=== PATIENT | male | born 1950 | race Caucasian/White ===

== ENCOUNTER 2017-08-04 11:47 | Emergency (ER) | payer BC ==
[2017-08-04 12:08] VITALS: BP 154/78
--- NOTE | 2017-08-04 12:44 | ED ---
Throat Pain/Nasal Congestion - HPI Summary HPI Summary: 66 yr old male with the complaint of sore throat. Onset yesterday. His grandchildren have tested positive for strep throat. He was blowing up balloons with them. No other complaints. No drooling, no stridor. - History of Current Complaint Chief Complaint: UCGeneralIllness Time Seen by Provider: 08/04/17 12:29 - Allergies/Home Medications Allergies/Adverse Reactions: Allergies Allergy/AdvReac Type Severity Reaction Status Date / Time No Known Allergies Allergy Verified 08/04/17 12:04 PMH/Surg Hx/FS Hx/Imm Hx Cardiovascular History: Denies: Hx Pacemaker/ICD Sensory History: Denies: Hx Hearing Aid Psychiatric History: Denies: Hx Panic Disorder - Surgical History Surgery Procedure, Year, and Place: Inguinal Herniorrhaphy, 1999, [place]; Tonsillectomy, ~1958, [place] Infectious Disease History: No Infectious Disease History: Denies: Traveled Outside the in Last 30 Days - Family History Known Family History: Positive: None - Social History Occupation: Retired Alcohol Use: 6 beers/daily Substance Use Type: Reports: None Smoking Status (MU): Former Smoker Length of Time of Smoking/Using Tobacco: On and Off x 3 Years Review of Systems Constitutional: Negative Positive: Sore Throat All Other Systems Reviewed And Are Negative: Yes Physical Exam Triage Information Reviewed: Yes Vital Signs On Initial Exam: Initial Vitals Temp Pulse Resp BP Pulse Ox 98.9 F 96 16 154/78 98 08/04/17 12:01 08/04/17 12:01 08/04/17 12:01 08/04/17 12:01 08/04/17 12:01 Vital Signs Reviewed: Yes Appearance: Positive: Well-Appearing, No Pain Distress Skin: Positive: Skin Color Reflects Adequate Perfusion Head/Face: Positive: Normal Head/Face Inspection Eyes: Positive: EOMI ENT: Positive: Pharyngeal erythema, TMs normal, Uvula midline. Negative: Tonsillar swelling, Tonsillar exudate, Muffled voice, Hoarse voice Neck: Positive: Nontender Respiratory/Lung Sounds: Positive: Clear to Auscultation, Breath Sounds Present Cardiovascular: Positive: RRR. Negative: Murmur Abdomen Description: Positive: Nontender Musculoskeletal: Positive: Strength/ROM Intact Neurological: Positive: Sensory/Motor Intact, Alert, Oriented to Person Place, Time, CN Intact II-III Psychiatric: Positive: Normal - Wykoff Coma Scale Best Eye Response: 4 - Spontaneous Best Motor Response: 6 - Obeys Commands Best Verbal Response: 5 - Oriented Coma Scale Total: 15 Diagnostics - Vital Signs Vital Signs Temp Pulse Resp BP Pulse Ox 08/04/17 12:01 98.9 F 96 16 154/78 98 - Laboratory Lab Results: Lab Results 08/04/17 Range/Units 12:22 Group A Strep Rapid Negative (Negative) Lab Statement: Any lab studies that have been ordered have been reviewed, and results considered in the medical decision making process. EENT Course/Dx - Course Course Of Treatment: Sore throat, HTN. WIll rx with amox due to the strep exposures and putting balloon in his mouth that was in his grandkids mouth. - Diagnoses Provider Diagnoses: Pharyngitis Discharge - Sign-Out/Discharge Documenting (check all that apply): Discharge/Admit/Transfer - Discharge Plan Condition: Good Disposition: HOME Prescriptions: Amoxicillin PO (*) [Amoxicillin 500 MG CAP*] 500 mg PO TID #30 cap Patient Education Materials: Pharyngitis (ED), Hypertension (ED) Referrals: Gary Mcintosh MD [Primary Care Provider] - 2 Days - Billing Disposition and Condition Condition: GOOD Disposition: HOME
== END 2017-08-04 12:46 | disposition home or self-care (01) ==
LOC: UCCORT 11:47
DX: J02.9 Acute pharyngitis, unspecified (principal); I10 Essential (primary) hypertension; Z20.828 Contact with and (suspected) exposure to other viral communicable diseases; Z87.891 Personal history of nicotine dependence
CPT/HCPCS: 87651; 99212; G0463

== ENCOUNTER 2017-11-23 12:47 | Emergency (ER) | payer BC ==
[2017-11-23 13:24] VITALS: BP 160/79
--- NOTE | 2017-11-23 13:30 | UC ---
Skin Complaint HPI - HPI Summary HPI Summary: 67 year old male with skin concern . 1) ~1x0.5cm blister on right proximal second finger, dorsal aspect for five days. Erythema at base and ~1.5mm discolored area distal to blister. 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 2) Increased bruising for one year. Takes a daily baby aspirin. Has a history of hemochromatosis and no acute concerns as he does give blood every 56 days on on a cross[place]country trip home and wants to make sure there is no concern for infection before he leaves. He otherwise feels great [ End ] - History of Current Complaint Chief Complaint: UCSkin Time Seen by Provider: 11/23/17 13:27 Stated Complaint: BLISTER ON FINGER Hx Obtained From: Patient Onset/Duration: Gradual Onset Timing: Constant Onset Severity: Mild Current Severity: Mild Pain Intensity: 0 - Allergy/Home Medications Allergies/Adverse Reactions: Allergies Allergy/AdvReac Type Severity Reaction Status Date / Time No Known Allergies Allergy Verified 11/23/17 13:24 Home Medications: Home Medications Aspirin EC TAB* [Ecotrin EC Low Dose 81 MG*] 81 mg PO DAILY 11/23/17 [History Confirmed 11/23/17] Sildenafil Citrate 50 mg PO SEE INSTRUCTIONS PRN 11/23/17 [History Confirmed 09/04] amLODIPine TAB* [Norvasc 5 mg TAB*] 2.5 mg PO DAILY 11/23/17 [History Confirmed 11/23/17] Review of Systems Skin: Bruising - easy, Other - blister Is Patient Immunocompromised?: No All Other Systems Reviewed And Are Negative: Yes PMH/Surg Hx/FS Hx/Imm Hx Previously Healthy: Yes - history of hemochromatosis Cardiovascular History: Hypertension - Surgical History Surgical History: Yes Surgery Procedure, Year, and Place: Right Inguinal Herniorrhaphy, 1999, [place] ; Tonsillectomy, ~1958, [place] - Family History Known Family History: Positive: None - Social History Alcohol Use: 5-6 daily Substance Use Type: None Smoking Status (MU): Former Smoker Length of Time of Smoking/Using Tobacco: On and Off x 3 Years When Did the Patient Quit Smoking/Using Tobacco: ~1991 Physical Exam Triage Information Reviewed: Yes Appearance: Well-Appearing, No Pain Distress, Well-Nourished Vital Signs: Initial Vital Signs Temp 97.6 F 11/23/17 13:19 Pulse 82 11/23/17 13:19 Resp 16 11/23/17 13:19 BP 160/79 11/23/17 13:19 Pulse Ox 100 11/23/17 13:19 Vital Signs Reviewed: Yes Eye Exam: Normal ENT Exam: Normal Dental Exam: Normal Neck exam: Normal Neck: Positive: 1 Respiratory Exam: Normal Cardiovascular Exam: Normal Musculoskeletal Exam: Normal Neurological Exam: Normal Psychological Exam: Normal Skin Exam: Normal Skin: Positive: significant lesion(s) - Small circular bruising on bilateral hands 2 x 2 mm. No significant ecchymosis or bruising. No swelling or effusion., Other - Small alveolar raised blister approximately 1.5 mm. No drainage. No surrounding erythema or streaking. No major tenderness to palpation. Fifth finger. Normal capillary refill and peripheral pulses are brisk. No other concerns. Course/Dx - Course Course Of Treatment: No acute concerns for infection at this time continue to monitor. I did place bacitracin as well as a Band-Aid over the blister to help prevent infection. He is aware to follow up with primary care physician if there is any concern for infection. Recent blood work no significant anemia and likely secondary to his use of aspirin and his age. Physical concerns. - Diagnoses Provider Diagnoses: Blister of right index finger. Hypertension Discharge - Sign-Out/Discharge Documenting (check all that apply): Patient Departure All imaging exams completed and their final reports reviewed: No Studies - Discharge Plan Condition: Good Disposition: HOME Patient Education Materials: Hypertension (ED), Blister (ED) Referrals: Gary Mcintosh MD [Primary Care Provider] - 4 Days (if any concerns ) - Billing Disposition and Condition Condition: GOOD Disposition: Home
== END 2017-11-23 13:44 | disposition home or self-care (01) ==
LOC: UCCORT 12:47
DX: X58.XXXA Exposure to other specified factors, initial encounter (principal); Y93.9 Activity, unspecified; Y92.9 Unspecified place or not applicable; S60.420A Blister (nonthermal) of right index finger, initial encounter; Z86.39 Personal history of other endocrine, nutritional and metabolic disease; I10 Essential (primary) hypertension; Z87.891 Personal history of nicotine dependence
CPT/HCPCS: 99212; G0463

== ENCOUNTER 2018-05-08 09:47 | Emergency (ER) | payer MEDICARE, BC ==
--- OUTSIDE RECORDS SUMMARY | 2018-05-08 10:55 | XMS REPORT | Continuity of Care Document ---
:1950 External Reference #:[id number] Author Name Angelica Barrera Care Team Providers Name Role Phone Gary Mcintosh MD Care Team Information Mechanic Insulator Unavailable Gary Mcintosh MD Primary Care Physician Unavailable Payers Date Identification Numbers Payment Provider Subscriber Policy Number: [id number] Medicare Rob Chaudhary PayID: [id number] [address] [facility] [place] [address] Policy Number: [id number] [facility] Rob Chaudhary PayID: [id number] [address] [address] [place] [address] Advance Directives Description No Information Available Problems Description No Information Family History Date Family Member(s) Observation Comments General Arthritis Mother General Asthma Mother General Prostate Cancer Father General Chronic Obstructive Pulmonary Disease Mother (COPD) General No Current Problems Father due to Hepaptitis C () - age 79 Mother due to Natural Causes () - age 90 First Brother 67 First Brother No Current Problems First Sister 69 First Sister No Current Problems Social History Type Date Description Comments Sex Male Marital Status Sleep Typically sleeps 8 hours a night Sleep Reports snoring that disturbs sleep Smoke-Free Home is smoke-free Pets 1 dog Work Status Not Currently Working Blood Donor Patient is a blood donor Tobacco Use Start: Unknown End: Former Cigarette Smoker Unknown ETOH Use Daily Use Of Alcohol Recreational Drug Use Denies Drug Use Allergies, Adverse Reactions, Alerts Description No Known Drug Allergies Medications Medication Date Status Form Strength Qnty SIG Indications Ordering Provider Amlodipine Active Tablets 2.5mg 1 by Unknown Besylate 00 mouth every day Immunizations Description No Information Available Vital Signs Date Vital Result Comment 05/01/2018 8:51am Weight 201.00 lb Height 71 inches 5'11" BMI (Body Mass Index) 28.0 kg/m2 BP Systolic 151 mmHg BP Diastolic 84 mmHg Heart Rate 99 /min O2 % BldC Oximetry 97 % Body Temperature 97.9 F Pain Level 0 04/10/2018 10:31am Weight 196.00 lb Height 71 inches 5'11" BMI (Body Mass Index) 27.3 kg/m2 BP Systolic 142 mmHg BP Diastolic 89 mmHg Heart Rate 97 /min O2 % BldC Oximetry 98 % Body Temperature 96.6 F Franklin Score 8 Neck Circumference in inches 16 Pain Level 0 Results Description No Information Available Procedures Date Code Description Status 04/12/2018 16517 Sleep Staging 4Or More Para Completed 04/10/2018 53435 Fiberoptic Laryngoscopy,Diag. Completed 01/18/2018 64138658 Colonoscopy Completed Encounters Type Date Location Provider Dx Diagnosis Office Visit 04/10/2018 10:30a Main Office Darnell Barrientos M.D. R06.83 Snoring G47.9 Sleep disorder, unspecified J34.2 Deviated nasal septum Plan of Treatment No Information Available
--- OUTSIDE RECORDS SUMMARY | 2018-05-08 10:55 | XMS REPORT | Continuity of Care Document ---
:1950 External Reference #:[id number] Author Name Angelica Barrera Care Team Providers Name Role Phone Gary Mcintosh MD Care Team Information Top Stop Attacher Unavailable Gary Mcintosh MD Primary Care Physician Unavailable Payers Type Date Identification Numbers Payment Provider Subscriber Policy Number: [id number] Medicare Rob Chaudhary PayID: [id number] [address] [place] [address] Policy Number: [id number] [facility] Rob Chaudhary PayID: [id number] [address] [address] [place] [address] Advance Directives Description No Information Available Problems Description No Information Family History Date Family Member(s) Problem(s) Comments General Arthritis Mother General Asthma Mother [...] Available Vital Signs Date Vital Result Comment 04/10/2018 10:31am Weight 196.00 lb Height 71 inches 5'11" BMI (Body Mass Index) 27.3 kg/m2 BP Systolic 142 mmHg BP Diastolic 89 mmHg Heart Rate 97 /min O2 % BldC Oximetry 98 % Body Temperature 96.6 F Santee Score 8 Neck Circumference in inches 16 Pain Level 0 Results Description No Information Available Procedures Date Code Description Status 01/18/2018 97861364 Colonoscopy Completed Encounters Description No Information Available Plan of Treatment No Information Available
[2018-05-08 11:07] VITALS: BP 126/70
--- NOTE | 2018-05-08 11:22 | UC ---
Skin Complaint HPI - HPI Summary HPI Summary: rash mid chest area x 10 days getting worse and spreading, + itchy , no significant pain , worse with moisture and heat, better when is cool no new soap , detergent , food or drinks no fever, no chills - History of Current Complaint Chief Complaint: UCSkin Time Seen by Provider: 05/08/18 11:10 Stated Complaint: SKIN COMPLAINT Hx Obtained From: Patient Onset/Duration: Gradual Onset, Lasting Days - 10, Still Present Timing: Constant Onset Severity: Moderate Current Severity: Moderate Pain Intensity: 1 Location: Discrete - mid chest wall Character: Pruritus, Redness, Raised Aggravating Factor(s): Humidity, Touch Alleviating Factor(s): Cold Associated Signs & Symptoms: Negative: Nausea, Vomiting, Numbness, Diaphoresis, Weakness, Fever, Chills, Drainage - Allergy/Home Medications Allergies/Adverse Reactions: Allergies Allergy/AdvReac Type Severity Reaction Status Date / Time No Known Allergies Allergy Verified 05/08/18 11:00 PMH/Surg Hx/FS Hx/Imm Hx Cardiovascular History: Hypertension - Surgical History Surgical History: Yes Surgery Procedure, Year, and Place: Right Inguinal Herniorrhaphy, 1999, [place] ; Tonsillectomy, ~1958, [place] - Family History Known Family History: Positive: None Negative: Diabetes - Social History Alcohol Use: Daily Alcohol Amount: 6-pack/day Substance Use Type: None Smoking Status (MU): Former Smoker Length of Time of Smoking/Using Tobacco: On and Off x 3 Years When Did the Patient Quit Smoking/Using Tobacco: ~1991 - Immunization History Most Recent Tetanus Shot: UTD Review of Systems All Other Systems Reviewed And Are Negative: Yes Constitutional: Positive: Negative Skin: Positive: Rash Eyes: Positive: Negative ENT: Positive: Negative Respiratory: Positive: Negative Is Patient Immunocompromised?: No Physical Exam Triage Information Reviewed: Yes Appearance: Well-Appearing, No Pain Distress, Well-Nourished Vital Signs: Initial Vital Signs Temp 97.3 F 05/08/18 11:02 Pulse 73 05/08/18 11:02 Resp 16 05/08/18 11:02 BP 126/70 05/08/18 11:02 Pulse Ox 99 05/08/18 11:02 Vital Signs Reviewed: Yes Eye Exam: Normal ENT: Positive: Normal ENT inspection, Hearing grossly normal Neck: Positive: Supple, Nontender, No Lymphadenopathy Respiratory: Positive: Chest non-tender, Lungs clear, Normal breath sounds Cardiovascular: Positive: RRR, No Murmur, Pulses Normal Skin: Positive: Rashes - papular rash mid chest wall , + erythema, not tender to touch , Course/Dx - Diagnoses Provider Diagnosis: Folliculitis Discharge - Sign-Out/Discharge Documenting (check all that apply): Patient Departure All imaging exams completed and their final reports reviewed: No Studies - Discharge Plan Condition: Stable Disposition: HOME Prescriptions: Cephalexin CAP* [Keflex CAP*] 500 mg PO TID #30 cap Triamcinolone 0.1% CREAM (NF) [Kenalog 0.1% Cream (NF)] 1 applic TOPICAL BID # 60 gm Patient Education Materials: Folliculitis (ED) Referrals: Gary Mcintosh MD [Primary Care Provider] - If Needed - Billing Disposition and Condition Condition: STABLE Disposition: Home
== END 2018-05-08 11:24 | disposition home or self-care (01) ==
LOC: UCCORT 09:47
DX: L73.9 Follicular disorder, unspecified (principal); I10 Essential (primary) hypertension; Z87.891 Personal history of nicotine dependence
CPT/HCPCS: 99212; G0463

== ENCOUNTER 2018-05-18 09:48 | Emergency (ER) | payer MEDICARE, BC ==
[2018-05-18 10:39] VITALS: BP 139/82
--- NOTE | 2018-05-18 11:00 | UC ---
Upper Extremity HPI - HPI Summary HPI Summary: 57-year-old male presents with complaints of right wrist pain after slipping on some ice yesterday and striking the back of his wrist on the ground. Denies hitting head, loss of consciousness, or any other injury. Notes some bruising and mild swelling to the back of his mid right wrist. Also reports diminished extension of the wrist due to pain. Denies numbness or tingling. - History of Current Complaint Chief Complaint: UCUpperExtremity Stated Complaint: S/P FALL-(05/17/18)RT WRIST INJURY Time Seen by Provider: 05/18/18 10:47 Hx Obtained From: Patient Pain Intensity: 5 - Allergies/Home Medications Allergies/Adverse Reactions: Allergies Allergy/AdvReac Type Severity Reaction Status Date / Time No Known Allergies Allergy Verified 05/18/18 10:36 PMH/Surg Hx/FS Hx/Imm Hx Previously Healthy: Yes Cardiovascular History: Hypertension - Surgical History Surgical History: Yes Surgery Procedure, Year, and Place: Right Inguinal Herniorrhaphy, 1999, [place] ; Tonsillectomy, ~1958, [place] - Family History Known Family History: Positive: Non-Contributory - Social History Occupation: Retired Lives: With Family Alcohol Use: Daily Alcohol Amount: 6-pack/day Substance Use Type: None Smoking Status (MU): Former Smoker Length of Time of Smoking/Using Tobacco: On and Off x 3 Years When Did the Patient Quit Smoking/Using Tobacco: ~1991 - Immunization History Most Recent Tetanus Shot: UTD Review of Systems All Other Systems Reviewed And Are Negative: Yes Constitutional: Negative: Fever, Chills Skin: Positive: Bruising Respiratory: Positive: Negative Cardiovascular: Positive: Negative Gastrointestinal: Positive: Negative Genitourinary: Positive: Negative Motor: Negative: Weakness Neurovascular: Negative: Decreased Sensation Musculoskeletal: Positive: Other: - See HPI Neurological: Positive: Negative Is Patient Immunocompromised?: No Physical Exam - Summary Physical Exam Summary: GENERAL APPEARANCE: Well developed, well nourished, alert and cooperative, and appears to be in no acute distress. HEAD: Atraumatic. normocephalic. NECK: Neck supple, non-tender. CARDIAC: Normal S1 and S2. No S3, S4 or murmurs. Rhythm is regular. There is no peripheral edema, cyanosis or pallor. Extremities are warm and well perfused. Capillary refill is less than 2 seconds. Peripheral pulses intact. LUNGS: Clear to auscultation without rales, rhonchi, wheezing or diminished breath sounds. ABDOMEN: Positive bowel sounds. Soft, nondistended, nontender. No guarding or rebound. No masses or hepatosplenomegally. MUSKULOSKELETAL: Normal muscular development. Normal gait. BACK: Examination of the spine reveals normal posture, no spinal deformity or tenderness, decreased range of motion or muscular spasm. EXTREMITIES: Mild tenderness with ecchymosis to the mid right wrist without gross deformity. Active flexion diminished due to pain. Circulation and sensation intact distally. SKIN: Skin normal color, texture and turgor with no lesions or eruptions. Triage Information Reviewed: Yes Vital Signs: Initial Vital Signs Temp 97.9 F 05/18/18 10:34 Pulse 76 05/18/18 10:34 Resp 15 05/18/18 10:34 BP 139/82 05/18/18 10:34 Pulse Ox 99 05/18/18 10:34 Vital Signs Reviewed: Yes Diagnostics - Radiology No standard instances Radiology Interpretation Completed By: Radiologist Summary of Radiographic Findings: Patient Name: LUIS ALBERTO YEE Medical Record#: [id number]. Ordering Physician: Eric Alvarez NP Acct.#: [id number]. : 1950 Age: 67 Sex: M Location: [facility]. Exam Date: 05/18/181103 ADM Status: REG ER. Order Information: WRIST RIGHT 3 + VWS. Accession Number: [id number]. CPT: 68646. HISTORY: pain s/p fall right wrist pain. COMPARISONS: None. VIEWS: 3, Frontal, lateral, and oblique views of the right wrist. FINDINGS: BONE DENSITY: Normal. BONES: There is no displaced fracture. JOINTS: There is no arthropathy. ALIGNMENT: There is no dislocation. SOFT TISSUES: Unremarkable. OTHER FINDINGS: None. IMPRESSION: NO ACUTE OSSEOUS INJURY. Upper Extremity Course/Dx - Course Course Of Treatment: 57-year-old male presents with complaints of right wrist pain after slipping on some ice yesterday and striking the back of his wrist on the ground. Denies hitting head, loss of consciousness, or any other injury. Notes some bruising and mild swelling to the back of his mid right wrist. Also reports diminished extension of the wrist due to pain. Denies numbness or tingling. Afebrile. Vital signs stable. Exam reveals dental male in no acute distress with mild tenderness and ecchymosis to his mid right wrist without gross deformity. There is some diminished active range of motion especially with extension due to pain. Circulation and sensation intact distally. X-ray showed no acute fracture or dislocation. Recommending symptomatic treatment with acetaminophen and RICE for a contusion of the right wrist. He is to follow -up with his primary care provider in 7 days if symptoms do not improve. Anticipatory guidance hands warning symptoms were reviewed with the patient. Verbalizes understanding and agrees with plan of care. - Differential Dx/Diagnosis Differential Diagnosis/HQI/PQRI: Contusion, Fracture (Closed), Sprain Provider Diagnosis: Contusion of right wrist Discharge - Sign-Out/Discharge Documenting (check all that apply): Patient Departure All imaging exams completed and their final reports reviewed: Yes - Discharge Plan Condition: Stable Disposition: HOME Patient Education Materials: Contusion in Adults (ED) Referrals: Gary Mcintosh MD [Primary Care Provider] - 7 Days (If no improvement in symptoms.) Additional Instructions: The x-ray performed in the clinic today showed no evidence of a fracture. I suspect that you have a contusion (bruise) of the wrist. Rest the wrist as much as possible. Avoid heavy lifting or strenuous activity until pain subsides. Apply ice to the affected area for 15-20 minutes at least 4 times a day to help with pain and swelling. Elevated the arm at the level of your heart to help reduce any swelling. May take over the counter acetaminophen (Tylenol) according to directions as needed for pain. Follow up with your primary care provider in 7 days if no improvement in symptoms. Seek immediate medical attention if you have worsening of pain despite taking pain medication, develop numbness or tingling in the hand or fingers, lose function of the extremity, or any worsening of symptoms. - Billing Disposition and Condition Condition: STABLE Disposition: Home - Attestation Statements Provider Attestation: Per institutional requirements, I have reviewed the chart, however, I was not consulted specifically or made aware of this patient by the midlevel provider. I did not personally evaluate, interact with , or disposition this patient.
== END 2018-05-18 11:48 | disposition home or self-care (01) ==
LOC: UCCORT 09:48
DX: S60.211A Contusion of right wrist, initial encounter (principal); I10 Essential (primary) hypertension; Z87.891 Personal history of nicotine dependence; W00.0XXA Fall on same level due to ice and snow, initial encounter; Y92.9 Unspecified place or not applicable
CPT/HCPCS: 99211; G0463

== ENCOUNTER 2018-08-21 10:48 | Emergency (ER) | payer MEDICARE, BC ==
--- OUTSIDE RECORDS SUMMARY | 2018-08-21 11:00 | XMS REPORT | Continuity of Care Document ---
:1950 External Reference #:[id number] Author Name Sue Riggs Care Team Providers Name Role Phone Gary Mcintosh MD Primary Care Physician Unavailable Payers Date Identification Numbers Payment Provider Subscriber Policy Number: [id number] Medicare Rob Chaudhary PayID: [id number] [address] [place] [address] Effective: 1993 Policy Number: [id number] [facility] Rob Chaudhary Group Number: [id number] [address] PayID: [id number] [place] [address] Problems Active Problems Provider Date Mitral valve disorder Gauss, Gary Onset: 11/23/2010 Benign hypertensive heart disease without congestive Gauss, Gary Onset: 11/23 heart failure Hyperlipidemia Gauss, Gary Onset: 11/23/2010 Osteoporosis Gauss, Gary Onset: 11/23/2010 Palpitations Gauss, Gary Onset: 11/23/2010 Dyspnea Gauss, Gary Onset: 11/23/2010 Needs influenza immunization Gauss, Gary Onset: 11/23/2010 Acquired trigger finger Gauss, Gary Onset: 11/23/2010 Carotid artery occlusion Gauss, Gary Onset: 11/23/2010 Injury of finger Gauss, Gary Onset: 11/23/2010 General Gauss, Gary Onset: 11/23/2010 Sciatica Gauss, Gary Onset: 11/23/2010 Right lower quadrant pain Gauss, Gary Onset: 11/23/2010 Acute pharyngitis Gauss, Gary Onset: 11/23/2010 Heart murmur Gauss, Gary Onset: 11/23/2010 Acute bronchitis Gauss, Gary Onset: 11/23/2010 Chronic sinusitis Gauss, Gary Onset: 11/23/2010 Sprain of joint Gauss, Gary Onset: 11/23/2010 Abdominal pain Jaspal Mcintoshl Onset: 11/23/2010 Family History Date Family Member(s) Observation Comments General Hemochromatosis General Hepatitis C FATHER Father Hepatitis C Social History Type Date Description Comments Sex Unknown Marital Status Tobacco Use Start: Unknown Denies Smoking ETOH Use Occasionally consumes beer Tobacco Use Start: Unknown End: Patient is a former smoker Unknown Recreational Drug Use Never Used Drugs Smoking Status Reviewed: 02/27/17 Patient is a former smoker Seat Belt/Car Seat Always uses a seat belt Currently Active The patient is currently sexually active Allergies, Adverse Reactions, Alerts Active Allergies Reaction Severity Comments Date NKDA 11/23/2010 menthyl 09/07/2005 Medications Active Medications SIG Qnty Indications Ordering Provider Date Tamsulosin HCL 1 by mouth every 90caps N40.1 Gary Mcintosh 08/14/2018 0.4mg day Capsules Doxazosin Mesylate 1 PO QHS 30tabs N40.1 Gary Mcintosh 08/14/2018 2mg Tablets Amlodipine Besylate 1 by mouth every 90tabs I11.9 Gary Mcintosh 08/14/2018 5mg day Tablets Basia Allergy 1 by mouth every 30tabs T78.40xD Arnaldo Gary 08/14/2018 180mg day Tablets Fluticasone 2 spray each 16gm T78.40xD Arnaldo Gary 08/14/2018 Propionate nostril every day 50mcg/Act Suspension Viagra 1 by mouth as 6tabs F52.21 Gary Mcintosh 02/27/2017 50mg Tablets needed History Medications Doxycycline 1 by mouth twice 14caps S70.262A Gary Mcintosh 01/29/2018 - Monohydrate a day 03/19/2018 100mg Capsules Amlodipine Besylate 1 by mouth every 90tabs I11.9 Gary Mcintosh 09/19/2017 - day 08/14/2018 2.5mg Tablets Guaifenex LA 1 by mouth twice 14tabs J20.9 Gary Mcintosh 04/24/2017 - 600mg a day as needed 09/04/2017 Tablets ER 12HR Azithromycin 2 by mouth 6tabs J20.9 Gary Mcintosh 04/24/2017 - 250mg today, 1 by 09/04/2017 Tablets mouth day 2 thru 5 Aspirin Regimen Low Gary Mcintosh 01/17/2017 - Dose Adult 01/29/[address] Azithromycin 2 by mouth 6tabs J11.83 Gary Mcintosh 05/02/2016 - 250mg today, 1 by 01/17/2017 Tablets mouth day 2 thru 5 Naproxen 1 by mouth twice 60tabs M54.5 Gary Mcintosh 01/26/2016 - 500mg Tablets a day as needed 09/04/2017 Amoxicillin/Potassium Gary Mcintosh 10/20/2015 - Clavulanate 10/20/2015 875-125mg Tablets Diflucan 1 by mouth every 14tabs B35.9 Gary Mcintosh 10/20/2015 - 200mg Tablets day 11/04/2015 Doxycycline Hyclate 1 by mouth twice 28caps B35.9 Gary Mcintosh 10/20/2015 - a day 01/12/2016 100mg Capsules No Active Medications Unknown 05/05/2015 - 05/05/2015 Zostavax injection as 1units Gary Mcintosh 05/05/2015 - ordered 03/19/2018 94606Elb/0.65ML Solution Rec Amoxicillin/Clavulana 1 by mouth twice 14tabs J20.8 Tyra Arnaldo, 2014 - te Potassium a day M.D. 05/05/2015 500-125mg Tablets Tobramycin-Dexamethas 1-2 gtts OU qid 10ml 372.30 Gary Mcintosh 01/08/2014 - one 01/12/2015 0.3-0.1% Suspension Pravastatin Sodium 1 po qd 90tabs 272.4 Gary Mcintosh 06/11/2013 - 20mg 01/12/2015 Tablets Aspirin Low Dose 1 po qd 100tabs Gary Mcintosh 05/20/2013 - 81mg 01/12/2015 Tablets Doxy 100 1 PO bid 28units 082.8 Gary Mcintosh 01/22/2013 - 100mg Solution 05/20/2013 Rec Doxycycline 1 po bid 20caps 911.5 Gary Mcintosh 07/03/2012 - Monohydrate 07/09/2012 100mg Capsules Doxycycline Hyclate 1 po bid 20caps 402.10 Gary Mcintosh 01/24/2011 - 05/16/2011 100mg Capsules Pravastatin Sodium 1 po qd 90tabs 272.4 Jaspal Mcintoshl 11/23/2010 - 40mg 06/11/2013 Tablets Naproxen 1 po bid with 30tabs 959.5 Jaspal Mcintoshl 03/31/2009 - 500mg Tablets food 11/23/2010 Fish Oil qd Arnadlo Gary 11/18/2008 - 1000mg 11/23/2010 Capsules Vit D Arnaldo Gary 02/05/2007 - Caplets 11/18/2008 Asa 81 Jaspal Mcintoshl 02/05/2007 - 81mg 11/18/2008 [facility] Jaspal Mcintoshl 11/29/2006 - 05/05/2015 Zetia 1 PO qd 90tabs Arnaldo Gary 07/10/2006 - 10mg Tablets 11/18/2008 Lipitor 1 po qd 90tabs 272.40 Arnaldo Gary 05/17/2006 - 20mg Tablets 07/10/2006 [facility] 1 po qd Arnaldo Gary 09/07/2005 - 09/07/2005 Multivitamins Arnaldo Gary 09/07/2005 - Caplets 01/12/2015 Amoxicillin 2 po bid 40tabs 466.0 Jaspal Mcintoshl 09/07/2005 - 500mg 2005 Tablets Nystatin-Triamcinolon apply affected Unknown - e area as 01/17/2017 412369-5.1Unit/GM-% indicated twice Cream a day Medications Administered in Office Medication SIG Qnty Indications Ordering Provider Date H1N1 Administration-Use Arnaldo Gary 01/26/2009 Injection Immunizations CPT Code Status Date Vaccine Lot # [id number] Given 03/19/2018 Influenza Virus (Afluria) Split Virus 3 Years [id number] Of Age And Older 34001 Given 03/19/2018 Pneumovax Polyvalent Inj Im [id number] Given 01/17/2017 Influenza Virus (Afluria) Split Virus 3 Years Of Age And Older 22886 Given 06/03/2015 Zostavax 63308 Given 11/23/2010 Tetanus,Diphtheria,Adut/Adol Pertussis [id number] 99548 Given 11/23/2010 Tetanus Shot 45788 Given 12/17/2009 Influenza Vaccine 62779 Given 12/11/2008 Influenza Vaccine [id number] 36856 Given 04/01/2003 Influenza Virus Vaccine (History Only) 00073 Given 11/23/2001 DT Immunization DIP/Tet (History Only) Vital Signs Date Vital Result Comment 08/14/2018 10:50am BP Systolic 158 mmHg BP Diastolic 92 mmHg Heart Rate 72 /min Weight 195.00 lb 03/19/2018 10:15am BP Systolic 140 mmHg BP Diastolic 86 mmHg Heart Rate 61 /min Height 72 inches 6'0" Weight 192.00 lb BMI (Body Mass Index) 26.0 kg/m2 O2 % BldC Oximetry 99 % 01/29/2018 3:28pm BP Systolic 134 mmHg BP Diastolic 78 mmHg Heart Rate 79 /min Height 72 inches 6'0" O2 % BldC Oximetry 97 % 09/19/2017 11:27am BP Systolic 146 mmHg BP Diastolic 80 mmHg Height 72 inches 6'0" Weight 193.00 lb BMI (Body Mass Index) 26.2 kg/m2 09/04/2017 11:56am BP Systolic 160 mmHg BP Diastolic 88 mmHg Heart Rate 90 /min Height 72 inches 6'0" Weight 194.00 lb BMI (Body Mass Index) 26.3 kg/m2 O2 % BldC Oximetry 96 % 08/08/2017 11:08am BP Systolic 132 mmHg BP Diastolic 78 mmHg Heart Rate 80 /min Body Temperature 97.1 F Height 72 inches 6'0" Weight 192.00 lb BMI (Body Mass Index) 26.0 kg/m2 O2 % BldC Oximetry 97 % 04/24/2017 10:03am BP Systolic 148 mmHg BP Diastolic 98 mmHg Heart Rate 103 /min Body Temperature 97.6 F Respiratory Rate 18 /min Height 72 inches 6'0" Weight 192.00 lb BMI (Body Mass Index) 26.0 kg/m2 O2 % BldC Oximetry 97 % 03/21/2017 10:24am BP Systolic 154 mmHg BP Diastolic 80 mmHg Heart Rate 64 /min Respiratory Rate 20 /min 02/27/2017 11:29am BP Systolic 128 mmHg BP Diastolic 68 mmHg Height 72 inches 6'0" Weight 192.00 lb BMI (Body Mass Index) 26.0 kg/m2 01/17/2017 11:20am BP Systolic 122 mmHg BP Diastolic 68 mmHg Height 72 inches 6'0" Weight 193.00 lb BMI (Body Mass Index) 26.2 kg/m2 05/02/2016 2:05pm BP Systolic 130 mmHg BP Diastolic 68 mmHg Body Temperature 97.7 F 01/26/2016 11:10am BP Systolic 144 mmHg BP Diastolic 80 mmHg 01/12/2016 11:26am BP Systolic 122 mmHg BP Diastolic 70 mmHg 11/04/2015 1:30pm BP Systolic 138 mmHg BP Diastolic 70 mmHg 05/05/2015 10:38am BP Systolic 132 mmHg BP Diastolic 68 mmHg Height 72 inches 6'0" Weight 174.00 lb BMI (Body Mass Index) 23.6 kg/m2 03/04/2015 3:14pm BP Systolic 122 mmHg BP Diastolic 70 mmHg Body Temperature 97.8 F 02/24/2015 11:30am BP Systolic 120 mmHg BP Diastolic 80 mmHg 01/12/2015 2:48pm BP Systolic 150 mmHg BP Diastolic 72 mmHg Height 72 inches 6'0" Weight 189.00 lb BMI (Body Mass Index) 25.6 kg/m2 01/08/2014 11:10am BP Systolic 132 mmHg BP Diastolic 70 mmHg Body Temperature 96.7 F 06/11/2013 11:03am BP Systolic 140 mmHg BP Diastolic 78 mmHg 05/20/2013 2:26pm BP Systolic 146 mmHg BP Diastolic 82 mmHg Height 72 inches 6'0" Weight 199.00 lb BMI (Body Mass Index) 27.0 kg/m2 01/29/2013 2:32pm BP Systolic 124 mmHg BP Diastolic 60 mmHg 01/22/2013 3:22pm BP Systolic 118 mmHg BP Diastolic 72 mmHg Body Temperature 97.5 F Height 72 inches 6'0" 07/09/2012 3:39pm BP Systolic 130 mmHg BP Diastolic 70 mmHg Height 72 inches 6'0" 07/03/2012 1:58pm BP Systolic 130 mmHg BP Diastolic 68 mmHg Body Temperature 95.4 F Height 72 inches 6'0" 04/23/2012 2:53pm BP Systolic 122 mmHg BP Diastolic 70 mmHg Height 72 inches 6'0" Weight 200.00 lb BMI (Body Mass Index) 27.1 kg/m2 03/26/2012 3:04pm BP Systolic 154 mmHg BP Diastolic 78 mmHg Heart Rate 76 /min Height 72 inches 6'0" 05/16/2011 3:42pm BP Systolic 140 mmHg BP Diastolic 90 mmHg Height 72 inches 6'0" 04/27/2011 10:53am BP Systolic 122 mmHg BP Diastolic 70 mmHg Body Temperature 95.2 F Height 72 inches 6'0" 01/24/2011 2:55pm BP Systolic 189 mmHg BP Diastolic 84 mmHg Body Temperature 98.8 F Height 72 inches 6'0" 01/11/2011 11:49am BP Systolic 148 mmHg BP Diastolic 82 mmHg Height 72 inches 6'0" Weight 202.00 lb BMI (Body Mass Index) 27.4 kg/m2 11/23/2010 3:47pm BP Systolic 132 mmHg BP Diastolic 78 mmHg Height 72 inches 6'0" 11/16/2009 10:15am BP Systolic 140 mmHg BP Diastolic 80 mmHg Weight 193.00 lb 05/18/2009 3:48pm BP Systolic 148 mmHg BP Diastolic 92 mmHg Weight 206.00 lb 03/31/2009 2:53pm BP Systolic 104 mmHg BP Diastolic 64 mmHg Weight 200.00 lb 11/18/2008 1:32pm BP Systolic 134 mmHg BP Diastolic 84 mmHg Weight 191.00 lb 02/05/2007 3:23pm BP Systolic 122 mmHg BP Diastolic 78 mmHg Height 72 inches 6'0" Weight 189.31 lb BMI (Body Mass Index) 25.7 kg/m2 12/13/2006 11:17am BP Systolic 128 mmHg BP Diastolic 80 mmHg Height 72 inches 6'0" 11/29/2006 3:24pm BP Systolic 132 mmHg BP Diastolic 84 mmHg Height 72 inches 6'0" Weight 190.00 lb BMI (Body Mass Index) 25.8 kg/m2 10/17/2006 12:06pm BP Systolic 134 mmHg BP Diastolic 80 mmHg Height 72 inches 6'0" Weight 182.00 lb BMI (Body Mass Index) 24.7 kg/m2 07/10/2006 1:32pm BP Systolic 124 mmHg BP Diastolic 76 mmHg Height 72 inches 6'0" Weight 188.00 lb BMI (Body Mass Index) 25.5 kg/m2 05/17/2006 1:35pm BP Systolic 140 mmHg BP Diastolic 80 mmHg Height 72 inches 6'0" Weight 183.00 lb BMI (Body Mass Index) 24.8 kg/m2 04/12/2006 10:24am BP Systolic 122 mmHg BP Diastolic 64 mmHg Height 72 inches 6'0" Weight 191.00 lb BMI (Body Mass Index) 25.9 kg/m2 09/07/2005 3:11pm BP Systolic 120 mmHg BP Diastolic 78 mmHg Heart Rate 86 /min Body Temperature 97.7 F Height 72 inches 6'0" Weight 176.00 lb BMI (Body Mass Index) 23.9 kg/m2 O2 % BldC Oximetry 96 % Results Test Date Facility Test Result H/L Range Note Laboratory test 07/30/2018 [facility] Testosterone 265.81 N 240 -[address] Total ng/dL [place], [place] [id number] [phone] PSA Screening 4.197 ng/mL High 0-4.000 1 CBC No Diff 07/30/2018 [facility] White Blood 9.2 10^3/uL N 3.5 -10.[address] Count [place], [place] [id number] [phone] Red Blood Count 4.78 10^6/uL N 4.18-5.48 Hemoglobin 14.8 g/dL N 14.0-18.0 Hematocrit 44 % N 42-52 Mean Corpuscular Volume 92 fL N 80-94 Mean Corpuscular Hemoglobin 31 pg N 27-31 Mean Corpuscular HGB Conc 34 g/dL N 31-36 Red Cell Distribution Width 13 % N 10.5-15 Platelet Count 191 10^3/uL N 150-450 Mean Platelet Volume 10.7 fL High 7.4-10.4 .TSH+Free T4 07/30/2018 [place] TSH (Thyroid 1.63 mcIU/mL N 0.34-5.60 ([place] [facility] Stim Horm) [facility]) [place], [place] [id number] [phone] Free T4 (Free Thyroxine) 0.68 ng/dL N 0.61-1.12 Comp Metabolic Panel 07/30/2018 [facility] Sodium 140 mmol/L N [phone] [place], [place] [id number] [phone] Potassium 4.4 mmol/L N 3.5-5.0 Chloride 104 mmol/L N 101-111 Co2 Carbon Dioxide 22 mmol/L N 22-32 Anion Gap 14 mmol/L High 2-11 Glucose 88 mg/dL N 70-100 Blood Urea Nitrogen 19 mg/dL N 6-24 Creatinine 0.94 mg/dL N 0.67-1.17 BUN/Creatinine Ratio 20.2 High 8-20 Calcium 9.4 mg/dL N 8.6-10.3 Total Protein 6.3 g/dL Low 6.4-8.9 Albumin 4.1 g/dL N 3.2-5.2 Globulin 2.2 g/dL N 2-4 Albumin/Globulin Ratio 1.9 N 1-3 Total Bilirubin 0.50 mg/dL N 0.2-1.0 Alkaline Phosphatase 58 U/L N 34-104 Alt 26 U/L N 7-52 Ast 26 U/L N 13-39 Egfr Non- 80.5 >60 Egfr 97.5 >60 2 Lipid Profile 07/30/2018 [facility] Triglycerides 132 mg/dL 3 (Trig/Chol/HDL) [address] [place] [address] [phone] Cholesterol 266 mg/dL 4 HDL Cholesterol 80.2 mg/dL 5 LDL Cholesterol 159 mg/dL 6 Lipid Profile 02/20/2018 [facility] Triglycerides 278 mg/dL 7 (Trig/Chol/HDL) [address] [place] [address] [phone] Cholesterol 296 mg/dL 8 HDL Cholesterol 79.9 mg/dL 9 LDL Cholesterol 161 mg/dL 10 Liver Function 02/20/2018 [facility] Total Protein 6.5 g/dL N 6.4-8.9 Panel [address] [place] [address] [phone] Albumin 4.4 g/dL N 3.2-5.2 Globulin 2.1 g/dL N 2-4 Albumin/Globulin Ratio 2.1 N 1-3 Total Bilirubin 0.80 mg/dL N 0.2-1.0 Direct Bilirubin 0.10 mg/dL N 0.03-0.18 Indirect Bilirubin 0.7 mg/dL N 0.3-1.0 Alkaline Phosphatase 48 U/L N 34-104 Alt 27 U/L N 7-52 Ast 26 U/L N 13-39 Laboratory test 08/04/2017 [facility] Strep Negative Negative 11 finding [address] [place] [address] [phone] Laboratory test 02/02/2017 [facility] TSH (Thyroid 1.84 mcIU/mL N 0.34-5.[address] Stim Horm) [place] [id number] [phone] LDL Cholesterol Direct 107 mg/dL 12 Free T4 (Free Thyroxine) 0.75 ng/dL N 0.61-1.12 Basic Metabolic Panel 02/02/2017 [facility] Sodium 138 mmol/L N [phone] [place] [id number] [phone] Potassium 4.6 mmol/L N 3.5-5.0 Chloride 103 mmol/L N 101-111 Co2 Carbon Dioxide 29 mmol/L N 22-32 Anion Gap 6 mmol/L N 2-11 Glucose 94 mg/dL N 70-100 Blood Urea Nitrogen 16 mg/dL N 6-24 Creatinine 0.95 mg/dL N 0.67-1.17 BUN/Creatinine Ratio 16.8 N 8-20 Calcium 8.8 mg/dL N 8.6-10.3 Egfr Non- 79.8 >60 Egfr 102.6 >60 13 Laboratory test 02/02/2017 [facility] Vitamin D Total 20.4 ng/mL N 20-50 finding [address] [facility] [address]) [place] [address] [phone] Lipid Panel 02/02/2017 [facility] Triglycerides 728 mg/dL 14 [address] [place] [address] [phone] Cholesterol 306 mg/dL 15 HDL Cholesterol 60.2 mg/dL 16 LDL Cholesterol (SEE NOTE) mg/dL 17 Laboratory test 02/02/2017 [facility] PSA Screening 3.631 ng/mL N 0-4.000 18 finding [address] [place] [address] [phone] Testosterone Total 274.73 ng/dL N 240-950 Vitamin 01/12/2016 [facility] Vitamin 309 pg/mL 200-1100 19 B12/Folate Panel [address] B12,[place] [address] [phone] Folate,Serum >24.0 NG/ML 20 TSH & T4,Free 01/12/2016 [facility] TSH 1.97 mIU/L 0.40-4.[address] [place] [id number] [phone] T4,Free 1.1 ng/dL 0.8-1.8 Laboratory test finding 01/12/2016 [facility] Glucose 99 mg/dL 65-99 21 [address] [place] [address] [phone] Hemoglobin A1c 5.3 % 0.0-5.6 22 BMP W/O Egfr 10/28/2015 [facility] Sodium 137 mmol/L N [phone] [place] [address] [phone] Potassium 4.9 mmol/L N 3.5-5.0 Chloride 101 mmol/L N 101-111 Co2 Carbon Dioxide 29 mmol/L N 22-32 Anion Gap 7 mmol/L N 2-11 Glucose 97 mg/dL N 70-100 Blood Urea Nitrogen 19 mg/dL N 6-24 Creatinine 0.98 mg/dL N 0.67-1.17 BUN/Creatinine Ratio 19.4 N 8-20 Egfr Non- 77.2 N >60 Egfr 99.3 N >60 23 Laboratory test 10/28/2015 [facility] Calcium 9.6 mg/dL N 8.6- 10.3 finding [address] [place] [address] [phone] Urine Screen 08/17/2015 [facility] Urine Color YELLOW Yellow [address] [place] [address] [phone] Urine Clarity CLEAR Clear Urine Glucose - Dipstick NEGATIVE mg/dL Negative Urine Bilirubin - Dipstick NEGATIVE Negative Urine Ketone NEGATIVE mg/dL Negative Urine Specific [place] 1.015 1.010-1.030 Urine Blood NEGATIVE Negative Urine PH 6.0 Low 6.5-7.5 Urine Protein - Dipstick NEGATIVE mg/dL Negative Urine Urobilinogen - Dipstick 0.2 E.U./dL 0.2-1.0 Urine Nitrite - Dipstick NEGATIVE Negative Urine Leuk Esterase NEGATIVE Negative Chlamydia/GC Lakshmi, 08/17/2015 [facility] Chlamydia Negative Urine [address] Trachomatis,[place] [address] -Lakshmi [phone] Neisseria Gonorrhoeae,Ur -Lakshmi Negative 24 Basic Metabolic Panel 03/17/2015 [facility] Glucose 93 mg/dL 74-[address] [place] [address] [phone] BUN 14 mg/dL 7-18 Creatinine 0.9 mg/dL 0.6-1.3 Glom Filtration Rate, Estimate >60 mL/min >60 If >60 mL/min >60 25 BUN/Creat 15.5 ratio Sodium 138 mmol/L 136-145 Potassium 4.4 mmol/L 3.5-5.1 Chloride 103 mmol/L 98-107 Carbon Dioxide 29 mmol/L 21-32 Anion Gap 6 mEq/L Low 8-16 Calcium 8.3 mg/dL Low 8.5-10.1 Laboratory test 03/17/2015 [facility] Thyroid Stim 1.70 uIU/mL 0.36-3.[address] [place] [address] [phone] Free T4 0.78 ng/dL 0.76-1.46 Testosterone,Serum 03/17/2015 [facility] Testosterone, Serum [phone] ng/[place] [address] [phone] Comment See Note 26 Hemoglobin/Hematocrit 03/17/2015 [facility] Hemoglobin 14.9 12.8-17.[address] gm/[place] [address] [phone] Hematocrit 43.6 % 38.0-48.0 LDL Cholesterol 12/26/2014 [facility] Cholesterol 218 mg/dL < 200 [address] [place] [address] [phone] Triglycerides 64 mg/dL < 150 28 HDL Cholesterol 93 mg/dL > 40 29 LDL-Cholesterol 112 mg/dL < 100 30 Laboratory test 12/26/2014 [facility] Prostate 2.80 ng/mL [address] [place] [address] [phone] Lipid Panel 06/05/2013 [facility] Cholesterol 271 mg/dL High 125-[address] [place] [address] [phone] HDL Cholesterol 74 mg/dL > Or=40 Cholesterol/HDL Ratio 3.7 < Or=5.0 LDL Chol,Calculated 148 mg/dL High <130 33 Triglycerides 246 mg/dL High <150 Non-HDL Cholesterol 197 mg/dL High 34 Laboratory 06/05/2013 [facility] Testosterone,Total,LC/MS/MS 648 250- 1100 35 test finding [address] ng/dL [place], [place] [id number] [phone] PSA,Total 1.8 NG/ML 0.0-4.0 36 BMP W/O Egfr 06/05/2013 [facility] Sodium 137 mmol/L 135-[address] [place], [place] [address] [phone] Potassium 4.5 mmol/L 3.5-5.3 Chloride 100 mmol/L 98-110 Carbon Dioxide 28 mmol/L 19-30 Calcium 9.4 mg/dL 8.6-10.3 Glucose 91 mg/dL 65-99 37 Urea Nitrogen 14 mg/dL 7-25 Creatinine 1.05 mg/dL 0.70-1.25 38 BUN/Creatinine Ratio 13.3 6-22 Lipid Panel 05/09/2013 [facility] Cholesterol 277 mg/dL High 125-[address] [place] [address] [phone] HDL Cholesterol 41 mg/dL > Or=40 Cholesterol/HDL Ratio 6.8 High < Or=5.0 LDL Chol,Calculated (SEE NOTE) mg/dL 39 Triglycerides 1672 mg/dL High <150 40 Non-HDL Cholesterol 236 mg/dL High 41 Laboratory test 08/09/2012 [facility] Rectal Mucosa See Note [address] [place] [address] [phone] Laboratory test 07/02/2012 [facility] Direct LDL 101 mg/dL <130 [address] [place] [address] [phone] Comprehensive 06/03/2012 [facility] Glucose 96 mg/dL 76-115 Metabolic Panel [address] [place] [address] [phone] BUN 12 mg/dL 5-23 Creatinine 0.9 mg/dL 0.5-1.4 Glom Filtration Rate, Estimate >60 mL/min >60 If >60 mL/min >60 44 BUN/Creat 13.3 ratio Sodium 139 mmol/L 136-145 Potassium 4.2 mmol/L 3.5-5.1 Chloride 105 mmol/L 98-107 Carbon Dioxide 26 mEq/L 18-29 Anion Gap 12 mEq/L 8-16 Calcium 8.9 mg/dL 8.5-10.1 Total Protein 7.1 g/dL 6.3-8.0 Albumin 3.9 g/dL 3.5-5.0 Globulin 3.2 g/dL 1.9-4.3 Alb/Glob 1.2 ratio Bilirubin,Total 0.6 mg/dL 0.2-1.2 Sgot/Ast 26 U/L 16-40 SGPT/Alt 51 U/L 30-65 Alkaline Phosphatase 72 U/L 50-136 Laboratory test 06/03/2012 [facility] Lipase 129 U/L 28-[address] [place], [place] [id number] [phone] CBC W/Automated 06/03/2012 [facility] White Blood 6.4 K/uL 3.4-10.[address] [place] [address] [phone] Red Blood Count 4.87 M/uL 4.20-5.80 Hemoglobin 15.5 gm/dL 12.8-17.0 Hematocrit 44.4 % 38.0-48.0 Mean Cell Volume 91.2 fl 80.0-96.0 Mean Corpuscular HGB 31.8 pg 27.0-33.0 Mean Corpuscular HGB Conc 34.9 g/dL 31.7-36.0 Platelet Count 210 K/uL 150-400 Red Cell Distri Width SD 41.2 fl 36-51 Red Cell Distri Width %CV 12.7 % 11.6-15.8 Mean Platelet Volume 11.1 fL High 6.6-10.6 Differential-WBC 06/03/2012 [facility] Total Cells 100 #CELLS Confirm [address] [place] [address] [phone] Neutrophils% 65 % 33-73 Lymph% 11 % Low 17-56 Atypical Lymph% 11 % High 0-7 Monocyte% 8 % 0-10 Eosinophil% 5 % 0-5 Platelet Estimate NORMAL RBC Morphology NORMAL Urine Screen 06/03/2012 [facility] Urine Color YELLOW Yellow [address] [place] [address] [phone] Urine Clarity CLEAR Clear Urine Glucose - Dipstick NEGATIVE mg/dL Negative Urine Bilirubin - Dipstick NEGATIVE Negative Urine Ketone NEGATIVE mg/dL Negative Urine Specific [place] <=1.005 Low 1.010-1.030 Urine Blood NEGATIVE Negative Urine PH 5.0 Low 6.5-7.5 Urine Protein - Dipstick NEGATIVE mg/dL Negative Urine Urobilinogen - Dipstick 0.2 E.U./dL 0.2-1.0 Urine Nitrite - Dipstick NEGATIVE Negative Urine Leuk Esterase NEGATIVE Negative Laboratory 03/30/2012 [facility] Testosterone,Total,LC/MS/MS 596 250- 1100 45 test finding [address] ng/[place] [address] [phone] Comp 03/30/2012 [facility] Sodium 138 135-[address] mmol/[place] [address] [phone] Potassium 4.5 mmol/L 3.5-5.3 Chloride 103 mmol/L 98-110 Carbon Dioxide 24 mmol/L 21-33 Calcium 9.2 mg/dL 8.6-10.3 Alkaline Phosphatase 51 U/L 40-115 Ast 31 U/L 10-35 Alt 35 U/L 9-60 Bilirubin,Total 0.4 mg/dL 0.2-1.2 Glucose 88 mg/dL 65-99 46 Urea Nitrogen 20 mg/dL 7-25 Creatinine 0.96 mg/dL 0.70-1.33 47 BUN/Creatinine Ratio 20.5 6-22 Protein,Total 6.7 g/dL 6.1-8.1 Albumin 4.3 g/dL 3.6-5.1 Globulin,Calculated 2.4 g/dL 1.9-3.7 A/G Ratio 1.8 1.0-2.5 Egfr Non-Afr. Chinese 86 ML/MIN/1.73M2 > Or=60 Egfr 100 ML/MIN/1.73M2 > Or=60 CBC W/ Diff & PLT 03/30/2012 [facility] WBC 9.4 thous/L 3.8-10.[address] [place] [address] [phone] RBC 4.36 mill/L 4.20-5.80 Hemoglobin 13.8 g/dL 13.2-17.1 Hematocrit 41.0 % 38.5-50.0 MCV 93.9 FL 80.0-100.0 MCH 31.5 pg 27.0-33.0 MCHC 33.6 g/dL 32.0-36.0 RDW 13.5 % 11.0-15.0 Platelet Count 198 thous/L 140-400 Neutrophils,Absolute 7000 cells/L [phone] Lymphocytes,Absolute 1310 cells/L 850-3900 Monocytes,Absolute 790 cells/L 200-950 Eosinophils,Absolute 220 cells/L 15-500 Basophils,Absolute 30 cells/L 0-200 Total Neutrophils,% 75 % 38-80 Total Lymphocytes,% 14 % 15-49 Monocytes,% 8 % 0-13 Eosinophils,% 2 % 0-8 Basophils,% 0 % 0-2 TSH & T4,Free 03/30/2012 [facility] TSH 1.81 mIU/L 0.40-4.[address] [place] [address] [phone] T4,Free 1.1 ng/dL 0.8-1.8 48 Laboratory test 03/30/2012 [facility] PSA,Total 1.8 NG/ML 0.0-4.[address] [place] [address] [phone] Laboratory test 08/01/2011 [facility] LDL 101 mg/dL <130 [address] Cholesterol,Dire [address] [phone] Hepatic Function 08/01/2011 [facility] Alkaline 56 U/L 40-[address] [place] [address] [phone] Ast 32 U/L 10-35 Alt 36 U/L 9-60 Bilirubin,Total 0.8 mg/dL 0.2-1.2 Bilirubin,Direct 0.2 mg/dL < Or=0.2 Protein,Total 6.3 g/dL 6.2-8.3 Albumin 4.3 g/dL 3.6-5.1 Globulin,Calculated 2.0 g/dL Low 2.1-3.7 A/G Ratio 2.1 1.0-2.1 Lipid Panel 05/03/2011 [facility] Cholesterol 235 mg/dL High 125-[address] [place], [place] [id number] [phone] HDL Cholesterol 70 mg/dL > Or=40 Cholesterol/HDL Ratio 3.4 < Or=5.0 LDL Chol,Calculated 133 mg/dL High <130 51 Triglycerides 161 mg/dL High <150 Hepatic Function 05/03/2011 [facility] Alkaline Phosphatase 57 U/L 40- [address] [place], [place] [id number] [phone] Ast 31 U/L 10-35 Alt 34 U/L 9-60 Bilirubin,Total 0.6 mg/dL 0.2-1.2 Bilirubin,Direct 0.1 mg/dL < Or=0.2 Protein,Total 6.6 g/dL 6.2-8.3 Albumin 4.5 g/dL 3.6-5.1 Globulin,Calculated 2.1 g/dL 2.1-3.7 A/G Ratio 2.1 1.0-2.1 Laboratory 01/05/2011 [facility] LDL Cholesterol,Direct 117 <130 52 test finding [address] mg/dL [place], [place] [id number] [phone] Hepatic 01/05/2011 [facility] Alkaline Phosphatase 51 U/L 40-115 Function Panel [address] [place] [address] [phone] Ast 31 U/L 10-35 Alt 28 U/L 9-60 Bilirubin,Total 0.6 mg/dL 0.2-1.2 Bilirubin,Direct 0.1 mg/dL < Or=0.2 Protein,Total 6.4 g/dL 6.2-8.3 Albumin 4.4 g/dL 3.6-5.1 Globulin,Calculated 2.0 g/dL Low 2.1-3.7 A/G Ratio 2.1 1.0-2.1 Laboratory test 11/03/2010 [facility] PSA,Total 1.4 NG/ML 0.0-4.0 [address] [place] [address] [phone] Lipid Panel 11/03/2010 [facility] Cholesterol 293 mg/dL High 125-[address] [place] [address] [phone] HDL Cholesterol 69 mg/dL > Or=40 Cholesterol/HDL Ratio 4.2 < Or=5.0 LDL Chol,Calculated 156 mg/dL High <130 54 Triglycerides 338 mg/dL High <150 TSH & T4,Free 11/03/2010 [facility] TSH,3RD 1.80 mIU/L 0.40-4.[address] [place] [address] [phone] T4,Free 1.2 ng/dL 0.8-1.8 Comp Metabolic Panel 11/03/2010 [facility] Sodium 140 mmol/L 135-[address] [place] [address] [phone] Potassium 4.6 mmol/L 3.5-5.3 Chloride 104 mmol/L 98-110 Carbon Dioxide 27 mmol/L 21-33 Calcium 9.2 mg/dL 8.6-10.2 Alkaline Phosphatase 52 U/L 40-115 Ast 25 U/L 10-35 Alt 27 U/L 9-60 Bilirubin,Total 0.9 mg/dL 0.2-1.2 Glucose 87 mg/dL 65-99 55 Urea Nitrogen 13 mg/dL 7-25 Creatinine 0.88 mg/dL 0.76-1.46 BUN/Creatinine Ratio 14.9 6-22 Protein,Total 6.9 g/dL 6.2-8.3 Albumin 4.5 g/dL 3.6-5.1 Globulin,Calculated 2.4 g/dL 2.1-3.7 A/G Ratio 1.8 1.0-2.1 Egfr Non-Afr. Chinese 95 ML/MIN/1.73M2 > Or=60 Egfr 110 ML/MIN/1.73M2 > Or=60 CBC W/ Diff & PLT 11/03/2010 [facility] WBC 5.1 thous/L 3.8-10.[address] [place] [address] [phone] RBC 4.66 mill/L 4.20-5.80 Hemoglobin 15.0 g/dL 13.2-17.1 Hematocrit 44.3 % 38.5-50.0 MCV 95.0 FL 80.0-100.0 MCH 32.2 pg 27.0-33.0 MCHC 33.9 g/dL 32.0-36.0 RDW 13.9 % 11.0-15.0 Platelet Count 205 thous/L 140-400 Neutrophils,Absolute 2760 cells/L 5802-7459 Lymphocytes,Absolute 1520 cells/L 850-3900 Monocytes,Absolute 590 cells/L 200-950 Eosinophils,Absolute 170 cells/L 15-500 Basophils,Absolute 30 cells/L 0-200 Total Neutrophils,% 54 % 38-80 Total Lymphocytes,% 30 % 15-49 Monocytes,% 12 % 0-13 Eosinophils,% 3 % 0-8 Basophils,% 1 % 0-2 Laboratory test 11/03/2009 [facility] PSA,Total 1.3 NG/ML 0.0-4.0 [address] [place], [place] [id number] [phone] Lipid Panel 11/03/2009 [facility] Cholesterol 249 mg/dL High 125-[address] [place], [place] [id number] [phone] HDL Cholesterol 75 mg/dL > Or=40 Triglycerides 208 mg/dL High <150 Cholesterol/HDL Ratio 3.3 < Or=5.0 LDL Chol,Calculated 132 mg/dL High <130 57 TSH & T4,Free 11/03/2009 [facility] TSH,3RD 3.76 mIU/L 0.40-4.[address] [place], [place] [id number] [phone] T4,Free 0.9 ng/dL 0.8-1.8 Lipid Panel 05/11/2009 [facility] Cholesterol 268 mg/dL High 125-[address] [place], [place] [id number] [phone] HDL Cholesterol 77 mg/dL > Or=40 Triglycerides 119 mg/dL <150 Cholesterol/HDL Ratio 3.5 < Or=5.0 LDL Chol,Calculated 167 mg/dL High <130 58 Comp Metabolic Panel 11/06/2008 [facility] Sodium 138 mmol/L 135-[address] [place] [address] [phone] Potassium 4.3 mmol/L 3.5-5.3 Chloride 103 mmol/L 98-110 Carbon Dioxide 23 mmol/L 21-33 Calcium 9.6 mg/dL 8.6-10.2 Alkaline Phosphatase 53 U/L 40-115 Ast 36 U/L High 10-35 Alt 32 U/L 9-60 Bilirubin,Total 0.5 mg/dL 0.2-1.2 Glucose 92 mg/dL 65-99 59 Urea Nitrogen 19 mg/dL 7-25 Creatinine 0.97 mg/dL 0.76-1.46 BUN/Creatinine Ratio 19.9 6-22 Protein,Total 6.8 g/dL 6.2-8.3 Albumin 4.4 g/dL 3.6-5.1 Globulin,Calculated 2.4 g/dL 2.1-3.7 A/G Ratio 1.9 1.0-2.1 Egfr Non-Afr. Chinese >60 ML/MIN/1.73M2 > Or=60 Egfr >60 ML/MIN/1.73M2 > Or=60 CBC W/ Diff & PLT 11/06/2008 [facility] WBC 9.1 thous/L 3.8-10.8 [address] [place], [place] [address] [phone] RBC 4.70 mill/L 4.20-5.80 Hemoglobin 14.9 g/dL 13.2-17.1 Hematocrit 43.7 % 38.5-50.0 MCV 92.9 FL 80.0-100.0 MCH 31.7 pg 27.0-33.0 MCHC 34.2 g/dL 32.0-36.0 RDW 13.8 % 11.0-15.0 Platelet Count 210 thous/L 140-400 Platelet Sufficiency NORMAL Normal Neutrophils,Absolute 6420 cells/L 4741-3612 Bands,Absolute DNR cells/L 0-750 Metamyelocytes,Absolute DNR cells/L 0 Myelocytes,Absolute DNR cells/L 0 Promyelocytes,Absolute DNR cells/L 0 Lymphocytes,Absolute 1720 cells/L 850-3900 Monocytes,Absolute 720 cells/L 200-950 Eosinophils,Absolute 190 cells/L 15-500 Basophils,Absolute 30 cells/L 0-200 Blast Cells,Absolute DNR cells/L 0 Nucleated RBC,Absolute DNR cells/L 0 Total Neutrophils,% 71 % 38-80 Bands,% DNR % 0-10 Metamyelocytes,% DNR % Myelocytes,% DNR % Promyelocytes,% DNR % Total Lymphocytes,% 19 % 15-49 Monocytes,% 8 % 0-13 Eosinophils,% 2 % 0-8 Basophils,% 0 % 0-2 Blasts,% DNR % Nucleated RBC DNR /100WBC 0 RBC Morphology NORMAL Anisocytosis DNR Poikilocytosis DNR Microcytosis DNR Macrocytosis DNR Polychromasia DNR Hypochromasia DNR Target Cells DNR Basophilic Stippling DNR Comment DNR Lipid Panel 11/06/2008 [facility] Cholesterol 223 mg/dL High 125-[address] [place] [address] [phone] HDL Cholesterol 68 mg/dL > Or=40 Triglycerides 196 mg/dL High <150 Cholesterol/HDL Ratio 3.3 < Or=5.0 LDL Chol,Calculated 116 mg/dL <130 60 TSH & T4,Free 11/06/2008 [facility] TSH,3RD 3.41 mU/L 0.40-4.[address] [place], [place] [address] [phone] T4,Free 0.9 ng/dL 0.8-1.8 Laboratory test 11/06/2008 [facility] PSA,Total 1.6 NG/ML 0.0-4.0 [address] [place] [address] [phone] Lipid Panel 01/19/2007 [facility] Cholesterol 234 mg/dL High 125-[address] [place] [address] [phone] HDL Cholesterol 83 mg/dL > Or=40 62 Cholesterol/HDL Ratio 2.8 < Or=5.0 LDL Chol,Calculated 125 mg/dL <130 63 Triglycerides 131 mg/dL <150 Hepatic Function 01/19/2007 [facility] Alkaline Phosphatase 52 U/L 40- [address] [place] [address] [phone] Ast 35 U/L 10-35 Alt 35 U/L 9-60 Bilirubin,Total 1.0 mg/dL 0.2-1.2 Bilirubin,Direct 0.2 mg/dL < Or=0.2 Protein,Total 6.9 g/dL 6.2-8.3 Albumin 4.4 g/dL 3.6-5.1 Laboratory test 01/19/2007 [facility] Ferritin 61 NG/ML 20-[address] [place] [address] [phone] Lipid Panel 09/25/2006 [facility] Cholesterol 188 mg/dL 125-[address] [place] [address] [phone] HDL Cholesterol 86 mg/dL > Or=40 64 Triglycerides 121 mg/dL <150 Cholesterol/HDL Ratio 2.2 < Or=5.0 LDL Chol,Calculated 78 mg/dL <130 65 Hepatic Function 09/25/2006 [facility] Alkaline Phosphatase 46 U/L 40- [address] [place] [address] [phone] Ast 33 U/L 10-35 Alt 31 U/L 9-60 Bilirubin,Total 0.8 mg/dL 0.2-1.2 Bilirubin,Direct 0.2 mg/dL < Or=0.2 Protein,Total 6.7 g/dL 6.2-8.3 Albumin 4.2 g/dL 3.6-5.1 Hepatic Function 06/21/2006 [facility] Alkaline Phosphatase 43 U/L 40- [address] [place] [address] [phone] Ast 30 U/L 10-35 Alt 29 U/L 9-60 Bilirubin,Total 0.6 mg/dL 0.2-1.2 Bilirubin,Direct 0.1 mg/dL < Or=0.2 Protein,Total 6.9 g/dL 6.2-8.3 Albumin 4.5 g/dL 3.6-5.1 Lipid Panel 06/21/2006 [facility] Cholesterol 262 mg/dL High 125-200 [address] [facility] [place] [address] [phone] HDL Cholesterol 76 mg/dL > Or=40 66 Cholesterol/HDL Ratio 3.4 < Or=5.0 LDL Chol,Calculated 171 mg/dL High <130 67 Triglycerides 76 mg/dL <150 CBC W/ Diff & PLT 05/08/2006 [facility] WBC 8.1 thous/L 3.8-10.[address] [place] [address] [phone] RBC 4.86 mill/L 4.20-5.80 Hemoglobin 15.5 g/dL 13.2-17.1 Hematocrit 44.1 % 38.5-50.0 MCV 90.7 FL 80.0-100.0 MCH 31.8 pg 27.0-33.0 MCHC 35.1 g/dL 32.0-36.0 RDW 13.2 % 11.0-15.0 Platelet Count 227 thous/L 140-400 Platelet Sufficiency NORMAL Normal Neutrophils,Absolute 5200 cells/L [phone] Bands,Absolute DNR cells/L 0-750 Metamyelocytes,Absolute DNR cells/L 0 Myelocytes,Absolute DNR cells/L 0 Promyelocytes,Absolute DNR cells/L 0 Lymphocytes,Absolute 1840 cells/L 850-3900 Monocytes,Absolute 770 cells/L 200-950 Eosinophils,Absolute 200 cells/L 15-500 Basophils,Absolute 40 cells/L 0-200 Blast Cells,Absolute DNR cells/L 0 Nucleated RBC,Absolute DNR cells/L 0 Total Neutrophils,% 64 % 38-80 Bands,% DNR % 0-10 Metamyelocytes,% DNR % Myelocytes,% DNR % Promyelocytes,% DNR % Total Lymphocytes,% 23 % 15-49 Monocytes,% 10 % 0-13 Eosinophils,% 3 % 0-8 Basophils,% 0 % 0-2 Blasts,% DNR % Nucleated RBC DNR /100WBC 0 RBC Morphology NORMAL Anisocytosis DNR Poikilocytosis DNR Microcytosis DNR Macrocytosis DNR Polychromasia DNR Hypochromasia DNR Target Cells DNR Basophilic Stippling DNR Comment DNR Laboratory test 05/08/2006 [facility] PSA,Total 1.6 NG/ML 0.0-4.0 68 finding [address] [place] [address] [phone] Lipid Panel 05/08/2006 [facility] Cholesterol 270 mg/dL High <200 [address] [place] [address] [phone] HDL Cholesterol 78 mg/dL >40 69 Cholesterol/HDL Ratio 3.5 <5.0 LDL Chol,Calculated 158 mg/dL High <130 70 Triglycerides 170 mg/dL High <150 TSH+Free T4 ([place] & 05/08/2006 [facility] TSH 2.90 mU/L 0.40-5.50 [facility]) [address] [place] [address] [phone] T4,Free 0.9 ng/dL 0.8-1.8 Comp Metabolic Panel 05/08/2006 [facility] Sodium 140 mmol/L 135-[address] [place] [address] [phone] Potassium 4.5 mmol/L 3.5-5.3 Chloride 104 mmol/L 98-110 Carbon Dioxide 29 mmol/L 21-33 Calcium 9.9 mg/dL 8.5-10.4 Alkaline Phosphatase 51 U/L 20-125 Ast 23 U/L 3-50 Alt 23 U/L 3-60 Bilirubin,Total 0.7 mg/dL 0.2-1.5 Glucose 87 mg/dL 65-99 71 Urea Nitrogen 22 mg/dL 7-25 Creatinine 1.0 mg/dL 0.5-1.4 BUN/Creatinine Ratio 21.6 6-25 Protein,Total 7.0 g/dL 6.0-8.3 Albumin 4.5 g/dL 3.5-4.9 Globulin,Calculated 2.5 g/dL 2.2-4.2 A/G Ratio 1.8 0.8-2.0 GFR Estimated >60 ML/MIN/1.7 >59 72 1 Serum levels of PSA measured using the [employer] DXI Hybritech immunoassay should not be interpreted as absolute evidence of the presence or absence of disease. The PSA value should be used in conjunction with other pertinent clinical diagnostic procedures. The values obtained with different assay methods or kits cannot be used interchangeably. 2 Because ethnic data is not always readily available, this report includes an eGFR for both -Americans and non- Americans. The National Kidney Disease Education Program (NKDEP) does not endorse the use of the MDRD equation for patients that are not between the ages of 18 and 70, are , have extremes of body size, muscle mass, or nutritional status, or are non- or non-. According to the National Kidney Foundation, irrespective of diagnosis, the stage of the disease is based on the level of kidney function: Stage Description GFR(mL/min/1.73 m(2)) 1 Kidney damage with normal or decreased GFR 90 2 Kidney damage with mild decrease in GFR 60-89 3 Moderate decrease in GFR 30-59 4 Severe decrease in GFR 15-29 5 Kidney failure <15 (or dialysis) 3 Desirable: <150 Borderline High: 150-199 High: 200-499 Very High: >500 4 Desirable: <200 Borderline High: 200-239 High: >239 5 Low: <40 Desirable: 40-60 High: >60 6 Desirable: <100 Near Optimal: 100-129 Borderline High: 130-159 High: 160-189 Very High: >189 7 Desirable: <150 Borderline High: 150-199 High: 200-499 Very High: >500 8 Desirable: <200 Borderline High: 200-239 High: >239 9 Low: <40 Desirable: 40-60 High: >60 10 Desirable: <100 Near Optimal: 100-129 Borderline High: 130-159 High: 160-189 Very High: >189 11 General Repairer: [id number] Desirable: <100 Near Optimal: 100-129 Borderline High: 130-159 High: 160-189 Very High: >189 13 Because ethnic data is not always readily available, this report includes an eGFR for both -Americans and non- Americans. The National Kidney Disease Education Program (NKDEP) does not endorse the use of the MDRD equation for patients that are not between the ages of 18 and 70, are , have extremes of body size, muscle mass, or nutritional status, or are non- or non-. According to the National Kidney Foundation, irrespective of diagnosis, the stage of the disease is based on the level of kidney function: Stage Description GFR(mL/min/1.73 m(2)) 1 Kidney damage with normal or decreased GFR 90 2 Kidney damage with mild decrease in GFR 60-89 3 Moderate decrease in GFR 30-59 4 Severe decrease in GFR 15-29 5 Kidney failure <15 (or dialysis) 14 Desirable: <150 Borderline High: 150-199 High: 200-499 Very High: >500 15 Desirable: <200 Borderline High: 200-239 High: >239 16 Low: <40 Desirable: 40-60 High: >60 17 Unable to calculate LDL as triglyceride is > 400 18 Serum levels of PSA measured using the [employer] DXI Hybritech immunoassay should not be interpreted as absolute evidence of the presence or absence of disease. The PSA value should be used in conjunction with other pertinent clinical diagnostic procedures. The values obtained with different assay methods or kits cannot be used interchangeably. 19 PLEASE NOTE: ALTHOUGH THE REFERENCE RANGE FOR VITAMIN B12 IS 200-1100 PG/ML, IT HAS BEEN REPORTED THAT BETWEEN 5 AND 10% OF PATIENTS WITH VALUES BETWEEN 200 AND 400 PG/ML MAY EXPERIENCE NEUROPSYCHIATRIC AND HEMATOLOGIC ABNORMALITIES DUE TO OCCULT B12 DEFICIENCY; LESS THAN 1% OF PATIENTS WITH VALUES ABOVE 400 PG/ML WILL HAVE SYMPTOMS. 20 NORMAL >5.4 NG/ML BORDERLINE 3.4-5.4 NG/ML LOW <3.4 NG/ML 21 GLUCOSE REFERENCE RANGE BASED ON FASTING SPECIMEN. 22 According to ADA guidelines, hemoglobin A1c <7.0% represents optimal control in non- diabetic patients. Different metrics may apply to specific patient populations. Standards of Medical Care in Diabetes-2013. Diabetes Care. 2013;36:s11-s66 For the purpose of screening for the presence of diabetes: A1C VALUE INTERPRETATION <5.7% Consistent with the absence of diabetes 5.7 - 6.4% Consistent with increased risk for diabetes (prediabetes) > or=6.5% Consistent with diabetes Currently, no consensus exists regarding use of hemoglobin A1C for diagnosis of diabetes in children. 23 Because ethnic data is not always readily available, this report includes an eGFR for both -Americans and non- Americans. The National Kidney Disease Education Program (NKDEP) does not endorse the use of the MDRD equation for patients that are not between the ages of 18 and 70, are , have extremes of body size, muscle mass, or nutritional status, or are non- or non-. According to the National Kidney Foundation, irrespective of diagnosis, the stage of the disease is based on the level of kidney function: Stage Description GFR(mL/min/1.73 m(2)) 1 Kidney damage with normal or decreased GFR 90 2 Kidney damage with mild decrease in GFR 60-89 3 Moderate decrease in GFR 30-59 4 Severe decrease in GFR 15-29 5 Kidney failure <15 (or dialysis) 24 A negative result for either C. trachomatis and/or N. gonorrhoeae does not preclued an infection because results are dependent on adequate specimen collection, absence of inhibitors, and sufficient DNA to be detected. 25 Note: Persistent reduction for 3 months or more in an eGFR <60 mL/min/1.73 m2 defines CKD. Patients with eGFR values >/=60 mL/min/1.73 m2 may also have CKD if evidence of persistent proteinuria is present. The original MDRD equation for estimated GFR is not valid for patients less than 18 years of age. Additional information may be found at www.kdoqi.org. 26 Adult male reference interval is based on a population of lean males up to 40 years old. Performed at: - [facility] [address] [id number] Diecast Machine Operator: Marilyn Grace MD, Phone: [phone] 27 Reference Guidelines*: Desirable: ........... < 200 mg/dL Borderline High: ..... 200-239 mg/dL High: ................ >=240 mg/dL * The National Cholesterol Education Program (NCEP) 28 Reference Guidelines*: Normal: ............. < 150 mg/dL Borderline High: .... 150-199 mg/dL High: ............... 200-499 mg/dL Very High: .......... > 500 mg/dL * Source: National Cholesterol Education Program (NCEP) 29 Reference Guidelines*: Low HDL: ..... < 40 mg/dL Normal: ..... 40-60 mg/dL Desirable: ... > 60 mg/dL *The National Cholesterol Education Program(NCEP) 30 Reference Guidelines*: Optimal:........... <100 mg/dL Near Optimal....... 100-129 mg/dL Borderline High.... 130-159 mg/dL High............... 160-189 mg/dL Very High.......... >=190 mg/dL * Source: National Cholesterol Education Program (NCEP) 31 THIS ASSAY IS NOT INTENDED A CANCER SCREENING TEST The concentration of PSA in a given specimen, determined with assays from different manufacturers, can vary due to differences in assay methods and reagent specificity. Values obtained from different assay methods cannot be used interchangeably. 32 FASTING 33 LDL-CHOLESTEROL RISK CATEGORY* GOAL VERY HIGH (E.G. DIABETES + CVD) <70 MG/DL HIGH (DIABETICS; CHD RISK EQUIVALENTS) <100 MG/DL MODERATELY HIGH (MULTIPLE(2+) RISK FACTORS) <130 MG/DL 0 TO 1 RISK FACTORS <160 MG/DL * NCEP REPORT. CIRCULATION 2004; 110: 227-239 34 Target for non-HDL cholesterol is 30 mg/dL higher than LDL cholesterol target. 35 For more information on this test, go to http://education.Teramind/faq/ TotalTestosteroneLCMSMS 36 THIS TEST WAS PERFORMED USING THE SIEMENS CHEMILUMINESCENT METHOD. VALUES OBTAINED FROM DIFFERENT ASSAY METHODS CANNOT BE USED INTERCHANGEABLY. PSA LEVELS, REGARDLESS OF VALUE, SHOULD NOT BE INTERPRETED ABSOLUTE EVIDENCE OF THE PRESENCE OR ABSENCE OF DISEASE. 37 GLUCOSE REFERENCE RANGE BASED ON FASTING SPECIMEN. 38 The upper reference limit for Creatinine is approximately 13% higher for people identified as -Chinese. 39 LDL cholesterol not calculated. Triglyceride levels greater than 400 mg/dL invalidate calculated LDL results. LDL-CHOLESTEROL RISK CATEGORY* GOAL VERY HIGH (E.G. DIABETES + CVD) <70 MG/DL HIGH (DIABETICS; CHD RISK EQUIVALENTS) <100 MG/DL MODERATELY HIGH (MULTIPLE(2+) RISK FACTORS) <130 MG/DL 0 TO 1 RISK FACTORS <160 MG/DL * NCEP REPORT. CIRCULATION 2004; 110: [phone] 40 VERIFIED BY REPEAT ANALYSIS. 41 Target for non-HDL cholesterol is 30 mg/dL higher than LDL cholesterol target. 42 OPERATION/PROCEDURE Colonoscopy DIAGNOSIS: "RECTUM, POLYPECTOMY": FRAGMENTS OF HYPERPLASTIC POLYP. Oumou GROSS Received in formalin labeled, "RECTAL POLYP" are three pieces of fine, soft tissue measuring up to 0.3 cm. in greatest dimension. Submitted in toto in one block. JESSE/nereida MICROSCOPIC Sections show colonic mucosa lined by an increased number of goblet cells. The glands have a serrated, saw tooth appearance. The nuclei are bland, and basal. PRE OPERATIVE DIAGNOSIS History of polyps, upper quadrant pain REVIEW CODE CODE: I JAEL Frost MD 08/10/12 1345 43 LDL-CHOLESTEROL RISK CATEGORY* GOAL VERY HIGH (E.G. DIABETES + CVD) <70 MG/DL HIGH (DIABETICS; CHD RISK EQUIVALENTS) <100 MG/DL MODERATELY HIGH (MULTIPLE(2+) RISK FACTORS) <130 MG/DL 0 TO 1 RISK FACTORS <160 MG/DL * NCEP REPORT. CIRCULATION 2004; 110: [phone] 44 Note: Persistent reduction for 3 months or more in an eGFR <60 mL/min/1.73 m2 defines CKD. Patients with eGFR values >/=60 mL/min/1.73 m2 may also have CKD if evidence of persistent proteinuria is present. The original MDRD equation for estimated GFR is not valid for patients less than 18 years of age. Additional information may be found at www.kdoqi.org. 45 For more information on this test, go to http://education.Teramind/faq/ TotalTestosteroneLCMSMS 46 GLUCOSE REFERENCE RANGE BASED ON FASTING SPECIMEN. 47 The upper reference limit for Creatinine is approximately 13% higher for people identified as -Chinese. 48 THE CURRENT LOT OF FREE T4 REAGENT AVAILABLE FROM THE [employer] PRODUCES RESULTS THAT ARE APPROXIMATELY 9% HIGHER THAN PREVIOUS REAGENT LOTS. PLEASE INTERPRET THESE RESULTS ACCORDINGLY. 49 THIS TEST WAS PERFORMED USING THE SIEMENS CHEMILUMINESCENT METHOD. VALUES OBTAINED FROM DIFFERENT ASSAY METHODS CANNOT BE USED INTERCHANGEABLY. PSA LEVELS, REGARDLESS OF VALUE, SHOULD NOT BE INTERPRETED ABSOLUTE EVIDENCE OF THE PRESENCE OR ABSENCE OF DISEASE. 50 LDL-CHOLESTEROL RISK CATEGORY* GOAL VERY HIGH (E.G. DIABETES + CVD) <70 MG/DL HIGH (DIABETICS; CHD RISK EQUIVALENTS) <100 MG/DL MODERATELY HIGH (MULTIPLE(2+) RISK FACTORS) <130 MG/DL 0 TO 1 RISK FACTORS <160 MG/DL * NCEP REPORT. CIRCULATION 2004; 110: 227-239 51 LDL-CHOLESTEROL RISK CATEGORY* GOAL VERY HIGH (E.G. DIABETES + CVD) <70 MG/DL HIGH (DIABETICS; CHD RISK EQUIVALENTS) <100 MG/DL MODERATELY HIGH (MULTIPLE(2+) RISK FACTORS) <130 MG/DL 0 TO 1 RISK FACTORS <160 MG/DL * NCEP REPORT. CIRCULATION 2004; 110: 227-239 52 LDL-CHOLESTEROL RISK CATEGORY* GOAL VERY HIGH (E.G. DIABETES + CVD) <70 MG/DL HIGH (DIABETICS; CHD RISK EQUIVALENTS) <100 MG/DL MODERATELY HIGH (MULTIPLE(2+) RISK FACTORS) <130 MG/DL 0 TO 1 RISK FACTORS <160 MG/DL * NCEP REPORT. CIRCULATION 2004; 110: [phone] 53 THIS TEST WAS PERFORMED USING THE SIEMENS CHEMILUMINESCENT METHOD. VALUES OBTAINED FROM DIFFERENT ASSAY METHODS CANNOT BE USED INTERCHANGEABLY. PSA LEVELS, REGARDLESS OF VALUE, SHOULD NOT BE INTERPRETED ABSOLUTE EVIDENCE OF THE PRESENCE OR ABSENCE OF DISEASE. 54 LDL-CHOLESTEROL RISK CATEGORY* GOAL VERY HIGH (E.G. DIABETES + CVD) <70 MG/DL HIGH (DIABETICS; CHD RISK EQUIVALENTS) <100 MG/DL MODERATELY HIGH (MULTIPLE(2+) RISK FACTORS) <130 MG/DL 0 TO 1 RISK FACTORS <160 MG/DL * NCEP REPORT. CIRCULATION 2004; 110: [phone] 55 GLUCOSE REFERENCE RANGE BASED ON FASTING SPECIMEN. 56 PSA VALUES FROM DIFFERENT ASSAY METHODS CANNOT BE USED INTERCHANGEABLY. THIS ASSAY WAS PERFORMED USING THE TONO CHEMILUMINESCENCE METHOD. SERUM PSA LEVELS SHOULD NOT BE INTERPRETED ABSOLUTE EVIDENCE OF THE PRESENCE OR ABSENCE OF DISEASE. 57 LDL-CHOLESTEROL RISK CATEGORY* GOAL VERY HIGH (E.G. DIABETES + CVD) <70 MG/DL HIGH (DIABETICS; CHD RISK EQUIVALENTS) <100 MG/DL MODERATELY HIGH (MULTIPLE(2+) RISK FACTORS) <130 MG/DL 0 TO 1 RISK FACTORS <160 MG/DL * NCEP REPORT. CIRCULATION 2004; 110: 227-239 58 LDL-CHOLESTEROL RISK CATEGORY* GOAL VERY HIGH (E.G. DIABETES + CVD) <70 MG/DL HIGH (DIABETICS; CHD RISK EQUIVALENTS) <100 MG/DL MODERATELY HIGH (MULTIPLE(2+) RISK FACTORS) <130 MG/DL 0 TO 1 RISK FACTORS <160 MG/DL * NCEP REPORT. CIRCULATION 2004; 110: 227-239 59 GLUCOSE REFERENCE RANGE BASED ON FASTING SPECIMEN. 60 LDL-CHOLESTEROL RISK CATEGORY* GOAL VERY HIGH (E.G. DIABETES + CVD) <70 MG/DL HIGH (DIABETICS; CHD RISK EQUIVALENTS) <100 MG/DL MODERATELY HIGH (MULTIPLE(2+) RISK FACTORS) <130 MG/DL 0 TO 1 RISK FACTORS <160 MG/DL * NCEP REPORT. CIRCULATION 2004; 110: 227-239 61 PSA VALUES FROM DIFFERENT ASSAY METHODS CANNOT BE USED INTERCHANGEABLY. THIS ASSAY WAS PERFORMED USING THE TONO CHEMILUMINESCENCE METHOD. SERUM PSA LEVELS SHOULD NOT BE INTERPRETED ABSOLUTE EVIDENCE OF THE PRESENCE OR ABSENCE OF DISEASE. 62 HDL REFERENCE RANGES ADULTS (20 YEARS & OLDER) DESIRABLE: > OR=60 MG/DL HIGHER RISK: <40 MG/DL 63 LDL-CHOLESTEROL RISK CATEGORY* GOAL VERY HIGH (E.G. DIABETES + CVD) <70 MG/DL HIGH (DIABETICS; CHD RISK EQUIVALENTS) <100 MG/DL MODERATELY HIGH (MULTIPLE(2+) RISK FACTORS) <130 MG/DL 0 TO 1 RISK FACTORS <160 MG/DL * NCEP REPORT. CIRCULATION 2004; 110: [id number] 64 HDL REFERENCE RANGES ADULTS (20 YEARS & OLDER) DESIRABLE: > OR=60 MG/DL HIGHER RISK: <40 MG/DL 65 LDL-CHOLESTEROL RISK CATEGORY* GOAL VERY HIGH (E.G. DIABETES + CVD) <70 MG/DL HIGH (DIABETICS; CHD RISK EQUIVALENTS) <100 MG/DL MODERATELY HIGH (MULTIPLE(2+) RISK FACTORS) <130 MG/DL 0 TO 1 RISK FACTORS <160 MG/DL * NCEP REPORT. CIRCULATION 2004; 110: [phone] 66 HDL REFERENCE RANGES ADULTS (20 YEARS & OLDER) DESIRABLE: > OR=60 MG/DL HIGHER RISK: <40 MG/DL 67 LDL-CHOLESTEROL RISK CATEGORY* GOAL VERY HIGH (E.G. DIABETES + CVD) <70 MG/DL HIGH (DIABETICS; CHD RISK EQUIVALENTS) <100 MG/DL MODERATELY HIGH (MULTIPLE(2+) RISK FACTORS) <130 MG/DL 0 TO 1 RISK FACTORS <160 MG/DL * NCEP REPORT. CIRCULATION 2004; 110: [phone] 68 PSA VALUES FROM DIFFERENT ASSAY METHODS CANNOT BE USED INTERCHANGEABLY. THIS ASSAY WAS PERFORMED USING THE TONO CHEMILUMINESCENCE METHOD. 69 HDL REFERENCE RANGES ADULTS (20 YEARS & OLDER) DESIRABLE: > OR=60 MG/DL HIGHER RISK: <40 MG/DL 70 LDL-CHOLESTEROL RISK CATEGORY* GOAL VERY HIGH (E.G. DIABETES + CVD) <70 MG/DL HIGH (DIABETICS; CHD RISK EQUIVALENTS) <100 MG/DL MODERATELY HIGH (MULTIPLE(2+) RISK FACTORS) <130 MG/DL 0 TO 1 RISK FACTORS <160 MG/DL * NCEP REPORT. CIRCULATION 2004; 110: [phone] 71 GLUCOSE REFERENCE RANGE BASED ON FASTING SPECIMEN. 72 THE GFR ESTIMATE IS NOT ADJUSTED FOR RACE, IF THE PATIENT RACE IS -CENTRAL AFRICAN, THE GFR ESTIMATE MUST BE MULTIPLIED BY A FACTOR OF 1.21. Procedures Date Code Description Status 02/27/2018 05103 Non-Invcorrotid/Comp /Bilat Study Completed 02/26/2018 74315 Echocardiography Completed 02/20/2018 46238 Spirometry Graphic Record/Max Voluntary Vent Completed 02/20/2018 45872 EKG-Tracing & Report Completed 02/19/2018 65672 PVR-Atrerial Study Completed 02/19/2018 09292 Holter Monitor Office Completed 02/16/2017 97645 PVR-Atrerial Study Completed 02/16/2017 01223 EKG-Tracing & Report Completed 02/15/2017 24889 Spirometry Graphic Record/Max Voluntary Vent Completed 02/15/2017 26465 Holter Monitor Office Completed 02/02/2017 20037 Echocardiography Completed 02/02/2017 89703 Non-Invcorrotid/Comp /Bilat Study Completed 03/18/2015 92598 EKG-Tracing & Report Completed 03/17/2015 69080 Holter Monitor Office Completed 03/05/2015 54751 Non-Invcorrotid/Comp /Bilat Study Completed 03/05/2015 70817 Echocardiography Completed 12/26/2014 21220 EKG-Tracing & Report Completed 05/09/2013 93264 Spirometry Graphic Record/Max Voluntary Vent Completed 05/09/2013 22520 EKG-Tracing & Report Completed 04/15/2013 70046 Non-Invcorrotid/Comp /Bilat Study Completed 04/15/2013 22582 Echocardiography Completed 08/09/2012 80022013 Colonoscopy Completed 04/02/2012 73710 EKG-Tracing & Report Completed 03/29/2012 83374 Echocardiography Completed 03/29/2012 40531 Non-Invcorrotid/Comp /Bilat Study Completed 11/11/2010 372657510 Bone Mineral Density Test Completed 11/11/2010 89179 Bone Density Completed 11/04/2010 36208 EKG-Tracing & Report Completed 11/03/2010 14531 Spirometry Graphic Record/Max Voluntary Vent Completed 11/03/2010 76653 Holter Monitor Office Completed 11/03/2009 47267 EKG-Tracing & Report Completed 11/03/2009 71491 Echocardiography Completed 11/03/2009 97509 Non-Invcorrotid/Comp /Bilat Study Completed 11/06/2008 97607 PFT Evaluation Completed 11/06/2008 61544 Holter Monitor Office Completed 11/06/2008 48184 EKG-Tracing & Report Completed 11/05/2008 62020 Non-Invcorrotid/Comp /Bilat Study Completed 11/05/2008 60931 Echocardiography Completed 05/09/2006 94898 Bone Density Completed 05/08/2006 26549 EKG-Tracing & Report Completed 04/18/2006 26872 Doppler Color Flow Velocity Completed 04/18/2006 18257 Doppler/ECHO Completed 04/18/2006 95562 ECHO-2D W/Wo M-Mode Completed 09/05/2003 69404 Spirometry Graphic Record/Max Voluntary Vent Completed 09/05/2003 04161 EKG-Tracing & Report Completed Encounters Type Date Location Provider Dx Diagnosis Office Visit 08/14/2018 10:30a Main Office Gary Mcintosh N40.1 Benign prostatic hyperplasia with lower urinary tract symp G47.33 Obstructive sleep apnea (adult) (pediatric) I34.0 Nonrheumatic mitral (valve) insufficiency E78.5 Hyperlipidemia, unspecified I11.9 Hypertensive heart disease without heart failure J44.9 Chronic obstructive pulmonary disease, unspecified F52.21 Male erectile disorder T78.40xD Allergy, unspecified, subsequent encounter Office Visit 03/19/2018 10:30a Main Office Gary Mcintosh N40.0 Benign prostatic hyperplasia without lower urinry tract symp G47.33 Obstructive sleep apnea (adult) (pediatric) I34.0 Nonrheumatic mitral (valve) insufficiency E78.5 Hyperlipidemia, unspecified I11.9 Hypertensive heart disease without heart failure J44.9 Chronic obstructive pulmonary disease, unspecified F52.21 Male erectile disorder Z00.00 Encntr for general adult medical exam w/o abnormal findings Z23 Encounter for immunization Office Visit 01/29/2018 3:30p Main Office Gary Mcintosh S70.262A Insect bite (nonvenomous), left hip, initial encounter Office Visit 09/19/2017 11:20a Main Office Gary Mcintosh I11.9 Hypertensive heart disease without heart failure Office Visit 09/04/2017 11:50a Main Office Gary Mcintosh I11.9 Hypertensive heart disease without heart failure I34.0 Nonrheumatic mitral (valve) insufficiency E78.5 Hyperlipidemia, unspecified F52.21 Male erectile disorder Office Visit 08/08/2017 10:30a Main Office Gary Mcintosh J20.9 Acute bronchitis, unspecified I34.0 Nonrheumatic mitral (valve) insufficiency J44.9 Chronic obstructive pulmonary disease, unspecified I65.23 Occlusion and stenosis of bilateral carotid arteries I47.1 Supraventricular tachycardia E78.5 Hyperlipidemia, unspecified F52.21 Male erectile disorder I73.9 Peripheral vascular disease, unspecified Office Visit 04/24/2017 10:10a Main Office Gary Mcintosh J20.9 Acute bronchitis, unspecified Office Visit 03/21/2017 10:20a Main Office Gary Mcintosh M54.32 Sciatica, left side Office Visit 02/27/2017 11:20a Main Office Gary Mcintosh J44.9 Chronic obstructive pulmonary disease, unspecified I34.0 Nonrheumatic mitral (valve) insufficiency I65.23 Occlusion and stenosis of bilateral carotid arteries I47.1 Supraventricular tachycardia E78.5 Hyperlipidemia, unspecified F52.21 Male erectile disorder Office Visit 01/17/2017 11:20a Main Office Gary Mcintosh M54.16 Radiculopathy, lumbar region I34.0 Nonrheumatic mitral (valve) insufficiency Z23 Encounter for immunization I47.1 Supraventricular tachycardia E78.5 Hyperlipidemia, unspecified I11.9 Hypertensive heart disease without heart failure E78.2 Mixed hyperlipidemia M81.0 Age-related osteoporosis w/o current pathological fracture E03.9 Hypothyroidism, unspecified Z00.00 Encntr for general adult medical exam w/o abnormal findings N40.0 Benign prostatic hyperplasia without lower urinry tract symp Office Visit 05/02/2016 2:00p Main Office Gary Mcintosh J11.83 Influenza due to unidentified influenza virus w otitis media Office Visit 01/26/2016 11:10a Main Office Gary Mcintosh M54.16 Radiculopathy, lumbar region M54.5 Low back pain Office Visit 01/12/2016 11:20a Main Office Gary Mcintosh M54.16 Radiculopathy, lumbar region Office Visit 11/04/2015 1:30p Main Office Gary Mcintosh B35.9 Dermatophytosis, unspecified Office Visit 10/20/2015 3:10p Main Office Gary Mcintosh B35.9 Dermatophytosis, unspecified Office Visit 05/05/2015 10:30a Main Office Gary Mcintosh I34.0 Nonrheumatic mitral (valve) insufficiency I47.1 Supraventricular tachycardia Office Visit 03/04/2015 Main Office Tyra Mcintosh J20.8 Acute bronchitis due to 3:00p M.D. other specified organisms Office Visit 02/24/2015 Main Office Gary Mcintosh M54.32 Sciatica, left side 11:20a Office Visit 01/12/2015 Main Office Gary Mcintosh E78.5 Hyperlipidemia, 2:30p unspecified Office Visit 01/08/2014 Main Office Gary Mcintosh 372.30 Conjuctivitis Unspec 11:50a Office Visit 06/11/2013 Main Office Gary Mcintosh 272.4 Hyperlipidemia Other 10:50a Unspec Office Visit 05/20/2013 Main Office Gary Mcintosh 272.1 Hypertriglyceridemia Pure 2:30p 272.4 Hyperlipidemia Other Unspec 424.0 Mitral Valve Disorder 402.10 Hypertensive Heart Disease Benign W/O Heart Failure Office Visit 01/29/2013 2:30p Main Office Gary Mcintosh 082.8 Rickettsioses Tick-Borne Spec Other Office Visit 01/22/2013 3:10p Main Office Gary Mcintosh 082.8 Rickettsioses Tick-Borne Spec Other Office Visit 07/09/2012 3:00p Main Office Gary Mcintosh 272.4 Hyperlipidemia Other Unspec Office Visit 07/03/2012 1:50p Main Office Gary Mcintosh 911.5 Injury Superficial Insect Bite Trunk Nonvenomous Infected Office Visit 04/23/2012 2:40p Main Office Gary Mcintosh 272.4 Hyperlipidemia Other Unspec 402.10 Hypertensive Heart Disease Benign W/O Heart Failure Office Visit 03/26/2012 3:00p Main Office Gary Mcintosh 402.10 Hypertensive Heart Disease Benign W/O Heart Failure 272.4 Hyperlipidemia Other Unspec 424.0 Mitral Valve Disorder 786.05 Shortness Of Breath 786.50 Pain Chest Unspec Office Visit 05/16/2011 3:20p Main Office Gary Mcintosh 402.10 Hypertensive Heart Disease Benign W/O Heart Failure 272.4 Hyperlipidemia Other Unspec Office Visit 04/27/2011 11:00a Main Office Gary Mcintosh 466.0 Bronchitis Acute Office Visit 01/24/2011 2:40p Main Office Gary Mcintosh 402.10 Hypertensive Heart Disease Benign W/O Heart Failure 460.00 Upper Respiratory Infection Office Visit 11/23/2010 3:30p Main Office Gary Mcintosh 424.0 Mitral Valve Disorder 402.10 Hypertensive Heart Disease Benign W/O Heart Failure 272.4 Hyperlipidemia Other Unspec 733.00 Osteoporosis Unspec V06.5 Tetanus Diphtheria (DT) Office Visit 11/16/2009 10:20a Main Office Gauss, Gary 424.0 Mitral Valve Disorder 272.4 Hyperlipidemia Other Unspec 727.03 Trigger Finger Acquired 402.10 Hypertensive Heart Disease Benign W/O Heart Failure Office Visit 05/18/2009 3:20p Main Office Gary Mcintosh 272.4 Hyperlipidemia Other Unspec 727.03 Trigger Finger Acquired Office Visit 03/31/2009 2:40p Main Office Gary Mcintosh 959.5 Injury Finger Other & Unspec Office Visit 11/18/2008 1:30p Main Office Gary Mcintosh 272.4 Hyperlipidemia Other Unspec 424.0 Mitral Valve Disorder 402.10 Hypertensive Heart Disease Benign W/O Heart Failure GENERAL General Office Visit 02/05/2007 3:10p Main Office Gary Mcintosh 272.40 Hyperlipidemia Office Visit 12/13/2006 11:20a Main Office Gary Mcintosh 724.30 Sciatica 789.03 Pain Abdominal Right Lower Quadrant 272.40 Hyperlipidemia 402.10 Hypertensive Heart Disease Benign W/O Heart Failure 462 Pharyngitis Acute Office Visit 11/29/2006 3:20p Main Office Gary Mcintosh 724.30 Sciatica 789.03 Pain Abdominal Right Lower Quadrant Office Visit 10/17/2006 11:40a Main Office Gary Mcintosh 272.40 Hyperlipidemia 402.10 Hypertensive Heart Disease Benign W/O Heart Failure Office Visit 07/10/2006 1:40p Main Office Gary Mcintosh 272.40 Hyperlipidemia 402.10 Hypertensive Heart Disease Benign W/O Heart Failure Office Visit 05/17/2006 1:30p Main Office Gary Mcintosh 733.00 Osteoporosis Unspec 402.10 Hypertensive Heart Disease Benign W/O Heart Failure 272.40 Hyperlipidemia Office Visit 04/12/2006 10:20a Main Office Gary Mcintosh 733.00 Osteoporosis Unspec 272.40 Hyperlipidemia 402.10 Hypertensive Heart Disease Benign W/O Heart Failure 785.2 Murmur Cardiac Undiagnosed Office Visit 09/07/2005 3:10p Main Office Gary Mcintosh 462 Pharyngitis Acute 466.0 Bronchitis Acute Office Visit 09/09/2003 1:30p Main Office Gary Mcintosh 786.05 Shortness Of Breath 272.40 Hyperlipidemia Office Visit 07/30/2003 2:50p Main Office Gary Mcintosh 402.10 Hypertensive Heart Disease Benign W/O Heart Failure Plan of Treatment Future Appointment(s):11/05/2018 8:00 am - Nurse at Main Jbsswv8711/14/2018 11: 30 am - Gary Mcintosh at Main Dbfivr4708/14/2018 - Jaspal McintoshlN40.1 Benign prostatic hyperplasia with lower urinary tract symptomsNew Medication: Tamsulosin HCL 0.4 mg - 1 by mouth every dayDoxazosin Mesylate 2 mg - 1 PO QHSNew Labs:PSA, Total, Ordered: 08/14/18PSA Free And Total, Ordered: G47.33 Obstructive sleep apnea (adult) (pediatric)Comments:Continue CPAPWeight LossI34.0 Nonrheumatic mitral (valve) insufficiencyComments:Issues of symptoms and aggravating lifestyle factors such as sleep, stress and dietary choices discussed. Symptoms and medication treatment and compliance and side effects discussed as needed. Need forSBE prophalaxis with antibiotics addressed and discussed where indicated. Follow up Echocardiogram as required.Discussed valvular pathology and need if indicated for antibiotic prophylaxis to prevent S.B.E. Medication compliance and side effects issues addressed. Follow up echocardiogram as warranted.Results of 2D echo and other testing reviewed and discussed with patient possible etiologies, progression prognosis and need for prophylactic antibiotics before dental procedures if warranted for S.B.E. prophylaxis. Routine follow up/ surveillance planned.E78.5 Hyperlipidemia, unspecifiedComments:Counselled on role of diet and excersize and importance to keep compliance with medication if prescribed and side effects. The importance of routine monitoring of blood lipids and liver tests to managetreatment and avoid side effects were discussed. Usual follow up is 3 months for LFT and Lipid profile. Patient education including dietary guidelines and materials provided.I11.9 Hypertensive heart disease without heart failureNew Medication: Amlodipine Besylate 5 mg - 1 by mouth every dayComments:CONT. TO MONITOR BP, CONT. LOW SALT DIET Discussed lifestyle factors and role of diet and excerns incontrol of disease and treatment goals and targets. Medication side effects and compliance issues addressed as indicated. The importance of ongoing self monitoring of BP and the symptoms of complications such as TIA, CVA and AMI reviewed. The importance of reporting changes in between visits and side effects stressed. monitoring of patient provided BP checks and laboratory tests related to medicationreviewed. Discussed lifestyle factors and role of diet and excerns in control of disease and treatment goals and targets. Medication side effects and compliance issues addressed as indicated. The importance of ongoing self monitoring of BP and the symptoms of complications such as TIA, CVA and AMI reviewed. The importance of reporting changes in between visits and side effects stressed. monitoring of patient provided BP checks and laboratory tests related to medication reviewed.J44.9 Chronic obstructive pulmonary disease , unspecifiedComments:Discussed importance of excersize and avoidance of all smoke. Enviromental factors that can spark exacerbations reviewed. The necessity of reporting any changes in condition, early intervention in exacerbations and proper useand the importance of compliance with medications. Reports if applicable of home care providers, and equipment suppliers and Respiratory Therapy reviewed.F52.21 Male erectile [id number] Allergy, unspecified, subsequent encounterNew Medication:Basia Allergy 180 mg - 1 by mouth every dayFluticasone Propionate 50 mcg/Act - 2 spray each nostril every day
--- OUTSIDE RECORDS SUMMARY | 2018-08-21 11:00 | XMS REPORT | Continuity of Care Document ---
:1950 External Reference #:[id number] Author Name Sue Riggs Care Team Providers Name Role Phone Gary Mcintosh MD Primary Care Physician Unavailable Payers Date Identification Numbers Payment Provider Subscriber Policy Number: [id number] Medicare Rob Chaudhary PayID: [id number] [address] [place] [address] Effective: 1993 Policy Number: [id number] [facility] [address] Rob Chaudhary Group Number: [id number] [address] PayID: [id number] [place] [id number] Problems Active Problems Provider Date Mitral valve [...] 1units Gary Mcintosh 05/05/2015 - ordered 03/19/2018 15327Vem/0.65ML Solution Rec Amoxicillin/Clavulana 1 by mouth twice [...] 500mg Tablets food 11/23/2010 Fish Oil qd Arnaldo Gary 11/18/2008 - 1000mg 11/23/2010 Capsules Vit D Arnaldo Gary 02/05/2007 - Caplets 11/18/2008 Asa 81 Jaspal Mcintoshl 02/05/2007 - 81mg 11/18/2008 [facility] Jaspal Mcintoshl 11/29/2006 - 05/05/2015 Zetia 1 PO qd 90tabs Arnaldo Gary 07/10/2006 - 10mg Tablets 11/18/2008 Lipitor 1 po qd 90tabs 272.40 Arnaldo Gary 05/17/2006 - 20mg Tablets 07/10/2006 [facility] 1 po qd Arnaldo Gary 09/07/2005 - 09/07/2005 Multivitamins Arnaldo Gary 09/07/2005 - Caplets 01/12/2015 Amoxicillin 2 po bid 40tabs 466.0 Jaspal Mcintoshl 09/07/2005 - 500mg 2005 Tablets Nystatin-Triamcinolon apply affected Unknown - e area as 01/17/2017 566921-6.1Unit/GM-% indicated twice Cream a day Medications Administered in Office Medication SIG Qnty Indications Ordering Provider Date H1N1 Administration-Use Arnaldo Gary 01/26/2009 Injection Immunizations CPT Code Status Date Vaccine Lot # [id number] Given 03/19/2018 Influenza Virus (Afluria) Split Virus 3 Years [id number] Of Age And Older [address] Given 03/19/2018 Pneumovax Polyvalent Inj Im [id number] Q2035 Given 01/17/2017 Influenza Virus (Afluria) Split Virus 3 Years Of Age And Older 61693 Given 06/03/2015 Zostavax 22809 Given 11/23/2010 Tetanus,Diphtheria,Adut/Adol Pertussis [id number] 42242 Given 11/23/2010 Tetanus Shot 90483 Given 12/17/2009 Influenza Vaccine 76991 Given 12/11/2008 Influenza Vaccine [id number] 08273 Given 04/01/2003 Influenza Virus Vaccine (History Only) 14829 Given 11/23/2001 DT Immunization DIP/Tet (History Only) [...] Result H/L Range Note Laboratory test 07/30/2018 [facility] Testosterone 265.81 N 240 -[address] Total ng/dL [place], [place] [address] [phone] PSA Screening 4.197 ng/mL High 0-4.000 1 CBC No Diff 07/30/2018 [facility] White Blood 9.2 10^3/uL N 3.5 -10.[address] Count [place], [place] [address] [phone] Red Blood Count 4.78 10^6/uL N 4.18-5.48 Hemoglobin 14.8 g/dL N 14.0-18.0 Hematocrit 44 % N 42-52 Mean Corpuscular Volume 92 fL N 80-94 Mean Corpuscular Hemoglobin 31 pg N 27-31 Mean Corpuscular HGB Conc 34 g/dL N 31-36 Red Cell Distribution Width 13 % N 10.5-15 Platelet Count 191 10^3/uL N 150-450 Mean Platelet Volume 10.7 fL High 7.4-10.4 .TSH+Free T4 07/30/2018 [facility] ([facility]) [facility] TSH (Thyroid 1.63 mcIU/mL N 0.34-5.60 ([facility] Stim Horm) [facility]) [place], [place] [id number] [phone] Free T4 (Free Thyroxine) 0.68 ng/dL N 0.61-1.12 Comp Metabolic Panel 07/30/2018 [facility] Sodium 140 mmol/L N [phone] [place], [place] [address] [phone] Potassium 4.4 mmol/L N 3.5-5.0 Chloride 104 [...] Egfr 97.5 >60 2 Lipid Profile 07/30/2018 [email or web address] Triglycerides 132 mg/dL 3 (Trig/Chol/HDL) [address] [place] [address] [phone] Cholesterol 266 mg/dL 4 HDL Cholesterol 80.2 mg/dL 5 LDL Cholesterol 159 mg/dL 6 Lipid Profile 02/20/2018 [email or web address] Triglycerides 278 mg/dL 7 (Trig/Chol/HDL) [address] [place] [address] [phone] Cholesterol 296 mg/dL 8 HDL Cholesterol 79.9 mg/dL 9 LDL Cholesterol 161 mg/dL 10 Liver Function 02/20/2018 [email or web address] Total Protein 6.5 g/dL N 6.4-8.9 Panel [address] [place] [address] [phone] Albumin 4.4 g/dL N 3.2-5.2 Globulin 2.1 g/dL N 2-4 Albumin/Globulin Ratio 2.1 N 1-3 Total Bilirubin 0.80 mg/dL N 0.2-1.0 Direct Bilirubin 0.10 mg/dL N 0.03-0.18 Indirect Bilirubin 0.7 mg/dL N 0.3-1.0 Alkaline Phosphatase 48 U/L N 34-104 Alt 27 U/L N 7-52 Ast 26 U/L N 13-39 Laboratory test 08/04/2017 [email or web address] Rapid Strep Negative Negative 11 finding [address] [place] [address] [phone] Laboratory test 02/02/2017 [email or web address] TSH (Thyroid 1.84 mcIU/mL N 0.34-5.[address] Stim Horm) [place] [id number] [phone] LDL Cholesterol Direct 107 mg/dL 12 Free T4 (Free Thyroxine) 0.75 ng/dL N 0.61-1.12 Basic Metabolic Panel 02/02/2017 [email or web address] Sodium 138 mmol/L N [phone] [place] [id number] [phone] Potassium 4.6 mmol/L N 3.5-5.0 Chloride 103 mmol/L N 101-111 Co2 Carbon Dioxide 29 mmol/L N 22-32 Anion Gap 6 mmol/L N 2-11 Glucose 94 mg/dL N 70-100 Blood Urea Nitrogen 16 mg/dL N 6-24 Creatinine 0.95 mg/dL N 0.67-1.17 BUN/Creatinine Ratio 16.8 N 8-20 Calcium 8.8 mg/dL N 8.6-10.3 Egfr Non- 79.8 >60 Egfr 102.6 >60 13 Laboratory test 02/02/2017 [email or web address] Vitamin D Total 20.4 ng/mL N 20-50 finding [address]) [place] [address] [phone] Lipid Panel 02/02/2017 [email or web address] Triglycerides 728 mg/dL 14 [address] [place] [address] [phone] Cholesterol 306 mg/dL 15 HDL Cholesterol 60.2 mg/dL 16 LDL Cholesterol (SEE NOTE) mg/dL 17 Laboratory test 02/02/2017 [email or web address] PSA Screening 3.631 ng/mL N 0-4.000 18 finding [address] [place] [address] [phone] Testosterone Total 274.73 ng/dL N 240-950 Vitamin 01/12/2016 [facility] Vitamin 309 pg/mL 200-1100 19 B12/Folate Panel [address] B12,[place] [address] [phone] Folate,Serum >24.0 NG/ML 20 TSH & T4,Free 01/12/2016 [facility] TSH 1.97 mIU/L 0.40-4.[address] [place] [address] [phone] T4,Free 1.1 ng/dL 0.8-1.8 Laboratory test finding 01/12/2016 [facility] Glucose 99 mg/dL 65-99 21 [address] [place] [address] [phone] Hemoglobin A1c 5.3 % 0.0-5.6 22 BMP W/O Egfr 10/28/2015 [email or web address] Sodium 137 mmol/L N [phone] [place] [address] [phone] Potassium 4.9 mmol/L N 3.5-5.0 Chloride 101 mmol/L N 101-111 Co2 Carbon Dioxide 29 mmol/L N 22-32 Anion Gap 7 mmol/L N 2-11 Glucose 97 mg/dL N 70-100 Blood Urea Nitrogen 19 mg/dL N 6-24 Creatinine 0.98 mg/dL N 0.67-1.17 BUN/Creatinine Ratio 19.4 N 8-20 Egfr Non- 77.2 N >60 Egfr 99.3 N >60 23 Laboratory test 10/28/2015 [email or web address] Calcium 9.6 mg/dL N 8.6- 10.3 finding [address] [place] [address] [phone] Urine Screen 08/17/2015 [facility] Urine Color YELLOW Yellow [address] [place] [address] [phone] Urine Clarity CLEAR Clear Urine Glucose - Dipstick NEGATIVE mg/dL Negative Urine Bilirubin - Dipstick NEGATIVE Negative Urine Ketone NEGATIVE mg/dL Negative Urine Specific [place] 1.015 1.010-1.030 Urine Blood NEGATIVE Negative Urine PH 6.0 Low 6.5-7.5 Urine Protein - Dipstick NEGATIVE mg/dL Negative Urine Urobilinogen - Dipstick 0.2 E.U./dL 0.2-1.0 Urine Nitrite - Dipstick NEGATIVE Negative Urine Leuk Esterase NEGATIVE Negative Chlamydia/GC Lakshmi, 08/17/2015 [facility] Chlamydia Negative Urine [address] Trachomatis,[place] [address] -Lakshmi [phone] Neisseria Gonorrhoeae,Ur -Lakshmi Negative 24 Basic Metabolic Panel 03/17/2015 [facility] Glucose 93 mg/dL 74-[address] [place] [address] [phone] BUN 14 mg/dL 7-18 Creatinine 0.9 mg/dL 0.6-1.3 Glom Filtration Rate, Estimate >60 mL/min >60 If >60 mL/min >60 25 BUN/Creat 15.5 ratio Sodium 138 mmol/L 136-145 Potassium 4.4 mmol/L 3.5-5.1 Chloride 103 mmol/L 98-107 Carbon Dioxide 29 mmol/L 21-32 Anion Gap 6 mEq/L Low 8-16 Calcium 8.3 mg/dL Low 8.5-10.1 Laboratory test 03/17/2015 [facility] Thyroid Stim 1.70 uIU/mL 0.36-3.[address] [place] [address] [phone] Free T4 0.78 ng/dL 0.76-1.46 Testosterone,Serum 03/17/2015 [facility] Testosterone, Serum [phone] ng/[place] [address] [phone] Comment See Note 26 Hemoglobin/Hematocrit 03/17/2015 [facility] Hemoglobin 14.9 12.8-17.[address] gm/[place] [address] [phone] Hematocrit 43.6 % 38.0-48.0 LDL Cholesterol 12/26/2014 [facility] Cholesterol 218 mg/dL < 200 [address] [place] [address] [phone] Triglycerides 64 mg/dL < 150 28 HDL Cholesterol 93 mg/dL > 40 29 LDL-Cholesterol 112 mg/dL < 100 30 Laboratory test 12/26/2014 [facility] Prostate 2.80 ng/mL [address] [place] [place] [address] [phone] Lipid Panel 06/05/2013 [facility] Cholesterol 271 mg/dL High 125-[address] [place] [address] [phone] HDL Cholesterol 74 mg/dL > Or=40 Cholesterol/HDL Ratio 3.7 < Or=5.0 LDL Chol,Calculated 148 mg/dL High <130 33 Triglycerides 246 mg/dL High <150 Non-HDL Cholesterol 197 mg/dL High 34 Laboratory 06/05/2013 [facility] Testosterone,Total,LC/MS/MS 648 250- 1100 35 test finding [address] ng/dL [place], [place] [address] [phone] PSA,Total 1.8 NG/ML 0.0-4.0 36 BMP W/O Egfr 06/05/2013 [facility] Sodium 137 mmol/L 135-[address] [place], [place] [address] [phone] Potassium 4.5 mmol/L 3.5-5.3 Chloride 100 mmol/L 98-110 Carbon Dioxide 28 mmol/L 19-30 Calcium 9.4 mg/dL 8.6-10.3 Glucose 91 mg/dL 65-99 37 Urea Nitrogen 14 mg/dL 7-25 Creatinine 1.05 mg/dL 0.70-1.25 38 BUN/Creatinine Ratio 13.3 6-22 Lipid Panel 05/09/2013 [facility] Cholesterol 277 mg/dL High 125-[address] [place] [address] [phone] HDL Cholesterol 41 mg/dL > Or=40 Cholesterol/HDL Ratio 6.8 High < Or=5.0 LDL Chol,Calculated (SEE NOTE) mg/dL 39 Triglycerides 1672 mg/dL High <150 40 Non-HDL Cholesterol 236 mg/dL High 41 Laboratory test 08/09/2012 [facility] Rectal Mucosa See Note [address] [place] [address] [phone] Laboratory test 07/02/2012 [facility] Direct LDL 101 mg/dL <130 [address] [place] [address] [phone] Comprehensive 06/03/2012 [facility] Glucose 96 mg/dL 76-115 Metabolic Panel [address] [place] [address] [phone] BUN 12 mg/dL 5-23 Creatinine 0.9 mg/dL [...] Phosphatase 72 U/L 50-136 Laboratory test 06/03/2012 [facility] Lipase 129 U/L 28-[address] [place], [place] [address] [phone] CBC W/Automated 06/03/2012 [facility] White Blood 6.4 K/uL 3.4-10.[address] [place] [address] [phone] Red Blood Count 4.87 M/uL 4.20-5.80 Hemoglobin 15.5 gm/dL 12.8-17.0 Hematocrit 44.4 % 38.0-48.0 Mean Cell Volume 91.2 fl 80.0-96.0 Mean Corpuscular HGB 31.8 pg 27.0-33.0 Mean Corpuscular HGB Conc 34.9 g/dL 31.7-36.0 Platelet Count 210 K/uL 150-400 Red Cell Distri Width SD 41.2 fl 36-51 Red Cell Distri Width %CV 12.7 % 11.6-15.8 Mean Platelet Volume 11.1 fL High 6.6-10.6 Differential-WBC 06/03/2012 [facility] Total Cells 100 #CELLS Confirm [address] [place] [address] [phone] Neutrophils% 65 % 33-73 Lymph% 11 % Low 17-56 Atypical Lymph% 11 % High 0-7 Monocyte% 8 % 0-10 Eosinophil% 5 % 0-5 Platelet Estimate NORMAL RBC Morphology NORMAL Urine Screen 06/03/2012 [facility] Urine Color YELLOW Yellow [address] [place] [address] [phone] Urine Clarity CLEAR Clear Urine Glucose - Dipstick NEGATIVE mg/dL Negative Urine Bilirubin - Dipstick NEGATIVE Negative Urine Ketone NEGATIVE mg/dL Negative Urine Specific [place] <=1.005 Low 1.010-1.030 Urine Blood NEGATIVE Negative Urine PH 5.0 Low 6.5-7.5 Urine Protein - Dipstick NEGATIVE mg/dL Negative Urine Urobilinogen - Dipstick 0.2 E.U./dL 0.2-1.0 Urine Nitrite - Dipstick NEGATIVE Negative Urine Leuk Esterase NEGATIVE Negative Laboratory 03/30/2012 [facility] Testosterone,Total,LC/MS/MS 596 250- 1100 45 test finding [address] ng/[place] [address] [phone] Comp 03/30/2012 [facility] Sodium 138 135-[address] mmol/[place] [address] [phone] Potassium 4.5 mmol/L 3.5-5.3 Chloride 103 mmol/L [...] 1.9-3.7 A/G Ratio 1.8 1.0-2.5 Egfr Non-Afr. Danish 86 ML/MIN/1.73M2 > Or=60 Egfr 100 ML/MIN/1.73M2 > Or=60 CBC W/ Diff & PLT 03/30/2012 [facility] WBC 9.4 thous/L 3.8-10.[address] [place] [address] [phone] RBC 4.36 mill/L 4.20-5.80 Hemoglobin 13.8 g/dL 13.2-17.1 Hematocrit 41.0 % 38.5-50.0 MCV 93.9 FL 80.0-100.0 MCH 31.5 pg 27.0-33.0 MCHC 33.6 g/dL 32.0-36.0 RDW 13.5 % 11.0-15.0 Platelet Count 198 thous/L 140-400 Neutrophils,Absolute 7000 cells/L 5177-1393 Lymphocytes,Absolute 1310 cells/L 850-3900 Monocytes,Absolute 790 cells/L 200-950 Eosinophils,Absolute 220 cells/L 15-500 Basophils,Absolute 30 cells/L 0-200 Total Neutrophils,% 75 % 38-80 Total Lymphocytes,% 14 % 15-49 Monocytes,% 8 % 0-13 Eosinophils,% 2 % 0-8 Basophils,% 0 % 0-2 TSH & T4,Free 03/30/2012 [facility] TSH 1.81 mIU/L 0.40-4.[address] [place] [address] [phone] T4,Free 1.1 ng/dL 0.8-1.8 48 Laboratory test 03/30/2012 [facility] PSA,Total 1.8 NG/ML 0.0-4.0 [address] [place] [address] [phone] Laboratory test 08/01/2011 [facility] LDL 101 mg/dL <130 [address] Cholesterol,Dire [address] [phone] Hepatic Function 08/01/2011 [facility] Alkaline 56 U/L 40-[address] [place] [address] [phone] Ast 32 U/L 10-35 Alt 36 U/L 9-60 Bilirubin,Total 0.8 mg/dL 0.2-1.2 Bilirubin,Direct 0.2 mg/dL < Or=0.2 Protein,Total 6.3 g/dL 6.2-8.3 Albumin 4.3 g/dL 3.6-5.1 Globulin,Calculated 2.0 g/dL Low 2.1-3.7 A/G Ratio 2.1 1.0-2.1 Lipid Panel 05/03/2011 [facility] Cholesterol 235 mg/dL High 125-[address] [place], [place] [address] [phone] HDL Cholesterol 70 mg/dL > Or=40 Cholesterol/HDL Ratio 3.4 < Or=5.0 LDL Chol,Calculated 133 mg/dL High <130 51 Triglycerides 161 mg/dL High <150 Hepatic Function 05/03/2011 [facility] Alkaline Phosphatase 57 U/L 40- [address] [place], [place] [id number] [phone] Ast 31 U/L 10-35 Alt 34 U/L 9-60 Bilirubin,Total 0.6 mg/dL 0.2-1.2 Bilirubin,Direct 0.1 mg/dL < Or=0.2 Protein,Total 6.6 g/dL 6.2-8.3 Albumin 4.5 g/dL 3.6-5.1 Globulin,Calculated 2.1 g/dL 2.1-3.7 A/G Ratio 2.1 1.0-2.1 Laboratory 01/05/2011 [facility] LDL Cholesterol,Direct 117 <130 52 test finding [address] mg/dL [place], [place] [id number] [phone] Hepatic 01/05/2011 [facility] Alkaline Phosphatase 51 U/L 40-115 Function Panel [address] [place] [address] [phone] Ast 31 U/L 10-35 Alt 28 U/L 9-60 Bilirubin,Total 0.6 mg/dL 0.2-1.2 Bilirubin,Direct 0.1 mg/dL < Or=0.2 Protein,Total 6.4 g/dL 6.2-8.3 Albumin 4.4 g/dL 3.6-5.1 Globulin,Calculated 2.0 g/dL Low 2.1-3.7 A/G Ratio 2.1 1.0-2.1 Laboratory test 11/03/2010 [facility] PSA,Total 1.4 NG/ML 0.0-4.0 [address] [place] [address] [phone] Lipid Panel 11/03/2010 [facility] Cholesterol 293 mg/dL High 125-[address] [place] [address] [phone] HDL Cholesterol 69 mg/dL > Or=40 Cholesterol/HDL Ratio 4.2 < Or=5.0 LDL Chol,Calculated 156 mg/dL High <130 54 Triglycerides 338 mg/dL High <150 TSH & T4,Free 11/03/2010 [facility] TSH,3RD 1.80 mIU/L 0.40-4.[address] [place] [address] [phone] T4,Free 1.2 ng/dL 0.8-1.8 Comp Metabolic Panel 11/03/2010 [facility] Sodium 140 mmol/L 135-[address] [place] [address] [phone] Potassium 4.6 mmol/L 3.5-5.3 Chloride 104 mmol/L [...] 2.1-3.7 A/G Ratio 1.8 1.0-2.1 Egfr Non-Afr. Danish 95 ML/MIN/1.73M2 > Or=60 Egfr 110 ML/MIN/1.73M2 > Or=60 CBC W/ Diff & PLT 11/03/2010 [facility] WBC 5.1 thous/L 3.8-10.[address] [place] [address] [phone] RBC 4.66 mill/L 4.20-5.80 Hemoglobin 15.0 g/dL 13.2-17.1 Hematocrit 44.3 % 38.5-50.0 MCV 95.0 FL 80.0-100.0 MCH 32.2 pg 27.0-33.0 MCHC 33.9 g/dL 32.0-36.0 RDW 13.9 % 11.0-15.0 Platelet Count 205 thous/L 140-400 Neutrophils,Absolute 2760 cells/L [phone] Lymphocytes,Absolute 1520 cells/L [phone] Monocytes,Absolute 590 cells/L 200-950 Eosinophils,Absolute 170 cells/L 15-500 Basophils,Absolute 30 cells/L 0-200 Total Neutrophils,% 54 % 38-80 Total Lymphocytes,% 30 % 15-49 Monocytes,% 12 % 0-13 Eosinophils,% 3 % 0-8 Basophils,% 1 % 0-2 Laboratory test 11/03/2009 [facility] PSA,Total 1.3 NG/ML 0.0-4.0 [address] [place], [place] [address] [phone] Lipid Panel 11/03/2009 [facility] Cholesterol 249 mg/dL High 125-[address] [place], [place] [address] [phone] HDL Cholesterol 75 mg/dL > Or=40 Triglycerides 208 mg/dL High <150 Cholesterol/HDL Ratio 3.3 < Or=5.0 LDL Chol,Calculated 132 mg/dL High <130 57 TSH & T4,Free 11/03/2009 [facility] TSH,3RD 3.76 mIU/L 0.40-4.[address] [place], [place] [address] [phone] T4,Free 0.9 ng/dL 0.8-1.8 Lipid Panel 05/11/2009 [facility] Cholesterol 268 mg/dL High 125-[address] [place], [place] [address] [phone] HDL Cholesterol 77 mg/dL > Or=40 Triglycerides 119 mg/dL <150 Cholesterol/HDL Ratio 3.5 < Or=5.0 LDL Chol,Calculated 167 mg/dL High <130 58 Comp Metabolic Panel 11/06/2008 [facility] Sodium 138 mmol/L 135-[address] [place] [address] [phone] Potassium 4.3 mmol/L 3.5-5.3 Chloride 103 mmol/L [...] 2.1-3.7 A/G Ratio 1.9 1.0-2.1 Egfr Non-Afr. Danish >60 ML/MIN/1.73M2 > Or=60 Egfr >60 ML/MIN/1.73M2 > Or=60 CBC W/ Diff & PLT 11/06/2008 [facility] WBC 9.1 thous/L 3.8-10.8 [address] [place], [place] [address] [phone] RBC 4.70 mill/L 4.20-5.80 Hemoglobin 14.9 g/dL 13.2-17.1 Hematocrit 43.7 % 38.5-50.0 MCV 92.9 FL 80.0-100.0 MCH 31.7 pg 27.0-33.0 MCHC 34.2 g/dL 32.0-36.0 RDW 13.8 % 11.0-15.0 Platelet Count 210 thous/L 140-400 Platelet Sufficiency NORMAL Normal Neutrophils,Absolute 6420 cells/L 3916-4960 Bands,Absolute DNR cells/L 0-750 Metamyelocytes,Absolute DNR cells/L [...] Lab Cholesterol 223 mg/dL High 125-[address] [place] [address] [phone] HDL Cholesterol 68 mg/dL > Or=40 Triglycerides 196 mg/dL High <150 Cholesterol/HDL Ratio 3.3 < Or=5.0 LDL Chol,Calculated 116 mg/dL <130 60 Laboratory test 11/06/2008 [facility] PSA,Total 1.6 NG/ML 0.0-4.0 [address] [place] [address] [phone] TSH & T4,Free 11/06/2008 [facility] TSH,3RD 3.41 mU/L 0.40-4.[address] [place] [address] [phone] T4,Free 0.9 ng/dL 0.8-1.8 Laboratory test 01/19/2007 [facility] Ferritin 61 NG/ML 20-[address] [place] [address] [phone] Hepatic Function 01/19/2007 [facility] Alkaline 52 U/L 40-[address] [place] [address] [phone] Ast 35 U/L 10-35 Alt 35 U/L 9-60 Bilirubin,Total 1.0 mg/dL 0.2-1.2 Bilirubin,Direct 0.2 mg/dL < Or=0.2 Protein,Total 6.9 g/dL 6.2-8.3 Albumin 4.4 g/dL 3.6-5.1 Lipid Panel 01/19/2007 [facility] Cholesterol 234 mg/dL High 125-[address] [place] [address] [phone] HDL Cholesterol 83 mg/dL > Or=40 62 Cholesterol/HDL Ratio 2.8 < Or=5.0 LDL Chol,Calculated 125 mg/dL <130 63 Triglycerides 131 mg/dL <150 Hepatic Function 09/25/2006 [facility] Alkaline Phosphatase 46 U/L 40- [address] [place] [address] [phone] Ast 33 U/L 10-35 Alt 31 U/L 9-60 Bilirubin,Total 0.8 mg/dL 0.2-1.2 Bilirubin,Direct 0.2 mg/dL < Or=0.2 Protein,Total 6.7 g/dL 6.2-8.3 Albumin 4.2 g/dL 3.6-5.1 Lipid Panel 09/25/2006 [facility] Cholesterol 188 mg/dL 125-[address] [place] [address] [phone] HDL Cholesterol 86 mg/dL > Or=40 64 Triglycerides 121 mg/dL <150 Cholesterol/HDL Ratio 2.2 < Or=5.0 LDL Chol,Calculated 78 mg/dL <130 65 Lipid Panel 06/21/2006 [facility] Cholesterol 262 mg/dL High 125-[address] [place] [address] [phone] HDL Cholesterol 76 mg/dL > Or=40 66 Cholesterol/HDL Ratio 3.4 < Or=5.0 LDL Chol,Calculated 171 mg/dL High <130 67 Triglycerides 76 mg/dL <150 Hepatic Function 06/21/2006 [facility] Alkaline Phosphatase 43 U/L 40- [address] [place] [address] [phone] Ast 30 U/L 10-35 Alt 29 U/L 9-60 Bilirubin,Total 0.6 mg/dL 0.2-1.2 Bilirubin,Direct 0.1 mg/dL < Or=0.2 Protein,Total 6.9 g/dL 6.2-8.3 Albumin 4.5 g/dL 3.6-5.1 Lipid Panel 05/08/2006 [facility] Cholesterol 270 mg/dL High <[address] [place], [place] [address] [phone] HDL Cholesterol 78 mg/dL >40 68 Cholesterol/HDL Ratio 3.5 <5.0 LDL Chol,Calculated 158 mg/dL High <130 69 Triglycerides 170 mg/dL High <150 Laboratory test 05/08/2006 [facility] PSA,Total 1.6 NG/ML 0.0-4.0 [address] [place], [place] [address] [phone] TSH+Free T4 05/08/2006 [facility] TSH 2.90 mU/L 0.40-5.50 ([facility]) [address] [place] [address] [phone] T4,Free 0.9 ng/dL 0.8-1.8 Comp Metabolic Panel 05/08/2006 [facility] Sodium 140 mmol/L 135-[address] [place] [address] [phone] Potassium 4.5 mmol/L 3.5-5.3 Chloride 104 mmol/L [...] 0.8-2.0 GFR Estimated >60 ML/MIN/1.7 >59 72 CBC W/ Diff & PLT 05/08/2006 [facility] WBC 8.1 thous/L 3.8-10.[address] [place] [address] [phone] RBC 4.86 mill/L 4.20-5.80 Hemoglobin 15.5 g/dL 13.2-17.1 Hematocrit 44.1 % 38.5-50.0 MCV 90.7 FL 80.0-100.0 MCH 31.8 pg 27.0-33.0 MCHC 35.1 g/dL 32.0-36.0 RDW 13.2 % 11.0-15.0 Platelet Count 227 thous/L 140-400 Platelet Sufficiency NORMAL Normal Neutrophils,Absolute 5200 cells/L 0918-6503 Bands,Absolute DNR cells/L 0-750 Metamyelocytes,Absolute DNR cells/L [...] Cells DNR Basophilic Stippling DNR Comment DNR 1 Serum levels of PSA measured using the [employer] DXI Hybritech immunoassay should not be interpreted [...] 130-159 High: 160-189 Very High: >189 11 Boiler Plant Worker: [id number] Desirable: <100 Near Optimal: 100-129 Borderline [...] levels of PSA measured using the [employer] Ronnie DXI Hybritech immunoassay should not be interpreted [...] 42 years old. Performed at: - [facility] [address] [id number] Facility Environmental Technician: Marilyn Grace MD, Phone: [phone] Reference Guidelines*: Desirable: ........... < 200 [...] more information on this test, go to http://education.MobiPixie/faq/ TotalTestosteroneLCMSMS 36 THIS TEST WAS PERFORMED USING THE SIEMENS CHEMILUMINESCENT METHOD. VALUES OBTAINED FROM DIFFERENT ASSAY METHODS CANNOT BE USED INTERCHANGEABLY. PSA LEVELS, REGARDLESS OF VALUE, SHOULD NOT BE INTERPRETED ABSOLUTE EVIDENCE OF THE PRESENCE OR ABSENCE OF DISEASE. 37 GLUCOSE REFERENCE RANGE BASED ON FASTING SPECIMEN. 38 The upper reference limit for Creatinine is approximately 13% higher for people identified as -Danish. 39 LDL cholesterol not calculated. Triglyceride levels [...] more information on this test, go to http://education.MobiPixie/faq/ TotalTestosteroneLCMSMS 46 GLUCOSE REFERENCE RANGE BASED ON FASTING SPECIMEN. 47 The upper reference limit for Creatinine is approximately 13% higher for people identified as -Danish. 48 THE CURRENT LOT OF FREE T4 REAGENT AVAILABLE FROM THE [facility] MONETIZATION PRODUCES RESULTS THAT ARE APPROXIMATELY 9% HIGHER [...] NCEP REPORT. CIRCULATION 2004; 110: [phone] 68 HDL REFERENCE RANGES ADULTS (20 YEARS & OLDER) DESIRABLE: > OR=60 MG/DL HIGHER RISK: <40 MG/DL 69 LDL-CHOLESTEROL RISK CATEGORY* GOAL VERY HIGH (E.G. DIABETES + CVD) <70 MG/DL HIGH (DIABETICS; CHD RISK EQUIVALENTS) <100 MG/DL MODERATELY HIGH (MULTIPLE(2+) RISK FACTORS) <130 MG/DL 0 TO 1 RISK FACTORS <160 MG/DL * NCEP REPORT. CIRCULATION 2004; 110: [phone] 70 PSA VALUES FROM DIFFERENT ASSAY METHODS CANNOT BE USED INTERCHANGEABLY. THIS ASSAY WAS PERFORMED USING THE TONO CHEMILUMINESCENCE METHOD. 71 GLUCOSE REFERENCE RANGE BASED ON FASTING SPECIMEN. 72 THE GFR ESTIMATE IS NOT ADJUSTED FOR RACE, IF THE PATIENT RACE IS -SPANISH, THE GFR ESTIMATE MUST BE MULTIPLIED BY A FACTOR OF 1.21. Procedures Date Code Description Status 02/27/2018 81102 Non-Invcorrotid/Comp /Bilat Study Completed 02/26/2018 04095 Echocardiography Completed 02/20/2018 60384 Spirometry Graphic Record/Max Voluntary Vent Completed 02/20/2018 89977 EKG-Tracing & Report Completed 02/19/2018 45821 PVR-Atrerial Study Completed 02/19/2018 27286 Holter Monitor Office Completed 02/16/2017 75916 PVR-Atrerial Study Completed 02/16/2017 08447 EKG-Tracing & Report Completed 02/15/2017 12462 Spirometry Graphic Record/Max Voluntary Vent Completed 02/15/2017 50792 Holter Monitor Office Completed 02/02/2017 36075 Echocardiography Completed 02/02/2017 39956 Non-Invcorrotid/Comp /Bilat Study Completed 03/18/2015 08645 EKG-Tracing & Report Completed 03/17/2015 77258 Holter Monitor Office Completed 03/05/2015 89053 Non-Invcorrotid/Comp /Bilat Study Completed 03/05/2015 87629 Echocardiography Completed 12/26/2014 29893 EKG-Tracing & Report Completed 05/09/2013 92051 Spirometry Graphic Record/Max Voluntary Vent Completed 05/09/2013 26730 EKG-Tracing & Report Completed 04/15/2013 17390 Non-Invcorrotid/Comp /Bilat Study Completed 04/15/2013 24577 Echocardiography Completed 08/09/2012 [id number] Colonoscopy Completed 04/02/2012 01732 EKG-Tracing & Report Completed 03/29/2012 04772 Echocardiography Completed 03/29/2012 52914 Non-Invcorrotid/Comp /Bilat Study Completed 11/11/2010 [id number] Bone Mineral Density Test Completed 11/11/2010 21124 Bone Density Completed 11/04/2010 68193 EKG-Tracing & Report Completed 11/03/2010 98619 Spirometry Graphic Record/Max Voluntary Vent Completed 11/03/2010 53100 Holter Monitor Office Completed 11/03/2009 37545 EKG-Tracing & Report Completed 11/03/2009 00851 Echocardiography Completed 11/03/2009 55827 Non-Invcorrotid/Comp /Bilat Study Completed 11/06/2008 50800 PFT Evaluation Completed 11/06/2008 55380 Holter Monitor Office Completed 11/06/2008 34929 EKG-Tracing & Report Completed 11/05/2008 57618 Non-Invcorrotid/Comp /Bilat Study Completed 11/05/2008 40173 Echocardiography Completed 05/09/2006 97600 Bone Density Completed 05/08/2006 70911 EKG-Tracing & Report Completed 04/18/2006 14594 Doppler Color Flow Velocity Completed 04/18/2006 78183 Doppler/ECHO Completed 04/18/2006 11121 ECHO-2D W/Wo M-Mode Completed 09/05/2003 35974 Spirometry Graphic Record/Max Voluntary Vent Completed 09/05/2003 59184 EKG-Tracing & Report Completed Encounters Type Date [...] Appointment(s):11/05/2018 8:00 am - [facility] Rblttj0811/14/2018 11: 30 am - [facility]int[facility] [id number]/14/2018 - Jaspal McintoshlN40.1 Benign prostatic hyperplasia with lower urinary tract symptomsNew Medication: Tamsulosin HCL 0.4 mg - 1 by mouth every dayDoxazosin Mesylate 2 mg - 1 PO QHSG47.33 Obstructive sleep apnea (adult) (pediatric)Comments:Continue CPAPWeight LossI34.0 [...] suppliers and Respiratory Therapy reviewed.F52.21 Male erectile [id number] Allergy, unspecified, subsequent encounterNew Medication:Basia Allergy 180 mg - 1 by mouth every dayFluticasone Propionate 50 mcg/Act - 2 spray each nostril every day
--- OUTSIDE RECORDS SUMMARY | 2018-08-21 11:01 | XMS REPORT | Continuity of Care Document ---
:1950 External Reference #:[id number] Author Name Sue Riggs Care Team Providers Name Role Phone Gary Mcintosh MD Primary Care Physician Unavailable Payers Date Identification Numbers Payment Provider Subscriber Policy Number: [id number] Medicare Rob Chaudhary PayID: [id number] [address] [place] [address] Effective: 1993 Policy Number: [id number] [facility] Rob Chaudhary Group Number: [id number] [address] PayID: [id number] [place] [address] Problems Active Problems Provider Date Mitral valve [...] 1 by mouth every 90caps N40.1 Gary Micntosh 08/14/2018 0.4mg day Capsules Doxazosin Mesylate 1 [...] 1units Gary Mcintosh 05/05/2015 - ordered 03/19/2018 91500Ook/0.65ML Solution Rec Amoxicillin/Clavulana 1 by mouth twice [...] 81 Jaspal Mcintoshl 02/05/2007 - 81mg 11/18/2008 [facility] Jaspal Mcintoshl 11/29/2006 - 05/05/2015 Zetia 1 PO qd 90tabs Arnaldo Gary 07/10/2006 - 10mg Tablets 11/18/2008 Lipitor 1 po qd 90tabs 272.40 Arnaldo Gary 05/17/2006 - 20mg Tablets 07/10/2006 [facility] 1 po qd Arnaldo Gary 09/07/2005 - 09/07/2005 Multivitamins Arnaldo Gary 09/07/2005 - Caplets 01/12/2015 Amoxicillin 2 po bid 40tabs 466.0 Jaspal Mcintoshl 09/07/2005 - 500mg 2005 Tablets Nystatin-Triamcinolon apply affected Unknown - e area as 01/17/2017 365332-3.1Unit/GM-% indicated twice Cream a day Medications Administered in Office Medication SIG Qnty Indications Ordering Provider Date H1N1 Administration-Use Arnaldo Gary 01/26/2009 Injection Immunizations CPT Code Status Date Vaccine Lot # [id number] Given 03/19/2018 Influenza Virus (Afluria) Split Virus 3 Years [id number] Of Age And Older 42206 Given 03/19/2018 Pneumovax Polyvalent Inj Im [id number] Given 01/17/2017 Influenza Virus (Afluria) Split Virus 3 Years Of Age And Older 87197 Given 06/03/2015 Zostavax 33608 Given 11/23/2010 Tetanus,Diphtheria,Adut/Adol Pertussis [id number] 86709 Given 11/23/2010 Tetanus Shot 64827 Given 12/17/2009 Influenza Vaccine 94292 Given 12/11/2008 Influenza Vaccine [id number] 49373 Given 04/01/2003 Influenza Virus Vaccine (History Only) 40054 Given 11/23/2001 DT Immunization DIP/Tet (History Only) [...] Result H/L Range Note Laboratory test 07/30/2018 [facility] Testosterone 265.81 N 240 -[address] Total ng/dL [place], [place] [id number] [phone] PSA Screening 4.197 ng/mL High 0-4.000 1 CBC No Diff 07/30/2018 [facility] White Blood 9.2 10^3/uL N 3.5 -10.[address] Count [place], [place] [id number] [phone] Red Blood Count 4.78 10^6/uL N 4.18-5.48 Hemoglobin 14.8 g/dL N 14.0-18.0 Hematocrit 44 % N 42-52 Mean Corpuscular Volume 92 fL N 80-94 Mean Corpuscular Hemoglobin 31 pg N 27-31 Mean Corpuscular HGB Conc 34 g/dL N 31-36 Red Cell Distribution Width 13 % N 10.5-15 Platelet Count 191 10^3/uL N 150-450 Mean Platelet Volume 10.7 fL High 7.4-10.4 .TSH+Free T4 07/30/2018 [facility] TSH (Thyroid 1.63 mcIU/mL N 0.34-5.60 ([facility] Stim Horm) [facility]) [place], [place] [id number] [phone] Free T4 (Free Thyroxine) 0.68 ng/dL N 0.61-1.12 Comp Metabolic Panel 07/30/2018 [facility] Sodium 140 mmol/L N [phone] [place], [place] [address] [phone] Potassium 4.4 mmol/L N 3.5-5.0 Chloride 104 [...] Egfr 97.5 >60 2 Lipid Profile 07/30/2018 [facility] Triglycerides 132 mg/dL 3 (Trig/Chol/HDL) [address] [place] [address] [phone] Cholesterol 266 mg/dL 4 HDL Cholesterol 80.2 mg/dL 5 LDL Cholesterol 159 mg/dL 6 Lipid Profile 02/20/2018 [facility] Triglycerides 278 mg/dL 7 (Trig/Chol/HDL) [address] [place] [address] [phone] Cholesterol 296 mg/dL 8 HDL Cholesterol 79.9 mg/dL 9 LDL Cholesterol 161 mg/dL 10 Liver Function 02/20/2018 [facility] Total Protein 6.5 g/dL N 6.4-8.9 Panel [address] [place] [address] [phone] Albumin 4.4 g/dL N 3.2-5.2 Globulin 2.1 g/dL N 2-4 Albumin/Globulin Ratio 2.1 N 1-3 Total Bilirubin 0.80 mg/dL N 0.2-1.0 Direct Bilirubin 0.10 mg/dL N 0.03-0.18 Indirect Bilirubin 0.7 mg/dL N 0.3-1.0 Alkaline Phosphatase 48 U/L N 34-104 Alt 27 U/L N 7-52 Ast 26 U/L N 13-39 Laboratory test 08/04/2017 [facility] Rapid Strep Negative Negative 11 finding [address] [place] [address] [phone] Laboratory test 02/02/2017 [facility] TSH (Thyroid 1.84 mcIU/mL N 0.34-5.[address] Stim Horm) [place] [id number] [phone] LDL Cholesterol Direct 107 mg/dL 12 Free T4 (Free Thyroxine) 0.75 ng/dL N 0.61-1.12 Basic Metabolic Panel 02/02/2017 [facility] Sodium 138 mmol/L N [phone] [place] [id number] [phone] Potassium 4.6 mmol/L N 3.5-5.0 Chloride 103 mmol/L N 101-111 Co2 Carbon Dioxide 29 mmol/L N 22-32 Anion Gap 6 mmol/L N 2-11 Glucose 94 mg/dL N 70-100 Blood Urea Nitrogen 16 mg/dL N 6-24 Creatinine 0.95 mg/dL N 0.67-1.17 BUN/Creatinine Ratio 16.8 N 8-20 Calcium 8.8 mg/dL N 8.6-10.3 Egfr Non- 79.8 >60 Egfr 102.6 >60 13 Laboratory test 02/02/2017 [facility] Vitamin D Total 20.4 ng/mL N 20-50 finding [address]) [place] [address] [phone] Lipid Panel 02/02/2017 [facility] Triglycerides 728 mg/dL 14 [address] [place] [address] [phone] Cholesterol 306 mg/dL 15 HDL Cholesterol 60.2 mg/dL 16 LDL Cholesterol (SEE NOTE) mg/dL 17 Laboratory test 02/02/2017 [facility] PSA Screening 3.631 ng/mL N 0-4.000 18 finding [address] [place] [address] [phone] Testosterone Total 274.73 ng/dL N 240-950 Vitamin 01/12/2016 [facility] Vitamin 309 pg/mL 200-1100 19 B12/Folate Panel [address] B12,[place] [address] [phone] Folate,Serum >24.0 NG/ML 20 TSH & T4,Free 01/12/2016 [facility] TSH 1.97 mIU/L 0.40-4.[address] [place] [id number] [phone] T4,Free 1.1 ng/dL 0.8-1.8 Laboratory test finding 01/12/2016 [facility] Glucose 99 mg/dL 65-99 21 [address] [place] [address] [phone] Hemoglobin A1c 5.3 % 0.0-5.6 22 BMP W/O Egfr 10/28/2015 [facility] Sodium 137 mmol/L N [phone] [place] [address] [phone] Potassium 4.9 mmol/L N 3.5-5.0 Chloride 101 mmol/L N 101-111 Co2 Carbon Dioxide 29 mmol/L N 22-32 Anion Gap 7 mmol/L N 2-11 Glucose 97 mg/dL N 70-100 Blood Urea Nitrogen 19 mg/dL N 6-24 Creatinine 0.98 mg/dL N 0.67-1.17 BUN/Creatinine Ratio 19.4 N 8-20 Egfr Non- 77.2 N >60 Egfr 99.3 N >60 23 Laboratory test 10/28/2015 [facility] Calcium 9.6 mg/dL N 8.6- 10.3 finding [address] [place] [address] [phone] Urine Screen 08/17/2015 [facility] Urine Color YELLOW Yellow [address] [place] [address] [phone] Urine Clarity CLEAR Clear Urine Glucose - Dipstick NEGATIVE mg/dL Negative Urine Bilirubin - Dipstick NEGATIVE Negative Urine Ketone NEGATIVE mg/dL Negative Urine Specific [place] 1.015 1.010-1.030 Urine Blood NEGATIVE Negative Urine PH 6.0 Low 6.5-7.5 Urine Protein - Dipstick NEGATIVE mg/dL Negative Urine Urobilinogen - Dipstick 0.2 E.U./dL 0.2-1.0 Urine Nitrite - Dipstick NEGATIVE Negative Urine Leuk Esterase NEGATIVE Negative Chlamydia/GC Lakshmi, 08/17/2015 [facility] Chlamydia Negative Urine [address] Trachomatis,[place] [address] -Lakshmi [phone] Neisseria Gonorrhoeae,Ur -Lakshmi Negative 24 Basic Metabolic Panel 03/17/2015 [facility] Glucose 93 mg/dL 74-[address] [place] [address] [phone] BUN 14 mg/dL 7-18 Creatinine 0.9 mg/dL 0.6-1.3 Glom Filtration Rate, Estimate >60 mL/min >60 If >60 mL/min >60 25 BUN/Creat 15.5 ratio Sodium 138 mmol/L 136-145 Potassium 4.4 mmol/L 3.5-5.1 Chloride 103 mmol/L 98-107 Carbon Dioxide 29 mmol/L 21-32 Anion Gap 6 mEq/L Low 8-16 Calcium 8.3 mg/dL Low 8.5-10.1 Laboratory test 03/17/2015 [facility] Thyroid Stim 1.70 uIU/mL 0.36-3.[address] [place] [address] [phone] Free T4 0.78 ng/dL 0.76-1.46 Testosterone,Serum 03/17/2015 [facility] Testosterone, Serum [phone] ng/[place] [address] [phone] Comment See Note 26 Hemoglobin/Hematocrit 03/17/2015 [facility] Hemoglobin 14.9 12.8-17.[address] gm/[place] [address] [phone] Hematocrit 43.6 % 38.0-48.0 LDL Cholesterol 12/26/2014 [facility] Cholesterol 218 mg/dL < 200 [address] [place] [address] [phone] Triglycerides 64 mg/dL < 150 28 HDL Cholesterol 93 mg/dL > 40 29 LDL-Cholesterol 112 mg/dL < 100 30 Laboratory test 12/26/2014 [facility] Prostate 2.80 ng/mL [address] [place] [address] [phone] Lipid Panel 06/05/2013 [facility] Cholesterol 271 mg/dL High 125-[address] [place] [address] [phone] HDL Cholesterol 74 mg/dL > Or=40 Cholesterol/HDL Ratio 3.7 < Or=5.0 LDL Chol,Calculated 148 mg/dL High <130 33 Triglycerides 246 mg/dL High <150 Non-HDL Cholesterol 197 mg/dL High 34 Laboratory 06/05/2013 [facility] Testosterone,Total,LC/MS/MS 648 250- 1100 35 test finding [address] ng/dL [place], [place] [id number] [phone] PSA,Total 1.8 NG/ML 0.0-4.0 36 BMP W/O Egfr 06/05/2013 [facility] Sodium 137 mmol/L 135-[address] [place], [place] [address] [phone] Potassium 4.5 mmol/L 3.5-5.3 Chloride 100 mmol/L 98-110 Carbon Dioxide 28 mmol/L 19-30 Calcium 9.4 mg/dL 8.6-10.3 Glucose 91 mg/dL 65-99 37 Urea Nitrogen 14 mg/dL 7-25 Creatinine 1.05 mg/dL 0.70-1.25 38 BUN/Creatinine Ratio 13.3 6-22 Lipid Panel 05/09/2013 [facility] Cholesterol 277 mg/dL High 125-[address] [place] [address] [phone] HDL Cholesterol 41 mg/dL > Or=40 Cholesterol/HDL Ratio 6.8 High < Or=5.0 LDL Chol,Calculated (SEE NOTE) mg/dL 39 Triglycerides 1672 mg/dL High <150 40 Non-HDL Cholesterol 236 mg/dL High 41 Laboratory test 08/09/2012 [facility] Rectal Mucosa See Note [address] [place] [address] [phone] Laboratory test 07/02/2012 [facility] Direct LDL 101 mg/dL <130 [address] [place] [address] [phone] Comprehensive 06/03/2012 [facility] Glucose 96 mg/dL 76-115 Metabolic Panel [address] [place] [address] [phone] BUN 12 mg/dL 5-23 Creatinine 0.9 mg/dL [...] Phosphatase 72 U/L 50-136 Laboratory test 06/03/2012 [facility] Lipase 129 U/L 28-[address] [place], [place] [address] [phone] CBC W/Automated 06/03/2012 [facility] White Blood 6.4 K/uL 3.4-10.[address] [place] [address] [phone] Red Blood Count 4.87 M/uL 4.20-5.80 Hemoglobin 15.5 gm/dL 12.8-17.0 Hematocrit 44.4 % 38.0-48.0 Mean Cell Volume 91.2 fl 80.0-96.0 Mean Corpuscular HGB 31.8 pg 27.0-33.0 Mean Corpuscular HGB Conc 34.9 g/dL 31.7-36.0 Platelet Count 210 K/uL 150-400 Red Cell Distri Width SD 41.2 fl 36-51 Red Cell Distri Width %CV 12.7 % 11.6-15.8 Mean Platelet Volume 11.1 fL High 6.6-10.6 Differential-WBC 06/03/2012 [facility] Total Cells 100 #CELLS Confirm [address] [place] [address] [phone] Neutrophils% 65 % 33-73 Lymph% 11 % Low 17-56 Atypical Lymph% 11 % High 0-7 Monocyte% 8 % 0-10 Eosinophil% 5 % 0-5 Platelet Estimate NORMAL RBC Morphology NORMAL Urine Screen 06/03/2012 [facility] Urine Color YELLOW Yellow [address] [place] [address] [phone] Urine Clarity CLEAR Clear Urine Glucose - Dipstick NEGATIVE mg/dL Negative Urine Bilirubin - Dipstick NEGATIVE Negative Urine Ketone NEGATIVE mg/dL Negative Urine Specific [place] <=1.005 Low 1.010-1.030 Urine Blood NEGATIVE Negative Urine PH 5.0 Low 6.5-7.5 Urine Protein - Dipstick NEGATIVE mg/dL Negative Urine Urobilinogen - Dipstick 0.2 E.U./dL 0.2-1.0 Urine Nitrite - Dipstick NEGATIVE Negative Urine Leuk Esterase NEGATIVE Negative Laboratory 03/30/2012 [facility] Testosterone,Total,LC/MS/MS 596 250- 1100 45 test finding [address] ng/[place] [address] [phone] Comp 03/30/2012 [facility] Sodium 138 135-[address] mmol/[place] [address] [phone] Potassium 4.5 mmol/L 3.5-5.3 Chloride 103 mmol/L [...] 1.9-3.7 A/G Ratio 1.8 1.0-2.5 Egfr Non-Afr. Norwegian 86 ML/MIN/1.73M2 > Or=60 Egfr 100 ML/MIN/1.73M2 > Or=60 CBC W/ Diff & PLT 03/30/2012 [facility] WBC 9.4 thous/L 3.8-10.[address] [place] [address] [phone] RBC 4.36 mill/L 4.20-5.80 Hemoglobin 13.8 g/dL 13.2-17.1 Hematocrit 41.0 % 38.5-50.0 MCV 93.9 FL 80.0-100.0 MCH 31.5 pg 27.0-33.0 MCHC 33.6 g/dL 32.0-36.0 RDW 13.5 % 11.0-15.0 Platelet Count 198 thous/L 140-400 Neutrophils,Absolute 7000 cells/L 4847-9203 Lymphocytes,Absolute 1310 cells/L [phone] Monocytes,Absolute 790 cells/L 200-950 Eosinophils,Absolute 220 cells/L 15-500 Basophils,Absolute 30 cells/L 0-200 Total Neutrophils,% 75 % 38-80 Total Lymphocytes,% 14 % 15-49 Monocytes,% 8 % 0-13 Eosinophils,% 2 % 0-8 Basophils,% 0 % 0-2 TSH & T4,Free 03/30/2012 [facility] TSH 1.81 mIU/L 0.40-4.[address] [place] [address] [phone] T4,Free 1.1 ng/dL 0.8-1.8 48 Laboratory test 03/30/2012 [facility] PSA,Total 1.8 NG/ML 0.0-4.0 [address] [place] [address] [phone] Laboratory test 08/01/2011 [facility] LDL 101 mg/dL <130 [address] Cholesterol,Dire [address] [phone] Hepatic Function 08/01/2011 [facility] Alkaline 56 U/L 40-[address] [place] [address] [phone] Ast 32 U/L 10-35 Alt 36 U/L 9-60 Bilirubin,Total 0.8 mg/dL 0.2-1.2 Bilirubin,Direct 0.2 mg/dL < Or=0.2 Protein,Total 6.3 g/dL 6.2-8.3 Albumin 4.3 g/dL 3.6-5.1 Globulin,Calculated 2.0 g/dL Low 2.1-3.7 A/G Ratio 2.1 1.0-2.1 Lipid Panel 05/03/2011 [facility] Cholesterol 235 mg/dL High 125-[address] [place], [place] [address] [phone] HDL Cholesterol 70 mg/dL > Or=40 Cholesterol/HDL Ratio 3.4 < Or=5.0 LDL Chol,Calculated 133 mg/dL High <130 51 Triglycerides 161 mg/dL High <150 Hepatic Function 05/03/2011 [facility] Alkaline Phosphatase 57 U/L 40- [address] [place], [place] [address] [phone] Ast 31 U/L 10-35 Alt 34 U/L 9-60 Bilirubin,Total 0.6 mg/dL 0.2-1.2 Bilirubin,Direct 0.1 mg/dL < Or=0.2 Protein,Total 6.6 g/dL 6.2-8.3 Albumin 4.5 g/dL 3.6-5.1 Globulin,Calculated 2.1 g/dL 2.1-3.7 A/G Ratio 2.1 1.0-2.1 Laboratory 01/05/2011 [facility] LDL Cholesterol,Direct 117 <130 52 test finding [address] mg/dL [place], [place] [address] [phone] Hepatic 01/05/2011 [facility] Alkaline Phosphatase 51 U/L 40-115 Function Panel [address] [place] [address] [phone] Ast 31 U/L 10-35 Alt 28 U/L 9-60 Bilirubin,Total 0.6 mg/dL 0.2-1.2 Bilirubin,Direct 0.1 mg/dL < Or=0.2 Protein,Total 6.4 g/dL 6.2-8.3 Albumin 4.4 g/dL 3.6-5.1 Globulin,Calculated 2.0 g/dL Low 2.1-3.7 A/G Ratio 2.1 1.0-2.1 Laboratory test 11/03/2010 [facility] PSA,Total 1.4 NG/ML 0.0-4.0 [address] [place] [address] [phone] Lipid Panel 11/03/2010 [facility] Cholesterol 293 mg/dL High 125-[address] [place] [address] [phone] HDL Cholesterol 69 mg/dL > Or=40 Cholesterol/HDL Ratio 4.2 < Or=5.0 LDL Chol,Calculated 156 mg/dL High <130 54 Triglycerides 338 mg/dL High <150 TSH & T4,Free 11/03/2010 [facility] TSH,3RD 1.80 mIU/L 0.40-4.[address] [place] [address] [phone] T4,Free 1.2 ng/dL 0.8-1.8 Comp Metabolic Panel 11/03/2010 [facility] Sodium 140 mmol/L 135-[address] [place] [address] [phone] Potassium 4.6 mmol/L 3.5-5.3 Chloride 104 mmol/L [...] 2.1-3.7 A/G Ratio 1.8 1.0-2.1 Egfr Non-Afr. Norwegian 95 ML/MIN/1.73M2 > Or=60 Egfr 110 ML/MIN/1.73M2 > Or=60 CBC W/ Diff & PLT 11/03/2010 [facility] WBC 5.1 thous/L 3.8-10.[address] [place] [address] [phone] RBC 4.66 mill/L 4.20-5.80 Hemoglobin 15.0 g/dL 13.2-17.1 Hematocrit 44.3 % 38.5-50.0 MCV 95.0 FL 80.0-100.0 MCH 32.2 pg 27.0-33.0 MCHC 33.9 g/dL 32.0-36.0 RDW 13.9 % 11.0-15.0 Platelet Count 205 thous/L 140-400 Neutrophils,Absolute 2760 cells/L 5608-1754 Lymphocytes,Absolute 1520 cells/L [phone] Monocytes,Absolute 590 cells/L 200-950 Eosinophils,Absolute 170 cells/L 15-500 Basophils,Absolute 30 cells/L 0-200 Total Neutrophils,% 54 % 38-80 Total Lymphocytes,% 30 % 15-49 Monocytes,% 12 % 0-13 Eosinophils,% 3 % 0-8 Basophils,% 1 % 0-2 Laboratory test 11/03/2009 [facility] PSA,Total 1.3 NG/ML 0.0-4.0 [address] [place], [place] [address] [phone] Lipid Panel 11/03/2009 [facility] Cholesterol 249 mg/dL High 125-[address] [place], [place] [address] [phone] HDL Cholesterol 75 mg/dL > Or=40 Triglycerides 208 mg/dL High <150 Cholesterol/HDL Ratio 3.3 < Or=5.0 LDL Chol,Calculated 132 mg/dL High <130 57 TSH & T4,Free 11/03/2009 [facility] TSH,3RD 3.76 mIU/L 0.40-4.[address] [place], [place] [address]605 [phone] T4,Free 0.9 ng/dL 0.8-1.8 Lipid Panel 05/11/2009 [facility] Cholesterol 268 mg/dL High 125-[address] [place], [place] [address] [phone] HDL Cholesterol 77 mg/dL > Or=40 Triglycerides 119 mg/dL <150 Cholesterol/HDL Ratio 3.5 < Or=5.0 LDL Chol,Calculated 167 mg/dL High <130 58 Comp Metabolic Panel 11/06/2008 [facility] Sodium 138 mmol/L 135-[address] [place] [address] [phone] Potassium 4.3 mmol/L 3.5-5.3 Chloride 103 mmol/L [...] 2.1-3.7 A/G Ratio 1.9 1.0-2.1 Egfr Non-Afr. Norwegian >60 ML/MIN/1.73M2 > Or=60 Egfr >60 ML/MIN/1.73M2 > Or=60 CBC W/ Diff & PLT 11/06/2008 [facility] WBC 9.1 thous/L 3.8-10.8 [address] [place], [place] [address] [phone] RBC 4.70 mill/L 4.20-5.80 Hemoglobin 14.9 g/dL 13.2-17.1 Hematocrit 43.7 % 38.5-50.0 MCV 92.9 FL 80.0-100.0 MCH 31.7 pg 27.0-33.0 MCHC 34.2 g/dL 32.0-36.0 RDW 13.8 % 11.0-15.0 Platelet Count 210 thous/L 140-400 Platelet Sufficiency NORMAL Normal Neutrophils,Absolute 6420 cells/L 7115-5806 Bands,Absolute DNR cells/L 0-750 Metamyelocytes,Absolute DNR cells/L [...] Lab Cholesterol 223 mg/dL High 125-[address] [place] [address] [phone] HDL Cholesterol 68 mg/dL > Or=40 Triglycerides 196 mg/dL High <150 Cholesterol/HDL Ratio 3.3 < Or=5.0 LDL Chol,Calculated 116 mg/dL <130 60 Laboratory test 11/06/2008 [facility] PSA,Total 1.6 NG/ML 0.0-4.0 [address] [place] [address] [phone] TSH & T4,Free 11/06/2008 [facility] TSH,3RD 3.41 mU/L 0.40-4.[address] [place] [address] [phone] T4,Free 0.9 ng/dL 0.8-1.8 Laboratory test 01/19/2007 [facility] Ferritin 61 NG/ML 20-[address] [place] [address] [phone] Hepatic Function 01/19/2007 [facility] Alkaline 52 U/L 40-[address] [place] [address] [phone] Ast 35 U/L 10-35 Alt 35 U/L 9-60 Bilirubin,Total 1.0 mg/dL 0.2-1.2 Bilirubin,Direct 0.2 mg/dL < Or=0.2 Protein,Total 6.9 g/dL 6.2-8.3 Albumin 4.4 g/dL 3.6-5.1 Lipid Panel 01/19/2007 [facility] Cholesterol 234 mg/dL High 125-[address] [place] [address] [phone] HDL Cholesterol 83 mg/dL > Or=40 62 Cholesterol/HDL Ratio 2.8 < Or=5.0 LDL Chol,Calculated 125 mg/dL <130 63 Triglycerides 131 mg/dL <150 Hepatic Function 09/25/2006 [facility] Alkaline Phosphatase 46 U/L 40- [address] [place] [address] [phone] Ast 33 U/L 10-35 Alt 31 U/L 9-60 Bilirubin,Total 0.8 mg/dL 0.2-1.2 Bilirubin,Direct 0.2 mg/dL < Or=0.2 Protein,Total 6.7 g/dL 6.2-8.3 Albumin 4.2 g/dL 3.6-5.1 Lipid Panel 09/25/2006 [facility] Cholesterol 188 mg/dL 125-[address] [place] [address] [phone] HDL Cholesterol 86 mg/dL > Or=40 64 Triglycerides 121 mg/dL <150 Cholesterol/HDL Ratio 2.2 < Or=5.0 LDL Chol,Calculated 78 mg/dL <130 65 Lipid Panel 06/21/2006 [facility] Cholesterol 262 mg/dL High 125-[address] [place] [address] [phone] HDL Cholesterol 76 mg/dL > Or=40 66 Cholesterol/HDL Ratio 3.4 < Or=5.0 LDL Chol,Calculated 171 mg/dL High <130 67 Triglycerides 76 mg/dL <150 Hepatic Function 06/21/2006 [facility] Alkaline Phosphatase 43 U/L 40- [address] [place] [address] [phone] Ast 30 U/L 10-35 Alt 29 U/L 9-60 Bilirubin,Total 0.6 mg/dL 0.2-1.2 Bilirubin,Direct 0.1 mg/dL < Or=0.2 Protein,Total 6.9 g/dL 6.2-8.3 Albumin 4.5 g/dL 3.6-5.1 Lipid Panel 05/08/2006 [facility] Cholesterol 270 mg/dL High <[address] [place], [place] [address] [phone] HDL Cholesterol 78 mg/dL >40 68 Cholesterol/HDL Ratio 3.5 <5.0 LDL Chol,Calculated 158 mg/dL High <130 69 Triglycerides 170 mg/dL High <150 Laboratory test 05/08/2006 [facility] PSA,Total 1.6 NG/ML 0.0-4.0 [address] [place], [place] [address] [phone] TSH+Free T4 05/08/2006 [facility] TSH 2.90 mU/L 0.40-5.50 ([facility]) [address] [place] [address] [phone] T4,Free 0.9 ng/dL 0.8-1.8 Comp Metabolic Panel 05/08/2006 [facility] Sodium 140 mmol/L 135-[address] [place] [address] [phone] Potassium 4.5 mmol/L 3.5-5.3 Chloride 104 mmol/L [...] [facility] WBC 8.1 thous/L 3.8-10.[address] [place] [address] [phone] RBC 4.86 mill/L 4.20-5.80 Hemoglobin 15.5 g/dL 13.2-17.1 Hematocrit 44.1 % 38.5-50.0 MCV 90.7 FL 80.0-100.0 MCH 31.8 pg 27.0-33.0 MCHC 35.1 g/dL 32.0-36.0 RDW 13.2 % 11.0-15.0 Platelet Count 227 thous/L 140-400 Platelet Sufficiency NORMAL Normal Neutrophils,Absolute 5200 cells/L 2947-2197 Bands,Absolute DNR cells/L 0-750 Metamyelocytes,Absolute DNR cells/L [...] 130-159 High: 160-189 Very High: >189 11 Director Of Purchasing: [id number] Desirable: <100 Near Optimal: 100-129 Borderline [...] 42 years old. Performed at: - [facility] [address] [id number] Medical Policy Specialist: Marilyn Grace MD, Phone: [phone] Reference Guidelines*: Desirable: ........... < 200 [...] more information on this test, go to http://education.Featurespace/faq/ TotalTestosteroneLCMSMS 36 THIS TEST WAS PERFORMED USING THE SIEMENS CHEMILUMINESCENT METHOD. VALUES OBTAINED FROM DIFFERENT ASSAY METHODS CANNOT BE USED INTERCHANGEABLY. PSA LEVELS, REGARDLESS OF VALUE, SHOULD NOT BE INTERPRETED ABSOLUTE EVIDENCE OF THE PRESENCE OR ABSENCE OF DISEASE. 37 GLUCOSE REFERENCE RANGE BASED ON FASTING SPECIMEN. 38 The upper reference limit for Creatinine is approximately 13% higher for people identified as -Norwegian. 39 LDL cholesterol not calculated. Triglyceride levels [...] more information on this test, go to http://education.Featurespace/faq/ TotalTestosteroneLCMSMS 46 GLUCOSE REFERENCE RANGE BASED ON FASTING SPECIMEN. 47 The upper reference limit for Creatinine is approximately 13% higher for people identified as -Norwegian. 48 THE CURRENT LOT OF FREE T4 REAGENT AVAILABLE FROM THE [employer] PRODUCES RESULTS THAT ARE APPROXIMATELY 9% HIGHER [...] FOR RACE, IF THE PATIENT RACE IS -MALAWIAN, THE GFR ESTIMATE MUST BE MULTIPLIED BY A FACTOR OF 1.21. Procedures Date Code Description Status 02/27/2018 86179 Non-Invcorrotid/Comp /Bilat Study Completed 02/26/2018 42644 Echocardiography Completed 02/20/2018 21610 Spirometry Graphic Record/Max Voluntary Vent Completed 02/20/2018 07625 EKG-Tracing & Report Completed 02/19/2018 03704 PVR-Atrerial Study Completed 02/19/2018 17172 Holter Monitor Office Completed 02/16/2017 22268 PVR-Atrerial Study Completed 02/16/2017 30362 EKG-Tracing & Report Completed 02/15/2017 03497 Spirometry Graphic Record/Max Voluntary Vent Completed 02/15/2017 88572 Holter Monitor Office Completed 02/02/2017 06408 Echocardiography Completed 02/02/2017 07596 Non-Invcorrotid/Comp /Bilat Study Completed 03/18/2015 54049 EKG-Tracing & Report Completed 03/17/2015 94822 Holter Monitor Office Completed 03/05/2015 65285 Non-Invcorrotid/Comp /Bilat Study Completed 03/05/2015 80985 Echocardiography Completed 12/26/2014 81871 EKG-Tracing & Report Completed 05/09/2013 17161 Spirometry Graphic Record/Max Voluntary Vent Completed 05/09/2013 [address] EKG-Tracing & Report Completed 04/15/2013 14424 Non-Invcorrotid/Comp /Bilat Study Completed 04/15/2013 06380 Echocardiography Completed 08/09/2012 [id number] Colonoscopy Completed 04/02/2012 53433 EKG-Tracing & Report Completed 03/29/2012 39583 Echocardiography Completed 03/29/2012 47315 Non-Invcorrotid/Comp /Bilat Study Completed 11/11/2010 [id number] Bone Mineral Density Test Completed 11/11/2010 15133 Bone Density Completed 11/04/2010 58385 EKG-Tracing & Report Completed 11/03/2010 67608 Spirometry Graphic Record/Max Voluntary Vent Completed 11/03/2010 88764 Holter Monitor Office Completed 11/03/2009 90330 EKG-Tracing & Report Completed 11/03/2009 90974 Echocardiography Completed 11/03/2009 34834 Non-Invcorrotid/Comp /Bilat Study Completed 11/06/2008 02952 PFT Evaluation Completed 11/06/2008 78241 Holter Monitor Office Completed 11/06/2008 86112 EKG-Tracing & Report Completed 11/05/2008 20776 Non-Invcorrotid/Comp /Bilat Study Completed 11/05/2008 34645 Echocardiography Completed 05/09/2006 27597 Bone Density Completed 05/08/2006 01128 EKG-Tracing & Report Completed 04/18/2006 53430 Doppler Color Flow Velocity Completed 04/18/2006 52675 Doppler/ECHO Completed 04/18/2006 84894 ECHO-2D W/Wo M-Mode Completed 09/05/2003 19620 Spirometry Graphic Record/Max Voluntary Vent Completed 09/05/2003 30586 EKG-Tracing & Report Completed Encounters Type Date [...] Acquired Office Visit 03/31/2009 2:40p Main Office Gray Mcintosh 959.5 Injury Finger Other & Unspec [...] Appointment(s):11/05/2018 8:00 am - Nurse at Main Bryxuw0511/14/2018 11: 30 am - Gary Mcintosh at [facility] Hxnlnb4508/14/2018 - Jaspal McintoshlN40.1 Benign prostatic hyperplasia with lower urinary tract symptomsNew Medication: Tamsulosin HCL 0.4 mg - 1 by mouth every dayDoxazosin Mesylate 2 mg - 1 PO QHSNew Labs:PSA, Total, Ordered: 08/14/18G47.33 Obstructive sleep apnea (adult) (pediatric)Comments:Continue CPAPWeight LossI34.0 [...] provided.I11.9 Hypertensive heart disease without heart failureNew Medication:Amlodipine Besylate 5 mg - 1 by mouth [...] related to medication reviewed.J44.9 Chronic obstructive pulmonary disease, unspecifiedComments: Discussed importance of excersize and avoidance of all smoke. Enviromental factors that can spark exacerbations reviewed. The necessity of reporting any changes in condition, early intervention in exacerbations and proper useand the importance of compliance with medications. Reports if applicable of home care providers, and equipment suppliers and Respiratory Therapy reviewed.F52.21 Male erectile lwqepamdT00.40xD Allergy, unspecified, subsequent encounterNew Medication:Basia Allergy 180 mg - 1 by mouth every dayFluticasone Propionate 50 mcg/Act - 2 spray each nostril every day
--- OUTSIDE RECORDS SUMMARY | 2018-08-21 11:01 | XMS REPORT | Continuity of Care Document ---
:1950 External Reference #:[id number] Author Name Sue Riggs Care Team Providers Name Role Phone Gary Mcintosh MD Primary Care Physician Unavailable Payers Date Identification Numbers Payment Provider Subscriber Policy Number: [id number] Medicare Rob Chaudhary PayID: [id number] [address] [place] [address] Effective: 1993 Policy Number: [id number] [facility] Rob Chaudhary Group Number: [id number] [address] PayID: [id number] [place] [address] Problems Active Problems Provider Date Mitral valve [...] 1units Gary Mcintosh 05/05/2015 - ordered 03/19/2018 81104Qdc/0.65ML Solution Rec Amoxicillin/Clavulana 1 by mouth twice [...] 81 Jaspal Mcintoshl 02/05/2007 - 81mg 11/18/2008 [facility] Jaspal Mcintoshl 11/29/2006 - 05/05/2015 Zetia 1 PO qd 90tabs Arnaldo Gary 07/10/2006 - 10mg Tablets 11/18/2008 Lipitor 1 po qd 90tabs 272.40 Arnaldo Gary 05/17/2006 - 20mg Tablets 07/10/2006 [facility] 1 po qd Arnaldo Gary 09/07/2005 - 09/07/2005 Multivitamins Arnaldo Gary 09/07/2005 - Caplets 01/12/2015 Amoxicillin 2 po bid 40tabs 466.0 Jaspal Mcintoshl 09/07/2005 - 500mg 2005 Tablets Nystatin-Triamcinolon apply affected Unknown - e area as 01/17/2017 641379-7.1Unit/GM-% indicated twice Cream a day Medications Administered in Office Medication SIG Qnty Indications Ordering Provider Date H1N1 Administration-Use Arnaldo Gary 01/26/2009 Injection Immunizations CPT Code Status Date Vaccine Lot # [id number] Given 03/19/2018 Influenza Virus (Afluria) Split Virus 3 Years [id number] Of Age And Older 41422 Given 03/19/2018 Pneumovax Polyvalent Inj Im [id number] Q2035 Given 01/17/2017 Influenza Virus (Afluria) Split Virus 3 Years Of Age And Older 63638 Given 06/03/2015 Zostavax 42606 Given 11/23/2010 Tetanus,Diphtheria,Adut/Adol Pertussis [id number] 26996 Given 11/23/2010 Tetanus Shot 08159 Given 12/17/2009 Influenza Vaccine 21744 Given 12/11/2008 Influenza Vaccine [id number] 17895 Given 04/01/2003 Influenza Virus Vaccine (History Only) 28790 Given 11/23/2001 DT Immunization DIP/Tet (History Only) [...] Result H/L Range Note Laboratory test 07/30/2018 [facility] Testosterone 265.81 N 240 -[address] Total ng/dL [place], [place] [address] [phone] PSA Screening 4.197 ng/mL High 0-4.000 1 CBC No Diff 07/30/2018 [facility] White Blood 9.2 10^3/uL N 3.5 -10.[address] Count [place], [place] [id number] [phone] Red Blood Count 4.78 10^6/uL N 4.18-5.48 Hemoglobin 14.8 g/dL N 14.0-18.0 Hematocrit 44 % N 42-52 Mean Corpuscular Volume 92 fL N 80-94 Mean Corpuscular Hemoglobin 31 pg N 27-31 Mean Corpuscular HGB Conc 34 g/dL N 31-36 Red Cell Distribution Width 13 % N 10.5-15 Platelet Count 191 10^3/uL N 150-450 Mean Platelet Volume 10.7 fL High 7.4-10.4 .TSH+Free T4 07/30/[address] [facility] TSH (Thyroid 1.63 mcIU/mL N 0.34-5.60 ([facility] Stim Horm) [facility]) [place], [place] [id number] [phone] Free T4 (Free Thyroxine) 0.68 ng/dL N 0.61-1.12 Comp Metabolic Panel 07/30/2018 [facility] Sodium 140 mmol/L N 301-[address] [place], [place] [address] [phone] Potassium 4.4 mmol/L N 3.5-5.0 Chloride 104 [...] Egfr 97.5 >60 2 Lipid Profile 07/30/2018 [facility] Triglycerides 132 mg/dL 3 (Trig/Chol/HDL) [address] [place] [address] [phone] Cholesterol 266 mg/dL 4 HDL Cholesterol 80.2 mg/dL 5 LDL Cholesterol 159 mg/dL 6 Lipid Profile 02/20/2018 [facility] Triglycerides 278 mg/dL 7 (Trig/Chol/HDL) [address] [place] [address] [phone] Cholesterol 296 mg/dL 8 HDL Cholesterol 79.9 mg/dL 9 LDL Cholesterol 161 mg/dL 10 Liver Function 02/20/2018 [facility] Total Protein 6.5 g/dL N 6.4-8.9 Panel [address] [place] [address] [phone] Albumin 4.4 g/dL N 3.2-5.2 Globulin 2.1 g/dL N 2-4 Albumin/Globulin Ratio 2.1 N 1-3 Total Bilirubin 0.80 mg/dL N 0.2-1.0 Direct Bilirubin 0.10 mg/dL N 0.03-0.18 Indirect Bilirubin 0.7 mg/dL N 0.3-1.0 Alkaline Phosphatase 48 U/L N 34-104 Alt 27 U/L N 7-52 Ast 26 U/L N 13-39 Laboratory test 08/04/2017 [facility] Rapid Strep Negative Negative 11 finding [address] [place] [address] [phone] Laboratory test 02/02/2017 [facility] TSH (Thyroid 1.84 mcIU/mL N 0.34-5.[address] Stim Horm) [place] [id number] [phone] LDL Cholesterol Direct 107 mg/dL 12 Free T4 (Free Thyroxine) 0.75 ng/dL N 0.61-1.12 Basic Metabolic Panel 02/02/2017 [facility] Sodium 138 mmol/L N [phone] [place] [id number] [phone] Potassium 4.6 mmol/L N 3.5-5.0 Chloride 103 mmol/L N 101-111 Co2 Carbon Dioxide 29 mmol/L N 22-32 Anion Gap 6 mmol/L N 2-11 Glucose 94 mg/dL N 70-100 Blood Urea Nitrogen 16 mg/dL N 6-24 Creatinine 0.95 mg/dL N 0.67-1.17 BUN/Creatinine Ratio 16.8 N 8-20 Calcium 8.8 mg/dL N 8.6-10.3 Egfr Non- 79.8 >60 Egfr 102.6 >60 13 Laboratory test 02/02/2017 [facility] Vitamin D Total 20.4 ng/mL N 20-50 finding [address] [facility] [address](Oh) [place] [address] [phone] Lipid Panel 02/02/2017 [facility] Triglycerides 728 mg/dL 14 [address] [place] [address] [phone] Cholesterol 306 mg/dL 15 HDL Cholesterol 60.2 mg/dL 16 LDL Cholesterol (SEE NOTE) mg/dL 17 Laboratory test 02/02/2017 [facility] PSA Screening 3.631 ng/mL N 0-4.000 18 finding [address] [place] [address] [phone] Testosterone Total 274.73 ng/dL N 240-950 Vitamin 01/12/2016 [facility] Vitamin 309 pg/mL 200-1100 19 B12/Folate Panel [address] B12,[place] [address] [phone] Folate,Serum >24.0 NG/ML 20 TSH & T4,Free 01/12/2016 [facility] TSH 1.97 mIU/L 0.40-4.[address] [place] [id number] [phone] T4,Free 1.1 ng/dL 0.8-1.8 Laboratory test finding 01/12/2016 [facility] Glucose 99 mg/dL 65-99 21 [address] [place] [address] [phone] Hemoglobin A1c 5.3 % 0.0-5.6 22 BMP W/O Egfr 10/28/2015 [facility] Sodium 137 mmol/L N [phone] [place] [address] [phone] Potassium 4.9 mmol/L N 3.5-5.0 Chloride 101 mmol/L N 101-111 Co2 Carbon Dioxide 29 mmol/L N 22-32 Anion Gap 7 mmol/L N 2-11 Glucose 97 mg/dL N 70-100 Blood Urea Nitrogen 19 mg/dL N 6-24 Creatinine 0.98 mg/dL N 0.67-1.17 BUN/Creatinine Ratio 19.4 N 8-20 Egfr Non- 77.2 N >60 Egfr 99.3 N >60 23 Laboratory test 10/28/2015 [facility] Calcium 9.6 mg/dL N 8.6- 10.3 finding [address] [place] [address] [phone] Urine Screen 08/17/2015 [facility] Urine Color YELLOW Yellow [address] [place] [address] [phone] Urine Clarity CLEAR Clear Urine Glucose - Dipstick NEGATIVE mg/dL Negative Urine Bilirubin - Dipstick NEGATIVE Negative Urine Ketone NEGATIVE mg/dL Negative Urine Specific [place] 1.015 1.010-1.030 Urine Blood NEGATIVE Negative Urine PH 6.0 Low 6.5-7.5 Urine Protein - Dipstick NEGATIVE mg/dL Negative Urine Urobilinogen - Dipstick 0.2 E.U./dL 0.2-1.0 Urine Nitrite - Dipstick NEGATIVE Negative Urine Leuk Esterase NEGATIVE Negative Chlamydia/GC Lakshmi, 08/17/2015 [facility] Chlamydia Negative Urine [address] Trachomatis,[place] [address] -Lakshmi [phone] Neisseria Gonorrhoeae,Ur -Lakshmi Negative 24 Basic Metabolic Panel 03/17/2015 [facility] Glucose 93 mg/dL 74-[address] [place] [address] [phone] BUN 14 mg/dL 7-18 Creatinine 0.9 mg/dL 0.6-1.3 Glom Filtration Rate, Estimate >60 mL/min >60 If >60 mL/min >60 25 BUN/Creat 15.5 ratio Sodium 138 mmol/L 136-145 Potassium 4.4 mmol/L 3.5-5.1 Chloride 103 mmol/L 98-107 Carbon Dioxide 29 mmol/L 21-32 Anion Gap 6 mEq/L Low 8-16 Calcium 8.3 mg/dL Low 8.5-10.1 Laboratory test 03/17/2015 [facility] Thyroid Stim 1.70 uIU/mL 0.36-3.[address] [place] [address] [phone] Free T4 0.78 ng/dL 0.76-1.46 Testosterone,Serum 03/17/2015 [facility] Testosterone, Serum [phone] ng/[place] [address] [phone] Comment See Note 26 Hemoglobin/Hematocrit 03/17/2015 [facility] Hemoglobin 14.9 12.8-17.[address] gm/[place] [address] [phone] Hematocrit 43.6 % 38.0-48.0 LDL Cholesterol 12/26/2014 [facility] Cholesterol 218 mg/dL < 200 [address] [place] [address] [phone] Triglycerides 64 mg/dL < 150 28 HDL Cholesterol 93 mg/dL > 40 29 LDL-Cholesterol 112 mg/dL < 100 30 Laboratory test 12/26/2014 [facility] Prostate 2.80 ng/mL [address] [place] [place] [address] [phone] Lipid Panel 06/05/2013 [facility] Cholesterol 271 mg/dL High 125-[address] [place] [address] [phone] HDL Cholesterol 74 mg/dL > Or=40 Cholesterol/HDL Ratio 3.7 < Or=5.0 LDL Chol,Calculated 148 mg/dL High <130 33 Triglycerides 246 mg/dL High <150 Non-HDL Cholesterol 197 mg/dL High 34 Laboratory 06/05/2013 [facility] Testosterone,Total,LC/MS/MS 648 250- 1100 35 test finding [address] ng/dL [place], [place] [id number] [phone] PSA,Total 1.8 NG/ML 0.0-4.0 36 BMP W/O Egfr 06/05/2013 [facility] Sodium 137 mmol/L 135-[address] [place], [place] [address] [phone] Potassium 4.5 mmol/L 3.5-5.3 Chloride 100 mmol/L 98-110 Carbon Dioxide 28 mmol/L 19-30 Calcium 9.4 mg/dL 8.6-10.3 Glucose 91 mg/dL 65-99 37 Urea Nitrogen 14 mg/dL 7-25 Creatinine 1.05 mg/dL 0.70-1.25 38 BUN/Creatinine Ratio 13.3 6-22 Lipid Panel 05/09/2013 [facility] Cholesterol 277 mg/dL High 125-[address] [place] [address] [phone] HDL Cholesterol 41 mg/dL > Or=40 Cholesterol/HDL Ratio 6.8 High < Or=5.0 LDL Chol,Calculated (SEE NOTE) mg/dL 39 Triglycerides 1672 mg/dL High <150 40 Non-HDL Cholesterol 236 mg/dL High 41 Laboratory test 08/09/2012 [facility] Rectal Mucosa See Note [address] [place] [address] [phone] Laboratory test 07/02/2012 [facility] Direct LDL 101 mg/dL <130 [address] [place] [address] [phone] Comprehensive 06/03/2012 [facility] Glucose 96 mg/dL 76-115 Metabolic Panel [address] [place] [address] [phone] BUN 12 mg/dL 5-23 Creatinine 0.9 mg/dL [...] Phosphatase 72 U/L 50-136 Laboratory test 06/03/2012 [facility] Lipase 129 U/L 28-[address] [place], [place] [id number] [phone] CBC W/Automated 06/03/2012 [facility] White Blood 6.4 K/uL 3.4-10.[address] [place] [address] [phone] Red Blood Count 4.87 M/uL 4.20-5.80 Hemoglobin 15.5 gm/dL 12.8-17.0 Hematocrit 44.4 % 38.0-48.0 Mean Cell Volume 91.2 fl 80.0-96.0 Mean Corpuscular HGB 31.8 pg 27.0-33.0 Mean Corpuscular HGB Conc 34.9 g/dL 31.7-36.0 Platelet Count 210 K/uL 150-400 Red Cell Distri Width SD 41.2 fl 36-51 Red Cell Distri Width %CV 12.7 % 11.6-15.8 Mean Platelet Volume 11.1 fL High 6.6-10.6 Differential-WBC 06/03/2012 [facility] Total Cells 100 #CELLS Confirm [address] [place] [place] [address] [phone] Neutrophils% 65 % 33-73 Lymph% 11 % Low 17-56 Atypical Lymph% 11 % High 0-7 Monocyte% 8 % 0-10 Eosinophil% 5 % 0-5 Platelet Estimate NORMAL RBC Morphology NORMAL Urine Screen 06/03/2012 [facility] Urine Color YELLOW Yellow [address] [place] [address] [phone] Urine Clarity CLEAR Clear Urine Glucose - Dipstick NEGATIVE mg/dL Negative Urine Bilirubin - Dipstick NEGATIVE Negative Urine Ketone NEGATIVE mg/dL Negative Urine Specific [place] <=1.005 Low 1.010-1.030 Urine Blood NEGATIVE Negative Urine PH 5.0 Low 6.5-7.5 Urine Protein - Dipstick NEGATIVE mg/dL Negative Urine Urobilinogen - Dipstick 0.2 E.U./dL 0.2-1.0 Urine Nitrite - Dipstick NEGATIVE Negative Urine Leuk Esterase NEGATIVE Negative Laboratory 03/30/2012 [facility] Testosterone,Total,LC/MS/MS 596 250- 1100 45 test finding [address] ng/[place] [address] [phone] Comp 03/30/2012 [facility] Sodium 138 135-[address] mmol/[place] [address] [phone] Potassium 4.5 mmol/L 3.5-5.3 Chloride 103 mmol/L [...] 1.9-3.7 A/G Ratio 1.8 1.0-2.5 Egfr Non-Afr. Greek 86 ML/MIN/1.73M2 > Or=60 Egfr 100 ML/MIN/1.73M2 > Or=60 CBC W/ Diff & PLT 03/30/2012 [facility] WBC 9.4 thous/L 3.8-10.[address] [place] [address] [phone] RBC 4.36 mill/L 4.20-5.80 Hemoglobin 13.8 g/dL 13.2-17.1 Hematocrit 41.0 % 38.5-50.0 MCV 93.9 FL 80.0-100.0 MCH 31.5 pg 27.0-33.0 MCHC 33.6 g/dL 32.0-36.0 RDW 13.5 % 11.0-15.0 Platelet Count 198 thous/L 140-400 Neutrophils,Absolute 7000 cells/L 1085-3292 Lymphocytes,Absolute 1310 cells/L 850-3900 Monocytes,Absolute 790 cells/L 200-950 Eosinophils,Absolute 220 cells/L 15-500 Basophils,Absolute 30 cells/L 0-200 Total Neutrophils,% 75 % 38-80 Total Lymphocytes,% 14 % 15-49 Monocytes,% 8 % 0-13 Eosinophils,% 2 % 0-8 Basophils,% 0 % 0-2 TSH & T4,Free 03/30/2012 [facility] TSH 1.81 mIU/L 0.40-4.[address] [place] [address] [phone] T4,Free 1.1 ng/dL 0.8-1.8 48 Laboratory test 03/30/2012 [facility] PSA,Total 1.8 NG/ML 0.0-4.[address] [place] [address] [phone] Laboratory test 08/01/2011 [facility] LDL 101 mg/dL <130 [address] Cholesterol,Dire [address] [phone] Hepatic Function 08/01/2011 [facility] Alkaline 56 U/L 40-[address] [place] [address] [phone] Ast 32 U/L 10-35 Alt 36 U/L 9-60 Bilirubin,Total 0.8 mg/dL 0.2-1.2 Bilirubin,Direct 0.2 mg/dL < Or=0.2 Protein,Total 6.3 g/dL 6.2-8.3 Albumin 4.3 g/dL 3.6-5.1 Globulin,Calculated 2.0 g/dL Low 2.1-3.7 A/G Ratio 2.1 1.0-2.1 Lipid Panel 05/03/2011 [facility] Cholesterol 235 mg/dL High 125-[address] [place], [place] [address] [phone] HDL Cholesterol 70 mg/dL > Or=40 Cholesterol/HDL Ratio 3.4 < Or=5.0 LDL Chol,Calculated 133 mg/dL High <130 51 Triglycerides 161 mg/dL High <150 Hepatic Function 05/03/2011 [facility] Alkaline Phosphatase 57 U/L 40- [address] [place], [place] [address] [phone] Ast 31 U/L 10-35 Alt 34 U/L 9-60 Bilirubin,Total 0.6 mg/dL 0.2-1.2 Bilirubin,Direct 0.1 mg/dL < Or=0.2 Protein,Total 6.6 g/dL 6.2-8.3 Albumin 4.5 g/dL 3.6-5.1 Globulin,Calculated 2.1 g/dL 2.1-3.7 A/G Ratio 2.1 1.0-2.1 Laboratory 01/05/2011 [facility] LDL Cholesterol,Direct 117 <130 52 test finding [address] mg/dL [place], [place] [address] [phone] Hepatic 01/05/2011 [facility] Alkaline Phosphatase 51 U/L 40-115 Function Panel [address] [place] [address] [phone] Ast 31 U/L 10-35 Alt 28 U/L 9-60 Bilirubin,Total 0.6 mg/dL 0.2-1.2 Bilirubin,Direct 0.1 mg/dL < Or=0.2 Protein,Total 6.4 g/dL 6.2-8.3 Albumin 4.4 g/dL 3.6-5.1 Globulin,Calculated 2.0 g/dL Low 2.1-3.7 A/G Ratio 2.1 1.0-2.1 Laboratory test 11/03/2010 [facility] PSA,Total 1.4 NG/ML 0.0-4.0 [address] [place] [address] [phone] Lipid Panel 11/03/2010 [facility] Cholesterol 293 mg/dL High 125-[address] [place] [address] [phone] HDL Cholesterol 69 mg/dL > Or=40 Cholesterol/HDL Ratio 4.2 < Or=5.0 LDL Chol,Calculated 156 mg/dL High <130 54 Triglycerides 338 mg/dL High <150 TSH & T4,Free 11/03/2010 [facility] TSH,3RD 1.80 mIU/L 0.40-4.[address] [place] [address] [phone] T4,Free 1.2 ng/dL 0.8-1.8 Comp Metabolic Panel 11/03/2010 [facility] Sodium 140 mmol/L 135-[address] [place] [address] [phone] Potassium 4.6 mmol/L 3.5-5.3 Chloride 104 mmol/L [...] 2.1-3.7 A/G Ratio 1.8 1.0-2.1 Egfr Non-Afr. Greek 95 ML/MIN/1.73M2 > Or=60 Egfr 110 ML/MIN/1.73M2 > Or=60 CBC W/ Diff & PLT 11/03/2010 [facility] WBC 5.1 thous/L 3.8-10.[address] [place] [address] [phone] RBC 4.66 mill/L 4.20-5.80 Hemoglobin 15.0 g/dL 13.2-17.1 Hematocrit 44.3 % 38.5-50.0 MCV 95.0 FL 80.0-100.0 MCH 32.2 pg 27.0-33.0 MCHC 33.9 g/dL 32.0-36.0 RDW 13.9 % 11.0-15.0 Platelet Count 205 thous/L 140-400 Neutrophils,Absolute 2760 cells/L 8811-7160 Lymphocytes,Absolute 1520 cells/L 850-3900 Monocytes,Absolute 590 cells/L 200-950 Eosinophils,Absolute 170 cells/L 15-500 Basophils,Absolute 30 cells/L 0-200 Total Neutrophils,% 54 % 38-80 Total Lymphocytes,% 30 % 15-49 Monocytes,% 12 % 0-13 Eosinophils,% 3 % 0-8 Basophils,% 1 % 0-2 Laboratory test 11/03/2009 [facility] PSA,Total 1.3 NG/ML 0.0-4.0 [address] [place], [place] [address] [phone] Lipid Panel 11/03/2009 [facility] Cholesterol 249 mg/dL High 125-[address] [place], [place] [address] [phone] HDL Cholesterol 75 mg/dL > Or=40 Triglycerides 208 mg/dL High <150 Cholesterol/HDL Ratio 3.3 < Or=5.0 LDL Chol,Calculated 132 mg/dL High <130 57 TSH & T4,Free 11/03/2009 [facility] TSH,3RD 3.76 mIU/L 0.40-4.[address] [place], [place] [address] [phone] T4,Free 0.9 ng/dL 0.8-1.8 Lipid Panel 05/11/2009 [facility] Cholesterol 268 mg/dL High 125-[address] [place], [place] [address] [phone] HDL Cholesterol 77 mg/dL > Or=40 Triglycerides 119 mg/dL <150 Cholesterol/HDL Ratio 3.5 < Or=5.0 LDL Chol,Calculated 167 mg/dL High <130 58 Comp Metabolic Panel 11/06/2008 [facility] Sodium 138 mmol/L 135-[address] [place] [address] [phone] Potassium 4.3 mmol/L 3.5-5.3 Chloride 103 mmol/L [...] 2.1-3.7 A/G Ratio 1.9 1.0-2.1 Egfr Non-Afr. Greek >60 ML/MIN/1.73M2 > Or=60 Egfr >60 ML/MIN/1.73M2 > Or=60 CBC W/ Diff & PLT 11/06/2008 [facility] WBC 9.1 thous/L 3.8-10.8 [address] [place], [place] [address] [phone] RBC 4.70 mill/L 4.20-5.80 Hemoglobin 14.9 g/dL 13.2-17.1 Hematocrit 43.7 % 38.5-50.0 MCV 92.9 FL 80.0-100.0 MCH 31.7 pg 27.0-33.0 MCHC 34.2 g/dL 32.0-36.0 RDW 13.8 % 11.0-15.0 Platelet Count 210 thous/L 140-400 Platelet Sufficiency NORMAL Normal Neutrophils,Absolute 6420 cells/L 0158-6910 Bands,Absolute DNR cells/L 0-750 Metamyelocytes,Absolute DNR cells/L [...] Lab Cholesterol 223 mg/dL High 125-[address] [place] [address] [phone] HDL Cholesterol 68 mg/dL > Or=40 Triglycerides 196 mg/dL High <150 Cholesterol/HDL Ratio 3.3 < Or=5.0 LDL Chol,Calculated 116 mg/dL <130 60 Laboratory test 11/06/2008 [facility] PSA,Total 1.6 NG/ML 0.0-4.0 [address] [place] [address] [phone] TSH & T4,Free 11/06/2008 [facility] TSH,3RD 3.41 mU/L 0.40-4.[address] [place] [address] [phone] T4,Free 0.9 ng/dL 0.8-1.8 Laboratory test 01/19/2007 [facility] Ferritin 61 NG/ML 20-[address] [place] [address] [phone] Hepatic Function 01/19/2007 [facility] Alkaline 52 U/L 40-[address] [place] [address] [phone] Ast 35 U/L 10-35 Alt 35 U/L 9-60 Bilirubin,Total 1.0 mg/dL 0.2-1.2 Bilirubin,Direct 0.2 mg/dL < Or=0.2 Protein,Total 6.9 g/dL 6.2-8.3 Albumin 4.4 g/dL 3.6-5.1 Lipid Panel 01/19/2007 [facility] Cholesterol 234 mg/dL High 125-[address] [place] [address] [phone] HDL Cholesterol 83 mg/dL > Or=40 62 Cholesterol/HDL Ratio 2.8 < Or=5.0 LDL Chol,Calculated 125 mg/dL <130 63 Triglycerides 131 mg/dL <150 Hepatic Function 09/25/2006 [facility] Alkaline Phosphatase 46 U/L 40- [address] [place] [address] [phone] Ast 33 U/L 10-35 Alt 31 U/L 9-60 Bilirubin,Total 0.8 mg/dL 0.2-1.2 Bilirubin,Direct 0.2 mg/dL < Or=0.2 Protein,Total 6.7 g/dL 6.2-8.3 Albumin 4.2 g/dL 3.6-5.1 Lipid Panel 09/25/2006 [facility] Cholesterol 188 mg/dL 125-[address] [place] [address] [phone] HDL Cholesterol 86 mg/dL > Or=40 64 Triglycerides 121 mg/dL <150 Cholesterol/HDL Ratio 2.2 < Or=5.0 LDL Chol,Calculated 78 mg/dL <130 65 Lipid Panel 06/21/2006 [facility] Cholesterol 262 mg/dL High 125-[address] [place] [address] [phone] HDL Cholesterol 76 mg/dL > Or=40 66 Cholesterol/HDL Ratio 3.4 < Or=5.0 LDL Chol,Calculated 171 mg/dL High <130 67 Triglycerides 76 mg/dL <150 Hepatic Function 06/21/2006 [facility] Alkaline Phosphatase 43 U/L 40- [address] [place] [address] [phone] Ast 30 U/L 10-35 Alt 29 U/L 9-60 Bilirubin,Total 0.6 mg/dL 0.2-1.2 Bilirubin,Direct 0.1 mg/dL < Or=0.2 Protein,Total 6.9 g/dL 6.2-8.3 Albumin 4.5 g/dL 3.6-5.1 Lipid Panel 05/08/2006 [facility] Cholesterol 270 mg/dL High <[address] [place], [place] [address] [phone] HDL Cholesterol 78 mg/dL >40 68 Cholesterol/HDL Ratio 3.5 <5.0 LDL Chol,Calculated 158 mg/dL High <130 69 Triglycerides 170 mg/dL High <150 Laboratory test 05/08/2006 [facility] PSA,Total 1.6 NG/ML 0.0-4.0 [address] [place], [place] [address] [phone] TSH+Free T4 05/08/2006 [facility] TSH 2.90 mU/L 0.40-5.50 ([facility]) [address] [place] [address] [phone] T4,Free 0.9 ng/dL 0.8-1.8 Comp Metabolic Panel 05/08/2006 [facility] Sodium 140 mmol/L 135-[address] [place] [address] [phone] Potassium 4.5 mmol/L 3.5-5.3 Chloride 104 mmol/L [...] [facility] WBC 8.1 thous/L 3.8-10.[address] [place] [address] [phone] RBC 4.86 mill/L 4.20-5.80 Hemoglobin 15.5 g/dL 13.2-17.1 Hematocrit 44.1 % 38.5-50.0 MCV 90.7 FL 80.0-100.0 MCH 31.8 pg 27.0-33.0 MCHC 35.1 g/dL 32.0-36.0 RDW 13.2 % 11.0-15.0 Platelet Count 227 thous/L 140-400 Platelet Sufficiency NORMAL Normal Neutrophils,Absolute 5200 cells/L 8279-8927 Bands,Absolute DNR cells/L 0-750 Metamyelocytes,Absolute DNR cells/L [...] 130-159 High: 160-189 Very High: >189 11 Overcoil Stepper: [id number] Desirable: <100 Near Optimal: 100-129 Borderline [...] 42 years old. Performed at: - [facility] [address] [id number] Manager Trust: Marilyn Grace MD, Phone: [phone] Reference Guidelines*: Desirable: ........... < 200 [...] more information on this test, go to http://education.[employer]/faq/ TotalTestosteroneLCMSMS 36 THIS TEST WAS PERFORMED USING THE SIEMENS CHEMILUMINESCENT METHOD. VALUES OBTAINED FROM DIFFERENT ASSAY METHODS CANNOT BE USED INTERCHANGEABLY. PSA LEVELS, REGARDLESS OF VALUE, SHOULD NOT BE INTERPRETED ABSOLUTE EVIDENCE OF THE PRESENCE OR ABSENCE OF DISEASE. 37 GLUCOSE REFERENCE RANGE BASED ON FASTING SPECIMEN. 38 The upper reference limit for Creatinine is approximately 13% higher for people identified as -Greek. 39 LDL cholesterol not calculated. Triglyceride levels [...] more information on this test, go to http://education.[employer]/faq/ TotalTestosteroneLCMSMS 46 GLUCOSE REFERENCE RANGE BASED ON FASTING SPECIMEN. 47 The upper reference limit for Creatinine is approximately 13% higher for people identified as -Greek. 48 THE CURRENT LOT OF FREE T4 REAGENT AVAILABLE FROM THE DIRECTIONAL [facility]RI[facility]ATOR PRODUCES RESULTS THAT ARE APPROXIMATELY 9% HIGHER [...] FOR RACE, IF THE PATIENT RACE IS -BENINESE, THE GFR ESTIMATE MUST BE MULTIPLIED BY A FACTOR OF 1.21. Procedures Date Code Description Status 02/27/2018 91208 Non-Invcorrotid/Comp /Bilat Study Completed 02/26/2018 19996 Echocardiography Completed 02/20/2018 41783 Spirometry Graphic Record/Max Voluntary Vent Completed 02/20/2018 80212 EKG-Tracing & Report Completed 02/19/2018 67449 PVR-Atrerial Study Completed 02/19/2018 05064 Holter Monitor Office Completed 02/16/2017 74557 PVR-Atrerial Study Completed 02/16/2017 44655 EKG-Tracing & Report Completed 02/15/2017 33316 Spirometry Graphic Record/Max Voluntary Vent Completed 02/15/2017 77082 Holter Monitor Office Completed 02/02/2017 23030 Echocardiography Completed 02/02/2017 38935 Non-Invcorrotid/Comp /Bilat Study Completed 03/18/2015 45437 EKG-Tracing & Report Completed 03/17/2015 65995 Holter Monitor Office Completed 03/05/2015 68546 Non-Invcorrotid/Comp /Bilat Study Completed 03/05/2015 73605 Echocardiography Completed 12/26/2014 42567 EKG-Tracing & Report Completed 05/09/2013 50612 Spirometry Graphic Record/Max Voluntary Vent Completed 05/09/2013 03900 EKG-Tracing & Report Completed 04/15/2013 60308 Non-Invcorrotid/Comp /Bilat Study Completed 04/15/2013 28371 Echocardiography Completed 08/09/2012 [id number] Colonoscopy Completed 04/02/2012 82006 EKG-Tracing & Report Completed 03/29/2012 01171 Echocardiography Completed 03/29/2012 32189 Non-Invcorrotid/Comp /Bilat Study Completed 11/11/2010 [id number] Bone Mineral Density Test Completed 11/11/2010 98865 Bone Density Completed 11/04/2010 35082 EKG-Tracing & Report Completed 11/03/2010 91518 Spirometry Graphic Record/Max Voluntary Vent Completed 11/03/2010 77318 Holter Monitor Office Completed 11/03/2009 80729 EKG-Tracing & Report Completed 11/03/2009 46964 Echocardiography Completed 11/03/2009 67259 Non-Invcorrotid/Comp /Bilat Study Completed 11/06/2008 24319 PFT Evaluation Completed 11/06/2008 05395 Holter Monitor Office Completed 11/06/2008 97901 EKG-Tracing & Report Completed 11/05/2008 56085 Non-Invcorrotid/Comp /Bilat Study Completed 11/05/2008 47381 Echocardiography Completed 05/09/2006 60761 Bone Density Completed 05/08/2006 60053 EKG-Tracing & Report Completed 04/18/2006 95344 Doppler Color Flow Velocity Completed 04/18/2006 81831 Doppler/ECHO Completed 04/18/2006 69674 ECHO-2D W/Wo M-Mode Completed 09/05/2003 17745 Spirometry Graphic Record/Max Voluntary Vent Completed 09/05/2003 53573 EKG-Tracing & Report Completed Encounters Type Date [...] Appointment(s):11/05/2018 8:00 am - [facility]/14/2018 11: 30 am - [facility]int[facility]6308/14/2018 - Jaspal McintoshlN40.1 Benign prostatic hyperplasia with [...] suppliers and Respiratory Therapy reviewed.F52.21 Male erectile mahykogaX27.40xD Allergy, unspecified, subsequent encounterNew Medication:Basia Allergy 180 mg - 1 by mouth every dayFluticasone Propionate 50 mcg/Act - 2 spray each nostril every day
--- OUTSIDE RECORDS SUMMARY | 2018-08-21 11:02 | XMS REPORT | Continuity of Care Document ---
:1950 External Reference #:[id number] Author Name Sue Riggs Care Team Providers Name Role Phone Gary Mcintosh MD Primary Care Physician Unavailable Payers Date Identification Numbers Payment Provider Subscriber Policy Number: [id number] Medicare Rob Chaudhary PayID: [id number] [address] [place] [address] Effective: 1993 Policy Number: [id number] [facility] Rob Chaudhary Group Number: [id number] [address] PayID: [id number] [place] [address] Problems Active Problems Provider Date Mitral valve [...] Gauss, Gary Onset: 11/23/2010 Acute bronchitis Gauss, Agry Onset: 11/23/2010 Chronic sinusitis Gauss, Gary Onset: [...] 1 by mouth as 6tabs F52.21 Gary cMintosh 02/27/2017 50mg Tablets needed History Medications Doxycycline [...] 1units Gary Mcintosh 05/05/2015 - ordered 03/19/2018 21904Iwy/0.65ML Solution Rec Amoxicillin/Clavulana 1 by mouth twice [...] 81 Jaspal Mcintoshl 02/05/2007 - 81mg 11/18/2008 [facility] Jaspal Mcintoshl 11/29/2006 - 05/05/2015 Zetia 1 PO qd 90tabs Arnaldo Gary 07/10/2006 - 10mg Tablets 11/18/2008 Lipitor 1 po qd 90tabs 272.40 Arnaldo Gary 05/17/2006 - 20mg Tablets 07/10/2006 [facility] 1 po qd Arnaldo Gary 09/07/2005 - 09/07/2005 Multivitamins Arnaldo Gary 09/07/2005 - Caplets 01/12/2015 Amoxicillin 2 po bid 40tabs 466.0 Jaspal Mcintoshl 09/07/2005 - 500mg 2005 Tablets Nystatin-Triamcinolon apply affected Unknown - e area as 01/17/2017 386580-0.1Unit/GM-% indicated twice Cream a day Medications Administered in Office Medication SIG Qnty Indications Ordering Provider Date H1N1 Administration-Use Arnaldo Gary 01/26/2009 Injection Immunizations CPT Code Status Date Vaccine Lot # [id number] Given 03/19/2018 Influenza Virus (Afluria) Split Virus 3 Years [id number] Of Age And Older 90549 Given 03/19/2018 Pneumovax Polyvalent Inj Im [id number] Given 01/17/2017 Influenza Virus (Afluria) Split Virus 3 Years Of Age And Older 65799 Given 06/03/2015 Zostavax 56097 Given 11/23/2010 Tetanus,Diphtheria,Adut/Adol Pertussis [id number] 39602 Given 11/23/2010 Tetanus Shot 78194 Given 12/17/2009 Influenza Vaccine 10147 Given 12/11/2008 Influenza Vaccine [id number] 96961 Given 04/01/2003 Influenza Virus Vaccine (History Only) 42798 Given 11/23/2001 DT Immunization DIP/Tet (History Only) [...] Result H/L Range Note Laboratory test 07/30/2018 [facility] Testosterone 265.81 N 240 -[address] Total ng/dL [place], [place] [id number] [phone] PSA Screening 4.197 ng/mL High 0-4.000 1 CBC No Diff 07/30/2018 [facility] White Blood 9.2 10^3/uL N 3.5 -10.[address] Count [place], [place] [id number] [phone] Red Blood Count 4.78 10^6/uL N 4.18-5.48 Hemoglobin 14.8 g/dL N 14.0-18.0 Hematocrit 44 % N 42-52 Mean Corpuscular Volume 92 fL N 80-94 Mean Corpuscular Hemoglobin 31 pg N 27-31 Mean Corpuscular HGB Conc 34 g/dL N 31-36 Red Cell Distribution Width 13 % N 10.5-15 Platelet Count 191 10^3/uL N 150-450 Mean Platelet Volume 10.7 fL High 7.4-10.4 .TSH+Free T4 07/30/2018 [facility] TSH (Thyroid 1.63 mcIU/mL N 0.34-5.60 ([facility] Stim Horm) [facility]) [place], [place] [id number] [phone] Free T4 (Free Thyroxine) 0.68 ng/dL N 0.61-1.12 Comp Metabolic Panel 07/30/2018 [facility] Sodium 140 mmol/L N [phone] [place], [place] [id number] [phone] Potassium 4.4 mmol/L N 3.5-5.0 Chloride 104 [...] Egfr 97.5 >60 2 Lipid Profile 07/30/2018 [facility] Triglycerides 132 mg/dL 3 (Trig/Chol/HDL) [address] [place] [address] [phone] Cholesterol 266 mg/dL 4 HDL Cholesterol 80.2 mg/dL 5 LDL Cholesterol 159 mg/dL 6 Lipid Profile 02/20/2018 [facility] Triglycerides 278 mg/dL 7 (Trig/Chol/HDL) [address] [place] [address] [phone] Cholesterol 296 mg/dL 8 HDL Cholesterol 79.9 mg/dL 9 LDL Cholesterol 161 mg/dL 10 Liver Function 02/20/2018 [facility] Total Protein 6.5 g/dL N 6.4-8.9 Panel [address] [place] [address] [phone] Albumin 4.4 g/dL N 3.2-5.2 Globulin 2.1 g/dL N 2-4 Albumin/Globulin Ratio 2.1 N 1-3 Total Bilirubin 0.80 mg/dL N 0.2-1.0 Direct Bilirubin 0.10 mg/dL N 0.03-0.18 Indirect Bilirubin 0.7 mg/dL N 0.3-1.0 Alkaline Phosphatase 48 U/L N 34-104 Alt 27 U/L N 7-52 Ast 26 U/L N 13-39 Laboratory test 08/04/2017 [facility] Rapid Strep Negative Negative 11 finding [address] [place] [address] [phone] Laboratory test 02/02/2017 [facility] TSH (Thyroid 1.84 mcIU/mL N 0.34-5.[address] Stim Horm) [place] [id number] [phone] LDL Cholesterol Direct 107 mg/dL 12 Free T4 (Free Thyroxine) 0.75 ng/dL N 0.61-1.12 Basic Metabolic Panel 02/02/2017 [facility] Sodium 138 mmol/L N [phone] [place] [id number] [phone] Potassium 4.6 mmol/L N 3.5-5.0 Chloride 103 mmol/L N 101-111 Co2 Carbon Dioxide 29 mmol/L N 22-32 Anion Gap 6 mmol/L N 2-11 Glucose 94 mg/dL N 70-100 Blood Urea Nitrogen 16 mg/dL N 6-24 Creatinine 0.95 mg/dL N 0.67-1.17 BUN/Creatinine Ratio 16.8 N 8-20 Calcium 8.8 mg/dL N 8.6-10.3 Egfr Non- 79.8 >60 Egfr 102.6 >60 13 Laboratory test 02/02/2017 [facility] Vitamin D Total 20.4 ng/mL N 20-[address](Oh) [place] [address] [phone] Lipid Panel 02/02/2017 [facility] Triglycerides 728 mg/dL 14 [address] [place] [address] [phone] Cholesterol 306 mg/dL 15 HDL Cholesterol 60.2 mg/dL 16 LDL Cholesterol (SEE NOTE) mg/dL 17 Laboratory test 02/02/2017 [facility] PSA Screening 3.631 ng/mL N 0-4.000 18 finding [address] [place] [address] [phone] Testosterone Total 274.73 ng/dL N 240-950 Vitamin 01/12/2016 [facility] Vitamin 309 pg/mL 200-1100 19 B12/Folate Panel [address] B12,[place] [address] [phone] Folate,Serum >24.0 NG/ML 20 TSH & T4,Free 01/12/2016 [facility] TSH 1.97 mIU/L 0.40-4.[address] [place] [id number] [phone] T4,Free 1.1 ng/dL 0.8-1.8 Laboratory test finding 01/12/2016 [facility] Glucose 99 mg/dL 65-99 21 [address] [place] [address] [phone] Hemoglobin A1c 5.3 % 0.0-5.6 22 BMP W/O Egfr 10/28/2015 [facility] Sodium 137 mmol/L N 106-286 [address] [place] [address] [phone] Potassium 4.9 mmol/L N 3.5-5.0 Chloride 101 mmol/L N 101-111 Co2 Carbon Dioxide 29 mmol/L N 22-32 Anion Gap 7 mmol/L N 2-11 Glucose 97 mg/dL N 70-100 Blood Urea Nitrogen 19 mg/dL N 6-24 Creatinine 0.98 mg/dL N 0.67-1.17 BUN/Creatinine Ratio 19.4 N 8-20 Egfr Non- 77.2 N >60 Egfr 99.3 N >60 23 Laboratory test 10/28/2015 [facility] Calcium 9.6 mg/dL N 8.6- 10.3 finding [address] [place] [address] [phone] Urine Screen 08/17/2015 [facility] Urine Color YELLOW Yellow [address] [place] [address] [phone] Urine Clarity CLEAR Clear Urine Glucose - Dipstick NEGATIVE mg/dL Negative Urine Bilirubin - Dipstick NEGATIVE Negative Urine Ketone NEGATIVE mg/dL Negative Urine Specific [place] 1.015 1.010-1.030 Urine Blood NEGATIVE Negative Urine PH 6.0 Low 6.5-7.5 Urine Protein - Dipstick NEGATIVE mg/dL Negative Urine Urobilinogen - Dipstick 0.2 E.U./dL 0.2-1.0 Urine Nitrite - Dipstick NEGATIVE Negative Urine Leuk Esterase NEGATIVE Negative Chlamydia/GC Lakshmi, 08/17/2015 [facility] Chlamydia Negative Urine [address] Trachomatis,[place] [address] -Lakshmi [phone] Neisseria Gonorrhoeae,Ur -Lakshmi Negative 24 Basic Metabolic Panel 03/17/2015 [facility] Glucose 93 mg/dL 74-[address] [place] [address] [phone] BUN 14 mg/dL 7-18 Creatinine 0.9 mg/dL 0.6-1.3 Glom Filtration Rate, Estimate >60 mL/min >60 If >60 mL/min >60 25 BUN/Creat 15.5 ratio Sodium 138 mmol/L 136-145 Potassium 4.4 mmol/L 3.5-5.1 Chloride 103 mmol/L 98-107 Carbon Dioxide 29 mmol/L 21-32 Anion Gap 6 mEq/L Low 8-16 Calcium 8.3 mg/dL Low 8.5-10.1 Laboratory test 03/17/2015 [facility] Thyroid Stim 1.70 uIU/mL 0.36-3.[address] [place] [address] [phone] Free T4 0.78 ng/dL 0.76-1.46 Testosterone,Serum 03/17/2015 [facility] Testosterone, Serum [phone] ng/[place] [address] [phone] Comment See Note 26 Hemoglobin/Hematocrit 03/17/2015 [facility] Hemoglobin 14.9 12.8-17.[address] gm/[place] [address] [phone] Hematocrit 43.6 % 38.0-48.0 LDL Cholesterol 12/26/2014 [facility] Cholesterol 218 mg/dL < 200 [address] [place] [address] [phone] Triglycerides 64 mg/dL < 150 28 HDL Cholesterol 93 mg/dL > 40 29 LDL-Cholesterol 112 mg/dL < 100 30 Laboratory test 12/26/2014 [facility] Prostate 2.80 ng/mL [address] [place] [place] [address] [phone] Lipid Panel 06/05/2013 [facility] Cholesterol 271 mg/dL High 125-[address] [place] [address] [phone] HDL Cholesterol 74 mg/dL > Or=40 Cholesterol/HDL Ratio 3.7 < Or=5.0 LDL Chol,Calculated 148 mg/dL High <130 33 Triglycerides 246 mg/dL High <150 Non-HDL Cholesterol 197 mg/dL High 34 Laboratory 06/05/2013 [facility] Testosterone,Total,LC/MS/MS 648 250- 1100 35 test finding [address] ng/dL [place], [place] [id number] [phone] PSA,Total 1.8 NG/ML 0.0-4.0 36 BMP W/O Egfr 06/05/2013 [facility] Sodium 137 mmol/L 135-[address] [place], [place] [address] [phone] Potassium 4.5 mmol/L 3.5-5.3 Chloride 100 mmol/L 98-110 Carbon Dioxide 28 mmol/L 19-30 Calcium 9.4 mg/dL 8.6-10.3 Glucose 91 mg/dL 65-99 37 Urea Nitrogen 14 mg/dL 7-25 Creatinine 1.05 mg/dL 0.70-1.25 38 BUN/Creatinine Ratio 13.3 6-22 Lipid Panel 05/09/2013 [facility] Cholesterol 277 mg/dL High 125-[address] [place] [address] [phone] HDL Cholesterol 41 mg/dL > Or=40 Cholesterol/HDL Ratio 6.8 High < Or=5.0 LDL Chol,Calculated (SEE NOTE) mg/dL 39 Triglycerides 1672 mg/dL High <150 40 Non-HDL Cholesterol 236 mg/dL High 41 Laboratory test 08/09/2012 [facility] Rectal Mucosa See Note [address] [place] [address] [phone] Laboratory test 07/02/2012 [facility] Direct LDL 101 mg/dL <130 [address] [place] [address] [phone] Comprehensive 06/03/2012 [facility] Glucose 96 mg/dL 76-115 Metabolic Panel [address] [place] [address] [phone] BUN 12 mg/dL 5-23 Creatinine 0.9 mg/dL [...] Phosphatase 72 U/L 50-136 Laboratory test 06/03/2012 [facility] Lipase 129 U/L 28-[address] [place], [place] [id number] [phone] CBC W/Automated 06/03/2012 [facility] White Blood 6.4 K/uL 3.4-10.[address] [place] [address] [phone] Red Blood Count 4.87 M/uL 4.20-5.80 Hemoglobin 15.5 gm/dL 12.8-17.0 Hematocrit 44.4 % 38.0-48.0 Mean Cell Volume 91.2 fl 80.0-96.0 Mean Corpuscular HGB 31.8 pg 27.0-33.0 Mean Corpuscular HGB Conc 34.9 g/dL 31.7-36.0 Platelet Count 210 K/uL 150-400 Red Cell Distri Width SD 41.2 fl 36-51 Red Cell Distri Width %CV 12.7 % 11.6-15.8 Mean Platelet Volume 11.1 fL High 6.6-10.6 Differential-WBC 06/03/2012 [facility] Total Cells 100 #CELLS Confirm [address] [place] [address] [phone] Neutrophils% 65 % 33-73 Lymph% 11 % Low 17-56 Atypical Lymph% 11 % High 0-7 Monocyte% 8 % 0-10 Eosinophil% 5 % 0-5 Platelet Estimate NORMAL RBC Morphology NORMAL Urine Screen 06/03/2012 [facility] Urine Color YELLOW Yellow [address] [place] [address] [phone] Urine Clarity CLEAR Clear Urine Glucose - Dipstick NEGATIVE mg/dL Negative Urine Bilirubin - Dipstick NEGATIVE Negative Urine Ketone NEGATIVE mg/dL Negative Urine Specific [place] <=1.005 Low 1.010-1.030 Urine Blood NEGATIVE Negative Urine PH 5.0 Low 6.5-7.5 Urine Protein - Dipstick NEGATIVE mg/dL Negative Urine Urobilinogen - Dipstick 0.2 E.U./dL 0.2-1.0 Urine Nitrite - Dipstick NEGATIVE Negative Urine Leuk Esterase NEGATIVE Negative Laboratory 03/30/2012 [facility] Testosterone,Total,LC/MS/MS 596 250- 1100 45 test finding [address] [place] ng/[place] [address] [phone] Comp 03/30/2012 [facility] Sodium 138 135-[address] mmol/[place] [address] [phone] Potassium 4.5 mmol/L 3.5-5.3 Chloride 103 mmol/L [...] 1.9-3.7 A/G Ratio 1.8 1.0-2.5 Egfr Non-Afr. Indian 86 ML/MIN/1.73M2 > Or=60 Egfr 100 ML/MIN/1.73M2 > Or=60 CBC W/ Diff & PLT 03/30/2012 [facility] WBC 9.4 thous/L 3.8-10.[address] [place] [address] [phone] RBC 4.36 mill/L 4.20-5.80 Hemoglobin 13.8 g/dL 13.2-17.1 Hematocrit 41.0 % 38.5-50.0 MCV 93.9 FL 80.0-100.0 MCH 31.5 pg 27.0-33.0 MCHC 33.6 g/dL 32.0-36.0 RDW 13.5 % 11.0-15.0 Platelet Count 198 thous/L 140-400 Neutrophils,Absolute 7000 cells/L 4743-2750 Lymphocytes,Absolute 1310 cells/L 850-3900 Monocytes,Absolute 790 cells/L 200-950 Eosinophils,Absolute 220 cells/L 15-500 Basophils,Absolute 30 cells/L 0-200 Total Neutrophils,% 75 % 38-80 Total Lymphocytes,% 14 % 15-49 Monocytes,% 8 % 0-13 Eosinophils,% 2 % 0-8 Basophils,% 0 % 0-2 TSH & T4,Free 03/30/2012 [facility] TSH 1.81 mIU/L 0.40-4.[address] [place] [address] [phone] T4,Free 1.1 ng/dL 0.8-1.8 48 Laboratory test 03/30/2012 [facility] PSA,Total 1.8 NG/ML 0.0-4.0 [address] [place] [address] [phone] Laboratory test 08/01/2011 [facility] LDL 101 mg/dL <130 [address] Cholesterol,Dire [address] [phone] Hepatic Function 08/01/2011 [facility] Alkaline 56 U/L 40-[address] [place] [address] [phone] Ast 32 U/L 10-35 Alt 36 U/L 9-60 Bilirubin,Total 0.8 mg/dL 0.2-1.2 Bilirubin,Direct 0.2 mg/dL < Or=0.2 Protein,Total 6.3 g/dL 6.2-8.3 Albumin 4.3 g/dL 3.6-5.1 Globulin,Calculated 2.0 g/dL Low 2.1-3.7 A/G Ratio 2.1 1.0-2.1 Lipid Panel 05/03/2011 [facility] Cholesterol 235 mg/dL High 125-[address] [place], [place] [address] [phone] HDL Cholesterol 70 mg/dL > Or=40 Cholesterol/HDL Ratio 3.4 < Or=5.0 LDL Chol,Calculated 133 mg/dL High <130 51 Triglycerides 161 mg/dL High <150 Hepatic Function 05/03/2011 [facility] Alkaline Phosphatase 57 U/L 40- [address] [place], [place] [address] [phone] Ast 31 U/L 10-35 Alt 34 U/L 9-60 Bilirubin,Total 0.6 mg/dL 0.2-1.2 Bilirubin,Direct 0.1 mg/dL < Or=0.2 Protein,Total 6.6 g/dL 6.2-8.3 Albumin 4.5 g/dL 3.6-5.1 Globulin,Calculated 2.1 g/dL 2.1-3.7 A/G Ratio 2.1 1.0-2.1 Laboratory 01/05/2011 [facility] LDL Cholesterol,Direct 117 <130 52 test finding [address] mg/dL [place], [place] [id number] [phone] Hepatic 01/05/2011 [facility] Alkaline Phosphatase 51 U/L 40-115 Function Panel [address] [place] [address] [phone] Ast 31 U/L 10-35 Alt 28 U/L 9-60 Bilirubin,Total 0.6 mg/dL 0.2-1.2 Bilirubin,Direct 0.1 mg/dL < Or=0.2 Protein,Total 6.4 g/dL 6.2-8.3 Albumin 4.4 g/dL 3.6-5.1 Globulin,Calculated 2.0 g/dL Low 2.1-3.7 A/G Ratio 2.1 1.0-2.1 Laboratory test 11/03/2010 [facility] PSA,Total 1.4 NG/ML 0.0-4.0 [address] [place] [address] [phone] Lipid Panel 11/03/2010 [facility] Cholesterol 293 mg/dL High 125-[address] [place] [address] [phone] HDL Cholesterol 69 mg/dL > Or=40 Cholesterol/HDL Ratio 4.2 < Or=5.0 LDL Chol,Calculated 156 mg/dL High <130 54 Triglycerides 338 mg/dL High <150 TSH & T4,Free 11/03/2010 [facility] TSH,3RD 1.80 mIU/L 0.40-4.[address] [place] [address] [phone] T4,Free 1.2 ng/dL 0.8-1.8 Comp Metabolic Panel 11/03/2010 [facility] Sodium 140 mmol/L 135-[address] [place] [address] [phone] Potassium 4.6 mmol/L 3.5-5.3 Chloride 104 mmol/L [...] 2.1-3.7 A/G Ratio 1.8 1.0-2.1 Egfr Non-Afr. Indian 95 ML/MIN/1.73M2 > Or=60 Egfr 110 ML/MIN/1.73M2 > Or=60 CBC W/ Diff & PLT 11/03/2010 [facility] WBC 5.1 thous/L 3.8-10.[address] [place] [address] [phone] RBC 4.66 mill/L 4.20-5.80 Hemoglobin 15.0 g/dL 13.2-17.1 Hematocrit 44.3 % 38.5-50.0 MCV 95.0 FL 80.0-100.0 MCH 32.2 pg 27.0-33.0 MCHC 33.9 g/dL 32.0-36.0 RDW 13.9 % 11.0-15.0 Platelet Count 205 thous/L 140-400 Neutrophils,Absolute 2760 cells/L 2936-0923 Lymphocytes,Absolute 1520 cells/L 850-3900 Monocytes,Absolute 590 cells/L 200-950 Eosinophils,Absolute 170 cells/L 15-500 Basophils,Absolute 30 cells/L 0-200 Total Neutrophils,% 54 % 38-80 Total Lymphocytes,% 30 % 15-49 Monocytes,% 12 % 0-13 Eosinophils,% 3 % 0-8 Basophils,% 1 % 0-2 Laboratory test 11/03/2009 [facility] PSA,Total 1.3 NG/ML 0.0-4.0 [address] [place], [place] [address] [phone] Lipid Panel 11/03/2009 [facility] Cholesterol 249 mg/dL High 125-[address] [place], [place] [address] [phone] HDL Cholesterol 75 mg/dL > Or=40 Triglycerides 208 mg/dL High <150 Cholesterol/HDL Ratio 3.3 < Or=5.0 LDL Chol,Calculated 132 mg/dL High <130 57 TSH & T4,Free 11/03/2009 [facility] TSH,3RD 3.76 mIU/L 0.40-4.[address] [place], [place] [address] [phone] T4,Free 0.9 ng/dL 0.8-1.8 Lipid Panel 05/11/2009 [facility] Cholesterol 268 mg/dL High 125-[address] [place], [place] [address] [phone] HDL Cholesterol 77 mg/dL > Or=40 Triglycerides 119 mg/dL <150 Cholesterol/HDL Ratio 3.5 < Or=5.0 LDL Chol,Calculated 167 mg/dL High <130 58 Comp Metabolic Panel 11/06/2008 [facility] Sodium 138 mmol/L 135-[address] [place] [address] [phone] Potassium 4.3 mmol/L 3.5-5.3 Chloride 103 mmol/L [...] 2.1-3.7 A/G Ratio 1.9 1.0-2.1 Egfr Non-Afr. Indian >60 ML/MIN/1.73M2 > Or=60 Egfr >60 ML/MIN/1.73M2 > Or=60 CBC W/ Diff & PLT 11/06/2008 [facility] WBC 9.1 thous/L 3.8-10.8 [address] [place], [place] [address] [phone] RBC 4.70 mill/L 4.20-5.80 Hemoglobin 14.9 g/dL 13.2-17.1 Hematocrit 43.7 % 38.5-50.0 MCV 92.9 FL 80.0-100.0 MCH 31.7 pg 27.0-33.0 MCHC 34.2 g/dL 32.0-36.0 RDW 13.8 % 11.0-15.0 Platelet Count 210 thous/L 140-400 Platelet Sufficiency NORMAL Normal Neutrophils,Absolute 6420 cells/L 9397-0121 Bands,Absolute DNR cells/L 0-750 Metamyelocytes,Absolute DNR cells/L [...] Lab Cholesterol 223 mg/dL High 125-[address] [place] [address] [phone] HDL Cholesterol 68 mg/dL > Or=40 Triglycerides 196 mg/dL High <150 Cholesterol/HDL Ratio 3.3 < Or=5.0 LDL Chol,Calculated 116 mg/dL <130 60 Laboratory test 11/06/2008 [facility] PSA,Total 1.6 NG/ML 0.0-4.0 [address] [place] [address] [phone] TSH & T4,Free 11/06/2008 [facility] TSH,3RD 3.41 mU/L 0.40-4.[address] [place] [address] [phone] T4,Free 0.9 ng/dL 0.8-1.8 Laboratory test 01/19/2007 [facility] Ferritin 61 NG/ML 20-[address] [place] [address] [phone] Hepatic Function 01/19/2007 [facility] Alkaline 52 U/L 40-[address] [place] [address] [phone] Ast 35 U/L 10-35 Alt 35 U/L 9-60 Bilirubin,Total 1.0 mg/dL 0.2-1.2 Bilirubin,Direct 0.2 mg/dL < Or=0.2 Protein,Total 6.9 g/dL 6.2-8.3 Albumin 4.4 g/dL 3.6-5.1 Lipid Panel 01/19/2007 [facility] Cholesterol 234 mg/dL High 125-[address] [place] [address] [phone] HDL Cholesterol 83 mg/dL > Or=40 62 Cholesterol/HDL Ratio 2.8 < Or=5.0 LDL Chol,Calculated 125 mg/dL <130 63 Triglycerides 131 mg/dL <150 Hepatic Function 09/25/2006 [facility] Alkaline Phosphatase 46 U/L 40- [address] [place] [address] [phone] Ast 33 U/L 10-35 Alt 31 U/L 9-60 Bilirubin,Total 0.8 mg/dL 0.2-1.2 Bilirubin,Direct 0.2 mg/dL < Or=0.2 Protein,Total 6.7 g/dL 6.2-8.3 Albumin 4.2 g/dL 3.6-5.1 Lipid Panel 09/25/2006 [facility] Cholesterol 188 mg/dL 125-[address] [place] [address] [phone] HDL Cholesterol 86 mg/dL > Or=40 64 Triglycerides 121 mg/dL <150 Cholesterol/HDL Ratio 2.2 < Or=5.0 LDL Chol,Calculated 78 mg/dL <130 65 Lipid Panel 06/21/2006 [facility] Cholesterol 262 mg/dL High 125-[address] [place] [address] [phone] HDL Cholesterol 76 mg/dL > Or=40 66 Cholesterol/HDL Ratio 3.4 < Or=5.0 LDL Chol,Calculated 171 mg/dL High <130 67 Triglycerides 76 mg/dL <150 Hepatic Function 06/21/2006 [facility] Alkaline Phosphatase 43 U/L 40- [address] [place] [address] [phone] Ast 30 U/L 10-35 Alt 29 U/L 9-60 Bilirubin,Total 0.6 mg/dL 0.2-1.2 Bilirubin,Direct 0.1 mg/dL < Or=0.2 Protein,Total 6.9 g/dL 6.2-8.3 Albumin 4.5 g/dL 3.6-5.1 Lipid Panel 05/08/2006 [facility] Cholesterol 270 mg/dL High <[address] [place], [place] [address] [phone] HDL Cholesterol 78 mg/dL >40 68 Cholesterol/HDL Ratio 3.5 <5.0 LDL Chol,Calculated 158 mg/dL High <130 69 Triglycerides 170 mg/dL High <150 Laboratory test 05/08/2006 [facility] PSA,Total 1.6 NG/ML 0.0-4.0 [address] [place], [place] [address] [phone] TSH+Free T4 05/08/2006 [facility] TSH 2.90 mU/L 0.40-5.50 ([facility]) [address] [place] [address] [phone] T4,Free 0.9 ng/dL 0.8-1.8 Comp Metabolic Panel 05/08/2006 [facility] Sodium 140 mmol/L 135-[address] [place] [address] [phone] Potassium 4.5 mmol/L 3.5-5.3 Chloride 104 mmol/L [...] [facility] WBC 8.1 thous/L 3.8-10.[address] [place] [address] [phone] RBC 4.86 mill/L 4.20-5.80 Hemoglobin 15.5 g/dL 13.2-17.1 Hematocrit 44.1 % 38.5-50.0 MCV 90.7 FL 80.0-100.0 MCH 31.8 pg 27.0-33.0 MCHC 35.1 g/dL 32.0-36.0 RDW 13.2 % 11.0-15.0 Platelet Count 227 thous/L 140-400 Platelet Sufficiency NORMAL Normal Neutrophils,Absolute 5200 cells/L 1247-4818 Bands,Absolute DNR cells/L 0-750 Metamyelocytes,Absolute DNR cells/L [...] 130-159 High: 160-189 Very High: >189 11 [employer]fficient [employer]er: [id number] Desirable: <100 Near Optimal: 100-129 Borderline [...] 42 years old. Performed at: - [facility] [address] [id number] Flour Blender: Marilyn Grace MD, Phone: [phone] 27 Reference Guidelines*: Desirable: ........... < 200 [...] more information on this test, go to http://education.Clipboard/faq/ TotalTestosteroneLCMSMS 36 THIS TEST WAS PERFORMED USING THE SIEMENS CHEMILUMINESCENT METHOD. VALUES OBTAINED FROM DIFFERENT ASSAY METHODS CANNOT BE USED INTERCHANGEABLY. PSA LEVELS, REGARDLESS OF VALUE, SHOULD NOT BE INTERPRETED ABSOLUTE EVIDENCE OF THE PRESENCE OR ABSENCE OF DISEASE. 37 GLUCOSE REFERENCE RANGE BASED ON FASTING SPECIMEN. 38 The upper reference limit for Creatinine is approximately 13% higher for people identified as -Indian. 39 LDL cholesterol not calculated. Triglyceride levels [...] more information on this test, go to http://education.Clipboard/faq/ TotalTestosteroneLCMSMS 46 GLUCOSE REFERENCE RANGE BASED ON FASTING SPECIMEN. 47 The upper reference limit for Creatinine is approximately 13% higher for people identified as -Indian. 48 THE CURRENT LOT OF FREE T4 REAGENT AVAILABLE FROM THE [facility] PRODUCES RESULTS THAT ARE APPROXIMATELY 9% HIGHER [...] FOR RACE, IF THE PATIENT RACE IS -LATVI[place], THE GFR ESTIMATE MUST BE MULTIPLIED BY A FACTOR OF 1.21. Procedures Date Code Description Status 02/27/2018 83579 Non-Invcorrotid/Comp /Bilat Study Completed 02/26/2018 55595 Echocardiography Completed 02/20/2018 55665 Spirometry Graphic Record/Max Voluntary Vent Completed 02/20/2018 93710 EKG-Tracing & Report Completed 02/19/2018 72484 PVR-Atrerial Study Completed 02/19/2018 13704 Holter Monitor Office Completed 02/16/2017 37310 PVR-Atrerial Study Completed 02/16/2017 55020 EKG-Tracing & Report Completed 02/15/2017 97682 Spirometry Graphic Record/Max Voluntary Vent Completed 02/15/2017 86676 Holter Monitor Office Completed 02/02/2017 03533 Echocardiography Completed 02/02/2017 62232 Non-Invcorrotid/Comp /Bilat Study Completed 03/18/2015 41036 EKG-Tracing & Report Completed 03/17/2015 99459 Holter Monitor Office Completed 03/05/2015 69884 Non-Invcorrotid/Comp /Bilat Study Completed 03/05/2015 59566 Echocardiography Completed 12/26/2014 37219 EKG-Tracing & Report Completed 05/09/2013 71971 Spirometry Graphic Record/Max Voluntary Vent Completed 05/09/2013 72120 EKG-Tracing & Report Completed 04/15/2013 92981 Non-Invcorrotid/Comp /Bilat Study Completed 04/15/2013 94216 Echocardiography Completed 08/09/2012 [id number] Colonoscopy Completed 04/02/2012 54637 EKG-Tracing & Report Completed 03/29/2012 71903 Echocardiography Completed 03/29/2012 08940 Non-Invcorrotid/Comp /Bilat Study Completed 11/11/2010 [id number] Bone Mineral Density Test Completed 11/11/2010 42397 Bone Density Completed 11/04/2010 04681 EKG-Tracing & Report Completed 11/03/2010 19113 Spirometry Graphic Record/Max Voluntary Vent Completed 11/03/2010 53964 Holter Monitor Office Completed 11/03/2009 01419 EKG-Tracing & Report Completed 11/03/2009 91331 Echocardiography Completed 11/03/2009 86902 Non-Invcorrotid/Comp /Bilat Study Completed 11/06/2008 69485 PFT Evaluation Completed 11/06/2008 88375 Holter Monitor Office Completed 11/06/2008 07377 EKG-Tracing & Report Completed 11/05/2008 17117 Non-Invcorrotid/Comp /Bilat Study Completed 11/05/2008 09414 Echocardiography Completed 05/09/2006 27470 Bone Density Completed 05/08/2006 55434 EKG-Tracing & Report Completed 04/18/2006 11828 Doppler Color Flow Velocity Completed 04/18/2006 55722 Doppler/ECHO Completed 04/18/2006 82295 ECHO-2D W/Wo M-Mode Completed 09/05/2003 67980 Spirometry Graphic Record/Max Voluntary Vent Completed 09/05/2003 30340 EKG-Tracing & Report Completed Encounters Type Date [...] Appointment(s):11/05/2018 8:00 am - [facility]11/14/2018 11: 30 am - [facility] Mcint[facility]9204/24/2017 - Gary McintoshJ20.9 Acute bronchitis , unspecifiedNew Medication:Azithromycin 250 mg - 2 by mouth today, 1 by mouth day 2 thru 5Guaifenex LA 600 mg - 1 by mouth twice a day as neededComments: Discussed medication use and compliance and side effects. Environmental factors such as smoke exposure and tobacco use discussed and the appropriate counselling provided. Symptomatic follow up arranged.
--- OUTSIDE RECORDS SUMMARY | 2018-08-21 11:03 | XMS REPORT | Continuity of Care Document ---
:1950 External Reference #:[id number] Author Name Sue Riggs Care Team Providers Name Role Phone Gary Mcintosh MD Primary Care Physician Unavailable Payers Date Identification Numbers Payment Provider Subscriber Policy Number: [id number] Medicare Rob Chaudhary PayID: [id number] [address] [place] [address] Effective: 1993 Policy Number: [id number] [facility] Rob Chaudhary Group Number: [id number] [address] PayID: [id number] [place] [address] Problems Active Problems Provider Date Mitral valve [...] Gauss, Gary Onset: 11/23/2010 Heart murmur Gauss, Agry Onset: 11/23/2010 Acute bronchitis Gauss, Gary Onset: [...] 1units Gary Mcintosh 05/05/2015 - ordered 03/19/2018 00820Ine/0.65ML Solution Rec Amoxicillin/Clavulana 1 by mouth twice [...] 81 Jaspal Mcintoshl 02/05/2007 - 81mg 11/18/2008 [facility] Jaspal Mcintoshl 11/29/2006 - 05/05/2015 Zetia 1 PO qd 90tabs Arnaldo Gary 07/10/2006 - 10mg Tablets 11/18/2008 Lipitor 1 po qd 90tabs 272.40 Arnaldo Gary 05/17/2006 - 20mg Tablets 07/10/2006 [facility] 1 po qd Arnaldo Gary 09/07/2005 - 09/07/2005 Multivitamins Arnaldo Gary 09/07/2005 - Caplets 01/12/2015 Amoxicillin 2 po bid 40tabs 466.0 Jaspal Mcintoshl 09/07/2005 - 500mg 2005 Tablets Nystatin-Triamcinolon apply affected Unknown - e area as 01/17/2017 216798-1.1Unit/GM-% indicated twice Cream a day Medications Administered in Office Medication SIG Qnty Indications Ordering Provider Date H1N1 Administration-Use Arnaldo Gary 01/26/2009 Injection Immunizations CPT Code Status Date Vaccine Lot # [id number] Given 03/19/2018 Influenza Virus (Afluria) Split Virus 3 Years [id number] Of Age And Older 99762 Given 03/19/2018 Pneumovax Polyvalent Inj Im [id number] Q2035 Given 01/17/2017 Influenza Virus (Afluria) Split Virus 3 Years Of Age And Older 51555 Given 06/03/2015 Zostavax 81546 Given 11/23/2010 Tetanus,Diphtheria,Adut/Adol Pertussis [id number] 48126 Given 11/23/2010 Tetanus Shot 77305 Given 12/17/2009 Influenza Vaccine 18684 Given 12/11/2008 Influenza Vaccine [id number] 65172 Given 04/01/2003 Influenza Virus Vaccine (History Only) 52159 Given 11/23/2001 DT Immunization DIP/Tet (History Only) [...] Result H/L Range Note Laboratory test 07/30/2018 [facility] Testosterone 265.81 N 240 -[address] Total ng/dL [place], [place] [id number] [phone] PSA Screening 4.197 ng/mL High 0-4.000 1 CBC No Diff 07/30/2018 [facility] White Blood 9.2 10^3/uL N 3.5 -10.[address] [place], [place] [id number] [phone] Red Blood Count 4.78 10^6/uL N 4.18-5.48 Hemoglobin 14.8 g/dL N 14.0-18.0 Hematocrit 44 % N 42-52 Mean Corpuscular Volume 92 fL N 80-94 Mean Corpuscular Hemoglobin 31 pg N 27-31 Mean Corpuscular HGB Conc 34 g/dL N 31-36 Red Cell Distribution Width 13 % N 10.5-15 Platelet Count 191 10^3/uL N 150-450 Mean Platelet Volume 10.7 fL High 7.4-10.4 .TSH+Free T4 07/30/2018 [facility] [employer] [facility] TSH (Thyroid 1.63 mcIU/mL N 0.34-5.60 ([facility] Stim Horm) [facility] [place], [place] [id number] [phone] Free T4 (Free Thyroxine) 0.68 ng/dL N 0.61-1.12 Comp Metabolic Panel 07/30/2018 [facility] Sodium 140 mmol/L N [phone] [place], [place] [address] [phone] Potassium 4.4 mmol/L N 3.5-5.0 Chloride 104 [...] Egfr 97.5 >60 2 Lipid Profile 07/30/2018 [facility] Triglycerides 132 mg/dL 3 (Trig/Chol/HDL) [address] [place] [address] [phone] Cholesterol 266 mg/dL 4 HDL Cholesterol 80.2 mg/dL 5 LDL Cholesterol 159 mg/dL 6 Lipid Profile 02/20/2018 [facility] Triglycerides 278 mg/dL 7 (Trig/Chol/HDL) [address] [place] [address] [phone] Cholesterol 296 mg/dL 8 HDL Cholesterol 79.9 mg/dL 9 LDL Cholesterol 161 mg/dL 10 Liver Function 02/20/2018 [facility] Total Protein 6.5 g/dL N 6.4-8.9 Panel [address] [place] [address] [phone] Albumin 4.4 g/dL N 3.2-5.2 Globulin 2.1 g/dL N 2-4 Albumin/Globulin Ratio 2.1 N 1-3 Total Bilirubin 0.80 mg/dL N 0.2-1.0 Direct Bilirubin 0.10 mg/dL N 0.03-0.18 Indirect Bilirubin 0.7 mg/dL N 0.3-1.0 Alkaline Phosphatase 48 U/L N 34-104 Alt 27 U/L N 7-52 Ast 26 U/L N 13-39 Laboratory test 08/04/2017 [facility] Rapid Strep Negative Negative 11 finding [address] [place] [address] [phone] Laboratory test 02/02/2017 [facility] TSH (Thyroid 1.84 mcIU/mL N 0.34-5.[address] Stim Horm) [place] [id number] [phone] LDL Cholesterol Direct 107 mg/dL 12 Free T4 (Free Thyroxine) 0.75 ng/dL N 0.61-1.12 Basic Metabolic Panel 02/02/2017 [facility] Sodium 138 mmol/L N 130-117 [address] [place] [id number] [phone] Potassium 4.6 mmol/L N 3.5-5.0 Chloride 103 mmol/L N 101-111 Co2 Carbon Dioxide 29 mmol/L N 22-32 Anion Gap 6 mmol/L N 2-11 Glucose 94 mg/dL N 70-100 Blood Urea Nitrogen 16 mg/dL N 6-24 Creatinine 0.95 mg/dL N 0.67-1.17 BUN/Creatinine Ratio 16.8 N 8-20 Calcium 8.8 mg/dL N 8.6-10.3 Egfr Non- 79.8 >60 Egfr 102.6 >60 13 Laboratory test 02/02/2017 [facility] Vitamin D Total 20.4 ng/mL N 20-50 finding [address] [facility] [address]) [place] [address] [phone] Lipid Panel 02/02/2017 [facility] Triglycerides 728 mg/dL 14 [address] [place] [address] [phone] Cholesterol 306 mg/dL 15 HDL Cholesterol 60.2 mg/dL 16 LDL Cholesterol (SEE NOTE) mg/dL 17 Laboratory test 02/02/2017 [facility] PSA Screening 3.631 ng/mL N 0-4.000 18 finding [address] [place] [address] [phone] Testosterone Total 274.73 ng/dL N 240-950 Vitamin 01/12/2016 [facility] Vitamin 309 pg/mL 200-1100 19 B12/Folate Panel [address] B12,[place] [address] [phone] Folate,Serum >24.0 NG/ML 20 TSH & T4,Free 01/12/2016 [facility] TSH 1.97 mIU/L 0.40-4.[address] [place] [address] [phone] T4,Free 1.1 ng/dL 0.8-1.8 Laboratory test finding 01/12/2016 [facility] Glucose 99 mg/dL 65-99 21 [address] [place] [address] [phone] Hemoglobin A1c 5.3 % 0.0-5.6 22 BMP W/O Egfr 10/28/2015 [facility] Sodium 137 mmol/L N [phone] [place] [address] [phone] Potassium 4.9 mmol/L N 3.5-5.0 Chloride 101 mmol/L N 101-111 Co2 Carbon Dioxide 29 mmol/L N 22-32 Anion Gap 7 mmol/L N 2-11 Glucose 97 mg/dL N 70-100 Blood Urea Nitrogen 19 mg/dL N 6-24 Creatinine 0.98 mg/dL N 0.67-1.17 BUN/Creatinine Ratio 19.4 N 8-20 Egfr Non- 77.2 N >60 Egfr 99.3 N >60 23 Laboratory test 10/28/2015 [facility] Calcium 9.6 mg/dL N 8.6- 10.3 finding [address] [place] [address] [phone] Urine Screen 08/17/2015 [facility] Urine Color YELLOW Yellow [address] [place] [address] [phone] Urine Clarity CLEAR Clear Urine Glucose - Dipstick NEGATIVE mg/dL Negative Urine Bilirubin - Dipstick NEGATIVE Negative Urine Ketone NEGATIVE mg/dL Negative Urine Specific [place] 1.015 1.010-1.030 Urine Blood NEGATIVE Negative Urine PH 6.0 Low 6.5-7.5 Urine Protein - Dipstick NEGATIVE mg/dL Negative Urine Urobilinogen - Dipstick 0.2 E.U./dL 0.2-1.0 Urine Nitrite - Dipstick NEGATIVE Negative Urine Leuk Esterase NEGATIVE Negative Chlamydia/GC Lakshmi, 08/17/2015 [facility] Chlamydia Negative Urine [address] Trachomatis,[place] [address] -Lakshmi [phone] Neisseria Gonorrhoeae,Ur -Lakshmi Negative 24 Basic Metabolic Panel 03/17/2015 [facility] Glucose 93 mg/dL 74-[address] [place] [address] [phone] BUN 14 mg/dL 7-18 Creatinine 0.9 mg/dL 0.6-1.3 Glom Filtration Rate, Estimate >60 mL/min >60 If >60 mL/min >60 25 BUN/Creat 15.5 ratio Sodium 138 mmol/L 136-145 Potassium 4.4 mmol/L 3.5-5.1 Chloride 103 mmol/L 98-107 Carbon Dioxide 29 mmol/L 21-32 Anion Gap 6 mEq/L Low 8-16 Calcium 8.3 mg/dL Low 8.5-10.1 Laboratory test 03/17/2015 [facility] Thyroid Stim 1.70 uIU/mL 0.36-3.[address] [place] [address] [phone] Free T4 0.78 ng/dL 0.76-1.46 Testosterone,Serum 03/17/2015 [facility] Testosterone, Serum [phone] ng/[place] [address] [phone] Comment See Note 26 Hemoglobin/Hematocrit 03/17/2015 [facility] Hemoglobin 14.9 12.8-17.[address] gm/[place] [address] [phone] Hematocrit 43.6 % 38.0-48.0 LDL Cholesterol 12/26/2014 [facility] Cholesterol 218 mg/dL < 200 [address] [place] [address] [phone] Triglycerides 64 mg/dL < 150 28 HDL Cholesterol 93 mg/dL > 40 29 LDL-Cholesterol 112 mg/dL < 100 30 Laboratory test 12/26/2014 [facility] Prostate 2.80 ng/mL [address] [place] [place] [address] [phone] Lipid Panel 06/05/2013 [facility] Cholesterol 271 mg/dL High 125-[address] [place] [address] [phone] HDL Cholesterol 74 mg/dL > Or=40 Cholesterol/HDL Ratio 3.7 < Or=5.0 LDL Chol,Calculated 148 mg/dL High <130 33 Triglycerides 246 mg/dL High <150 Non-HDL Cholesterol 197 mg/dL High 34 Laboratory 06/05/2013 [facility] Testosterone,Total,LC/MS/MS 648 250- 1100 35 test finding [address] ng/dL [place], [place] [id number] [phone] PSA,Total 1.8 NG/ML 0.0-4.0 36 BMP W/O Egfr 06/05/2013 [facility] Sodium 137 mmol/L 135-[address] [place], [place] [address] [phone] Potassium 4.5 mmol/L 3.5-5.3 Chloride 100 mmol/L 98-110 Carbon Dioxide 28 mmol/L 19-30 Calcium 9.4 mg/dL 8.6-10.3 Glucose 91 mg/dL 65-99 37 Urea Nitrogen 14 mg/dL 7-25 Creatinine 1.05 mg/dL 0.70-1.25 38 BUN/Creatinine Ratio 13.3 6-22 Lipid Panel 05/09/2013 [facility] Cholesterol 277 mg/dL High 125-[address] [place] [address] [phone] HDL Cholesterol 41 mg/dL > Or=40 Cholesterol/HDL Ratio 6.8 High < Or=5.0 LDL Chol,Calculated (SEE NOTE) mg/dL 39 Triglycerides 1672 mg/dL High <150 40 Non-HDL Cholesterol 236 mg/dL High 41 Laboratory test 08/09/2012 [facility] Rectal Mucosa See Note [address] [place] [address] [phone] Laboratory test 07/02/2012 [facility] Direct LDL 101 mg/dL <130 [address] [place] [address] [phone] Comprehensive 06/03/2012 [facility] Glucose 96 mg/dL 76-115 Metabolic Panel [address] [place] [address] [phone] BUN 12 mg/dL 5-23 Creatinine 0.9 mg/dL [...] Phosphatase 72 U/L 50-136 Laboratory test 06/03/2012 [facility] Lipase 129 U/L 28-[address] [place], [place] [address] [phone] CBC W/Automated 06/03/2012 [facility] White Blood 6.4 K/uL 3.4-10.[address] [place] [address] [phone] Red Blood Count 4.87 M/uL 4.20-5.80 Hemoglobin 15.5 gm/dL 12.8-17.0 Hematocrit 44.4 % 38.0-48.0 Mean Cell Volume 91.2 fl 80.0-96.0 Mean Corpuscular HGB 31.8 pg 27.0-33.0 Mean Corpuscular HGB Conc 34.9 g/dL 31.7-36.0 Platelet Count 210 K/uL 150-400 Red Cell Distri Width SD 41.2 fl 36-51 Red Cell Distri Width %CV 12.7 % 11.6-15.8 Mean Platelet Volume 11.1 fL High 6.6-10.6 Differential-WBC 06/03/2012 [facility] Total Cells 100 #CELLS Confirm [address] [place] [address] [phone] Neutrophils% 65 % 33-73 Lymph% 11 % Low 17-56 Atypical Lymph% 11 % High 0-7 Monocyte% 8 % 0-10 Eosinophil% 5 % 0-5 Platelet Estimate NORMAL RBC Morphology NORMAL Urine Screen 06/03/2012 [facility] Urine Color YELLOW Yellow [address] [place] [address] [phone] Urine Clarity CLEAR Clear Urine Glucose - Dipstick NEGATIVE mg/dL Negative Urine Bilirubin - Dipstick NEGATIVE Negative Urine Ketone NEGATIVE mg/dL Negative Urine Specific [place] <=1.005 Low 1.010-1.030 Urine Blood NEGATIVE Negative Urine PH 5.0 Low 6.5-7.5 Urine Protein - Dipstick NEGATIVE mg/dL Negative Urine Urobilinogen - Dipstick 0.2 E.U./dL 0.2-1.0 Urine Nitrite - Dipstick NEGATIVE Negative Urine Leuk Esterase NEGATIVE Negative Laboratory 03/30/2012 [facility] Testosterone,Total,LC/MS/MS 596 250- 1100 45 test finding [address] ng/[place] [address] [phone] Comp 03/30/2012 [facility] Sodium 138 135-[address] mmol/[place] [address] [phone] Potassium 4.5 mmol/L 3.5-5.3 Chloride 103 mmol/L [...] 1.9-3.7 A/G Ratio 1.8 1.0-2.5 Egfr Non-Afr. Irish 86 ML/MIN/1.73M2 > Or=60 Egfr 100 ML/MIN/1.73M2 > Or=60 CBC W/ Diff & PLT 03/30/2012 [facility] WBC 9.4 thous/L 3.8-10.[address] [place] [address] [phone] RBC 4.36 mill/L 4.20-5.80 Hemoglobin 13.8 g/dL 13.2-17.1 Hematocrit 41.0 % 38.5-50.0 MCV 93.9 FL 80.0-100.0 MCH 31.5 pg 27.0-33.0 MCHC 33.6 g/dL 32.0-36.0 RDW 13.5 % 11.0-15.0 Platelet Count 198 thous/L 140-400 Neutrophils,Absolute 7000 cells/L 2201-3649 Lymphocytes,Absolute 1310 cells/L 850-3900 Monocytes,Absolute 790 cells/L 200-950 Eosinophils,Absolute 220 cells/L 15-500 Basophils,Absolute 30 cells/L 0-200 Total Neutrophils,% 75 % 38-80 Total Lymphocytes,% 14 % 15-49 Monocytes,% 8 % 0-13 Eosinophils,% 2 % 0-8 Basophils,% 0 % 0-2 TSH & T4,Free 03/30/2012 [facility] TSH 1.81 mIU/L 0.40-4.[address] [place] [address] [phone] T4,Free 1.1 ng/dL 0.8-1.8 48 Laboratory test 03/30/2012 [facility] PSA,Total 1.8 NG/ML 0.0-4.0 [address] [place] [address] [phone] Laboratory test 08/01/2011 [facility] LDL 101 mg/dL <130 [address] Cholesterol,Dire [address] [phone] Hepatic Function 08/01/2011 [facility] Alkaline 56 U/L 40-[address] [place] [address] [phone] Ast 32 U/L 10-35 Alt 36 U/L 9-60 Bilirubin,Total 0.8 mg/dL 0.2-1.2 Bilirubin,Direct 0.2 mg/dL < Or=0.2 Protein,Total 6.3 g/dL 6.2-8.3 Albumin 4.3 g/dL 3.6-5.1 Globulin,Calculated 2.0 g/dL Low 2.1-3.7 A/G Ratio 2.1 1.0-2.1 Lipid Panel 05/03/2011 [facility] Cholesterol 235 mg/dL High 125-[address] [place], [place] [address] [phone] HDL Cholesterol 70 mg/dL > Or=40 Cholesterol/HDL Ratio 3.4 < Or=5.0 LDL Chol,Calculated 133 mg/dL High <130 51 Triglycerides 161 mg/dL High <150 Hepatic Function 05/03/2011 [facility] Alkaline Phosphatase 57 U/L 40- [address] [place], [place] [address] [phone] Ast 31 U/L 10-35 Alt 34 U/L 9-60 Bilirubin,Total 0.6 mg/dL 0.2-1.2 Bilirubin,Direct 0.1 mg/dL < Or=0.2 Protein,Total 6.6 g/dL 6.2-8.3 Albumin 4.5 g/dL 3.6-5.1 Globulin,Calculated 2.1 g/dL 2.1-3.7 A/G Ratio 2.1 1.0-2.1 Laboratory 01/05/2011 [facility] LDL Cholesterol,Direct 117 <130 52 test finding [address] mg/dL [place], [place] [id number] [phone] Hepatic 01/05/2011 [facility] Alkaline Phosphatase 51 U/L 40-115 Function Panel [address] [place] [address] [phone] Ast 31 U/L 10-35 Alt 28 U/L 9-60 Bilirubin,Total 0.6 mg/dL 0.2-1.2 Bilirubin,Direct 0.1 mg/dL < Or=0.2 Protein,Total 6.4 g/dL 6.2-8.3 Albumin 4.4 g/dL 3.6-5.1 Globulin,Calculated 2.0 g/dL Low 2.1-3.7 A/G Ratio 2.1 1.0-2.1 Laboratory test 11/03/2010 [facility] PSA,Total 1.4 NG/ML 0.0-4.0 [address] [place] [address] [phone] Lipid Panel 11/03/2010 [facility] Cholesterol 293 mg/dL High 125-[address] [place] [address] [phone] HDL Cholesterol 69 mg/dL > Or=40 Cholesterol/HDL Ratio 4.2 < Or=5.0 LDL Chol,Calculated 156 mg/dL High <130 54 Triglycerides 338 mg/dL High <150 TSH & T4,Free 11/03/2010 [facility] TSH,3RD 1.80 mIU/L 0.40-4.[address] [place] [address] [phone] T4,Free 1.2 ng/dL 0.8-1.8 Comp Metabolic Panel 11/03/2010 [facility] Sodium 140 mmol/L 135-[address] [place] [address] [phone] Potassium 4.6 mmol/L 3.5-5.3 Chloride 104 mmol/L [...] 2.1-3.7 A/G Ratio 1.8 1.0-2.1 Egfr Non-Afr. Irish 95 ML/MIN/1.73M2 > Or=60 Egfr 110 ML/MIN/1.73M2 > Or=60 CBC W/ Diff & PLT 11/03/2010 [facility] WBC 5.1 thous/L 3.8-10.[address] [place] [address] [phone] RBC 4.66 mill/L 4.20-5.80 Hemoglobin 15.0 g/dL 13.2-17.1 Hematocrit 44.3 % 38.5-50.0 MCV 95.0 FL 80.0-100.0 MCH 32.2 pg 27.0-33.0 MCHC 33.9 g/dL 32.0-36.0 RDW 13.9 % 11.0-15.0 Platelet Count 205 thous/L 140-400 Neutrophils,Absolute 2760 cells/L 3385-5121 Lymphocytes,Absolute 1520 cells/L 850-3900 Monocytes,Absolute 590 cells/L 200-950 Eosinophils,Absolute 170 cells/L 15-500 Basophils,Absolute 30 cells/L 0-200 Total Neutrophils,% 54 % 38-80 Total Lymphocytes,% 30 % 15-49 Monocytes,% 12 % 0-13 Eosinophils,% 3 % 0-8 Basophils,% 1 % 0-2 Laboratory test 11/03/2009 [facility] PSA,Total 1.3 NG/ML 0.0-4.0 [address] [place], [place] [address] [phone] Lipid Panel 11/03/2009 [facility] Cholesterol 249 mg/dL High 125-[address] [place], [place] [address] [phone] HDL Cholesterol 75 mg/dL > Or=40 Triglycerides 208 mg/dL High <150 Cholesterol/HDL Ratio 3.3 < Or=5.0 LDL Chol,Calculated 132 mg/dL High <130 57 TSH & T4,Free 11/03/2009 [facility] TSH,3RD 3.76 mIU/L 0.40-4.[address] [place], [place] [address] [phone] T4,Free 0.9 ng/dL 0.8-1.8 Lipid Panel 05/11/2009 [facility] Cholesterol 268 mg/dL High 125-[address] [place], [place] [address] [phone] HDL Cholesterol 77 mg/dL > Or=40 Triglycerides 119 mg/dL <150 Cholesterol/HDL Ratio 3.5 < Or=5.0 LDL Chol,Calculated 167 mg/dL High <130 58 Comp Metabolic Panel 11/06/2008 [facility] Sodium 138 mmol/L 135-[address] [place] [address] [phone] Potassium 4.3 mmol/L 3.5-5.3 Chloride 103 mmol/L [...] 2.1-3.7 A/G Ratio 1.9 1.0-2.1 Egfr Non-Afr. Irish >60 ML/MIN/1.73M2 > Or=60 Egfr >60 ML/MIN/1.73M2 > Or=60 CBC W/ Diff & PLT 11/06/2008 [facility] WBC 9.1 thous/L 3.8-10.8 [address] [place], [place] [address] [phone] RBC 4.70 mill/L 4.20-5.80 Hemoglobin 14.9 g/dL 13.2-17.1 Hematocrit 43.7 % 38.5-50.0 MCV 92.9 FL 80.0-100.0 MCH 31.7 pg 27.0-33.0 MCHC 34.2 g/dL 32.0-36.0 RDW 13.8 % 11.0-15.0 Platelet Count 210 thous/L 140-400 Platelet Sufficiency NORMAL Normal Neutrophils,Absolute 6420 cells/L 9849-0437 Bands,Absolute DNR cells/L 0-750 Metamyelocytes,Absolute DNR cells/L [...] Lab Cholesterol 223 mg/dL High 125-[address] [place] [address] [phone] HDL Cholesterol 68 mg/dL > Or=40 Triglycerides 196 mg/dL High <150 Cholesterol/HDL Ratio 3.3 < Or=5.0 LDL Chol,Calculated 116 mg/dL <130 60 Laboratory test 11/06/2008 [facility] PSA,Total 1.6 NG/ML 0.0-4.0 [address] [place] [address] [phone] TSH & T4,Free 11/06/2008 [facility] TSH,3RD 3.41 mU/L 0.40-4.[address] [place] [address] [phone] T4,Free 0.9 ng/dL 0.8-1.8 Laboratory test 01/19/2007 [facility] Ferritin 61 NG/ML 20-[address] [place] [address] [phone] Hepatic Function 01/19/2007 [facility] Alkaline 52 U/L 40-[address] [address] [phone] Ast 35 U/L 10-35 Alt 35 U/L 9-60 Bilirubin,Total 1.0 mg/dL 0.2-1.2 Bilirubin,Direct 0.2 mg/dL < Or=0.2 Protein,Total 6.9 g/dL 6.2-8.3 Albumin 4.4 g/dL 3.6-5.1 Lipid Panel 01/19/2007 [facility] Cholesterol 234 mg/dL High 125-[address] [place] [address] [phone] HDL Cholesterol 83 mg/dL > Or=40 62 Cholesterol/HDL Ratio 2.8 < Or=5.0 LDL Chol,Calculated 125 mg/dL <130 63 Triglycerides 131 mg/dL <150 Hepatic Function 09/25/2006 [facility] Alkaline Phosphatase 46 U/L 40- [address] [place] [address] [phone] Ast 33 U/L 10-35 Alt 31 U/L 9-60 Bilirubin,Total 0.8 mg/dL 0.2-1.2 Bilirubin,Direct 0.2 mg/dL < Or=0.2 Protein,Total 6.7 g/dL 6.2-8.3 Albumin 4.2 g/dL 3.6-5.1 Lipid Panel 09/25/2006 [facility] Cholesterol 188 mg/dL 125-[address] [place] [address] [phone] HDL Cholesterol 86 mg/dL > Or=40 64 Triglycerides 121 mg/dL <150 Cholesterol/HDL Ratio 2.2 < Or=5.0 LDL Chol,Calculated 78 mg/dL <130 65 Lipid Panel 06/21/2006 [facility] Cholesterol 262 mg/dL High 125-[address] [place] [address] [phone] HDL Cholesterol 76 mg/dL > Or=40 66 Cholesterol/HDL Ratio 3.4 < Or=5.0 LDL Chol,Calculated 171 mg/dL High <130 67 Triglycerides 76 mg/dL <150 Hepatic Function 06/21/2006 [facility] Alkaline Phosphatase 43 U/L 40- [address] [place] [address] [phone] Ast 30 U/L 10-35 Alt 29 U/L 9-60 Bilirubin,Total 0.6 mg/dL 0.2-1.2 Bilirubin,Direct 0.1 mg/dL < Or=0.2 Protein,Total 6.9 g/dL 6.2-8.3 Albumin 4.5 g/dL 3.6-5.1 Lipid Panel 05/08/2006 [facility] Cholesterol 270 mg/dL High <[address] [place], [place] [address] [phone] HDL Cholesterol 78 mg/dL >40 68 Cholesterol/HDL Ratio 3.5 <5.0 LDL Chol,Calculated 158 mg/dL High <130 69 Triglycerides 170 mg/dL High <150 Laboratory test 05/08/2006 [facility] PSA,Total 1.6 NG/ML 0.0-4.0 [address] [place], [place] [address] [phone] TSH+Free T4 05/08/2006 [facility] TSH 2.90 mU/L 0.40-5.50 ([place] [facility]) [address] [place] [address] [phone] T4,Free 0.9 ng/dL 0.8-1.8 Comp Metabolic Panel 05/08/2006 [facility] Sodium 140 mmol/L 135-[address] [place] [address] [phone] Potassium 4.5 mmol/L 3.5-5.3 Chloride 104 mmol/L [...] [facility] WBC 8.1 thous/L 3.8-10.[address] [place] [address] [phone] RBC 4.86 mill/L 4.20-5.80 Hemoglobin 15.5 g/dL 13.2-17.1 Hematocrit 44.1 % 38.5-50.0 MCV 90.7 FL 80.0-100.0 MCH 31.8 pg 27.0-33.0 MCHC 35.1 g/dL 32.0-36.0 RDW 13.2 % 11.0-15.0 Platelet Count 227 thous/L 140-400 Platelet Sufficiency NORMAL Normal Neutrophils,Absolute 5200 cells/L 6322-3730 Bands,Absolute DNR cells/L 0-750 Metamyelocytes,Absolute DNR cells/L [...] 130-159 High: 160-189 Very High: >189 11 Correctional Therapy Director: [id number] Desirable: <100 Near Optimal: 100-129 Borderline [...] 42 years old. Performed at: - [facility] [address] [id number] [employer] Engine Marketing Strategist: Marilyn Grace MD, Phone: [phone] Reference Guidelines*: Desirable: ........... < 200 [...] more information on this test, go to [email or web address].[email or web address]/ [email or web address] 36 THIS TEST WAS PERFORMED USING THE SIEMENS CHEMILUMINESCENT METHOD. VALUES OBTAINED FROM DIFFERENT ASSAY METHODS CANNOT BE USED INTERCHANGEABLY. PSA LEVELS, REGARDLESS OF VALUE, SHOULD NOT BE INTERPRETED ABSOLUTE EVIDENCE OF THE PRESENCE OR ABSENCE OF DISEASE. 37 GLUCOSE REFERENCE RANGE BASED ON FASTING SPECIMEN. 38 The upper reference limit for Creatinine is approximately 13% higher for people identified as -Irish. 39 LDL cholesterol not calculated. Triglyceride levels [...] more information on this test, go to [email or web address].[email or web address]/ [email or web address] 46 GLUCOSE REFERENCE RANGE BASED ON FASTING SPECIMEN. 47 The upper reference limit for Creatinine is approximately 13% higher for people identified as -Irish. 48 THE CURRENT LOT OF FREE T4 REAGENT AVAILABLE FROM THE [facility] PRODUCES RESULTS THAT ARE APPROXIMATELY 9% [...] FOR RACE, IF THE PATIENT RACE IS -SWISS, THE GFR ESTIMATE MUST BE MULTIPLIED BY A FACTOR OF 1.21. Procedures Date Code Description Status 02/27/2018 09116 Non-Invcorrotid/Comp /Bilat Study Completed 02/26/2018 96835 Echocardiography Completed 02/20/2018 96317 Spirometry Graphic Record/Max Voluntary Vent Completed 02/20/2018 39577 EKG-Tracing & Report Completed 02/19/2018 49247 PVR-Atrerial Study Completed 02/19/2018 41422 Holter Monitor Office Completed 02/16/2017 61346 PVR-Atrerial Study Completed 02/16/2017 93687 EKG-Tracing & Report Completed 02/15/2017 35606 Spirometry Graphic Record/Max Voluntary Vent Completed 02/15/2017 93728 Holter Monitor Office Completed 02/02/2017 32963 Echocardiography Completed 02/02/2017 03283 Non-Invcorrotid/Comp /Bilat Study Completed 03/18/2015 34547 EKG-Tracing & Report Completed 03/17/2015 28185 Holter Monitor Office Completed 03/05/2015 66677 Non-Invcorrotid/Comp /Bilat Study Completed 03/05/2015 56419 Echocardiography Completed 12/26/2014 39699 EKG-Tracing & Report Completed 05/09/2013 29052 Spirometry Graphic Record/Max Voluntary Vent Completed 05/09/2013 71032 EKG-Tracing & Report Completed 04/15/2013 60967 Non-Invcorrotid/Comp /Bilat Study Completed 04/15/2013 16766 Echocardiography Completed 08/09/2012 04194898 Colonoscopy Completed 04/02/2012 69360 EKG-Tracing & Report Completed 03/29/2012 47252 Echocardiography Completed 03/29/2012 34213 Non-Invcorrotid/Comp /Bilat Study Completed 11/11/2010 572100064 Bone Mineral Density Test Completed 11/11/2010 70603 Bone Density Completed 11/04/2010 76653 EKG-Tracing & Report Completed 11/03/2010 82622 Spirometry Graphic Record/Max Voluntary Vent Completed 11/03/2010 87868 Holter Monitor Office Completed 11/03/2009 99912 EKG-Tracing & Report Completed 11/03/2009 98960 Echocardiography Completed 11/03/2009 56489 Non-Invcorrotid/Comp /Bilat Study Completed 11/06/2008 25083 PFT Evaluation Completed 11/06/2008 01189 Holter Monitor Office Completed 11/06/2008 51727 EKG-Tracing & Report Completed 11/05/2008 91199 Non-Invcorrotid/Comp /Bilat Study Completed 11/05/2008 43700 Echocardiography Completed 05/09/2006 02076 Bone Density Completed 05/08/2006 27648 EKG-Tracing & Report Completed 04/18/2006 86599 Doppler Color Flow Velocity Completed 04/18/2006 90335 Doppler/ECHO Completed 04/18/2006 32631 ECHO-2D W/Wo M-Mode Completed 09/05/2003 03989 Spirometry Graphic Record/Max Voluntary Vent Completed 09/05/2003 40612 EKG-Tracing & Report Completed Encounters Type Date [...] Office Visit 12/13/2006 11:20a Main Office Gary cMintosh 724.30 Sciatica 789.03 Pain Abdominal Right Lower [...] Appointment(s):11/05/2018 8:00 am - Nurse at Main Setcxs5211/14/2018 11: 30 am - Gary Mcintosh at [facility] Awawvx8008/08/2017 - Gary McintoshJ20.9 Acute bronchitis , unspecifiedComments:Discussed medication use and compliance and side effects. Environmental factors such as smoke exposure and tobacco use discussed and the appropriate counselling provided. Symptomatic follow up arranged.I34.0 Nonrheumatic mitral (valve) insufficiencyComments:Issues of symptoms and [...] for S.B.E. prophylaxis. Routine follow up/ surveillance planned.J44.9 Chronic obstructive pulmonary disease, unspecifiedComments:Discussed importance of excersize and avoidance of all smoke. Enviromental factors that can spark exacerbations reviewed. The necessity of reporting any changes in condition, early intervention in exacerbations and proper useand the importance of compliance with medications. Reports if applicable of home care providers, and equipment suppliers and Respiratory Therapy reviewed.I65.23 Occlusion and stenosis of bilateral carotid arteriesComments:Discussed role of life style choices in dietary fats and exercise plays on evolution of [place] disease and importance of controlling cholesterol. Medications role and side effects in disease progression prevention discussed and need for compliance with prescribed treatment. Follow up testing for progression such as ultrasound surveillance [id number] Supraventricular adrtveneohhN14.5 Hyperlipidemia, unspecifiedComments:Counselled on role of diet and excersize and importance to keep compliance with medication if prescribed and side effects. The importance of routine monitoring of blood lipids and liver tests to managetreatment and avoid side effects were discussed. Usual follow up is 3 months for LFT and Lipid profile. Patient education including dietary guidelines and materials provided.F52.21 Male erectile [id number] Peripheral vascular disease, unspecifiedComments:Reviewed diagnostic testing and discussed pertinent lifestyle issues such as smoking cessation, the importance of diet and exercise and the possibility of certain medications worsening symptoms. The role of medications to treat this disease, costs and benefits discussed. exercise stressed. The need tomonitor feet for skin breakdown and injury and the need for further surveillance and PVR discussed
--- OUTSIDE RECORDS SUMMARY | 2018-08-21 11:03 | XMS REPORT | Continuity of Care Document ---
:1950 External Reference #:[id number] Author Name Sue Riggs Care Team Providers Name Role Phone Gary Mcintosh MD Primary Care Physician Unavailable Payers Date Identification Numbers Payment Provider Subscriber Policy Number: [id number] Medicare Rob Chaudhary PayID: [id number] [address] [place] [address] Effective: 1993 Policy Number: [id number] [facility] Rob Chaudhary Group Number: [id number] [address] PayID: [id number] [place] [address] Problems Active Problems Provider Date Mitral valve [...] 1units Gary Mcintosh 05/05/2015 - ordered 03/19/2018 32926Fvu/0.65ML Solution Rec Amoxicillin/Clavulana 1 by mouth twice [...] 81 Jaspal Mcintoshl 02/05/2007 - 81mg 11/18/2008 [facility] Jaspal Mcintoshl 11/29/2006 - 05/05/2015 Zetia 1 PO qd 90tabs Arnaldo Gary 07/10/2006 - 10mg Tablets 11/18/2008 Lipitor 1 po qd 90tabs 272.40 Arnaldo Gary 05/17/2006 - 20mg Tablets 07/10/2006 [facility] 1 po qd Arnaldo Gary 09/07/2005 - 09/07/2005 Multivitamins Arnaldo Gary 09/07/2005 - Caplets 01/12/2015 Amoxicillin 2 po bid 40tabs 466.0 Jaspal Mcintoshl 09/07/2005 - 500mg 2005 Tablets Nystatin-Triamcinolon apply affected Unknown - e area as 01/17/2017 821558-3.1Unit/GM-% indicated twice Cream a day Medications Administered in Office Medication SIG Qnty Indications Ordering Provider Date H1N1 Administration-Use Arnaldo Gary 01/26/2009 Injection Immunizations CPT Code Status Date Vaccine Lot # [id number] Given 03/19/2018 Influenza Virus (Afluria) Split Virus 3 Years [id number] Of Age And Older 50697 Given 03/19/2018 Pneumovax Polyvalent Inj Im [id number] Q2035 Given 01/17/2017 Influenza Virus (Afluria) Split Virus 3 Years Of Age And Older [address]3830 Given 06/03/2015 Zostavax 35038 Given 11/23/2010 Tetanus,Diphtheria,Adut/Adol Pertussis [id number] 78519 Given 11/23/2010 Tetanus Shot 28717 Given 12/17/2009 Influenza Vaccine 74910 Given 12/11/2008 Influenza Vaccine [id number] 67339 Given 04/01/2003 Influenza Virus Vaccine (History Only) 60623 Given 11/23/2001 DT Immunization DIP/Tet (History Only) [...] Result H/L Range Note Laboratory test 07/30/2018 [facility] Testosterone 265.81 N 240 -[address] Total ng/dL [place], [place] [id number] [phone] PSA Screening 4.197 ng/mL High 0-4.000 1 CBC No Diff 07/30/2018 [facility] White Blood 9.2 10^3/uL N 3.5 -10.[address] Count [place], [place] [id number] [phone] Red Blood Count 4.78 10^6/uL N 4.18-5.48 Hemoglobin 14.8 g/dL N 14.0-18.0 Hematocrit 44 % N 42-52 Mean Corpuscular Volume 92 fL N 80-94 Mean Corpuscular Hemoglobin 31 pg N 27-31 Mean Corpuscular HGB Conc 34 g/dL N 31-36 Red Cell Distribution Width 13 % N 10.5-15 Platelet Count 191 10^3/uL N 150-450 Mean Platelet Volume 10.7 fL High 7.4-10.4 .TSH+Free T4 07/30/2018 [facility] TSH (Thyroid 1.63 mcIU/mL N 0.34-5.60 ([facility] Stim Horm) [facility] [place], [place] [id number] [phone] Free T4 (Free Thyroxine) 0.68 ng/dL N 0.61-1.12 Comp Metabolic Panel 07/30/2018 [facility] Sodium 140 mmol/L N [phone] [place], [place] [address] [phone] Potassium 4.4 mmol/L N 3.5-5.0 Chloride 104 [...] Egfr 97.5 >60 2 Lipid Profile 07/30/2018 [facility] Triglycerides 132 mg/dL 3 (Trig/Chol/HDL) [address] [place] [address] [phone] Cholesterol 266 mg/dL 4 HDL Cholesterol 80.2 mg/dL 5 LDL Cholesterol 159 mg/dL 6 Lipid Profile 02/20/2018 [facility] Triglycerides 278 mg/dL 7 (Trig/Chol/HDL) [address] [place] [address] [phone] Cholesterol 296 mg/dL 8 HDL Cholesterol 79.9 mg/dL 9 LDL Cholesterol 161 mg/dL 10 Liver Function 02/20/2018 [facility] Total Protein 6.5 g/dL N 6.4-8.9 Panel [address] [place] [address] [phone] Albumin 4.4 g/dL N 3.2-5.2 Globulin 2.1 g/dL N 2-4 Albumin/Globulin Ratio 2.1 N 1-3 Total Bilirubin 0.80 mg/dL N 0.2-1.0 Direct Bilirubin 0.10 mg/dL N 0.03-0.18 Indirect Bilirubin 0.7 mg/dL N 0.3-1.0 Alkaline Phosphatase 48 U/L N 34-104 Alt 27 U/L N 7-52 Ast 26 U/L N 13-39 Laboratory test 08/04/2017 [facility] Rapid Strep Negative Negative 11 finding [address] [place] [address] [phone] Laboratory test 02/02/2017 [facility] TSH (Thyroid 1.84 mcIU/mL N 0.34-5.[address] Stim Horm) [place] [id number] [phone] LDL Cholesterol Direct 107 mg/dL 12 Free T4 (Free Thyroxine) 0.75 ng/dL N 0.61-1.12 Basic Metabolic Panel 02/02/2017 [facility] Sodium 138 mmol/L N [phone] [place] [address] [phone] Potassium 4.6 mmol/L N 3.5-5.0 Chloride 103 mmol/L N 101-111 Co2 Carbon Dioxide 29 mmol/L N 22-32 Anion Gap 6 mmol/L N 2-11 Glucose 94 mg/dL N 70-100 Blood Urea Nitrogen 16 mg/dL N 6-24 Creatinine 0.95 mg/dL N 0.67-1.17 BUN/Creatinine Ratio 16.8 N 8-20 Calcium 8.8 mg/dL N 8.6-10.3 Egfr Non- 79.8 >60 Egfr 102.6 >60 13 Laboratory test 02/02/2017 [facility] Vitamin D Total 20.4 ng/mL N 20-50 finding [address]) [place] [address] [phone] Lipid Panel 02/02/2017 [facility] Triglycerides 728 mg/dL 14 [address] [place] [address] [phone] Cholesterol 306 mg/dL 15 HDL Cholesterol 60.2 mg/dL 16 LDL Cholesterol (SEE NOTE) mg/dL 17 Laboratory test 02/02/2017 [facility] PSA Screening 3.631 ng/mL N 0-4.000 18 finding [address] [place] [address] [phone] Testosterone Total 274.73 ng/dL N 240-950 Vitamin 01/12/2016 [facility] Vitamin 309 pg/mL 200-1100 19 B12/Folate Panel [address] B12,[place] [address] [phone] Folate,Serum >24.0 NG/ML 20 TSH & T4,Free 01/12/2016 [facility] TSH 1.97 mIU/L 0.40-4.[address] [place] [address] [phone] T4,Free 1.1 ng/dL 0.8-1.8 Laboratory test finding 01/12/2016 [facility] Glucose 99 mg/dL 65-99 21 [address] [place] [address] [phone] Hemoglobin A1c 5.3 % 0.0-5.6 22 BMP W/O Egfr 10/28/2015 [facility] Sodium 137 mmol/L N 109-728 [address] [place] [address] [phone] Potassium 4.9 mmol/L N 3.5-5.0 Chloride 101 mmol/L N 101-111 Co2 Carbon Dioxide 29 mmol/L N 22-32 Anion Gap 7 mmol/L N 2-11 Glucose 97 mg/dL N 70-100 Blood Urea Nitrogen 19 mg/dL N 6-24 Creatinine 0.98 mg/dL N 0.67-1.17 BUN/Creatinine Ratio 19.4 N 8-20 Egfr Non- 77.2 N >60 Egfr 99.3 N >60 23 Laboratory test 10/28/2015 [facility] Calcium 9.6 mg/dL N 8.6- 10.3 finding [address] [place] [address] [phone] Urine Screen 08/17/2015 [facility] Urine Color YELLOW Yellow [address] [place] [address] [phone] Urine Clarity CLEAR Clear Urine Glucose - Dipstick NEGATIVE mg/dL Negative Urine Bilirubin - Dipstick NEGATIVE Negative Urine Ketone NEGATIVE mg/dL Negative Urine Specific Enon 1.015 1.010-1.030 Urine Blood NEGATIVE Negative Urine PH 6.0 Low 6.5-7.5 Urine Protein - Dipstick NEGATIVE mg/dL Negative Urine Urobilinogen - Dipstick 0.2 E.U./dL 0.2-1.0 Urine Nitrite - Dipstick NEGATIVE Negative Urine Leuk Esterase NEGATIVE Negative Chlamydia/GC Lakshmi, 08/17/2015 [facility] Chlamydia Negative Urine [address] Trachomatis,[place] [address] -Lakshmi [phone] Neisseria Gonorrhoeae,Ur -Lakshmi Negative 24 Basic Metabolic Panel 03/17/2015 [facility] Glucose 93 mg/dL 74-[address] [place] [address] [phone] BUN 14 mg/dL 7-18 Creatinine 0.9 mg/dL [...] uIU/mL 0.36-3.[address] [place] [place] [address] [phone] Free T4 0.78 ng/dL 0.76-1.46 Testosterone,Serum 03/17/2015 [facility] Testosterone, Serum [phone] ng/[place] [address] [phone] Comment See Note 26 Hemoglobin/Hematocrit 03/17/2015 [facility] Hemoglobin 14.9 12.8-17.[address] gm/[place] [address] [phone] Hematocrit 43.6 % 38.0-48.0 LDL Cholesterol 12/26/2014 [facility] Cholesterol 218 mg/dL < 200 [address] [place] [address] [phone] Triglycerides 64 mg/dL < 150 28 HDL Cholesterol 93 mg/dL > 40 29 LDL-Cholesterol 112 mg/dL < 100 30 Laboratory test 12/26/2014 [facility] Prostate 2.80 ng/mL [address] [place] [place] [address] [phone] Lipid Panel 06/05/2013 [facility] Cholesterol 271 mg/dL High 125-[address] [place] [address] [phone] HDL Cholesterol 74 mg/dL > Or=40 Cholesterol/HDL Ratio 3.7 < Or=5.0 LDL Chol,Calculated 148 mg/dL High <130 33 Triglycerides 246 mg/dL High <150 Non-HDL Cholesterol 197 mg/dL High 34 Laboratory 06/05/2013 [facility] Testosterone,Total,LC/MS/MS 648 250- 1100 35 test finding [address] ng/dL [place], [place] [address] [phone] PSA,Total 1.8 NG/ML 0.0-4.0 36 BMP W/O Egfr 06/05/2013 [facility] Sodium 137 mmol/L 135-[address] [place], [place] [address] [phone] Potassium 4.5 mmol/L 3.5-5.3 Chloride 100 mmol/L 98-110 Carbon Dioxide 28 mmol/L 19-30 Calcium 9.4 mg/dL 8.6-10.3 Glucose 91 mg/dL 65-99 37 Urea Nitrogen 14 mg/dL 7-25 Creatinine 1.05 mg/dL 0.70-1.25 38 BUN/Creatinine Ratio 13.3 6-22 Lipid Panel 05/09/2013 [facility] Cholesterol 277 mg/dL High 125-[address] [place] [address] [phone] HDL Cholesterol 41 mg/dL > Or=40 Cholesterol/HDL Ratio 6.8 High < Or=5.0 LDL Chol,Calculated (SEE NOTE) mg/dL 39 Triglycerides 1672 mg/dL High <150 40 Non-HDL Cholesterol 236 mg/dL High 41 Laboratory test 08/09/2012 [facility] Rectal Mucosa See Note [address] [place] [place] [address] [phone] Laboratory test 07/02/2012 [facility] Direct LDL 101 mg/dL <130 [address] [place] [address] [phone] Comprehensive 06/03/2012 [facility] Glucose 96 mg/dL 76-115 Metabolic Panel [address] [place] [address] [phone] BUN 12 mg/dL 5-23 Creatinine 0.9 mg/dL [...] 129 U/L 28-[address] [place], [place] [address] [phone] CBC W/Automated 06/03/2012 [facility] White Blood 6.4 K/uL 3.4-10.[address] [place] [address] [phone] Red Blood Count 4.87 M/uL 4.20-5.80 Hemoglobin [...] 100 #CELLS Confirm [address] [place] [address] [phone] Neutrophils% 65 % 33-73 Lymph% 11 % Low 17-56 Atypical Lymph% 11 % High 0-7 Monocyte% 8 % 0-10 Eosinophil% 5 % 0-5 Platelet Estimate NORMAL RBC Morphology NORMAL Urine Screen 06/03/2012 [facility] Urine Color YELLOW Yellow [address] [place] [address] [phone] Urine Clarity CLEAR Clear Urine Glucose - Dipstick NEGATIVE mg/dL Negative Urine Bilirubin - Dipstick NEGATIVE Negative Urine Ketone NEGATIVE mg/dL Negative Urine Specific Enon <=1.005 Low 1.010-1.030 Urine Blood NEGATIVE Negative Urine PH 5.0 Low 6.5-7.5 Urine Protein - Dipstick NEGATIVE mg/dL Negative Urine Urobilinogen - Dipstick 0.2 E.U./dL 0.2-1.0 Urine Nitrite - Dipstick NEGATIVE Negative Urine Leuk Esterase NEGATIVE Negative Laboratory 03/30/2012 [facility] Testosterone,Total,LC/MS/MS 596 250- 1100 45 test finding [address] ng/[place] [address] [phone] Comp 03/30/2012 [facility] Sodium 138 135-[address] mmol/[place] [address] [phone] Potassium 4.5 mmol/L 3.5-5.3 Chloride 103 mmol/L [...] 1.9-3.7 A/G Ratio 1.8 1.0-2.5 Egfr Non-Afr. Thai 86 ML/MIN/1.73M2 > Or=60 Egfr 100 ML/MIN/1.73M2 > Or=60 CBC W/ Diff & PLT 03/30/2012 [facility] WBC 9.4 thous/L 3.8-10.[address] [place] [address] [phone] RBC 4.36 mill/L 4.20-5.80 Hemoglobin 13.8 g/dL 13.2-17.1 Hematocrit 41.0 % 38.5-50.0 MCV 93.9 FL 80.0-100.0 MCH 31.5 pg 27.0-33.0 MCHC 33.6 g/dL 32.0-36.0 RDW 13.5 % 11.0-15.0 Platelet Count 198 thous/L 140-400 Neutrophils,Absolute 7000 cells/L 4973-4275 Lymphocytes,Absolute 1310 cells/L 850-3900 Monocytes,Absolute 790 cells/L 200-950 Eosinophils,Absolute 220 cells/L 15-500 Basophils,Absolute 30 cells/L 0-200 Total Neutrophils,% 75 % 38-80 Total Lymphocytes,% 14 % 15-49 Monocytes,% 8 % 0-13 Eosinophils,% 2 % 0-8 Basophils,% 0 % 0-2 TSH & T4,Free 03/30/2012 [facility] TSH 1.81 mIU/L 0.40-4.[address] [place] [address] [phone] T4,Free 1.1 ng/dL 0.8-1.8 48 Laboratory test 03/30/2012 [facility] PSA,Total 1.8 NG/ML 0.0-4.0 [address] [place] [address] [phone] Laboratory test 08/01/2011 [facility] LDL 101 mg/dL <130 [address] Cholesterol,Dire [address] [phone] Hepatic Function 08/01/2011 [facility] Alkaline 56 U/L 40-[address] [place] [address] [phone] Ast 32 U/L 10-35 Alt 36 U/L 9-60 Bilirubin,Total 0.8 mg/dL 0.2-1.2 Bilirubin,Direct 0.2 mg/dL < Or=0.2 Protein,Total 6.3 g/dL 6.2-8.3 Albumin 4.3 g/dL 3.6-5.1 Globulin,Calculated 2.0 g/dL Low 2.1-3.7 A/G Ratio 2.1 1.0-2.1 Lipid Panel 05/03/2011 [facility] Cholesterol 235 mg/dL High 125-[address] [place], [place] [address] [phone] HDL Cholesterol 70 mg/dL > Or=40 Cholesterol/HDL Ratio 3.4 < Or=5.0 LDL Chol,Calculated 133 mg/dL High <130 51 Triglycerides 161 mg/dL High <150 Hepatic Function 05/03/2011 [facility] Alkaline Phosphatase 57 U/L 40- [address] [place], [place] [address] [phone] Ast 31 U/L 10-35 Alt 34 U/L 9-60 Bilirubin,Total 0.6 mg/dL 0.2-1.2 Bilirubin,Direct 0.1 mg/dL < Or=0.2 Protein,Total 6.6 g/dL 6.2-8.3 Albumin 4.5 g/dL 3.6-5.1 Globulin,Calculated 2.1 g/dL 2.1-3.7 A/G Ratio 2.1 1.0-2.1 Laboratory 01/05/2011 [facility] LDL Cholesterol,Direct 117 <130 52 test finding [address] mg/dL [place], [place] [address] [phone] Hepatic 01/05/2011 [facility] Alkaline Phosphatase 51 U/L 40-115 Function Panel [address] [place] [address] [phone] Ast 31 U/L 10-35 Alt 28 U/L 9-60 Bilirubin,Total 0.6 mg/dL 0.2-1.2 Bilirubin,Direct 0.1 mg/dL < Or=0.2 Protein,Total 6.4 g/dL 6.2-8.3 Albumin 4.4 g/dL 3.6-5.1 Globulin,Calculated 2.0 g/dL Low 2.1-3.7 A/G Ratio 2.1 1.0-2.1 Laboratory test 11/03/2010 [facility] PSA,Total 1.4 NG/ML 0.0-4.0 [address] [place] [address] [phone] Lipid Panel 11/03/2010 [facility] Cholesterol 293 mg/dL High 125-[address] [place] [address] [phone] HDL Cholesterol 69 mg/dL > Or=40 Cholesterol/HDL Ratio 4.2 < Or=5.0 LDL Chol,Calculated 156 mg/dL High <130 54 Triglycerides 338 mg/dL High <150 TSH & T4,Free 11/03/2010 [facility] TSH,3RD 1.80 mIU/L 0.40-4.[address] [place] [address] [phone] T4,Free 1.2 ng/dL 0.8-1.8 Comp Metabolic Panel 11/03/2010 [facility] Sodium 140 mmol/L 135-[address] [place] [address] [phone] Potassium 4.6 mmol/L 3.5-5.3 Chloride 104 mmol/L [...] 2.1-3.7 A/G Ratio 1.8 1.0-2.1 Egfr Non-Afr. Thai 95 ML/MIN/1.73M2 > Or=60 Egfr 110 ML/MIN/1.73M2 > Or=60 CBC W/ Diff & PLT 11/03/2010 [facility] WBC 5.1 thous/L 3.8-10.[address] [place] [address] [phone] RBC 4.66 mill/L 4.20-5.80 Hemoglobin 15.0 g/dL 13.2-17.1 Hematocrit 44.3 % 38.5-50.0 MCV 95.0 FL 80.0-100.0 MCH 32.2 pg 27.0-33.0 MCHC 33.9 g/dL 32.0-36.0 RDW 13.9 % 11.0-15.0 Platelet Count 205 thous/L 140-400 Neutrophils,Absolute 2760 cells/L 1756-7953 Lymphocytes,Absolute 1520 cells/L 850-3900 Monocytes,Absolute 590 cells/L 200-950 Eosinophils,Absolute 170 cells/L 15-500 Basophils,Absolute 30 cells/L 0-200 Total Neutrophils,% 54 % 38-80 Total Lymphocytes,% 30 % 15-49 Monocytes,% 12 % 0-13 Eosinophils,% 3 % 0-8 Basophils,% 1 % 0-2 Laboratory test 11/03/2009 [facility] PSA,Total 1.3 NG/ML 0.0-4.0 [address] [place], [place] [address] [phone] Lipid Panel 11/03/2009 [facility] Cholesterol 249 mg/dL High 125-[address] [place], [place] [address] [phone] HDL Cholesterol 75 mg/dL > Or=40 Triglycerides 208 mg/dL High <150 Cholesterol/HDL Ratio 3.3 < Or=5.0 LDL Chol,Calculated 132 mg/dL High <130 57 TSH & T4,Free 11/03/2009 [facility] TSH,3RD 3.76 mIU/L 0.40-4.[address] [place], [place] [address] [phone] T4,Free 0.9 ng/dL 0.8-1.8 Lipid Panel 05/11/2009 [facility] Cholesterol 268 mg/dL High 125-[address] [place], [place] [address] [phone] HDL Cholesterol 77 mg/dL > Or=40 Triglycerides 119 mg/dL <150 Cholesterol/HDL Ratio 3.5 < Or=5.0 LDL Chol,Calculated 167 mg/dL High <130 58 Comp Metabolic Panel 11/06/2008 [facility] Sodium 138 mmol/L 135-[address] [place] [address] [phone] Potassium 4.3 mmol/L 3.5-5.3 Chloride 103 mmol/L [...] 2.1-3.7 A/G Ratio 1.9 1.0-2.1 Egfr Non-Afr. Thai >60 ML/MIN/1.73M2 > Or=60 Egfr >60 ML/MIN/1.73M2 > Or=60 CBC W/ Diff & PLT 11/06/2008 [facility] WBC 9.1 thous/L 3.8-10.8 [address] [place], [place] [address] [phone] RBC 4.70 mill/L 4.20-5.80 Hemoglobin 14.9 g/dL 13.2-17.1 Hematocrit 43.7 % 38.5-50.0 MCV 92.9 FL 80.0-100.0 MCH 31.7 pg 27.0-33.0 MCHC 34.2 g/dL 32.0-36.0 RDW 13.8 % 11.0-15.0 Platelet Count 210 thous/L 140-400 Platelet Sufficiency NORMAL Normal Neutrophils,Absolute 6420 cells/L 7853-5399 Bands,Absolute DNR cells/L 0-750 Metamyelocytes,Absolute DNR cells/L [...] Lab Cholesterol 223 mg/dL High 125-[address] [place] [address] [phone] HDL Cholesterol 68 mg/dL > Or=40 Triglycerides 196 mg/dL High <150 Cholesterol/HDL Ratio 3.3 < Or=5.0 LDL Chol,Calculated 116 mg/dL <130 60 Laboratory test 11/06/2008 [facility] PSA,Total 1.6 NG/ML 0.0-4.0 [address] [place] [address] [phone] TSH & T4,Free 11/06/2008 [facility] TSH,3RD 3.41 mU/L 0.40-4.[address] [place] [address] [phone] T4,Free 0.9 ng/dL 0.8-1.8 Laboratory test 01/19/2007 [facility] Ferritin 61 NG/ML 20-[address] [place] [address] [phone] Hepatic Function 01/19/2007 [facility] Alkaline 52 U/L 40-[address] [place] [address] [phone] Ast 35 U/L 10-35 Alt 35 U/L 9-60 Bilirubin,Total 1.0 mg/dL 0.2-1.2 Bilirubin,Direct 0.2 mg/dL < Or=0.2 Protein,Total 6.9 g/dL 6.2-8.3 Albumin 4.4 g/dL 3.6-5.1 Lipid Panel 01/19/2007 [facility] Cholesterol 234 mg/dL High 125-[address] [place] [address] [phone] HDL Cholesterol 83 mg/dL > Or=40 62 Cholesterol/HDL Ratio 2.8 < Or=5.0 LDL Chol,Calculated 125 mg/dL <130 63 Triglycerides 131 mg/dL <150 Hepatic Function 09/25/2006 [facility] Alkaline Phosphatase 46 U/L 40- [address] [place] [address] [phone] Ast 33 U/L 10-35 Alt 31 U/L 9-60 Bilirubin,Total 0.8 mg/dL 0.2-1.2 Bilirubin,Direct 0.2 mg/dL < Or=0.2 Protein,Total 6.7 g/dL 6.2-8.3 Albumin 4.2 g/dL 3.6-5.1 Lipid Panel 09/25/2006 [facility] Cholesterol 188 mg/dL 125-[address] [place] [address] [phone] HDL Cholesterol 86 mg/dL > Or=40 64 Triglycerides 121 mg/dL <150 Cholesterol/HDL Ratio 2.2 < Or=5.0 LDL Chol,Calculated 78 mg/dL <130 65 Lipid Panel 06/21/2006 [facility] Cholesterol 262 mg/dL High 125-[address] [place] [address] [phone] HDL Cholesterol 76 mg/dL > Or=40 66 Cholesterol/HDL Ratio 3.4 < Or=5.0 LDL Chol,Calculated 171 mg/dL High <130 67 Triglycerides 76 mg/dL <150 Hepatic Function 06/21/2006 [facility] Alkaline Phosphatase 43 U/L 40- [address] [place] [address] [phone] Ast 30 U/L 10-35 Alt 29 U/L 9-60 Bilirubin,Total 0.6 mg/dL 0.2-1.2 Bilirubin,Direct 0.1 mg/dL < Or=0.2 Protein,Total 6.9 g/dL 6.2-8.3 Albumin 4.5 g/dL 3.6-5.1 Lipid Panel 05/08/2006 [facility] Cholesterol 270 mg/dL High <[address] [place], [place] [address] [phone] HDL Cholesterol 78 mg/dL >40 68 Cholesterol/HDL Ratio 3.5 <5.0 LDL Chol,Calculated 158 mg/dL High <130 69 Triglycerides 170 mg/dL High <150 Laboratory test 05/08/2006 [facility] PSA,Total 1.6 NG/ML 0.0-4.0 [address] [place], [place] [address] [phone] TSH+Free T4 05/08/2006 [facility] TSH 2.90 mU/L 0.40-5.50 ([facility]) [address] [place] [address] [phone] T4,Free 0.9 ng/dL 0.8-1.8 Comp Metabolic Panel 05/08/2006 [facility] Sodium 140 mmol/L 135-[address] [place] [address] [phone] Potassium 4.5 mmol/L 3.5-5.3 Chloride 104 mmol/L [...] [facility] WBC 8.1 thous/L 3.8-10.[address] [place] [address] [phone] RBC 4.86 mill/L 4.20-5.80 Hemoglobin 15.5 g/dL 13.2-17.1 Hematocrit 44.1 % 38.5-50.0 MCV 90.7 FL 80.0-100.0 MCH 31.8 pg 27.0-33.0 MCHC 35.1 g/dL 32.0-36.0 RDW 13.2 % 11.0-15.0 Platelet Count 227 thous/L 140-400 Platelet Sufficiency NORMAL Normal Neutrophils,Absolute 5200 cells/L 0055-2460 Bands,Absolute DNR cells/L 0-750 Metamyelocytes,Absolute DNR cells/L [...] 130-159 High: 160-189 Very High: >189 11 Upholsterer Apprentice: [id number] Desirable: <100 Near Optimal: 100-129 Borderline [...] 42 years old. Performed at: - [facility] [address] [id number] Sound Recording Technician: Marilyn Grace MD, Phone: [phone] Reference Guidelines*: Desirable: ........... < 200 [...] more information on this test, go to http://education.[employer]/faq/ TotalTestosteroneLCMSMS 36 THIS TEST WAS PERFORMED USING THE SIEMENS CHEMILUMINESCENT METHOD. VALUES OBTAINED FROM DIFFERENT ASSAY METHODS CANNOT BE USED INTERCHANGEABLY. PSA LEVELS, REGARDLESS OF VALUE, SHOULD NOT BE INTERPRETED ABSOLUTE EVIDENCE OF THE PRESENCE OR ABSENCE OF DISEASE. 37 GLUCOSE REFERENCE RANGE BASED ON FASTING SPECIMEN. 38 The upper reference limit for Creatinine is approximately 13% higher for people identified as -Thai. 39 LDL cholesterol not calculated. Triglyceride levels [...] more information on this test, go to http://education.[employer]/faq/ TotalTestosteroneLCMSMS 46 GLUCOSE REFERENCE RANGE BASED ON FASTING SPECIMEN. 47 The upper reference limit for Creatinine is approximately 13% higher for people identified as -Thai. 48 THE CURRENT LOT OF FREE T4 REAGENT AVAILABLE FROM THE [employer] PRODUCES RESULTS THAT ARE APPROXIMATELY 9% HIGHER [...] FOR RACE, IF THE PATIENT RACE IS -WALLISIAN, THE GFR ESTIMATE MUST BE MULTIPLIED BY A FACTOR OF 1.21. Procedures Date Code Description Status 02/27/2018 18398 Non-Invcorrotid/Comp /Bilat Study Completed 02/26/2018 52181 Echocardiography Completed 02/20/2018 63198 Spirometry Graphic Record/Max Voluntary Vent Completed 02/20/2018 86235 EKG-Tracing & Report Completed 02/19/2018 35860 PVR-Atrerial Study Completed 02/19/2018 95878 Holter Monitor Office Completed 02/16/2017 73134 PVR-Atrerial Study Completed 02/16/2017 75449 EKG-Tracing & Report Completed 02/15/2017 43488 Spirometry Graphic Record/Max Voluntary Vent Completed 02/15/2017 58187 Holter Monitor Office Completed 02/02/2017 96563 Echocardiography Completed 02/02/2017 76525 Non-Invcorrotid/Comp /Bilat Study Completed 03/18/2015 88915 EKG-Tracing & Report Completed 03/17/2015 23479 Holter Monitor Office Completed 03/05/2015 90131 Non-Invcorrotid/Comp /Bilat Study Completed 03/05/2015 70750 Echocardiography Completed 12/26/2014 00103 EKG-Tracing & Report Completed 05/09/2013 95529 Spirometry Graphic Record/Max Voluntary Vent Completed 05/09/2013 90903 EKG-Tracing & Report Completed 04/15/2013 35329 Non-Invcorrotid/Comp /Bilat Study Completed 04/15/2013 77930 Echocardiography Completed 08/09/2012 [id number] Colonoscopy Completed 04/02/2012 18115 EKG-Tracing & Report Completed 03/29/2012 60283 Echocardiography Completed 03/29/2012 92301 Non-Invcorrotid/Comp /Bilat Study Completed 11/11/2010 [id number] Bone Mineral Density Test Completed 11/11/2010 98485 Bone Density Completed 11/04/2010 23286 EKG-Tracing & Report Completed 11/03/2010 63571 Spirometry Graphic Record/Max Voluntary Vent Completed 11/03/2010 60038 Holter Monitor Office Completed 11/03/2009 92795 EKG-Tracing & Report Completed 11/03/2009 17921 Echocardiography Completed 11/03/2009 50880 Non-Invcorrotid/Comp /Bilat Study Completed 11/06/2008 97473 PFT Evaluation Completed 11/06/2008 65259 Holter Monitor Office Completed 11/06/2008 00958 EKG-Tracing & Report Completed 11/05/2008 11139 Non-Invcorrotid/Comp /Bilat Study Completed 11/05/2008 52206 Echocardiography Completed 05/09/2006 29624 Bone Density Completed 05/08/2006 28816 EKG-Tracing & Report Completed 04/18/2006 96332 Doppler Color Flow Velocity Completed 04/18/2006 45397 Doppler/ECHO Completed 04/18/2006 38204 ECHO-2D W/Wo M-Mode Completed 09/05/2003 85282 Spirometry Graphic Record/Max Voluntary Vent Completed 09/05/2003 64383 EKG-Tracing & Report Completed Encounters Type Date [...] Appointment(s):11/05/2018 8:00 am - [facility] at [facility]5311/14/2018 11: 30 am - Gary Mcintosh at [facility]1203/19/2018 - Jaspal McintoshlN40.0 Benign prostatic hyperplasia without lower urinary tract symptomsComments:yearly digital examyearly psaSymptoms and signs reviewed and therapy such as medication , vitamins, diet supplements and their risks and benefits discussed. Symptom progression and referral to urology as appropriate for symptom progression and severity discussed and ordered. The importance of medication compliance when appropriate discussed and the effects of other medications such as antihistamines and OTC cold medicines considered and discussed with patient. Lab work as appropriate and follow up symptomatically and with [facility] yearly arrangedyearly digital examyearly psaSymptoms and signs reviewed and therapy such as medication, vitamins, diet supplements and their risks and benefits discussed. Symptom progression and referral to urology as appropriate for symptom progression and severity discussedand ordered. The importance of medication compliance when appropriate discussed and the effects of other medications such as antihistamines and OTC cold medicines considered and discussed with patient.Lab work as appropriate and follow up symptomatically and with [facility] yearly iiixraosQ62.33 Obstructive sleep apnea (adult) (pediatric) Comments:snoring and increased pulm artery pressure ---refer for xqtkkdnH43.0 Nonrheumatic mitral (valve) insufficiencyComments:Issues of symptoms and [...] materials provided.I11.9 Hypertensive heart disease without heart failureComments:CONT. TO MONITOR BP, CONT. LOW SALT DIET [...] to medication reviewed.J44.9 Chronic obstructive pulmonary disease, unspecifiedComments:Discussed importance of excersize and avoidance of all smoke. Enviromental factors that can spark exacerbations reviewed. The necessity of reporting any changes in condition, early intervention in exacerbations and proper useand the importance of compliance with medications. Reports if applicable of home care providers, and equipment suppliers and Respiratory Therapy reviewed.F52.21 Male erectile hgthbpzeN01.00 Encounter for general adult medical examination without abnormal findingsComments:DISCUSSED AGE APPROPRIATE RISK FACTORS AND SCREENING.Z23 Encounter for immunizationComments:Vaccination reviewed and updates given as appropriate.
--- OUTSIDE RECORDS SUMMARY | 2018-08-21 11:04 | XMS REPORT | Continuity of Care Document ---
:1950 External Reference #:[id number] Author Name Ashley Chaidez Care Team Providers Name Role Phone Gary Mcintosh MD Primary Care Physician Unavailable Payers Date Identification Numbers Payment Provider Subscriber Policy Number: [id number] Medicare Rob Chaudhary PayID: [id number] [address] [place] [address] Effective: 1993 Policy Number: [id number] [facility] oRb Chaudhary Group Number: [id number] [address] PayID: [id number] [place] [address] Problems Active Problems Provider Date Mitral valve [...] joint Gauss, Gary Onset: 11/23/2010 Abdominal pain Gary Mcintosh Onset: 11/23/2010 Family History Date Family Member(s) [...] Medications SIG Qnty Indications Ordering Provider Date Amlodipine Besylate 1 by mouth every 90tabs I11.9 Gary Mcintosh 09/19/2017 day 2.5mg Tablets Viagra 1 by mouth as 6tabs F52.21 Gary Mcintosh 02/27/2017 50mg Tablets needed History Medications Doxycycline 1 by mouth twice 14caps S70.262A Gary Mcintosh 01/29/2018 - Monohydrate a day 03/19/2018 100mg Capsules Azithromycin 2 by mouth 6tabs J20.9 Gary Mcintosh 04/24/2017 - 250mg today, 1 by 09/04/2017 Tablets mouth day 2 thru 5 Guaifenex LA 1 by mouth twice 14tabs J20.9 Gary Mcintosh 04/24/2017 - 600mg a day as needed 09/04/2017 Tablets ER 12HR Aspirin Regimen Low Gary Mcintosh 01/17/2017 - [...] 1units Gary Mcintosh 05/05/2015 - ordered 03/19/2018 87780Pgi/0.65ML Solution Rec Amoxicillin/Clavulana 1 by mouth twice [...] Doxy 100 1 PO bid 28units 082.8 Jaspal Mcintoshl 01/22/2013 - 100mg Solution 05/20/2013 Rec Doxycycline 1 po bid 20caps 911.5 Gary Mcintosh 07/03/2012 - Monohydrate 07/09/2012 100mg Capsules Doxycycline Hyclate 1 po bid 20caps 402.10 Gary Mcintosh 01/24/2011 - 05/16/2011 100mg Capsules Pravastatin Sodium 1 po qd 90tabs 272.4 Gary Mcintosh 11/23/2010 - 40mg 06/11/2013 Tablets Naproxen 1 po bid with 30tabs 959.5 Gary Mcintosh 03/31/2009 - 500mg Tablets food 11/23/2010 Fish Oil qd Gary Mcintosh 11/18/2008 - 1000mg 11/23/2010 Capsules Vit D Gary Mcintosh 02/05/2007 - Caplets 11/18/2008 Asa 81 Gary Mcintosh 02/05/2007 - 81mg 11/18/2008 [facility] Gary Mcintosh 11/29/2006 - 05/05/2015 Zetia 1 PO qd 90tabs Gary Mcintosh 07/10/2006 - 10mg Tablets 11/18/2008 Lipitor 1 po qd 90tabs 272.40 Gary Mcintosh 05/17/2006 - 20mg Tablets 07/10/2006 [facility] Wart 1 po qd Gary Mcintosh 09/07/2005 - 09/07/2005 Multivitamins Gary Mcintosh 09/07/2005 - Caplets 01/12/2015 Amoxicillin 2 po bid 40tabs 466.0 Jaspal Mcintoshl 09/07/2005 - 500mg 2005 Tablets Nystatin-Triamcinolon apply affected Unknown - e area as 01/17/2017 937533-1.1Unit/GM-% indicated twice Cream a day Medications Administered in Office Medication SIG Qnty Indications Ordering Provider Date H1N1 Administration-Use Gary Mcintosh 01/26/2009 Injection Immunizations CPT Code Status Date Vaccine Lot # [id number] Given 03/19/2018 Influenza Virus (Afluria) Split Virus 3 Years [id number] Of Age And Older 28659 Given 03/19/2018 Pneumovax Polyvalent Inj Im [id number] Given 01/17/2017 Influenza Virus (Afluria) Split Virus 3 Years Of Age And Older 35408 Given 06/03/2015 Zostavax 79322 Given 11/23/2010 Tetanus,Diphtheria,Adut/Adol Pertussis [id number] 22651 Given 11/23/2010 Tetanus Shot 98243 Given 12/17/2009 Influenza Vaccine 74507 Given 12/11/2008 Influenza Vaccine [id number] 62334 Given 04/01/2003 Influenza Virus Vaccine (History Only) 55077 Given 11/23/2001 DT Immunization DIP/Tet (History Only) [...] Result H/L Range Note Laboratory test 07/30/2018 [facility] Testosterone 265.81 N 240 -[address] Total ng/[place] [address] [phone] PSA Screening 4.197 ng/mL High 0-4.000 1 CBC No Diff 07/30/2018 [facility] White Blood 9.2 10^3/uL N 3.5 -10.[address] [place] [address] [phone] Red Blood Count 4.78 10^6/uL N 4.18-5.48 Hemoglobin 14.8 g/dL N 14.0-18.0 Hematocrit 44 % N 42-52 Mean Corpuscular Volume 92 fL N 80-94 Mean Corpuscular Hemoglobin 31 pg N 27-31 Mean Corpuscular HGB Conc 34 g/dL N 31-36 Red Cell Distribution Width 13 % N 10.5-15 Platelet Count 191 10^3/uL N 150-450 Mean Platelet Volume 10.7 fL High 7.4-10.4 .TSH+Free T4 07/30/2018 [facility] TSH (Thyroid 1.63 mcIU/mL N 0.34-5.60 ([place] & [address] Stim Horm) [facility]) [place] [address] [phone] Free T4 (Free Thyroxine) 0.68 ng/dL N 0.61-1.12 Comp Metabolic Panel 07/30/2018 [facility] Sodium 140 mmol/L N [phone] [place] [address] [phone] Potassium 4.4 mmol/L N 3.5-5.0 Chloride 104 [...] Egfr 97.5 >60 2 Lipid Profile 07/30/2018 [facility] Triglycerides 132 mg/dL 3 (Trig/Chol/HDL) [address] [place] [address] [phone] Cholesterol 266 mg/dL 4 HDL Cholesterol 80.2 mg/dL 5 LDL Cholesterol 159 mg/dL 6 Lipid Profile 02/20/2018 [facility] Triglycerides 278 mg/dL 7 (Trig/Chol/HDL) [address] [place] [address] [phone] Cholesterol 296 mg/dL 8 HDL Cholesterol 79.9 mg/dL 9 LDL Cholesterol 161 mg/dL 10 Liver Function 02/20/2018 [facility] Total Protein 6.5 g/dL N 6.4-8.9 Panel [address] [place] [address] [phone] Albumin 4.4 g/dL N 3.2-5.2 Globulin 2.1 g/dL N 2-4 Albumin/Globulin Ratio 2.1 N 1-3 Total Bilirubin 0.80 mg/dL N 0.2-1.0 Direct Bilirubin 0.10 mg/dL N 0.03-0.18 Indirect Bilirubin 0.7 mg/dL N 0.3-1.0 Alkaline Phosphatase 48 U/L N 34-104 Alt 27 U/L N 7-52 Ast 26 U/L N 13-39 Laboratory test 08/04/2017 [facility] Rapid Strep Negative Negative 11 finding [address] [place] [address] [phone] Laboratory test 02/02/2017 [facility] TSH (Thyroid 1.84 mcIU/mL N 0.34-5.60 finding [address] Stim Horm) [place] [address] [phone] LDL Cholesterol Direct 107 mg/dL 12 Free T4 (Free Thyroxine) 0.75 ng/dL N 0.61-1.12 Basic Metabolic Panel 02/02/2017 [facility] Sodium 138 mmol/L N 966-200 [address] [place] [address] [phone] Potassium 4.6 mmol/L N 3.5-5.0 Chloride 103 mmol/L N 101-111 Co2 Carbon Dioxide 29 mmol/L N 22-32 Anion Gap 6 mmol/L N 2-11 Glucose 94 mg/dL N 70-100 Blood Urea Nitrogen 16 mg/dL N 6-24 Creatinine 0.95 mg/dL N 0.67-1.17 BUN/Creatinine Ratio 16.8 N 8-20 Calcium 8.8 mg/dL N 8.6-10.3 Egfr Non- 79.8 >60 Egfr 102.6 >60 13 Laboratory test 02/02/2017 [facility] Vitamin D Total 20.4 ng/mL N 20-50 finding [address] [facility] [address]) [place] [address] [phone] Lipid Panel 02/02/2017 [facility] Triglycerides 728 mg/dL 14 [address] [place], [place] [address] [phone] Cholesterol 306 mg/dL 15 HDL Cholesterol 60.2 mg/dL 16 LDL Cholesterol (SEE NOTE) mg/dL 17 Laboratory test 02/02/2017 [facility] PSA Screening 3.631 ng/mL N 0-4.000 18 finding [facility] [place] [address] [phone] Testosterone Total 274.73 ng/dL N 240-950 Vitamin 01/12/2016 [facility] Vitamin 309 pg/mL 200-1100 19 B12/Folate Panel [address] B12,[place] [address] [phone] Folate,Serum >24.0 NG/ML 20 TSH & T4,Free 01/12/2016 [facility] TSH 1.97 mIU/L 0.40-4.[address] [place], [place] [id number] [phone] T4,Free 1.1 ng/dL 0.8-1.8 Laboratory test finding 01/12/2016 [facility] Glucose 99 mg/dL 65-99 21 [address] [facility] [place], [place] [address] [phone] Hemoglobin A1c 5.3 % 0.0-5.6 22 BMP W/O Egfr 10/28/2015 [facility] Sodium 137 mmol/L N 836-316 [address] [place] [address] [phone] Potassium 4.9 mmol/L N 3.5-5.0 Chloride 101 mmol/L N 101-111 Co2 Carbon Dioxide 29 mmol/L N 22-32 Anion Gap 7 mmol/L N 2-11 Glucose 97 mg/dL N 70-100 Blood Urea Nitrogen 19 mg/dL N 6-24 Creatinine 0.98 mg/dL N 0.67-1.17 BUN/Creatinine Ratio 19.4 N 8-20 Egfr Non- 77.2 N >60 Egfr 99.3 N >60 23 Laboratory test 10/28/2015 [facility] Calcium 9.6 mg/dL N 8.6- 10.[address] [place] [address] [phone] Urine Screen 08/17/2015 [facility] Urine Color YELLOW Yellow [address] [place] [address] [phone] Urine Clarity CLEAR Clear Urine Glucose - Dipstick NEGATIVE mg/dL Negative Urine Bilirubin - Dipstick NEGATIVE Negative Urine Ketone NEGATIVE mg/dL Negative Urine Specific [place] 1.015 1.010-1.030 Urine Blood NEGATIVE Negative Urine PH 6.0 Low 6.5-7.5 Urine Protein - Dipstick NEGATIVE mg/dL Negative Urine Urobilinogen - Dipstick 0.2 E.U./dL 0.2-1.0 Urine Nitrite - Dipstick NEGATIVE Negative Urine Leuk Esterase NEGATIVE Negative Chlamydia/GC Lakshmi, 08/17/2015 [facility] Chlamydia Negative Urine [address] Trachomatis,[place] [address] -Lakshmi [phone] Neisseria Gonorrhoeae,Ur -Lakshmi Negative 24 Basic Metabolic Panel 03/17/2015 [facility] Glucose 93 mg/dL 74-[address] [place] [address] [phone] BUN 14 mg/dL 7-18 Creatinine 0.9 mg/dL [...] uIU/mL 0.36-3.[address] [place] [place] [address] [phone] Free T4 0.78 ng/dL 0.76-1.46 Testosterone,Serum 03/17/2015 [facility] Testosterone, Serum [phone] ng/[place] [address] [phone] Comment See Note 26 Hemoglobin/Hematocrit 03/17/2015 [facility] Hemoglobin 14.9 12.8-17.[address] gm/dL [place] [id number] [phone] Hematocrit 43.6 % 38.0-48.0 LDL Cholesterol 12/26/2014 [facility] Cholesterol 218 mg/dL < 200 [address] [place] [address] [phone] Triglycerides 64 mg/dL < 150 28 HDL Cholesterol 93 mg/dL > 40 29 LDL-Cholesterol 112 mg/dL < 100 30 Laboratory test 12/26/2014 [facility] Prostate 2.80 ng/mL [address] Specific Antigen [place] [address] [phone] Lipid Panel 06/05/2013 [facility] Cholesterol 271 mg/dL High 125-[address] [place] [address] [phone] HDL Cholesterol 74 mg/dL > Or=40 Cholesterol/HDL Ratio 3.7 < Or=5.0 LDL Chol,Calculated 148 mg/dL High <130 33 Triglycerides 246 mg/dL High <150 Non-HDL Cholesterol 197 mg/dL High 34 Laboratory 06/05/2013 [facility] Testosterone,Total,LC/MS/MS 968 250- 1100 35 test finding [address] ng/[place] [address] [phone] PSA,Total 1.8 NG/ML 0.0-4.0 36 BMP W/O Egfr 06/05/2013 [facility] Sodium 137 mmol/L 135-[address] [place], [place] [address] [phone] Potassium 4.5 mmol/L 3.5-5.3 Chloride 100 mmol/L 98-110 Carbon Dioxide 28 mmol/L 19-30 Calcium 9.4 mg/dL 8.6-10.3 Glucose 91 mg/dL 65-99 37 Urea Nitrogen 14 mg/dL 7-25 Creatinine 1.05 mg/dL 0.70-1.25 38 BUN/Creatinine Ratio 13.3 6-22 Lipid Panel 05/09/2013 [facility] Cholesterol 277 mg/dL High 125-[address] [place] [address] [phone] HDL Cholesterol 41 mg/dL > Or=40 Cholesterol/HDL Ratio 6.8 High < Or=5.0 LDL Chol,Calculated (SEE NOTE) mg/dL 39 Triglycerides 1672 mg/dL High <150 40 Non-HDL Cholesterol 236 mg/dL High 41 Laboratory test 08/09/2012 [facility] Rectal Mucosa See Note [address] [place] [address] [phone] Laboratory test 07/02/2012 [facility] Direct LDL 101 mg/dL <130 [address] [place] [address] [phone] Comprehensive 06/03/2012 [facility] Glucose 96 mg/dL 76-115 Metabolic Panel [address] [place] [address] [phone] BUN 12 mg/dL 5-23 Creatinine 0.9 mg/dL [...] 129 U/L 28-[address] [place], [place] [address] [phone] CBC W/Automated 06/03/2012 [facility] White Blood 6.4 K/uL 3.4-10.[address] Count [place], [place] [address] [phone] Red Blood Count 4.87 M/uL 4.20-5.80 Hemoglobin [...] 100 #CELLS Confirm [address] Counted [place], [place] [address] [phone] Neutrophils% 65 % 33-73 Lymph% 11 % Low 17-56 Atypical Lymph% 11 % High 0-7 Monocyte% 8 % 0-10 Eosinophil% 5 % 0-5 Platelet Estimate NORMAL RBC Morphology NORMAL Urine Screen 06/03/2012 [facility] Urine Color YELLOW Yellow [address] [place], [place] [address] [phone] Urine Clarity CLEAR Clear Urine Glucose - Dipstick NEGATIVE mg/dL Negative Urine Bilirubin - Dipstick NEGATIVE Negative Urine Ketone NEGATIVE mg/dL Negative Urine Specific [place] <=1.005 Low 1.010-1.030 Urine Blood NEGATIVE Negative Urine PH 5.0 Low 6.5-7.5 Urine Protein - Dipstick NEGATIVE mg/dL Negative Urine Urobilinogen - Dipstick 0.2 E.U./dL 0.2-1.0 Urine Nitrite - Dipstick NEGATIVE Negative Urine Leuk Esterase NEGATIVE Negative Laboratory 03/30/2012 [facility] Testosterone,Total,LC/MS/MS 596 250- 1100 45 test finding [address] ng/[place] [address] [phone] Comp 03/30/2012 [facility] Sodium 138 135-[address] mmol/[place] [address] [phone] Potassium 4.5 mmol/L 3.5-5.3 Chloride 103 mmol/L [...] 1.9-3.7 A/G Ratio 1.8 1.0-2.5 Egfr Non-Afr. Montenegrin 86 ML/MIN/1.73M2 > Or=60 Egfr 100 ML/MIN/1.73M2 > Or=60 CBC W/ Diff & PLT 03/30/2012 [facility] WBC 9.4 thous/L 3.8-10.[address] [place] [address] [phone] RBC 4.36 mill/L 4.20-5.80 Hemoglobin 13.8 g/dL 13.2-17.1 Hematocrit 41.0 % 38.5-50.0 MCV 93.9 FL 80.0-100.0 MCH 31.5 pg 27.0-33.0 MCHC 33.6 g/dL 32.0-36.0 RDW 13.5 % 11.0-15.0 Platelet Count 198 thous/L 140-400 Neutrophils,Absolute 7000 cells/L 9067-0821 Lymphocytes,Absolute 1310 cells/L 850-3900 Monocytes,Absolute 790 cells/L 200-950 Eosinophils,Absolute 220 cells/L 15-500 Basophils,Absolute 30 cells/L 0-200 Total Neutrophils,% 75 % 38-80 Total Lymphocytes,% 14 % 15-49 Monocytes,% 8 % 0-13 Eosinophils,% 2 % 0-8 Basophils,% 0 % 0-2 TSH & T4,Free 03/30/2012 [facility] TSH 1.81 mIU/L 0.40-4.[address] [place], [place] [address] [phone] T4,Free 1.1 ng/dL 0.8-1.8 48 Laboratory test 03/30/2012 [facility] PSA,Total 1.8 NG/ML 0.0-4.0 [address] [place], [place] [address] [phone] Laboratory test 08/01/2011 [facility] LDL 101 mg/dL <130 [address] Cholesterol,Dire [place], [place] [address] [phone] Hepatic Function 08/01/2011 [facility] Alkaline 56 U/L 40-[address] Phosphatase [place], [place] [address] [phone] Ast 32 U/L 10-35 Alt 36 U/L 9-60 Bilirubin,Total 0.8 mg/dL 0.2-1.2 Bilirubin,Direct 0.2 mg/dL < Or=0.2 Protein,Total 6.3 g/dL 6.2-8.3 Albumin 4.3 g/dL 3.6-5.1 Globulin,Calculated 2.0 g/dL Low 2.1-3.7 A/G Ratio 2.1 1.0-2.1 Lipid Panel 05/03/2011 [facility] Cholesterol 235 mg/dL High 125-[address] [place], [place] [address] [phone] HDL Cholesterol 70 mg/dL > Or=40 Cholesterol/HDL Ratio 3.4 < Or=5.0 LDL Chol,Calculated 133 mg/dL High <130 51 Triglycerides 161 mg/dL High <150 Hepatic Function 05/03/2011 [facility] Alkaline Phosphatase 57 U/L 40- [address] [place] [address] [phone] Ast 31 U/L 10-35 Alt 34 U/L 9-60 Bilirubin,Total 0.6 mg/dL 0.2-1.2 Bilirubin,Direct 0.1 mg/dL < Or=0.2 Protein,Total 6.6 g/dL 6.2-8.3 Albumin 4.5 g/dL 3.6-5.1 Globulin,Calculated 2.1 g/dL 2.1-3.7 A/G Ratio 2.1 1.0-2.1 Laboratory 01/05/2011 [facility] LDL Cholesterol,Direct 117 <130 52 test finding [address] mg/dL [place], [place] [address] [phone] Hepatic 01/05/2011 [facility] Alkaline Phosphatase 51 U/L 40-115 Function Panel [address] [place] [address] [phone] Ast 31 U/L 10-35 Alt 28 U/L 9-60 Bilirubin,Total 0.6 mg/dL 0.2-1.2 Bilirubin,Direct 0.1 mg/dL < Or=0.2 Protein,Total 6.4 g/dL 6.2-8.3 Albumin 4.4 g/dL 3.6-5.1 Globulin,Calculated 2.0 g/dL Low 2.1-3.7 A/G Ratio 2.1 1.0-2.1 Laboratory test 11/03/2010 [facility] PSA,Total 1.4 NG/ML 0.0-4.0 [address] [place] [address] [phone] Lipid Panel 11/03/2010 [facility] Cholesterol 293 mg/dL High 125-[address] [place] [address] [phone] HDL Cholesterol 69 mg/dL > Or=40 Cholesterol/HDL Ratio 4.2 < Or=5.0 LDL Chol,Calculated 156 mg/dL High <130 54 Triglycerides 338 mg/dL High <150 TSH & T4,Free 11/03/2010 [facility] TSH,3RD 1.80 mIU/L 0.40-4.[address] [place] [address] [phone] T4,Free 1.2 ng/dL 0.8-1.8 Comp Metabolic Panel 11/03/2010 [facility] Sodium 140 mmol/L 135-146 [address] [place] [address] [phone] Potassium 4.6 mmol/L 3.5-5.3 Chloride 104 mmol/L [...] 2.1-3.7 A/G Ratio 1.8 1.0-2.1 Egfr Non-Afr. Montenegr[place] 95 ML/MIN/1.73M2 > Or=60 Egfr 110 ML/MIN/1.73M2 > Or=60 CBC W/ Diff & PLT 11/03/2010 [facility] WBC 5.1 thous/L 3.8-10.8 6 [place] [address] [phone] RBC 4.66 mill/L 4.20-5.80 Hemoglobin 15.0 g/dL 13.2-17.1 Hematocrit 44.3 % 38.5-50.0 MCV 95.0 FL 80.0-100.0 MCH 32.2 pg 27.0-33.0 MCHC 33.9 g/dL 32.0-36.0 RDW 13.9 % 11.0-15.0 Platelet Count 205 thous/L 140-400 Neutrophils,Absolute 2760 cells/L [phone] Lymphocytes,Absolute 1520 cells/L 850-3900 Monocytes,Absolute 590 cells/L 200-950 Eosinophils,Absolute 170 cells/L 15-500 Basophils,Absolute 30 cells/L 0-200 Total Neutrophils,% 54 % 38-80 Total Lymphocytes,% 30 % 15-49 Monocytes,% 12 % 0-13 Eosinophils,% 3 % 0-8 Basophils,% 1 % 0-2 Laboratory test 11/03/2009 [facility] PSA,Total 1.3 NG/ML 0.0-4.0 [address] [place] [address] [phone] Lipid Panel 11/03/2009 [facility] Cholesterol 249 mg/dL High 125-[address] [place], [place] [address] [phone] HDL Cholesterol 75 mg/dL > Or=40 Triglycerides 208 mg/dL High <150 Cholesterol/HDL Ratio 3.3 < Or=5.0 LDL Chol,Calculated 132 mg/dL High <130 57 TSH & T4,Free 11/03/2009 [facility] TSH,3RD 3.76 mIU/L 0.40-4.[address] Generation [place], [place] [address] [phone] T4,Free 0.9 ng/dL 0.8-1.8 Lipid Panel 05/11/2009 [facility] Cholesterol 268 mg/dL High 125-[address] [place], [place] [address] [phone] HDL Cholesterol 77 mg/dL > Or=40 Triglycerides 119 mg/dL <150 Cholesterol/HDL Ratio 3.5 < Or=5.0 LDL Chol,Calculated 167 mg/dL High <130 58 Comp Metabolic Panel 11/06/2008 [facility] Sodium 138 mmol/L 135-[address] [place], [place] [address] [phone] Potassium 4.3 mmol/L 3.5-5.3 Chloride 103 mmol/L [...] 2.1-3.7 A/G Ratio 1.9 1.0-2.1 Egfr Non-Afr. Montenegrin >60 ML/MIN/1.73M2 > Or=60 Egfr >60 ML/MIN/1.73M2 > Or=60 CBC W/ Diff & PLT 11/06/2008 [facility] WBC 9.1 thous/L 3.8-10.8 [address] [place] [address] [phone] RBC 4.70 mill/L 4.20-5.80 Hemoglobin 14.9 g/dL 13.2-17.1 Hematocrit 43.7 % 38.5-50.0 MCV 92.9 FL 80.0-100.0 MCH 31.7 pg 27.0-33.0 MCHC 34.2 g/dL 32.0-36.0 RDW 13.8 % 11.0-15.0 Platelet Count 210 thous/L 140-400 Platelet Sufficiency NORMAL Normal Neutrophils,Absolute 6420 cells/L [phone] Bands,Absolute DNR cells/L 0-750 Metamyelocytes,Absolute DNR cells/L [...] Lab Cholesterol 223 mg/dL High 125-200 [address] [place], [place] 2334[address] [phone] HDL Cholesterol 68 mg/dL > Or=40 Triglycerides 196 mg/dL High <150 Cholesterol/HDL Ratio 3.3 < Or=5.0 LDL Chol,Calculated 116 mg/dL <130 60 Laboratory test 11/06/2008 [facility] PSA,Total 1.6 NG/ML 0.0-4.0 [address] [place] [address] [phone] TSH & T4,Free 11/06/2008 [facility] TSH,3RD 3.41 mU/L 0.40-4.[address] [place] [address] [phone] T4,Free 0.9 ng/dL 0.8-1.8 Laboratory test 01/19/2007 [facility] Ferritin 61 NG/ML 20-[address] [place] [address] [phone] Hepatic Function 01/19/2007 [facility] Alkaline 52 U/L 40-[address] Phosphatase [place] [address]2613 [phone] Ast 35 U/L 10-35 Alt 35 U/L 9-60 Bilirubin,Total 1.0 mg/dL 0.2-1.2 Bilirubin,Direct 0.2 mg/dL < Or=0.2 Protein,Total 6.9 g/dL 6.2-8.3 Albumin 4.4 g/dL 3.6-5.1 Lipid Panel 01/19/2007 [facility] Cholesterol 234 mg/dL High 125-[address] [place] [address] [phone] HDL Cholesterol 83 mg/dL > Or=40 62 Cholesterol/HDL Ratio 2.8 < Or=5.0 LDL Chol,Calculated 125 mg/dL <130 63 Triglycerides 131 mg/dL <150 Hepatic Function 09/25/2006 [facility] Alkaline Phosphatase 46 U/L 40- [address] [place] [address] [phone] Ast 33 U/L 10-35 Alt 31 U/L 9-60 Bilirubin,Total 0.8 mg/dL 0.2-1.2 Bilirubin,Direct 0.2 mg/dL < Or=0.2 Protein,Total 6.7 g/dL 6.2-8.3 Albumin 4.2 g/dL 3.6-5.1 Lipid Panel 09/25/2006 [facility] Cholesterol 188 mg/dL 125-[address] [place], [place] [address] [phone] HDL Cholesterol 86 mg/dL > Or=40 64 Triglycerides 121 mg/dL <150 Cholesterol/HDL Ratio 2.2 < Or=5.0 LDL Chol,Calculated 78 mg/dL <130 65 Lipid Panel 06/21/2006 [facility] Cholesterol 262 mg/dL High 125-[address] [place] [address] [phone] HDL Cholesterol 76 mg/dL > Or=40 66 Cholesterol/HDL Ratio 3.4 < Or=5.0 LDL Chol,Calculated 171 mg/dL High <130 67 Triglycerides 76 mg/dL <150 Hepatic Function 06/21/2006 [facility] Alkaline Phosphatase 43 U/L 40- 115 Panel [address] [facility] [place] [address] [phone] Ast 30 U/L 10-35 Alt 29 U/L 9-60 Bilirubin,Total 0.6 mg/dL 0.2-1.2 Bilirubin,Direct 0.1 mg/dL < Or=0.2 Protein,Total 6.9 g/dL 6.2-8.3 Albumin 4.5 g/dL 3.6-5.1 Lipid Panel 05/08/2006 [facility] Cholesterol 270 mg/dL High <[address] [place] [address] [phone] HDL Cholesterol 78 mg/dL >40 68 Cholesterol/HDL Ratio 3.5 <5.0 LDL Chol,Calculated 158 mg/dL High <130 69 Triglycerides 170 mg/dL High <150 Laboratory test 05/08/2006 [facility] PSA,Total 1.6 NG/ML 0.0-4.0 [address] [place] [address] [phone] TSH+Free T4 05/08/2006 [facility] TSH 2.90 mU/L 0.40-5.50 ([place] [facility]) [address] [place] [address] [phone] T4,Free 0.9 ng/dL 0.8-1.8 Comp Metabolic Panel 05/08/2006 [facility] Sodium 140 mmol/L 135-146 [address] [place] [address] [phone] Potassium 4.5 mmol/L 3.5-5.3 Chloride 104 mmol/L [...] [facility] WBC 8.1 thous/L 3.8-10.8 [address] [place] [address] [phone] RBC 4.86 mill/L 4.20-5.80 Hemoglobin 15.5 g/dL 13.2-17.1 Hematocrit 44.1 % 38.5-50.0 MCV 90.7 FL 80.0-100.0 MCH 31.8 pg 27.0-33.0 MCHC 35.1 g/dL 32.0-36.0 RDW 13.2 % 11.0-15.0 Platelet Count 227 thous/L 140-400 Platelet Sufficiency NORMAL Normal Neutrophils,Absolute 5200 cells/L 1340-2163 Bands,Absolute DNR cells/L 0-750 Metamyelocytes,Absolute DNR cells/L [...] Serum levels of PSA measured using the [employer] DXI Hybritech immunoassay should not be interpreted [...] 130-159 High: 160-189 Very High: >189 11 Youth Program Director: [id number] Desirable: <100 Near Optimal: 100-129 Borderline [...] levels of PSA measured using the [employer] DXI Hybritech immunoassay should not be interpreted [...] up to 40 years old. Performed at: RN - [facility] [id number] Regional Liaison: Marilyn Grace MD, Phone: [phone] Reference Guidelines*: Desirable: ........... < 200 [...] more information on this test, go to [email or web address] 36 THIS TEST WAS PERFORMED USING THE SIEMENS CHEMILUMINESCENT METHOD. VALUES OBTAINED FROM DIFFERENT ASSAY METHODS CANNOT BE USED INTERCHANGEABLY. PSA LEVELS, REGARDLESS OF VALUE, SHOULD NOT BE INTERPRETED ABSOLUTE EVIDENCE OF THE PRESENCE OR ABSENCE OF DISEASE. 37 GLUCOSE REFERENCE RANGE BASED ON FASTING SPECIMEN. 38 The upper reference limit for Creatinine is approximately 13% higher for people identified as -[place]. 39 LDL cholesterol not calculated. Triglyceride levels [...] dimension. Submitted in toto in one block. JW/clf MICROSCOPIC Sections show colonic mucosa lined by an increased number of goblet cells. The glands have a serrated, saw tooth appearance. The nuclei are bland, and basal. PRE OPERATIVE DIAGNOSIS History of polyps, upper quadrant pain REVIEW CODE CODE: I JAEL Frost MD 08/10/12 9104 43 LDL-CHOLESTEROL RISK CATEGORY* GOAL VERY HIGH [...] more information on this test, go to [email or web address] 46 GLUCOSE REFERENCE RANGE BASED ON FASTING SPECIMEN. 47 The upper reference limit for Creatinine is approximately 13% higher for people identified as -[place]. 48 THE CURRENT LOT OF FREE T4 REAGENT AVAILABLE FROM THE [facility] PRODUCES RESULTS THAT ARE APPROXIMATELY 9% HIGHER [...] FOR RACE, IF THE PATIENT RACE IS -[place], THE GFR ESTIMATE MUST BE MULTIPLIED BY A FACTOR OF 1.21. Procedures Date Code Description Status 02/27/2018 48106 Non-Invcorrotid/Comp /Bilat Study Completed 02/26/2018 92417 Echocardiography Completed 02/20/2018 78134 Spirometry Graphic Record/Max Voluntary Vent Completed 02/20/2018 22512 EKG-Tracing & Report Completed 02/19/2018 60333 PVR-Atrerial Study Completed 02/19/2018 10921 Holter Monitor Office Completed 02/16/2017 34522 PVR-Atrerial Study Completed 02/16/2017 05246 EKG-Tracing & Report Completed 02/15/2017 60207 Spirometry Graphic Record/Max Voluntary Vent Completed 02/15/2017 32637 Holter Monitor Office Completed 02/02/2017 35531 Echocardiography Completed 02/02/2017 11819 Non-Invcorrotid/Comp /Bilat Study Completed 03/18/2015 72855 EKG-Tracing & Report Completed 03/17/2015 08898 Holter Monitor Office Completed 03/05/2015 63872 Non-Invcorrotid/Comp /Bilat Study Completed 03/05/2015 32020 Echocardiography Completed 12/26/2014 70492 EKG-Tracing & Report Completed 05/09/2013 18922 Spirometry Graphic Record/Max Voluntary Vent Completed 05/09/2013 85140 EKG-Tracing & Report Completed 04/15/2013 19175 Non-Invcorrotid/Comp /Bilat Study Completed 04/15/2013 12052 Echocardiography Completed 08/09/2012 13975402 Colonoscopy Completed 04/02/2012 14197 EKG-Tracing & Report Completed 03/29/2012 48643 Echocardiography Completed 03/29/2012 36544 Non-Invcorrotid/Comp /Bilat Study Completed 11/11/2010 [id number] Bone Mineral Density Test Completed 11/11/2010 44123 Bone Density Completed 11/04/2010 92385 EKG-Tracing & Report Completed 11/03/2010 70577 Spirometry Graphic Record/Max Voluntary Vent Completed 11/03/2010 25630 Holter Monitor Office Completed 11/03/2009 11664 EKG-Tracing & Report Completed 11/03/2009 78452 Echocardiography Completed 11/03/2009 59355 Non-Invcorrotid/Comp /Bilat Study Completed 11/06/2008 23531 PFT Evaluation Completed 11/06/2008 60444 Holter Monitor Office Completed 11/06/2008 91855 EKG-Tracing & Report Completed 11/05/2008 49281 Non-Invcorrotid/Comp /Bilat Study Completed 11/05/2008 17712 Echocardiography Completed 05/09/2006 53526 Bone Density Completed 05/08/2006 63803 EKG-Tracing & Report Completed 04/18/2006 75376 Doppler Color Flow Velocity Completed 04/18/2006 30408 Doppler/ECHO Completed 04/18/2006 69854 ECHO-2D W/Wo M-Mode Completed 09/05/2003 14347 Spirometry Graphic Record/Max Voluntary Vent Completed 09/05/2003 51831 EKG-Tracing & Report Completed Encounters Type Date Location Provider Dx Diagnosis Office Visit 03/19/2018 10:30a Main Office Gary [...] tachycardia Office Visit 03/04/2015 Main Office Tyra Mcintosh, J20.8 Acute bronchitis due to 3:00p M.D. [...] (DT) Office Visit 11/16/2009 10:20a Main Office Gary Mcintosh 424.0 Mitral Valve Disorder 272.4 Hyperlipidemia Other [...] Office Visit 09/09/2003 1:30p Main Office Gary Mcnitosh 786.05 Shortness Of Breath 272.40 Hyperlipidemia Office Visit 07/30/2003 2:50p Main Office Gary Mcintosh 402.10 Hypertensive Heart Disease Benign W/O Heart Failure Plan of Treatment Future Appointment(s):11/05/2018 8:00 am - Nurse at [id number]/14/2018 11: 30 am - Gary Mcintosh at Main Office
--- OUTSIDE RECORDS SUMMARY | 2018-08-21 11:04 | XMS REPORT | Continuity of Care Document ---
:1950 External Reference #:[id number] Author Name Sue Riggs Care Team Providers Name Role Phone Gary Mcintosh MD Primary Care Physician Unavailable Payers Date Identification Numbers Payment Provider Subscriber Policy Number: [id number] Medicare Rob Chaudhary PayID: [id number] [address] [place] [address] Effective: 1993 Policy Number: [id number] [facility] Rob Chaudhary Group Number: [id number] [address] PayID: [id number] [place] [address] Problems Active Problems Provider Date Mitral valve [...] 1units Gary Mcintosh 05/05/2015 - ordered 03/19/2018 65595Yfj/0.65ML Solution Rec Amoxicillin/Clavulana 1 by mouth twice 14tabs J20.8 Tyra Arnaldo, 2014 - te Potassium a day M.D. 05/05/2015 500-125mg Tablets Tobramycin-Dexamethas 1-2 gtts OU qid 10ml 372.30 Gary Mcintosh 01/08/2014 - one 01/12/2015 0.3-0.1% Suspension Pravastatin Sodium 1 po qd 90tabs 272.4 GaGary chávez 06/11/2013 - 20mg 01/12/2015 Tablets Aspirin Low [...] Naproxen 1 po bid with 30tabs 959.5 GaGary chávez 03/31/2009 - 500mg Tablets food 11/23/2010 Fish Oil qd Gary Mcintosh 11/18/2008 - 1000mg 11/23/2010 Capsules Vit D Gray Mcintosh 02/05/2007 - Caplets 11/18/2008 Asa 81 Gary Mcintosh 02/05/2007 - 81mg 11/18/2008 [facility] Gary Mcintosh 11/29/2006 - 05/05/2015 Zetia 1 PO qd 90tabs Gary Mcintosh 07/10/2006 - 10mg Tablets 11/18/2008 Lipitor 1 po qd 90tabs 272.40 Gary Mcintosh 05/17/2006 - 20mg Tablets 07/10/2006 [facility] Wart 1 po qd Gary Mcintosh 09/07/2005 - 09/07/2005 Multivitamins Gary Mcintosh 09/07/2005 - Caplets 01/12/2015 Amoxicillin 2 po bid 40tabs 466.0 Gary Mcintosh 09/07/2005 - 500mg 2005 Tablets Nystatin-Triamcinolon apply affected Unknown - e area as 01/17/2017 647180-2.1Unit/GM-% indicated twice Cream a day Medications Administered in Office Medication SIG Qnty Indications Ordering Provider Date H1N1 Administration-Use Gary Mcintosh 01/26/2009 Injection Immunizations CPT Code Status Date Vaccine Lot # [id number] Given 03/19/2018 Influenza Virus (Afluria) Split Virus 3 Years [id number] Of Age And Older 60747 Given 03/19/2018 Pneumovax Polyvalent Inj Im [id number] Q2035 Given 01/17/2017 Influenza Virus (Afluria) Split Virus 3 Years Of Age And Older 59548 Given 06/03/2015 Zostavax 28889 Given 11/23/2010 Tetanus,Diphtheria,Adut/Adol Pertussis [id number] 98152 Given 11/23/2010 Tetanus Shot 89403 Given 12/17/2009 Influenza Vaccine 48096 Given 12/11/2008 Influenza Vaccine [id number] 87707 Given 04/01/2003 Influenza Virus Vaccine (History Only) 73239 Given 11/23/2001 DT Immunization DIP/Tet (History Only) Vital Signs Date Vital Result Comment 03/19/2018 10:15am BP Systolic 140 mmHg BP [...] Result H/L Range Note Laboratory test 07/30/2018 [facility] Testosterone 265.81 N 240 -[address] Total ng/dL [place], [place] [id number] [phone] PSA Screening 4.197 ng/mL High 0-4.000 1 CBC No Diff 07/30/2018 [facility] White Blood 9.2 10^3/uL N 3.5 -10.[address] Count [place], [place] [id number] [phone] Red Blood Count 4.78 10^6/uL N 4.18-5.48 Hemoglobin 14.8 g/dL N 14.0-18.0 Hematocrit 44 % N 42-52 Mean Corpuscular Volume 92 fL N 80-94 Mean Corpuscular Hemoglobin 31 pg N 27-31 Mean Corpuscular HGB Conc 34 g/dL N 31-36 Red Cell Distribution Width 13 % N 10.5-15 Platelet Count 191 10^3/uL N 150-450 Mean Platelet Volume 10.7 fL High 7.4-10.4 .TSH+Free T4 07/30/2018 [facility] TSH (Thyroid 1.63 mcIU/mL N 0.34-5.60 ([place] & [address] Stim Horm) [facility] [place]) [place] [address] [phone] Free T4 (Free Thyroxine) 0.68 ng/dL N 0.61-1.12 Comp Metabolic Panel 07/30/2018 [facility] Sodium 140 mmol/L N [phone] [place] [address] [phone] Potassium 4.4 mmol/L N 3.5-5.0 Chloride 104 [...] Egfr 97.5 >60 2 Lipid Profile 07/30/2018 [facility] Triglycerides 132 mg/dL 3 (Trig/Chol/HDL) [address] [place] [address] [phone] Cholesterol 266 mg/dL 4 HDL Cholesterol 80.2 mg/dL 5 LDL Cholesterol 159 mg/dL 6 Lipid Profile 02/20/2018 [facility] Triglycerides 278 mg/dL 7 (Trig/Chol/HDL) [address] [place] [address] [phone] Cholesterol 296 mg/dL 8 HDL Cholesterol 79.9 mg/dL 9 LDL Cholesterol 161 mg/dL 10 Liver Function 02/20/2018 [facility] Total Protein 6.5 g/dL N 6.4-8.9 Panel [address] [place] [address] [phone] Albumin 4.4 g/dL N 3.2-5.2 Globulin 2.1 g/dL N 2-4 Albumin/Globulin Ratio 2.1 N 1-3 Total Bilirubin 0.80 mg/dL N 0.2-1.0 Direct Bilirubin 0.10 mg/dL N 0.03-0.18 Indirect Bilirubin 0.7 mg/dL N 0.3-1.0 Alkaline Phosphatase 48 U/L N 34-104 Alt 27 U/L N 7-52 Ast 26 U/L N 13-39 Laboratory test 08/04/2017 [facility] Rapid Strep Negative Negative 11 finding [address] [address] [place] [address] [phone] Laboratory test 02/02/2017 [facility] TSH (Thyroid 1.84 mcIU/mL N 0.34-5.[address] Stim Horm) [place] [address] [phone] LDL Cholesterol Direct 107 mg/dL 12 Free T4 (Free Thyroxine) 0.75 ng/dL N 0.61-1.12 Basic Metabolic Panel 02/02/2017 [facility] Sodium 138 mmol/L N [phone] [place] [address] [phone] Potassium 4.6 mmol/L N 3.5-5.0 Chloride 103 mmol/L N 101-111 Co2 Carbon Dioxide 29 mmol/L N 22-32 Anion Gap 6 mmol/L N 2-11 Glucose 94 mg/dL N 70-100 Blood Urea Nitrogen 16 mg/dL N 6-24 Creatinine 0.95 mg/dL N 0.67-1.17 BUN/Creatinine Ratio 16.8 N 8-20 Calcium 8.8 mg/dL N 8.6-10.3 Egfr Non- 79.8 >60 Egfr 102.6 >60 13 Laboratory test 02/02/2017 [facility] Vitamin D Total 20.4 ng/mL N 20-50 finding [address] [facility] [address](Oh) [place] [address] [phone] Lipid Panel 02/02/2017 [facility] Triglycerides 728 mg/dL 14 [address] [place] [address] [phone] Cholesterol 306 mg/dL 15 HDL Cholesterol 60.2 mg/dL 16 LDL Cholesterol (SEE NOTE) mg/dL 17 Laboratory test 02/02/2017 [facility] PSA Screening 3.631 ng/mL N 0-4.000 18 finding [address] [place] [address] [phone] Testosterone Total 274.73 ng/dL N 240-950 Vitamin 01/12/2016 [facility] Vitamin 309 pg/mL 200-1100 19 B12/Folate Panel [address] B12,[place] [address] [phone] Folate,Serum >24.0 NG/ML 20 TSH & T4,Free 01/12/2016 [facility] TSH 1.97 mIU/L 0.40-4.[address] [place] [address] [phone] T4,Free 1.1 ng/dL 0.8-1.8 Laboratory test finding 01/12/2016 [facility] Glucose 99 mg/dL 65-[address] [place] [address] [phone] Hemoglobin A1c 5.3 % 0.0-5.6 22 BMP W/O Egfr 10/28/2015 [facility] Sodium 137 mmol/L N [phone] [place] [address] [phone] Potassium 4.9 mmol/L N 3.5-5.0 Chloride 101 mmol/L N 101-111 Co2 Carbon Dioxide 29 mmol/L N 22-32 Anion Gap 7 mmol/L N 2-11 Glucose 97 mg/dL N 70-100 Blood Urea Nitrogen 19 mg/dL N 6-24 Creatinine 0.98 mg/dL N 0.67-1.17 BUN/Creatinine Ratio 19.4 N 8-20 Egfr Non- 77.2 N >60 Egfr 99.3 N >60 23 Laboratory test 10/28/2015 [facility] Calcium 9.6 mg/dL N 8.6- 10.[address] [place] [address] [phone] Urine Screen 08/17/2015 [facility] Urine Color YELLOW Yellow [address] [place] [address] [phone] Urine Clarity CLEAR Clear Urine Glucose - Dipstick NEGATIVE mg/dL Negative Urine Bilirubin - Dipstick NEGATIVE Negative Urine Ketone NEGATIVE mg/dL Negative Urine Specific [place] 1.015 1.010-1.030 Urine Blood NEGATIVE Negative Urine PH 6.0 Low 6.5-7.5 Urine Protein - Dipstick NEGATIVE mg/dL Negative Urine Urobilinogen - Dipstick 0.2 E.U./dL 0.2-1.0 Urine Nitrite - Dipstick NEGATIVE Negative Urine Leuk Esterase NEGATIVE Negative Chlamydia/GC Lakshmi, 08/17/2015 [facility] Chlamydia Negative Urine [address] Trachomatis,[place] [address] -Lakshmi [phone] Neisseria Gonorrhoeae,Ur -Lakshmi Negative 24 Basic Metabolic Panel 03/17/2015 [facility] Glucose 93 mg/dL 74-[address] [place], [place] [address] [phone] BUN 14 mg/dL 7-18 Creatinine 0.9 mg/dL [...] uIU/mL 0.36-3.[address] [place] [place] [address] [phone] Free T4 0.78 ng/dL 0.76-1.46 Testosterone,Serum 03/17/2015 [facility] Testosterone, Serum [phone] ng/[place] [address] [phone] Comment See Note 26 Hemoglobin/Hematocrit 03/17/2015 [facility] Hemoglobin 14.9 12.8-17.[address] gm/[place] [address] [phone] Hematocrit 43.6 % 38.0-48.0 LDL Cholesterol 12/26/2014 [facility] Cholesterol 218 mg/dL < 200 [address] [place] [address] [phone] Triglycerides 64 mg/dL < 150 28 HDL Cholesterol 93 mg/dL > 40 29 LDL-Cholesterol 112 mg/dL < 100 30 Laboratory test 12/26/2014 [facility] Prostate 2.80 ng/mL [address] Specific Antigen [place] [id number] [phone] Lipid Panel 06/05/2013 [facility] Cholesterol 271 mg/dL High 125-[address] [place] [address] [phone] HDL Cholesterol 74 mg/dL > Or=40 Cholesterol/HDL Ratio 3.7 < Or=5.0 LDL Chol,Calculated 148 mg/dL High <130 33 Triglycerides 246 mg/dL High <150 Non-HDL Cholesterol 197 mg/dL High 34 Laboratory 06/05/2013 [facility] Testosterone,Total,LC/MS/MS 459 250- 1100 35 test finding [address] ng/[place] [address] [phone] PSA,Total 1.8 NG/ML 0.0-4.0 36 BMP W/O Egfr 06/05/2013 [facility] Sodium 137 mmol/L 135-[address] [place] [address] [phone] Potassium 4.5 mmol/L 3.5-5.3 Chloride 100 mmol/L 98-110 Carbon Dioxide 28 mmol/L 19-30 Calcium 9.4 mg/dL 8.6-10.3 Glucose 91 mg/dL 65-99 37 Urea Nitrogen 14 mg/dL 7-25 Creatinine 1.05 mg/dL 0.70-1.25 38 BUN/Creatinine Ratio 13.3 6-22 Lipid Panel 05/09/2013 [facility] Cholesterol 277 mg/dL High 125-[address] [place], [place] [address] [phone] HDL Cholesterol 41 mg/dL > Or=40 Cholesterol/HDL Ratio 6.8 High < Or=5.0 LDL Chol,Calculated (SEE NOTE) mg/dL 39 Triglycerides 1672 mg/dL High <150 40 Non-HDL Cholesterol 236 mg/dL High 41 Laboratory test 08/09/2012 [facility] Rectal Mucosa See Note [address] [place] [address] [phone] Laboratory test 07/02/2012 [facility] Direct LDL 101 mg/dL <130 [address] [place] [address] [phone] Comprehensive 06/03/2012 [facility] Glucose 96 mg/dL 76-115 Metabolic Panel [address] [place] [address] [phone] BUN 12 mg/dL 5-23 Creatinine 0.9 mg/dL [...] 129 U/L 28-[address] [place], [place] [address] [phone] CBC W/Automated 06/03/2012 [facility] White Blood 6.4 K/uL 3.4-10.[address] Count [place], [place] [address] [phone] Red Blood Count 4.87 M/uL 4.20-5.80 Hemoglobin [...] 100 #CELLS Confirm [address] Counted [place], [place] [address] [phone] Neutrophils% 65 % 33-73 Lymph% 11 % Low 17-56 Atypical Lymph% 11 % High 0-7 Monocyte% 8 % 0-10 Eosinophil% 5 % 0-5 Platelet Estimate NORMAL RBC Morphology NORMAL Urine Screen 06/03/2012 [facility] Urine Color YELLOW Yellow [address] [place] [address] [phone] Urine Clarity CLEAR Clear Urine Glucose - Dipstick NEGATIVE mg/dL Negative Urine Bilirubin - Dipstick NEGATIVE Negative Urine Ketone NEGATIVE mg/dL Negative Urine Specific [place] <=1.005 Low 1.010-1.030 Urine Blood NEGATIVE Negative Urine PH 5.0 Low 6.5-7.5 Urine Protein - Dipstick NEGATIVE mg/dL Negative Urine Urobilinogen - Dipstick 0.2 E.U./dL 0.2-1.0 Urine Nitrite - Dipstick NEGATIVE Negative Urine Leuk Esterase NEGATIVE Negative Laboratory 03/30/2012 [facility] Testosterone,Total,LC/MS/MS 596 431- 1100 45 test finding [address] ng/[place] [address] [phone] Comp 03/30/2012 [facility] Sodium 138 135-[address] mmol/[place] [address] [phone] Potassium 4.5 mmol/L 3.5-5.3 Chloride 103 mmol/L [...] 1.9-3.7 A/G Ratio 1.8 1.0-2.5 Egfr Non-Afr. [place] 86 ML/MIN/1.73M2 > Or=60 Egfr 100 ML/MIN/1.73M2 > Or=60 CBC W/ Diff & PLT 03/30/2012 [facility] WBC 9.4 thous/L 3.8-10.[address] [place] [address] [phone] RBC 4.36 mill/L 4.20-5.80 Hemoglobin 13.8 g/dL 13.2-17.1 Hematocrit 41.0 % 38.5-50.0 MCV 93.9 FL 80.0-100.0 MCH 31.5 pg 27.0-33.0 MCHC 33.6 g/dL 32.0-36.0 RDW 13.5 % 11.0-15.0 Platelet Count 198 thous/L 140-400 Neutrophils,Absolute 7000 cells/L [phone] Lymphocytes,Absolute 1310 cells/L 850-3900 Monocytes,Absolute 790 cells/L 200-950 Eosinophils,Absolute 220 cells/L 15-500 Basophils,Absolute 30 cells/L 0-200 Total Neutrophils,% 75 % 38-80 Total Lymphocytes,% 14 % 15-49 Monocytes,% 8 % 0-13 Eosinophils,% 2 % 0-8 Basophils,% 0 % 0-2 TSH & T4,Free 03/30/2012 [facility] TSH 1.81 mIU/L 0.40-4.[address] [place] [address] [phone] T4,Free 1.1 ng/dL 0.8-1.8 48 Laboratory test 03/30/2012 [facility] PSA,Total 1.8 NG/ML 0.0-4.0 [address] [place] [address] [phone] Laboratory test 08/01/2011 [facility] LDL 101 mg/dL <130 [address] Cholesterol,[place] [address] [phone] Hepatic Function 08/01/2011 [facility] Alkaline 56 U/L 40-[address] [place] [address] [phone] Ast 32 U/L 10-35 Alt 36 U/L 9-60 Bilirubin,Total 0.8 mg/dL 0.2-1.2 Bilirubin,Direct 0.2 mg/dL < Or=0.2 Protein,Total 6.3 g/dL 6.2-8.3 Albumin 4.3 g/dL 3.6-5.1 Globulin,Calculated 2.0 g/dL Low 2.1-3.7 A/G Ratio 2.1 1.0-2.1 Lipid Panel 05/03/2011 [facility] Cholesterol 235 mg/dL High 125-[address] [place] [address]256 [phone] HDL Cholesterol 70 mg/dL > Or=40 Cholesterol/HDL Ratio 3.4 < Or=5.0 LDL Chol,Calculated 133 mg/dL High <130 51 Triglycerides 161 mg/dL High <150 Hepatic Function 05/03/2011 [facility] Alkaline Phosphatase 57 U/L 40- [address] [place] [address] [phone] Ast 31 U/L 10-35 Alt 34 U/L 9-60 Bilirubin,Total 0.6 mg/dL 0.2-1.2 Bilirubin,Direct 0.1 mg/dL < Or=0.2 Protein,Total 6.6 g/dL 6.2-8.3 Albumin 4.5 g/dL 3.6-5.1 Globulin,Calculated 2.1 g/dL 2.1-3.7 A/G Ratio 2.1 1.0-2.1 Laboratory 01/05/2011 [facility] LDL Cholesterol,Direct 117 <130 52 test finding [address] mg/dL [place], [place] [address] [phone] Hepatic 01/05/2011 [facility] Alkaline Phosphatase 51 U/L 40-115 Function Panel [address] [place] [address] [phone] Ast 31 U/L 10-35 Alt 28 U/L 9-60 Bilirubin,Total 0.6 mg/dL 0.2-1.2 Bilirubin,Direct 0.1 mg/dL < Or=0.2 Protein,Total 6.4 g/dL 6.2-8.3 Albumin 4.4 g/dL 3.6-5.1 Globulin,Calculated 2.0 g/dL Low 2.1-3.7 A/G Ratio 2.1 1.0-2.1 Laboratory test 11/03/2010 [facility] PSA,Total 1.4 NG/ML 0.0-4.0 [address] [place] [address] [phone] Lipid Panel 11/03/2010 [facility] Cholesterol 293 mg/dL High 125-[address] [place] [address] [phone] HDL Cholesterol 69 mg/dL > Or=40 Cholesterol/HDL Ratio 4.2 < Or=5.0 LDL Chol,Calculated 156 mg/dL High <130 54 Triglycerides 338 mg/dL High <150 TSH & T4,Free 11/03/2010 [facility] TSH,3RD 1.80 mIU/L 0.40-4.[address] [place] [address] [phone] T4,Free 1.2 ng/dL 0.8-1.8 Comp Metabolic Panel 11/03/2010 [facility] Sodium 140 mmol/L 135-[address] [place] [address] [phone] Potassium 4.6 mmol/L 3.5-5.3 Chloride 104 mmol/L [...] 2.1-3.7 A/G Ratio 1.8 1.0-2.1 Egfr Non-Afr. [place] 95 ML/MIN/1.73M2 > Or=60 Egfr 110 ML/MIN/1.73M2 > Or=60 CBC W/ Diff & PLT 11/03/2010 [facility] WBC 5.1 thous/L 3.8-10.[address] [place], [place] [address] [phone] RBC 4.66 mill/L 4.20-5.80 Hemoglobin 15.0 g/dL 13.2-17.1 Hematocrit 44.3 % 38.5-50.0 MCV 95.0 FL 80.0-100.0 MCH 32.2 pg 27.0-33.0 MCHC 33.9 g/dL 32.0-36.0 RDW 13.9 % 11.0-15.0 Platelet Count 205 thous/L 140-400 Neutrophils,Absolute 2760 cells/L 4240-8161 Lymphocytes,Absolute 1520 cells/L 850-3900 Monocytes,Absolute 590 cells/L 200-950 Eosinophils,Absolute 170 cells/L 15-500 Basophils,Absolute 30 cells/L 0-200 Total Neutrophils,% 54 % 38-80 Total Lymphocytes,% 30 % 15-49 Monocytes,% 12 % 0-13 Eosinophils,% 3 % 0-8 Basophils,% 1 % 0-2 Laboratory test 11/03/2009 [facility] PSA,Total 1.3 NG/ML 0.0-4.0 [address] [place] [address] [phone] Lipid Panel 11/03/2009 [facility] Cholesterol 249 mg/dL High 125-[address] [place] [address] [phone] HDL Cholesterol 75 mg/dL > Or=40 Triglycerides 208 mg/dL High <150 Cholesterol/HDL Ratio 3.3 < Or=5.0 LDL Chol,Calculated 132 mg/dL High <130 57 TSH & T4,Free 11/03/2009 [facility] TSH,3RD 3.76 mIU/L 0.40-4.[address] [place], [place] [address] [phone] T4,Free 0.9 ng/dL 0.8-1.8 Lipid Panel 05/11/2009 [facility] Cholesterol 268 mg/dL High 125-[address] [place], [place] [address] [phone] HDL Cholesterol 77 mg/dL > Or=40 Triglycerides 119 mg/dL <150 Cholesterol/HDL Ratio 3.5 < Or=5.0 LDL Chol,Calculated 167 mg/dL High <130 58 Comp Metabolic Panel 11/06/2008 [facility] Sodium 138 mmol/L 135-[address] [place], [place] [address] [phone] Potassium 4.3 mmol/L 3.5-5.3 Chloride 103 mmol/L [...] 2.1-3.7 A/G Ratio 1.9 1.0-2.1 Egfr Non-Afr. [place] >60 ML/MIN/1.73M2 > Or=60 Egfr >60 ML/MIN/1.73M2 > Or=60 CBC W/ Diff & PLT 11/06/2008 [facility] WBC 9.1 thous/L 3.8-10.8 [address] [facility] [place] [address] [phone] RBC 4.70 mill/L 4.20-5.80 Hemoglobin 14.9 g/dL 13.2-17.1 Hematocrit 43.7 % 38.5-50.0 MCV 92.9 FL 80.0-100.0 MCH 31.7 pg 27.0-33.0 MCHC 34.2 g/dL 32.0-36.0 RDW 13.8 % 11.0-15.0 Platelet Count 210 thous/L 140-400 Platelet Sufficiency NORMAL Normal Neutrophils,Absolute 6420 cells/L 0572-6147 Bands,Absolute DNR cells/L 0-750 Metamyelocytes,Absolute DNR cells/L [...] Lab Cholesterol 223 mg/dL High 125-200 [address] [facility] [place] [address] [phone] HDL Cholesterol 68 mg/dL > Or=40 Triglycerides 196 mg/dL High <150 Cholesterol/HDL Ratio 3.3 < Or=5.0 LDL Chol,Calculated 116 mg/dL <130 60 Laboratory test 11/06/2008 [facility] PSA,Total 1.6 NG/ML 0.0-4.0 [address] [place] [address]249 [phone] TSH & T4,Free 11/06/2008 [facility] TSH,3RD 3.41 mU/L 0.40-4.[address] Generation [place] [address] [phone] T4,Free 0.9 ng/dL 0.8-1.8 Laboratory test 01/19/2007 [facility] Ferritin 61 NG/ML 20-[address] [place] [address] [phone] Hepatic Function 01/19/2007 [facility] Alkaline 52 U/L 40-[address] [place] [address] [phone] Ast 35 U/L 10-35 Alt 35 U/L 9-60 Bilirubin,Total 1.0 mg/dL 0.2-1.2 Bilirubin,Direct 0.2 mg/dL < Or=0.2 Protein,Total 6.9 g/dL 6.2-8.3 Albumin 4.4 g/dL 3.6-5.1 Lipid Panel 01/19/2007 [facility] Cholesterol 234 mg/dL High 125-[address] [place] [address] [phone] HDL Cholesterol 83 mg/dL > Or=40 62 Cholesterol/HDL Ratio 2.8 < Or=5.0 LDL Chol,Calculated 125 mg/dL <130 63 Triglycerides 131 mg/dL <150 Hepatic Function 09/25/2006 [facility] Alkaline Phosphatase 46 U/L 40- [address] [place] [address] [phone] Ast 33 U/L 10-35 Alt 31 U/L 9-60 Bilirubin,Total 0.8 mg/dL 0.2-1.2 Bilirubin,Direct 0.2 mg/dL < Or=0.2 Protein,Total 6.7 g/dL 6.2-8.3 Albumin 4.2 g/dL 3.6-5.1 Lipid Panel 09/25/2006 [facility] Cholesterol 188 mg/dL 125-[address] [place] [address] [phone] HDL Cholesterol 86 mg/dL > Or=40 64 Triglycerides 121 mg/dL <150 Cholesterol/HDL Ratio 2.2 < Or=5.0 LDL Chol,Calculated 78 mg/dL <130 65 Lipid Panel 06/21/2006 [facility] Cholesterol 262 mg/dL High 125-[address] [place], [place] [address] [phone] HDL Cholesterol 76 mg/dL > Or=40 66 Cholesterol/HDL Ratio 3.4 < Or=5.0 LDL Chol,Calculated 171 mg/dL High <130 67 Triglycerides 76 mg/dL <150 Hepatic Function 06/21/2006 [facility] Alkaline Phosphatase 43 U/L 40- [address] [place] [address] [phone] Ast 30 U/L 10-35 Alt 29 U/L 9-60 Bilirubin,Total 0.6 mg/dL 0.2-1.2 Bilirubin,Direct 0.1 mg/dL < Or=0.2 Protein,Total 6.9 g/dL 6.2-8.3 Albumin 4.5 g/dL 3.6-5.1 Lipid Panel 05/08/2006 [facility] Cholesterol 270 mg/dL High <[address] [place], [place] [address] [phone] HDL Cholesterol 78 mg/dL >40 68 Cholesterol/HDL Ratio 3.5 <5.0 LDL Chol,Calculated 158 mg/dL High <130 69 Triglycerides 170 mg/dL High <150 Laboratory test 05/08/2006 [facility] PSA,Total 1.6 NG/ML 0.0-4.0 [address] [place], [place] [address] [phone] TSH+Free T4 05/08/2006 [facility] TSH 2.90 mU/L 0.40-5.50 ([place] [facility] [place]) [address] [place] [address] [phone] T4,Free 0.9 ng/dL 0.8-1.8 Comp Metabolic Panel 05/08/2006 [facility] Sodium 140 mmol/L 135-[address] [place] [address] [phone] Potassium 4.5 mmol/L 3.5-5.3 Chloride 104 mmol/L [...] [facility] WBC 8.1 thous/L 3.8-10.8 [address] [place] [address] [phone] RBC 4.86 mill/L 4.20-5.80 Hemoglobin 15.5 g/dL 13.2-17.1 Hematocrit 44.1 % 38.5-50.0 MCV 90.7 FL 80.0-100.0 MCH 31.8 pg 27.0-33.0 MCHC 35.1 g/dL 32.0-36.0 RDW 13.2 % 11.0-15.0 Platelet Count 227 thous/L 140-400 Platelet Sufficiency NORMAL Normal Neutrophils,Absolute 5200 cells/L 5475-1543 Bands,Absolute DNR cells/L 0-750 Metamyelocytes,Absolute DNR cells/L [...] levels of PSA measured using the [employer] DXI Hybritech immunoassay should not be interpreted [...] 130-159 High: 160-189 Very High: >189 11 Collection Analyst: [id number] Desirable: <100 Near Optimal: 100-129 Borderline [...] 42 years old. Performed at: RN - [facility] [address] [id number] Paper Feeder: Marilyn Grace MD, Phone: [phone] Reference Guidelines*: Desirable: ........... < 200 [...] more information on this test, go to [email or web address] 36 THIS TEST WAS PERFORMED USING THE SIEMENS CHEMILUMINESCENT METHOD. VALUES OBTAINED FROM DIFFERENT ASSAY METHODS CANNOT BE USED INTERCHANGEABLY. PSA LEVELS, REGARDLESS OF VALUE, SHOULD NOT BE INTERPRETED ABSOLUTE EVIDENCE OF THE PRESENCE OR ABSENCE OF DISEASE. 37 GLUCOSE REFERENCE RANGE BASED ON FASTING SPECIMEN. 38 The upper reference limit for Creatinine is approximately 13% higher for people identified as -[place]. 39 LDL cholesterol not calculated. Triglyceride levels [...] dimension. Submitted in toto in one block. [facility] MICROSCOPIC Sections show colonic mucosa lined by [...] more information on this test, go to [email or web address] 46 GLUCOSE REFERENCE RANGE BASED ON FASTING SPECIMEN. 47 The upper reference limit for Creatinine is approximately 13% higher for people identified as -[place]. 48 THE CURRENT LOT OF FREE T4 REAGENT AVAILABLE FROM THE BOTTOM PRESSER PRODUCES RESULTS THAT ARE APPROXIMATELY 9% HIGHER [...] INTERCHANGEABLY. THIS ASSAY WAS PERFORMED USING THE [employer] CHEMILUMINESCENCE METHOD. SERUM PSA LEVELS SHOULD NOT [...] INTERCHANGEABLY. THIS ASSAY WAS PERFORMED USING THE [employer] CHEMILUMINESCENCE METHOD. SERUM PSA LEVELS SHOULD NOT [...] FOR RACE, IF THE PATIENT RACE IS -MONTSERRATIAN, THE GFR ESTIMATE MUST BE MULTIPLIED BY A FACTOR OF 1.21. Procedures Date Code Description Status 02/27/2018 55620 Non-Invcorrotid/Comp /Bilat Study Completed 02/26/2018 43741 Echocardiography Completed 02/20/2018 83389 Spirometry Graphic Record/Max Voluntary Vent Completed 02/20/2018 40014 EKG-Tracing & Report Completed 02/19/2018 19949 PVR-Atrerial Study Completed 02/19/2018 13116 Holter Monitor Office Completed 02/16/2017 47545 PVR-Atrerial Study Completed 02/16/2017 93815 EKG-Tracing & Report Completed 02/15/2017 00632 Spirometry Graphic Record/Max Voluntary Vent Completed 02/15/2017 15229 Holter Monitor Office Completed 02/02/2017 23015 Echocardiography Completed 02/02/2017 87933 Non-Invcorrotid/Comp /Bilat Study Completed 03/18/2015 51874 EKG-Tracing & Report Completed 03/17/2015 87588 Holter Monitor Office Completed 03/05/2015 99726 Non-Invcorrotid/Comp /Bilat Study Completed 03/05/2015 49382 Echocardiography Completed 12/26/2014 70353 EKG-Tracing & Report Completed 05/09/2013 35631 Spirometry Graphic Record/Max Voluntary Vent Completed 05/09/2013 91986 EKG-Tracing & Report Completed 04/15/2013 04019 Non-Invcorrotid/Comp /Bilat Study Completed 04/15/2013 95339 Echocardiography Completed 08/09/2012 [id number] Colonoscopy Completed 04/02/2012 70526 EKG-Tracing & Report Completed 03/29/2012 94396 Echocardiography Completed 03/29/2012 41226 Non-Invcorrotid/Comp /Bilat Study Completed 11/11/2010 090588311 Bone Mineral Density Test Completed 11/11/2010 53023 Bone Density Completed 11/04/2010 10736 EKG-Tracing & Report Completed 11/03/2010 02896 Spirometry Graphic Record/Max Voluntary Vent Completed 11/03/2010 12402 Holter Monitor Office Completed 11/03/2009 01127 EKG-Tracing & Report Completed 11/03/2009 70641 Echocardiography Completed 11/03/2009 88297 Non-Invcorrotid/Comp /Bilat Study Completed 11/06/2008 68046 PFT Evaluation Completed 11/06/2008 32504 Holter Monitor Office Completed 11/06/2008 06017 EKG-Tracing & Report Completed 11/05/2008 92994 Non-Invcorrotid/Comp /Bilat Study Completed 11/05/2008 52239 Echocardiography Completed 05/09/2006 39871 Bone Density Completed 05/08/2006 87792 EKG-Tracing & Report Completed 04/18/2006 03252 Doppler Color Flow Velocity Completed 04/18/2006 99245 Doppler/ECHO Completed 04/18/2006 36870 ECHO-2D W/Wo M-Mode Completed 09/05/2003 53108 Spirometry Graphic Record/Max Voluntary Vent Completed 09/05/2003 15308 EKG-Tracing & Report Completed Encounters Type Date [...] Failure Office Visit 05/17/2006 1:30p Main Office Arnaldo Gary 733.00 Osteoporosis Unspec 402.10 Hypertensive Heart Disease Benign W/O Heart Failure 272.40 Hyperlipidemia Office Visit 04/12/2006 10:20a Main Office Jaspal Mcintoshl 733.00 Osteoporosis Unspec 272.40 Hyperlipidemia 402.10 Hypertensive [...] Benign W/O Heart Failure Plan of Treatment 03/19/2018 - Jaspal McintoshlN40.0 Benign prostatic hyperplasia without [...] follow up symptomatically and with [facility] yearly [id number] Obstructive sleep apnea (adult) (pediatric)Comments:snoring and increased pulm artery pressure ---refer for [id number] Nonrheumatic mitral (valve) insufficiencyComments:Issues of symptoms and [...] suppliers and Respiratory Therapy reviewed.F52.21 Male erectile [id number] Encounter for general adult medical examination without abnormal findingsComments:DISCUSSED AGE APPROPRIATE RISK FACTORS AND SCREENING.Z23 Encounter for immunizationComments:Vaccination reviewed and updates given as appropriate.
--- OUTSIDE RECORDS SUMMARY | 2018-08-21 11:05 | XMS REPORT | Continuity of Care Document ---
:1950 External Reference #:[id number] Author Name Sue Riggs Care Team Providers Name Role Phone Gary Mcintosh MD Primary Care Physician Unavailable Payers Date Identification Numbers Payment Provider Subscriber Policy Number: [id number] Medicare Rob Chaudhary PayID: [id number] [address] [place] [address] Effective: 1993 Policy Number: [id number] [facility] Rob Chaudhary Group Number: [id number] [address] PayID: [id number] [place] [address] Problems Active Problems Provider Date Mitral valve [...] 1units Gary Mcintosh 05/05/2015 - ordered 03/19/2018 75472Uqt/0.65ML Solution Rec Amoxicillin/Clavulana 1 by mouth twice [...] 81 Gary Mcintosh 02/05/2007 - 81mg 11/18/2008 [facility] Gary Mcintosh 11/29/2006 - 05/05/2015 Zetia 1 PO qd 90tabs Gary Mcintosh 07/10/2006 - 10mg Tablets 11/18/2008 Lipitor 1 po qd 90tabs 272.40 Gary Mcintosh 05/17/2006 - 20mg Tablets 07/10/2006 [facility] Wart 1 po qd Gary Mcintosh 09/07/2005 - 09/07/2005 Multivitamins Gary Mcintosh 09/07/2005 - Caplets 01/12/2015 Amoxicillin 2 po bid 40tabs 466.0 Gary Mcintosh 09/07/2005 - 500mg 2005 Tablets Nystatin-Triamcinolon apply affected Unknown - e area as 01/17/2017 667278-1.1Unit/GM-% indicated twice Cream a day Medications Administered in Office Medication SIG Qnty Indications Ordering Provider Date H1N1 Administration-Use Gary Mcintosh 01/26/2009 Injection Immunizations CPT Code Status Date Vaccine Lot # [id number] Given 03/19/2018 Influenza Virus (Afluria) Split Virus 3 Years [id number] Of Age And Older [address]3636 Given 03/19/2018 Pneumovax Polyvalent Inj Im [id number] Given 01/17/2017 Influenza Virus (Afluria) Split Virus 3 Years Of Age And Older 31444 Given 06/03/2015 Zostavax 51927 Given 11/23/2010 Tetanus,Diphtheria,Adut/Adol Pertussis [id number] 87356 Given 11/23/2010 Tetanus Shot 75369 Given 12/17/2009 Influenza Vaccine 71645 Given 12/11/2008 Influenza Vaccine [id number] 13992 Given 04/01/2003 Influenza Virus Vaccine (History Only) 68091 Given 11/23/2001 DT Immunization DIP/Tet (History Only) [...] Result H/L Range Note Laboratory test 07/30/2018 [facility] Testosterone 265.81 N 240 -[address] Total ng/dL [place], [place] [id number] [phone] PSA Screening 4.197 ng/mL High 0-4.000 1 CBC No Diff 07/30/2018 [facility] White Blood 9.2 10^3/uL N 3.5 -10.[address] Count [place], [place] [address] [phone] Red Blood Count 4.78 10^6/uL N 4.18-5.48 Hemoglobin 14.8 g/dL N 14.0-18.0 Hematocrit 44 % N 42-52 Mean Corpuscular Volume 92 fL N 80-94 Mean Corpuscular Hemoglobin 31 pg N 27-31 Mean Corpuscular HGB Conc 34 g/dL N 31-36 Red Cell Distribution Width 13 % N 10.5-15 Platelet Count 191 10^3/uL N 150-450 Mean Platelet Volume 10.7 fL High 7.4-10.4 .TSH+Free T4 07/30/2018 [facility] TSH (Thyroid 1.63 mcIU/mL N 0.34-5.60 ([place] [facility] [address] Stim Horm) [facility] [place]) [place] [address] [phone] Free T4 (Free Thyroxine) 0.68 ng/dL N 0.61-1.12 Comp Metabolic Panel 07/30/2018 [facility] Sodium 140 mmol/L N [phone] [place] [address] [phone] Potassium 4.4 mmol/L N 3.5-5.0 Chloride 104 [...] Egfr 97.5 >60 2 Lipid Profile 07/30/2018 [facility] Triglycerides 132 mg/dL 3 (Trig/Chol/HDL) [address] [place] [address] [phone] Cholesterol 266 mg/dL 4 HDL Cholesterol 80.2 mg/dL 5 LDL Cholesterol 159 mg/dL 6 Lipid Profile 02/20/2018 [facility] Triglycerides 278 mg/dL 7 (Trig/Chol/HDL) [address] [place] [address] [phone] Cholesterol 296 mg/dL 8 HDL Cholesterol 79.9 mg/dL 9 LDL Cholesterol 161 mg/dL 10 Liver Function 02/20/2018 [facility] Total Protein 6.5 g/dL N 6.4-8.9 Panel [address] [place] [address] [phone] Albumin 4.4 g/dL N 3.2-5.2 Globulin 2.1 g/dL N 2-4 Albumin/Globulin Ratio 2.1 N 1-3 Total Bilirubin 0.80 mg/dL N 0.2-1.0 Direct Bilirubin 0.10 mg/dL N 0.03-0.18 Indirect Bilirubin 0.7 mg/dL N 0.3-1.0 Alkaline Phosphatase 48 U/L N 34-104 Alt 27 U/L N 7-52 Ast 26 U/L N 13-39 Laboratory test 08/04/2017 [facility] Rapid Strep Negative Negative 11 finding [address] [place] [place] [address] [phone] Laboratory test 02/02/2017 [facility] TSH (Thyroid 1.84 mcIU/mL N 0.34-5.[address] Stim Horm) [place] [address] [phone] LDL Cholesterol Direct 107 mg/dL 12 Free T4 (Free Thyroxine) 0.75 ng/dL N 0.61-1.12 Basic Metabolic Panel 02/02/2017 [facility] Sodium 138 mmol/L N 092-129 [address] [place] [address] [phone] Potassium 4.6 mmol/L N 3.5-5.0 Chloride 103 mmol/L N 101-111 Co2 Carbon Dioxide 29 mmol/L N 22-32 Anion Gap 6 mmol/L N 2-11 Glucose 94 mg/dL N 70-100 Blood Urea Nitrogen 16 mg/dL N 6-24 Creatinine 0.95 mg/dL N 0.67-1.17 BUN/Creatinine Ratio 16.8 N 8-20 Calcium 8.8 mg/dL N 8.6-10.3 Egfr Non- 79.8 >60 Egfr 102.6 >60 13 Laboratory test 02/02/2017 [facility] Vitamin D Total 20.4 ng/mL N 20-50 finding [address] [facility] 25(Oh) [place] [address] [phone] Lipid Panel 02/02/2017 [facility] Triglycerides 728 mg/dL 14 [address] [place] [address] [phone] Cholesterol 306 mg/dL 15 HDL Cholesterol 60.2 mg/dL 16 LDL Cholesterol (SEE NOTE) mg/dL 17 Laboratory test 02/02/2017 [facility] PSA Screening 3.631 ng/mL N 0-4.000 18 finding [address] [place] [address] [phone] Testosterone Total 274.73 ng/dL N 240-950 Vitamin 01/12/2016 [facility] Vitamin 309 pg/mL 200-1100 19 B12/Folate Panel [address] B12,[place] [address] [phone] Folate,Serum >24.0 NG/ML 20 TSH & T4,Free 01/12/2016 [facility] TSH 1.97 mIU/L 0.40-4.[address] [place] [address] [phone] T4,Free 1.1 ng/dL 0.8-1.8 Laboratory test finding 01/12/2016 [facility] Glucose 99 mg/dL 65-[address] [place] [address] [phone] Hemoglobin A1c 5.3 % 0.0-5.6 22 BMP W/O Egfr 10/28/2015 [facility] Sodium 137 mmol/L N [phone] [place] [address] [phone] Potassium 4.9 mmol/L N 3.5-5.0 Chloride 101 mmol/L N 101-111 Co2 Carbon Dioxide 29 mmol/L N 22-32 Anion Gap 7 mmol/L N 2-11 Glucose 97 mg/dL N 70-100 Blood Urea Nitrogen 19 mg/dL N 6-24 Creatinine 0.98 mg/dL N 0.67-1.17 BUN/Creatinine Ratio 19.4 N 8-20 Egfr Non- 77.2 N >60 Egfr 99.3 N >60 23 Laboratory test 10/28/2015 [facility] Calcium 9.6 mg/dL N 8.6- 10.[address] [place] [address] [phone] Urine Screen 08/17/2015 [facility] Urine Color YELLOW Yellow [address] [place] [address] [phone] Urine Clarity CLEAR Clear Urine Glucose - Dipstick NEGATIVE mg/dL Negative Urine Bilirubin - Dipstick NEGATIVE Negative Urine Ketone NEGATIVE mg/dL Negative Urine Specific [place] 1.015 1.010-1.030 Urine Blood NEGATIVE Negative Urine PH 6.0 Low 6.5-7.5 Urine Protein - Dipstick NEGATIVE mg/dL Negative Urine Urobilinogen - Dipstick 0.2 E.U./dL 0.2-1.0 Urine Nitrite - Dipstick NEGATIVE Negative Urine Leuk Esterase NEGATIVE Negative Chlamydia/GC Lakshmi, 08/17/2015 [facility] Chlamydia Negative Urine [address] Trachomatis,[place] [address] -Lakshmi [phone] Neisseria Gonorrhoeae,Ur -Lakshmi Negative 24 Basic Metabolic Panel 03/17/2015 [facility] Glucose 93 mg/dL 74-[address] [place], [place] [address] [phone] BUN 14 mg/dL 7-18 Creatinine 0.9 mg/dL 0.6-1.3 Glom Filtration Rate, Estimate >60 mL/min >60 If >60 mL/min >60 25 BUN/Creat 15.5 ratio Sodium 138 mmol/L 136-145 Potassium 4.4 mmol/L 3.5-5.1 Chloride 103 mmol/L 98-107 Carbon Dioxide 29 mmol/L 21-32 Anion Gap 6 mEq/L Low 8-16 Calcium 8.3 mg/dL Low 8.5-10.1 Laboratory test 03/17/2015 [facility] Thyroid Stim 1.70 uIU/mL 0.36-3.[address] [place] [address] [phone] Free T4 0.78 ng/dL 0.76-1.46 Testosterone,Serum 03/17/2015 [facility] Testosterone, Serum [phone] ng/[place] [address] [phone] Comment See Note 26 Hemoglobin/Hematocrit 03/17/2015 [facility] Hemoglobin 14.9 12.8-17.[address] gm/[place] [address] [phone] Hematocrit 43.6 % 38.0-48.0 LDL Cholesterol 12/26/2014 [facility] Cholesterol 218 mg/dL < 200 [address] [place] [address] [phone] Triglycerides 64 mg/dL < 150 28 HDL Cholesterol 93 mg/dL > 40 29 LDL-Cholesterol 112 mg/dL < 100 30 Laboratory test 12/26/2014 [facility] Prostate 2.80 ng/mL [address] Specific Antigen [place] [id number] [phone] Lipid Panel 06/05/2013 [facility] Cholesterol 271 mg/dL High 125-[address] [place] [address] [phone] HDL Cholesterol 74 mg/dL > Or=40 Cholesterol/HDL Ratio 3.7 < Or=5.0 LDL Chol,Calculated 148 mg/dL High <130 33 Triglycerides 246 mg/dL High <150 Non-HDL Cholesterol 197 mg/dL High 34 Laboratory 06/05/2013 [facility] Testosterone,Total,LC/MS/MS 146 250- 1100 35 test finding [address] ng/[place] [address] [phone] PSA,Total 1.8 NG/ML 0.0-4.0 36 BMP W/O Egfr 06/05/2013 [facility] Sodium 137 mmol/L 135-[address] [place] [address] [phone] Potassium 4.5 mmol/L 3.5-5.3 Chloride 100 mmol/L 98-110 Carbon Dioxide 28 mmol/L 19-30 Calcium 9.4 mg/dL 8.6-10.3 Glucose 91 mg/dL 65-99 37 Urea Nitrogen 14 mg/dL 7-25 Creatinine 1.05 mg/dL 0.70-1.25 38 BUN/Creatinine Ratio 13.3 6-22 Lipid Panel 05/09/2013 [facility] Cholesterol 277 mg/dL High 125-[address] [place], [place] [address] [phone] HDL Cholesterol 41 mg/dL > Or=40 Cholesterol/HDL Ratio 6.8 High < Or=5.0 LDL Chol,Calculated (SEE NOTE) mg/dL 39 Triglycerides 1672 mg/dL High <150 40 Non-HDL Cholesterol 236 mg/dL High 41 Laboratory test 08/09/2012 [facility] Rectal Mucosa See Note [address] [place] [address] [phone] Laboratory test 07/02/2012 [facility] Direct LDL 101 mg/dL <130 [address] [place] [address] [phone] Comprehensive 06/03/2012 [facility] Glucose 96 mg/dL 76-115 Metabolic Panel [address] [place] [address] [phone] BUN 12 mg/dL 5-23 Creatinine 0.9 mg/dL [...] Phosphatase 72 U/L 50-136 Laboratory test 06/03/2012 [facility] Lipase 129 U/L 28-[address] [place], [place] [address] [phone] CBC W/Automated 06/03/2012 [facility] White Blood 6.4 K/uL 3.4-10.[address] Count [place], [place] [address] [phone] Red Blood Count 4.87 M/uL 4.20-5.80 Hemoglobin 15.5 gm/dL 12.8-17.0 Hematocrit 44.4 % 38.0-48.0 Mean Cell Volume 91.2 fl 80.0-96.0 Mean Corpuscular HGB 31.8 pg 27.0-33.0 Mean Corpuscular HGB Conc 34.9 g/dL 31.7-36.0 Platelet Count 210 K/uL 150-400 Red Cell Distri Width SD 41.2 fl 36-51 Red Cell Distri Width %CV 12.7 % 11.6-15.8 Mean Platelet Volume 11.1 fL High 6.6-10.6 Differential-WBC 06/03/2012 [facility] Total Cells 100 #CELLS Confirm [address] Counted [place], [place] [address] [phone] Neutrophils% 65 % 33-73 Lymph% 11 % Low 17-56 Atypical Lymph% 11 % High 0-7 Monocyte% 8 % 0-10 Eosinophil% 5 % 0-5 Platelet Estimate NORMAL RBC Morphology NORMAL Urine Screen 06/03/2012 [facility] Urine Color YELLOW Yellow [address] [place] [address] [phone] Urine Clarity CLEAR Clear Urine Glucose - Dipstick NEGATIVE mg/dL Negative Urine Bilirubin - Dipstick NEGATIVE Negative Urine Ketone NEGATIVE mg/dL Negative Urine Specific [place] <=1.005 Low 1.010-1.030 Urine Blood NEGATIVE Negative Urine PH 5.0 Low 6.5-7.5 Urine Protein - Dipstick NEGATIVE mg/dL Negative Urine Urobilinogen - Dipstick 0.2 E.U./dL 0.2-1.0 Urine Nitrite - Dipstick NEGATIVE Negative Urine Leuk Esterase NEGATIVE Negative Laboratory 03/30/2012 [facility] Testosterone,Total,LC/MS/MS 596 208- 1100 45 test finding [address] ng/[place] [address] [phone] Comp 03/30/2012 [facility] Sodium 138 135-[address] mmol/[place] [address] [phone] Potassium 4.5 mmol/L 3.5-5.3 Chloride 103 mmol/L [...] 1.9-3.7 A/G Ratio 1.8 1.0-2.5 Egfr Non-Afr. Niuean 86 ML/MIN/1.73M2 > Or=60 Egfr 100 ML/MIN/1.73M2 > Or=60 CBC W/ Diff & PLT 03/30/2012 [facility] WBC 9.4 thous/L 3.8-10.[address] [place] [address] [phone] RBC 4.36 mill/L 4.20-5.80 Hemoglobin 13.8 g/dL 13.2-17.1 Hematocrit 41.0 % 38.5-50.0 MCV 93.9 FL 80.0-100.0 MCH 31.5 pg 27.0-33.0 MCHC 33.6 g/dL 32.0-36.0 RDW 13.5 % 11.0-15.0 Platelet Count 198 thous/L 140-400 Neutrophils,Absolute 7000 cells/L 7451-3591 Lymphocytes,Absolute 1310 cells/L [phone] Monocytes,Absolute 790 cells/L 200-950 Eosinophils,Absolute 220 cells/L 15-500 Basophils,Absolute 30 cells/L 0-200 Total Neutrophils,% 75 % 38-80 Total Lymphocytes,% 14 % 15-49 Monocytes,% 8 % 0-13 Eosinophils,% 2 % 0-8 Basophils,% 0 % 0-2 TSH & T4,Free 03/30/2012 [facility] TSH 1.81 mIU/L 0.40-4.[address] [place] [address] [phone] T4,Free 1.1 ng/dL 0.8-1.8 48 Laboratory test 03/30/2012 [facility] PSA,Total 1.8 NG/ML 0.0-4.0 [address] [place] [address] [phone] Laboratory test 08/01/2011 [facility] LDL 101 mg/dL <130 [address] Cholesterol,[place] [address] [phone] Hepatic Function 08/01/2011 [facility] Alkaline 56 U/L 40-[address] [place] [address] [phone] Ast 32 U/L 10-35 Alt 36 U/L 9-60 Bilirubin,Total 0.8 mg/dL 0.2-1.2 Bilirubin,Direct 0.2 mg/dL < Or=0.2 Protein,Total 6.3 g/dL 6.2-8.3 Albumin 4.3 g/dL 3.6-5.1 Globulin,Calculated 2.0 g/dL Low 2.1-3.7 A/G Ratio 2.1 1.0-2.1 Lipid Panel 05/03/2011 [facility] Cholesterol 235 mg/dL High 125-[address] [place] [id number] [phone] HDL Cholesterol 70 mg/dL > Or=40 Cholesterol/HDL Ratio 3.4 < Or=5.0 LDL Chol,Calculated 133 mg/dL High <130 51 Triglycerides 161 mg/dL High <150 Hepatic Function 05/03/2011 [facility] Alkaline Phosphatase 57 U/L 40- [address] [place] [address] [phone] Ast 31 U/L 10-35 Alt 34 U/L 9-60 Bilirubin,Total 0.6 mg/dL 0.2-1.2 Bilirubin,Direct 0.1 mg/dL < Or=0.2 Protein,Total 6.6 g/dL 6.2-8.3 Albumin 4.5 g/dL 3.6-5.1 Globulin,Calculated 2.1 g/dL 2.1-3.7 A/G Ratio 2.1 1.0-2.1 Laboratory 01/05/2011 [facility] LDL Cholesterol,Direct 117 <130 52 test finding [address] mg/dL [place], [place] [id number] [phone] Hepatic 01/05/2011 [facility] Alkaline Phosphatase 51 U/L 40-115 Function Panel [address] [place] [address] [phone] Ast 31 U/L 10-35 Alt 28 U/L 9-60 Bilirubin,Total 0.6 mg/dL 0.2-1.2 Bilirubin,Direct 0.1 mg/dL < Or=0.2 Protein,Total 6.4 g/dL 6.2-8.3 Albumin 4.4 g/dL 3.6-5.1 Globulin,Calculated 2.0 g/dL Low 2.1-3.7 A/G Ratio 2.1 1.0-2.1 Laboratory test 11/03/2010 [facility] PSA,Total 1.4 NG/ML 0.0-4.0 [address] [place] [address] [phone] Lipid Panel 11/03/2010 [facility] Cholesterol 293 mg/dL High 125-[address] [place] [address] [phone] HDL Cholesterol 69 mg/dL > Or=40 Cholesterol/HDL Ratio 4.2 < Or=5.0 LDL Chol,Calculated 156 mg/dL High <130 54 Triglycerides 338 mg/dL High <150 TSH & T4,Free 11/03/2010 [facility] TSH,3RD 1.80 mIU/L 0.40-4.[address] [place] [address] [phone] T4,Free 1.2 ng/dL 0.8-1.8 Comp Metabolic Panel 11/03/2010 [facility] Sodium 140 mmol/L 135-[address] [place] [address] [phone] Potassium 4.6 mmol/L 3.5-5.3 Chloride 104 mmol/L [...] 2.1-3.7 A/G Ratio 1.8 1.0-2.1 Egfr Non-Afr. Niuean 95 ML/MIN/1.73M2 > Or=60 Egfr 110 ML/MIN/1.73M2 > Or=60 CBC W/ Diff & PLT 11/03/2010 [facility] WBC 5.1 thous/L 3.8-10.[address] [place], [place] [address] [phone] RBC 4.66 mill/L 4.20-5.80 Hemoglobin 15.0 g/dL 13.2-17.1 Hematocrit 44.3 % 38.5-50.0 MCV 95.0 FL 80.0-100.0 MCH 32.2 pg 27.0-33.0 MCHC 33.9 g/dL 32.0-36.0 RDW 13.9 % 11.0-15.0 Platelet Count 205 thous/L 140-400 Neutrophils,Absolute 2760 cells/L 7765-2170 Lymphocytes,Absolute 1520 cells/L 850-3900 Monocytes,Absolute 590 cells/L 200-950 Eosinophils,Absolute 170 cells/L 15-500 Basophils,Absolute 30 cells/L 0-200 Total Neutrophils,% 54 % 38-80 Total Lymphocytes,% 30 % 15-49 Monocytes,% 12 % 0-13 Eosinophils,% 3 % 0-8 Basophils,% 1 % 0-2 Laboratory test 11/03/2009 [facility] PSA,Total 1.3 NG/ML 0.0-4.0 [address] [place] [address] [phone] Lipid Panel 11/03/2009 [facility] Cholesterol 249 mg/dL High 125-[address] [place] [address] [phone] HDL Cholesterol 75 mg/dL > Or=40 Triglycerides 208 mg/dL High <150 Cholesterol/HDL Ratio 3.3 < Or=5.0 LDL Chol,Calculated 132 mg/dL High <130 57 TSH & T4,Free 11/03/2009 [facility] TSH,3RD 3.76 mIU/L 0.40-4.[address] [place], [place] [address] [phone] T4,Free 0.9 ng/dL 0.8-1.8 Lipid Panel 05/11/2009 [facility] Cholesterol 268 mg/dL High 125-[address] [place], [place] [address] [phone] HDL Cholesterol 77 mg/dL > Or=40 Triglycerides 119 mg/dL <150 Cholesterol/HDL Ratio 3.5 < Or=5.0 LDL Chol,Calculated 167 mg/dL High <130 58 Comp Metabolic Panel 11/06/2008 [facility] Sodium 138 mmol/L 135-[address] [place], [place] [address] [phone] Potassium 4.3 mmol/L 3.5-5.3 Chloride 103 mmol/L [...] 2.1-3.7 A/G Ratio 1.9 1.0-2.1 Egfr Non-Afr. Niuean >60 ML/MIN/1.73M2 > Or=60 Egfr >60 ML/MIN/1.73M2 > Or=60 CBC W/ Diff & PLT 11/06/2008 [facility] WBC 9.1 thous/L 3.8-10.8 [address] [facility] [place] [address] [phone] RBC 4.70 mill/L 4.20-5.80 Hemoglobin 14.9 g/dL 13.2-17.1 Hematocrit 43.7 % 38.5-50.0 MCV 92.9 FL 80.0-100.0 MCH 31.7 pg 27.0-33.0 MCHC 34.2 g/dL 32.0-36.0 RDW 13.8 % 11.0-15.0 Platelet Count 210 thous/L 140-400 Platelet Sufficiency NORMAL Normal Neutrophils,Absolute 6420 cells/L 5164-6078 Bands,Absolute DNR cells/L 0-750 Metamyelocytes,Absolute DNR cells/L [...] Lab Cholesterol 223 mg/dL High 125-200 [address] [facility] [place] [address] [phone] HDL Cholesterol 68 mg/dL > Or=40 Triglycerides 196 mg/dL High <150 Cholesterol/HDL Ratio 3.3 < Or=5.0 LDL Chol,Calculated 116 mg/dL <130 60 Laboratory test 11/06/2008 [facility] PSA,Total 1.6 NG/ML 0.0-4.0 [address] [place] [address] [phone] TSH & T4,Free 11/06/2008 [facility] TSH,3RD 3.41 mU/L 0.40-4.[address] [place] [address] [phone] T4,Free 0.9 ng/dL 0.8-1.8 Laboratory test 01/19/2007 [facility] Ferritin 61 NG/ML 20-[address] [place] [address] [phone] Hepatic Function 01/19/2007 [facility] Alkaline 52 U/L 40-[address] [place] [address] [phone] Ast 35 U/L 10-35 Alt 35 U/L 9-60 Bilirubin,Total 1.0 mg/dL 0.2-1.2 Bilirubin,Direct 0.2 mg/dL < Or=0.2 Protein,Total 6.9 g/dL 6.2-8.3 Albumin 4.4 g/dL 3.6-5.1 Lipid Panel 01/19/2007 [facility] Cholesterol 234 mg/dL High 125-[address] [place] [address] [phone] HDL Cholesterol 83 mg/dL > Or=40 62 Cholesterol/HDL Ratio 2.8 < Or=5.0 LDL Chol,Calculated 125 mg/dL <130 63 Triglycerides 131 mg/dL <150 Hepatic Function 09/25/2006 [facility] Alkaline Phosphatase 46 U/L 40- [address] [place] [address] [phone] Ast 33 U/L 10-35 Alt 31 U/L 9-60 Bilirubin,Total 0.8 mg/dL 0.2-1.2 Bilirubin,Direct 0.2 mg/dL < Or=0.2 Protein,Total 6.7 g/dL 6.2-8.3 Albumin 4.2 g/dL 3.6-5.1 Lipid Panel 09/25/2006 [facility] Cholesterol 188 mg/dL 125-[address] [place] [address] [phone] HDL Cholesterol 86 mg/dL > Or=40 64 Triglycerides 121 mg/dL <150 Cholesterol/HDL Ratio 2.2 < Or=5.0 LDL Chol,Calculated 78 mg/dL <130 65 Lipid Panel 06/21/2006 [facility] Cholesterol 262 mg/dL High 125-[address] [place], [place] [address] [phone] HDL Cholesterol 76 mg/dL > Or=40 66 Cholesterol/HDL Ratio 3.4 < Or=5.0 LDL Chol,Calculated 171 mg/dL High <130 67 Triglycerides 76 mg/dL <150 Hepatic Function 06/21/2006 [facility] Alkaline Phosphatase 43 U/L 40- [address] [place] [address] [phone] Ast 30 U/L 10-35 Alt 29 U/L 9-60 Bilirubin,Total 0.6 mg/dL 0.2-1.2 Bilirubin,Direct 0.1 mg/dL < Or=0.2 Protein,Total 6.9 g/dL 6.2-8.3 Albumin 4.5 g/dL 3.6-5.1 Lipid Panel 05/08/2006 [facility] Cholesterol 270 mg/dL High <[address] [place], [place] [address] [phone] HDL Cholesterol 78 mg/dL >40 68 Cholesterol/HDL Ratio 3.5 <5.0 LDL Chol,Calculated 158 mg/dL High <130 69 Triglycerides 170 mg/dL High <150 Laboratory test 05/08/2006 [facility] PSA,Total 1.6 NG/ML 0.0-4.0 [address] [place], [place] [address] [phone] TSH+Free T4 05/08/2006 [facility] TSH 2.90 mU/L 0.40-5.50 ([place] [facility]) [address] [place] [address] [phone] T4,Free 0.9 ng/dL 0.8-1.8 Comp Metabolic Panel 05/08/2006 [facility] Sodium 140 mmol/L 135-[address] [place] [address] [phone] Potassium 4.5 mmol/L 3.5-5.3 Chloride 104 mmol/L [...] [facility] WBC 8.1 thous/L 3.8-10.8 [address] [place] [address] [phone] RBC 4.86 mill/L 4.20-5.80 Hemoglobin 15.5 g/dL 13.2-17.1 Hematocrit 44.1 % 38.5-50.0 MCV 90.7 FL 80.0-100.0 MCH 31.8 pg 27.0-33.0 MCHC 35.1 g/dL 32.0-36.0 RDW 13.2 % 11.0-15.0 Platelet Count 227 thous/L 140-400 Platelet Sufficiency NORMAL Normal Neutrophils,Absolute 5200 cells/L 5314-9326 Bands,Absolute DNR cells/L 0-750 Metamyelocytes,Absolute DNR cells/L [...] levels of PSA measured using the [employer] DXI Hybritech immunoassay should not be interpreted [...] 130-159 High: 160-189 Very High: >189 11 Car Rental Agent: [id number] Desirable: <100 Near Optimal: 100-129 Borderline [...] years old. Performed at: RN - [facility] [address] [id number] [employer] Team Member: Marilyn Grace MD, Phone: [phone] Reference Guidelines*: Desirable: ........... < 200 [...] more information on this test, go to [email or web address] [email or web address] 36 THIS TEST WAS PERFORMED USING THE [employer] CHEMILUMINESCENT METHOD. VALUES OBTAINED FROM DIFFERENT ASSAY METHODS CANNOT BE USED INTERCHANGEABLY. PSA LEVELS, REGARDLESS OF VALUE, SHOULD NOT BE INTERPRETED ABSOLUTE EVIDENCE OF THE PRESENCE OR ABSENCE OF DISEASE. 37 GLUCOSE REFERENCE RANGE BASED ON FASTING SPECIMEN. 38 The upper reference limit for Creatinine is approximately 13% higher for people identified as -[place]. 39 LDL cholesterol not calculated. Triglyceride levels [...] more information on this test, go to [email or web address] [email or web address] 46 GLUCOSE REFERENCE RANGE BASED ON FASTING SPECIMEN. 47 The upper reference limit for Creatinine is approximately 13% higher for people identified as -[place]. 48 THE CURRENT LOT OF FREE T4 REAGENT AVAILABLE FROM THE [facility] PRODUCES RESULTS THAT ARE APPROXIMATELY 9% HIGHER [...] INTERCHANGEABLY. THIS ASSAY WAS PERFORMED USING THE [facility] CHEMILUMINESCENCE METHOD. SERUM PSA LEVELS SHOULD NOT [...] INTERCHANGEABLY. THIS ASSAY WAS PERFORMED USING THE [facility] CHEMILUMINESCENCE METHOD. SERUM PSA LEVELS SHOULD NOT [...] FOR RACE, IF THE PATIENT RACE IS -THAI, THE GFR ESTIMATE MUST BE MULTIPLIED BY A FACTOR OF 1.21. Procedures Date Code Description Status 02/27/2018 33567 Non-Invcorrotid/Comp /Bilat Study Completed 02/26/2018 87945 Echocardiography Completed 02/20/2018 05145 Spirometry Graphic Record/Max Voluntary Vent Completed 02/20/2018 39869 EKG-Tracing & Report Completed 02/19/2018 84525 PVR-Atrerial Study Completed 02/19/2018 64093 Holter Monitor Office Completed 02/16/2017 22715 PVR-Atrerial Study Completed 02/16/2017 40637 EKG-Tracing & Report Completed 02/15/2017 84645 Spirometry Graphic Record/Max Voluntary Vent Completed 02/15/2017 49976 Holter Monitor Office Completed 02/02/2017 89325 Echocardiography Completed 02/02/2017 23381 Non-Invcorrotid/Comp /Bilat Study Completed 03/18/2015 42781 EKG-Tracing & Report Completed 03/17/2015 89469 Holter Monitor Office Completed 03/05/2015 35542 Non-Invcorrotid/Comp /Bilat Study Completed 03/05/2015 45300 Echocardiography Completed 12/26/2014 63238 EKG-Tracing & Report Completed 05/09/2013 59327 Spirometry Graphic Record/Max Voluntary Vent Completed 05/09/2013 53291 EKG-Tracing & Report Completed 04/15/2013 19524 Non-Invcorrotid/Comp /Bilat Study Completed 04/15/2013 43748 Echocardiography Completed 08/09/2012 [id number] Colonoscopy Completed 04/02/2012 36266 EKG-Tracing & Report Completed 03/29/2012 21152 Echocardiography Completed 03/29/2012 15571 Non-Invcorrotid/Comp /Bilat Study Completed 11/11/2010 [id number] Bone Mineral Density Test Completed 11/11/2010 01255 Bone Density Completed 11/04/2010 72036 EKG-Tracing & Report Completed 11/03/2010 34426 Spirometry Graphic Record/Max Voluntary Vent Completed 11/03/2010 50126 Holter Monitor Office Completed 11/03/2009 16520 EKG-Tracing & Report Completed 11/03/2009 26826 Echocardiography Completed 11/03/2009 75218 Non-Invcorrotid/Comp /Bilat Study Completed 11/06/2008 86402 PFT Evaluation Completed 11/06/2008 33017 Holter Monitor Office Completed 11/06/2008 77781 EKG-Tracing & Report Completed 11/05/2008 11716 Non-Invcorrotid/Comp /Bilat Study Completed 11/05/2008 97742 Echocardiography Completed 05/09/2006 60649 Bone Density Completed 05/08/2006 04232 EKG-Tracing & Report Completed 04/18/2006 86824 Doppler Color Flow Velocity Completed 04/18/2006 99706 Doppler/ECHO Completed 04/18/2006 86570 ECHO-2D W/Wo M-Mode Completed 09/05/2003 72503 Spirometry Graphic Record/Max Voluntary Vent Completed 09/05/2003 43669 EKG-Tracing & Report Completed Encounters Type Date [...] follow up symptomatically and with MOIRA yearly [id number] Obstructive sleep apnea (adult) (pediatric)Comments:snoring and increased pulm artery pressure ---refer for [id number] Nonrheumatic mitral (valve) insufficiencyComments:Issues of symptoms and [...] suppliers and Respiratory Therapy reviewed.F52.21 Male erectile [id number] Encounter for general adult medical examination without abnormal findingsComments:DISCUSSED AGE APPROPRIATE RISK FACTORS AND SCREENING.Z23 Encounter for immunizationComments:Vaccination reviewed and updates given as appropriate.
--- OUTSIDE RECORDS SUMMARY | 2018-08-21 11:05 | XMS REPORT | Continuity of Care Document ---
:1950 External Reference #:[id number] Author Name Sue Riggs Care Team Providers Name Role Phone Gary Mcintosh MD Primary Care Physician Unavailable Payers Date Identification Numbers Payment Provider Subscriber Policy Number: [id number] Medicare Rob Chaudhary PayID: [id number] [address] [place] [address] Effective: 1993 Policy Number: [id number] [facility] Rob Chaudhary Group Number: [id number] [address] PayID: [id number] [place] [address] Problems Active Problems Provider Date Mitral valve [...] 1units Gary Mcintosh 05/05/2015 - ordered 03/19/2018 68295Gak/0.65ML Solution Rec Amoxicillin/Clavulana 1 by mouth twice [...] 81 Gary Mcintosh 02/05/2007 - 81mg 11/18/2008 [facility] Gary Mcintosh 11/29/2006 - 05/05/2015 Zetia 1 PO qd 90tabs Gary Mcintosh 07/10/2006 - 10mg Tablets 11/18/2008 Lipitor 1 po qd 90tabs 272.40 Gary Mcintosh 05/17/2006 - 20mg Tablets 07/10/2006 [facility] Wart 1 po qd Gary Mcintosh 09/07/2005 - 09/07/2005 Multivitamins Gary Mcintosh 09/07/2005 - Caplets 01/12/2015 Amoxicillin 2 po bid 40tabs 466.0 Gary Mcintosh 09/07/2005 - 500mg 2005 Tablets Nystatin-Triamcinolon apply affected Unknown - e area as 01/17/2017 906538-9.1Unit/GM-% indicated twice Cream a day Medications Administered in Office Medication SIG Qnty Indications Ordering Provider Date H1N1 Administration-Use Gary Mcintosh 01/26/2009 Injection Immunizations CPT Code Status Date Vaccine Lot # [id number] Given 03/19/2018 Influenza Virus (Afluria) Split Virus 3 Years [id number] Of Age And Older 50[address] Given 03/19/2018 Pneumovax Polyvalent Inj Im [id number] Given 01/17/2017 Influenza Virus (Afluria) Split Virus 3 Years Of Age And Older 27062 Given 06/03/2015 Zostavax 77159 Given 11/23/2010 Tetanus,Diphtheria,Adut/Adol Pertussis [id number] 18819 Given 11/23/2010 Tetanus Shot 85651 Given 12/17/2009 Influenza Vaccine 71014 Given 12/11/2008 Influenza Vaccine [id number] 43044 Given 04/01/2003 Influenza Virus Vaccine (History Only) 61914 Given 11/23/2001 DT Immunization DIP/Tet (History Only) [...] Result H/L Range Note Laboratory test 07/30/2018 [facility] Testosterone 265.81 N 240 -[address] Total ng/dL [place], [place] [id number] [phone] PSA Screening 4.197 ng/mL High 0-4.000 1 CBC No Diff 07/30/2018 [facility] White Blood 9.2 10^3/uL N 3.5 -10.[address] Count [place], [place] [id number] [phone] Red Blood Count 4.78 10^6/uL N 4.18-5.48 Hemoglobin 14.8 g/dL N 14.0-18.0 Hematocrit 44 % N 42-52 Mean Corpuscular Volume 92 fL N 80-94 Mean Corpuscular Hemoglobin 31 pg N 27-31 Mean Corpuscular HGB Conc 34 g/dL N 31-36 Red Cell Distribution Width 13 % N 10.5-15 Platelet Count 191 10^3/uL N 150-450 Mean Platelet Volume 10.7 fL High 7.4-10.4 .TSH+Free T4 07/30/2018 [facility] TSH (Thyroid 1.63 mcIU/mL N 0.34-5.60 ([place] & [address] Stim Horm) [facility] [place] [address] [phone] Free T4 (Free Thyroxine) 0.68 ng/dL N 0.61-1.12 Comp Metabolic Panel 07/30/2018 [facility] Sodium 140 mmol/L N 565-[address] [place] [address] [phone] Potassium 4.4 mmol/L N 3.5-5.0 Chloride 104 [...] Egfr 97.5 >60 2 Lipid Profile 07/30/2018 [facility] Triglycerides 132 mg/dL 3 (Trig/Chol/HDL) [address] [place] [address] [phone] Cholesterol 266 mg/dL 4 HDL Cholesterol 80.2 mg/dL 5 LDL Cholesterol 159 mg/dL 6 Lipid Profile 02/20/2018 [facility] Triglycerides 278 mg/dL 7 (Trig/Chol/HDL) [address] [place] [address] [phone] Cholesterol 296 mg/dL 8 HDL Cholesterol 79.9 mg/dL 9 LDL Cholesterol 161 mg/dL 10 Liver Function 02/20/2018 [facility] Total Protein 6.5 g/dL N 6.4-8.9 Panel [address] [place] [address] [phone] Albumin 4.4 g/dL N 3.2-5.2 Globulin 2.1 g/dL N 2-4 Albumin/Globulin Ratio 2.1 N 1-3 Total Bilirubin 0.80 mg/dL N 0.2-1.0 Direct Bilirubin 0.10 mg/dL N 0.03-0.18 Indirect Bilirubin 0.7 mg/dL N 0.3-1.0 Alkaline Phosphatase 48 U/L N 34-104 Alt 27 U/L N 7-52 Ast 26 U/L N 13-39 Laboratory test 08/04/2017 [facility] Rapid Strep Negative Negative 11 finding [address] [place] [address] [phone] Laboratory test 02/02/2017 [facility] TSH (Thyroid 1.84 mcIU/mL N 0.34-5.[address] Stim [place]orm) [place] [address] [phone] LDL Cholesterol Direct 107 mg/dL 12 Free T4 (Free Thyroxine) 0.75 ng/dL N 0.61-1.12 Basic Metabolic Panel 02/02/2017 [facility] Sodium 138 mmol/L N [phone] [place] [address] [phone] Potassium 4.6 mmol/L N 3.5-5.0 Chloride 103 mmol/L N 101-111 Co2 Carbon Dioxide 29 mmol/L N 22-32 Anion Gap 6 mmol/L N 2-11 Glucose 94 mg/dL N 70-100 Blood Urea Nitrogen 16 mg/dL N 6-24 Creatinine 0.95 mg/dL N 0.67-1.17 BUN/Creatinine Ratio 16.8 N 8-20 Calcium 8.8 mg/dL N 8.6-10.3 Egfr Non- 79.8 >60 Egfr 102.6 >60 13 Laboratory test 02/02/2017 [facility] Vitamin D Total 20.4 ng/mL N 20-50 finding [address] [facility] [address]) [place] [address] [phone] Lipid Panel 02/02/2017 [facility] Triglycerides 728 mg/dL 14 [address] [facility] [place] [address] [phone] Cholesterol 306 mg/dL 15 HDL Cholesterol 60.2 mg/dL 16 LDL Cholesterol (SEE NOTE) mg/dL 17 Laboratory test 02/02/2017 [facility] PSA Screening 3.631 ng/mL N 0-4.000 18 finding [address] [place] [address] [phone] Testosterone Total 274.73 ng/dL N 240-950 Vitamin 01/12/2016 [facility] Vitamin 309 pg/mL 200-1100 19 B12/Folate Panel [address] B12,[place] [address] [phone] Folate,Serum >24.0 NG/ML 20 TSH & T4,Free 01/12/2016 [facility] TSH 1.97 mIU/L 0.40-4.[address] [place] [address] [phone] T4,Free 1.1 ng/dL 0.8-1.8 Laboratory test finding 01/12/2016 [facility] Glucose 99 mg/dL 65-99 [address] [place] [address] [phone] Hemoglobin A1c 5.3 % 0.0-5.6 22 BMP W/O Egfr 10/28/2015 [facility] Sodium 137 mmol/L N [phone] [facility] [place] [address] [phone] Potassium 4.9 mmol/L N 3.5-5.0 Chloride 101 mmol/L N 101-111 Co2 Carbon Dioxide 29 mmol/L N 22-32 Anion Gap 7 mmol/L N 2-11 Glucose 97 mg/dL N 70-100 Blood Urea Nitrogen 19 mg/dL N 6-24 Creatinine 0.98 mg/dL N 0.67-1.17 BUN/Creatinine Ratio 19.4 N 8-20 Egfr Non- 77.2 N >60 Egfr 99.3 N >60 23 Laboratory test 10/28/2015 [facility] Calcium 9.6 mg/dL N 8.6- 10.[address] [place] [address] [phone] Urine Screen 08/17/2015 [facility] Urine Color YELLOW Yellow [address] [place] [address] [phone] Urine Clarity CLEAR Clear Urine Glucose - Dipstick NEGATIVE mg/dL Negative Urine Bilirubin - Dipstick NEGATIVE Negative Urine Ketone NEGATIVE mg/dL Negative Urine Specific [place] 1.015 1.010-1.030 Urine Blood NEGATIVE Negative Urine PH 6.0 Low 6.5-7.5 Urine Protein - Dipstick NEGATIVE mg/dL Negative Urine Urobilinogen - Dipstick 0.2 E.U./dL 0.2-1.0 Urine Nitrite - Dipstick NEGATIVE Negative Urine Leuk Esterase NEGATIVE Negative Chlamydia/GC Lakshmi, 08/17/2015 [facility] Chlamydia Negative Urine [address] Trachomatis,[place] [address] -Lakshmi [phone] Neisseria Gonorrhoeae,Ur -Lakshmi Negative 24 Basic Metabolic Panel 03/17/2015 [facility] Glucose 93 mg/dL 74-[address] [place], [place] [address] [phone] BUN 14 mg/dL 7-18 Creatinine 0.9 mg/dL 0.6-1.3 Glom Filtration Rate, Estimate >60 mL/min >60 If >60 mL/min >60 25 BUN/Creat 15.5 ratio Sodium 138 mmol/L 136-145 Potassium 4.4 mmol/L 3.5-5.1 Chloride 103 mmol/L 98-107 Carbon Dioxide 29 mmol/L 21-32 Anion Gap 6 mEq/L Low 8-16 Calcium 8.3 mg/dL Low 8.5-10.1 Laboratory test 03/17/2015 [facility] Thyroid Stim 1.70 uIU/mL 0.36-3.[address] [place] [address] [phone] Free T4 0.78 ng/dL 0.76-1.46 Testosterone,Serum 03/17/2015 [facility] Testosterone, Serum [phone] ng/[place] [address] [phone] Comment See Note 26 Hemoglobin/Hematocrit 03/17/2015 [facility] Hemoglobin 14.9 12.8-17.[address] gm/[place] [address] [phone] Hematocrit 43.6 % 38.0-48.0 LDL Cholesterol 12/26/2014 [facility] Cholesterol 218 mg/dL < 200 [address] [place] [address] [phone] Triglycerides 64 mg/dL < 150 28 HDL Cholesterol 93 mg/dL > 40 29 LDL-Cholesterol 112 mg/dL < 100 30 Laboratory test 12/26/2014 [facility] Prostate 2.80 ng/mL [address] Specific Antigen [place] [id number] [phone] Lipid Panel 06/05/2013 [facility] Cholesterol 271 mg/dL High 125-[address] [place] [address] [phone] HDL Cholesterol 74 mg/dL > Or=40 Cholesterol/HDL Ratio 3.7 < Or=5.0 LDL Chol,Calculated 148 mg/dL High <130 33 Triglycerides 246 mg/dL High <150 Non-HDL Cholesterol 197 mg/dL High 34 Laboratory 06/05/2013 [facility] Testosterone,Total,LC/MS/MS 178 250- 1100 35 test finding [address] ng/[place] [address] [phone] PSA,Total 1.8 NG/ML 0.0-4.0 36 BMP W/O Egfr 06/05/2013 [facility] Sodium 137 mmol/L 135-[address] [place] [address] [phone] Potassium 4.5 mmol/L 3.5-5.3 Chloride 100 mmol/L 98-110 Carbon Dioxide 28 mmol/L 19-30 Calcium 9.4 mg/dL 8.6-10.3 Glucose 91 mg/dL 65-99 37 Urea Nitrogen 14 mg/dL 7-25 Creatinine 1.05 mg/dL 0.70-1.25 38 BUN/Creatinine Ratio 13.3 6-22 Lipid Panel 05/09/2013 [facility] Cholesterol 277 mg/dL High 125-[address] [place], [place] [address] [phone] HDL Cholesterol 41 mg/dL > Or=40 Cholesterol/HDL Ratio 6.8 High < Or=5.0 LDL Chol,Calculated (SEE NOTE) mg/dL 39 Triglycerides 1672 mg/dL High <150 40 Non-HDL Cholesterol 236 mg/dL High 41 Laboratory test 08/09/2012 [facility] Rectal Mucosa See Note [address] [place] [address] [phone] Laboratory test 07/02/2012 [facility] Direct LDL 101 mg/dL <130 [address] [place] [address] [phone] Comprehensive 06/03/2012 [facility] Glucose 96 mg/dL 76-115 Metabolic Panel [address] [place] [address] [phone] BUN 12 mg/dL 5-23 Creatinine 0.9 mg/dL [...] Phosphatase 72 U/L 50-136 Laboratory test 06/03/2012 [facility] Lipase 129 U/L 28-[address] [place], [place] [phone] CBC W/Automated 06/03/2012 [facility] White Blood 6.4 K/uL 3.4-10.[address] Count [place], [place] [address] [phone] Red Blood Count 4.87 M/uL 4.20-5.80 Hemoglobin 15.5 gm/dL 12.8-17.0 Hematocrit 44.4 % 38.0-48.0 Mean Cell Volume 91.2 fl 80.0-96.0 Mean Corpuscular HGB 31.8 pg 27.0-33.0 Mean Corpuscular HGB Conc 34.9 g/dL 31.7-36.0 Platelet Count 210 K/uL 150-400 Red Cell Distri Width SD 41.2 fl 36-51 Red Cell Distri Width %CV 12.7 % 11.6-15.8 Mean Platelet Volume 11.1 fL High 6.6-10.6 Differential-WBC 06/03/2012 [facility] Total Cells 100 #CELLS Confirm [address] Counted [place], [place] [id number] [phone] Neutrophils% 65 % 33-73 Lymph% 11 % Low 17-56 Atypical Lymph% 11 % High 0-7 Monocyte% 8 % 0-10 Eosinophil% 5 % 0-5 Platelet Estimate NORMAL RBC Morphology NORMAL Urine Screen 06/03/2012 [facility] Urine Color YELLOW Yellow [address] [place] [address] [phone] Urine Clarity CLEAR Clear Urine Glucose - Dipstick NEGATIVE mg/dL Negative Urine Bilirubin - Dipstick NEGATIVE Negative Urine Ketone NEGATIVE mg/dL Negative Urine Specific [place] <=1.005 Low 1.010-1.030 Urine Blood NEGATIVE Negative Urine PH 5.0 Low 6.5-7.5 Urine Protein - Dipstick NEGATIVE mg/dL Negative Urine Urobilinogen - Dipstick 0.2 E.U./dL 0.2-1.0 Urine Nitrite - Dipstick NEGATIVE Negative Urine Leuk Esterase NEGATIVE Negative Laboratory 03/30/2012 [facility] Testosterone,Total,LC/MS/MS 596 520- 1100 45 test finding [address] [place] ng/[place] [address] [phone] Comp 03/30/2012 [facility] Sodium 138 135-[address] mmol/[place] [address] [phone] Potassium 4.5 mmol/L 3.5-5.3 Chloride 103 mmol/L [...] 1.9-3.7 A/G Ratio 1.8 1.0-2.5 Egfr Non-Afr. Mauritanian 86 ML/MIN/1.73M2 > Or=60 Egfr 100 ML/MIN/1.73M2 > Or=60 CBC W/ Diff & PLT 03/30/2012 [facility] WBC 9.4 thous/L 3.8-10.[address] [place] [address] [phone] RBC 4.36 mill/L 4.20-5.80 Hemoglobin 13.8 g/dL 13.2-17.1 Hematocrit 41.0 % 38.5-50.0 MCV 93.9 FL 80.0-100.0 MCH 31.5 pg 27.0-33.0 MCHC 33.6 g/dL 32.0-36.0 RDW 13.5 % 11.0-15.0 Platelet Count 198 thous/L 140-400 Neutrophils,Absolute 7000 cells/L 1799-1911 Lymphocytes,Absolute 1310 cells/L 850-3900 Monocytes,Absolute 790 cells/L 200-950 Eosinophils,Absolute 220 cells/L 15-500 Basophils,Absolute 30 cells/L 0-200 Total Neutrophils,% 75 % 38-80 Total Lymphocytes,% 14 % 15-49 Monocytes,% 8 % 0-13 Eosinophils,% 2 % 0-8 Basophils,% 0 % 0-2 TSH & T4,Free 03/30/2012 [facility] TSH 1.81 mIU/L 0.40-4.[address] [place] [address] [phone] T4,Free 1.1 ng/dL 0.8-1.8 48 Laboratory test 03/30/2012 [facility] PSA,Total 1.8 NG/ML 0.0-4.0 [address] [place] [address] [phone] Laboratory test 08/01/2011 [facility] LDL 101 mg/dL <130 [address] Cholesterol,[place] [address] [phone] Hepatic Function 08/01/2011 [facility] Alkaline 56 U/L 40-[address] [place] [address] [phone] Ast 32 U/L 10-35 Alt 36 U/L 9-60 Bilirubin,Total 0.8 mg/dL 0.2-1.2 Bilirubin,Direct 0.2 mg/dL < Or=0.2 Protein,Total 6.3 g/dL 6.2-8.3 Albumin 4.3 g/dL 3.6-5.1 Globulin,Calculated 2.0 g/dL Low 2.1-3.7 A/G Ratio 2.1 1.0-2.1 Lipid Panel 05/03/2011 [facility] Cholesterol 235 mg/dL High 125-[address] [place] [address] [phone] HDL Cholesterol 70 mg/dL > Or=40 Cholesterol/HDL Ratio 3.4 < Or=5.0 LDL Chol,Calculated 133 mg/dL High <130 51 Triglycerides 161 mg/dL High <150 Hepatic Function 05/03/2011 [facility] Alkaline Phosphatase 57 U/L 40- [address] [place] [address] [phone] Ast 31 U/L 10-35 Alt 34 U/L 9-60 Bilirubin,Total 0.6 mg/dL 0.2-1.2 Bilirubin,Direct 0.1 mg/dL < Or=0.2 Protein,Total 6.6 g/dL 6.2-8.3 Albumin 4.5 g/dL 3.6-5.1 Globulin,Calculated 2.1 g/dL 2.1-3.7 A/G Ratio 2.1 1.0-2.1 Laboratory 01/05/2011 [facility] LDL Cholesterol,Direct 117 <130 52 test finding [address] mg/dL [place], [place] [address] [phone] Hepatic 01/05/2011 [facility] Alkaline Phosphatase 51 U/L 40-115 Function Panel [address] [place] [address] [phone] Ast 31 U/L 10-35 Alt 28 U/L 9-60 Bilirubin,Total 0.6 mg/dL 0.2-1.2 Bilirubin,Direct 0.1 mg/dL < Or=0.2 Protein,Total 6.4 g/dL 6.2-8.3 Albumin 4.4 g/dL 3.6-5.1 Globulin,Calculated 2.0 g/dL Low 2.1-3.7 A/G Ratio 2.1 1.0-2.1 Laboratory test 11/03/2010 [facility] PSA,Total 1.4 NG/ML 0.0-4.0 [address] [place] [address] [phone] Lipid Panel 11/03/2010 [facility] Cholesterol 293 mg/dL High 125-[address] [place] [address] [phone] HDL Cholesterol 69 mg/dL > Or=40 Cholesterol/HDL Ratio 4.2 < Or=5.0 LDL Chol,Calculated 156 mg/dL High <130 54 Triglycerides 338 mg/dL High <150 TSH & T4,Free 11/03/2010 [facility] TSH,3RD 1.80 mIU/L 0.40-4.[address] [place] [address] [phone] T4,Free 1.2 ng/dL 0.8-1.8 Comp Metabolic Panel 11/03/2010 [facility] Sodium 140 mmol/L 135-[address] [place] [address] [phone] Potassium 4.6 mmol/L 3.5-5.3 Chloride 104 mmol/L [...] 2.1-3.7 A/G Ratio 1.8 1.0-2.1 Egfr Non-Afr. Mauritanian 95 ML/MIN/1.73M2 > Or=60 Egfr 110 ML/MIN/1.73M2 > Or=60 CBC W/ Diff & PLT 11/03/2010 [facility] WBC 5.1 thous/L 3.8-10.[address] [place], [place] [address] [phone] RBC 4.66 mill/L 4.20-5.80 Hemoglobin 15.0 g/dL 13.2-17.1 Hematocrit 44.3 % 38.5-50.0 MCV 95.0 FL 80.0-100.0 MCH 32.2 pg 27.0-33.0 MCHC 33.9 g/dL 32.0-36.0 RDW 13.9 % 11.0-15.0 Platelet Count 205 thous/L 140-400 Neutrophils,Absolute 2760 cells/L 1111-1157 Lymphocytes,Absolute 1520 cells/L 850-3900 Monocytes,Absolute 590 cells/L 200-950 Eosinophils,Absolute 170 cells/L 15-500 Basophils,Absolute 30 cells/L 0-200 Total Neutrophils,% 54 % 38-80 Total Lymphocytes,% 30 % 15-49 Monocytes,% 12 % 0-13 Eosinophils,% 3 % 0-8 Basophils,% 1 % 0-2 Laboratory test 11/03/2009 [facility] PSA,Total 1.3 NG/ML 0.0-4.0 [address] [place] [address] [phone] Lipid Panel 11/03/2009 [facility] Cholesterol 249 mg/dL High 125-[address] [place] [address] [phone] HDL Cholesterol 75 mg/dL > Or=40 Triglycerides 208 mg/dL High <150 Cholesterol/HDL Ratio 3.3 < Or=5.0 LDL Chol,Calculated 132 mg/dL High <130 57 TSH & T4,Free 11/03/2009 [facility] TSH,3RD 3.76 mIU/L 0.40-4.[address] Generation [place], [place] [address] [phone] T4,Free 0.9 ng/dL 0.8-1.8 Lipid Panel 05/11/2009 [facility] Cholesterol 268 mg/dL High 125-[address] [place], [place] [address] [phone] HDL Cholesterol 77 mg/dL > Or=40 Triglycerides 119 mg/dL <150 Cholesterol/HDL Ratio 3.5 < Or=5.0 LDL Chol,Calculated 167 mg/dL High <130 58 Comp Metabolic Panel 11/06/2008 [facility] Sodium 138 mmol/L 135-[address] [place], [place] [address] [phone] Potassium 4.3 mmol/L 3.5-5.3 Chloride 103 mmol/L [...] 2.1-3.7 A/G Ratio 1.9 1.0-2.1 Egfr Non-Afr. Mauritanian >60 ML/MIN/1.73M2 > Or=60 Egfr >60 ML/MIN/1.73M2 > Or=60 CBC W/ Diff & PLT 11/06/2008 [facility] WBC 9.1 thous/L 3.8-10.8 [address] [facility] [place] [address] [phone] RBC 4.70 mill/L 4.20-5.80 Hemoglobin 14.9 g/dL 13.2-17.1 Hematocrit 43.7 % 38.5-50.0 MCV 92.9 FL 80.0-100.0 MCH 31.7 pg 27.0-33.0 MCHC 34.2 g/dL 32.0-36.0 RDW 13.8 % 11.0-15.0 Platelet Count 210 thous/L 140-400 Platelet Sufficiency NORMAL Normal Neutrophils,Absolute 6420 cells/L 6345-1635 Bands,Absolute DNR cells/L 0-750 Metamyelocytes,Absolute DNR cells/L [...] Lab Cholesterol 223 mg/dL High 125-200 [address] [facility] [place] [address] [phone] HDL Cholesterol 68 mg/dL > Or=40 Triglycerides 196 mg/dL High <150 Cholesterol/HDL Ratio 3.3 < Or=5.0 LDL Chol,Calculated 116 mg/dL <130 60 Laboratory test 11/06/2008 [facility] PSA,Total 1.6 NG/ML 0.0-4.0 [address] [place] [address] [phone] TSH & T4,Free 11/06/2008 [facility] TSH,3RD 3.41 mU/L 0.40-4.[address] Generation [place] [address] [phone] T4,Free 0.9 ng/dL 0.8-1.8 Laboratory test 01/19/2007 [facility] Ferritin 61 NG/ML 20-[address] [place] [address] [phone] Hepatic Function 01/19/2007 [facility] Alkaline 52 U/L 40-[address] [place] [address] [phone] Ast 35 U/L 10-35 Alt 35 U/L 9-60 Bilirubin,Total 1.0 mg/dL 0.2-1.2 Bilirubin,Direct 0.2 mg/dL < Or=0.2 Protein,Total 6.9 g/dL 6.2-8.3 Albumin 4.4 g/dL 3.6-5.1 Lipid Panel 01/19/2007 [facility] Cholesterol 234 mg/dL High 125-[address] [place] [address] [phone] HDL Cholesterol 83 mg/dL > Or=40 62 Cholesterol/HDL Ratio 2.8 < Or=5.0 LDL Chol,Calculated 125 mg/dL <130 63 Triglycerides 131 mg/dL <150 Hepatic Function 09/25/2006 [facility] Alkaline Phosphatase 46 U/L 40- [address] [place] [address] [phone] Ast 33 U/L 10-35 Alt 31 U/L 9-60 Bilirubin,Total 0.8 mg/dL 0.2-1.2 Bilirubin,Direct 0.2 mg/dL < Or=0.2 Protein,Total 6.7 g/dL 6.2-8.3 Albumin 4.2 g/dL 3.6-5.1 Lipid Panel 09/25/2006 [facility] Cholesterol 188 mg/dL 125-[address] [place] [address] [phone] HDL Cholesterol 86 mg/dL > Or=40 64 Triglycerides 121 mg/dL <150 Cholesterol/HDL Ratio 2.2 < Or=5.0 LDL Chol,Calculated 78 mg/dL <130 65 Lipid Panel 06/21/2006 [facility] Cholesterol 262 mg/dL High 125-[address] [place], [place] [address] [phone] HDL Cholesterol 76 mg/dL > Or=40 66 Cholesterol/HDL Ratio 3.4 < Or=5.0 LDL Chol,Calculated 171 mg/dL High <130 67 Triglycerides 76 mg/dL <150 Hepatic Function 06/21/2006 [facility] Alkaline Phosphatase 43 U/L 40- 115 Panel [address] [place] [address] [phone] Ast 30 U/L 10-35 Alt 29 U/L 9-60 Bilirubin,Total 0.6 mg/dL 0.2-1.2 Bilirubin,Direct 0.1 mg/dL < Or=0.2 Protein,Total 6.9 g/dL 6.2-8.3 Albumin 4.5 g/dL 3.6-5.1 Lipid Panel 05/08/2006 [facility] Cholesterol 270 mg/dL High <[address] [place], [place] [address] [phone] HDL Cholesterol 78 mg/dL >40 68 Cholesterol/HDL Ratio 3.5 <5.0 LDL Chol,Calculated 158 mg/dL High <130 69 Triglycerides 170 mg/dL High <150 Laboratory test 05/08/2006 [facility] PSA,Total 1.6 NG/ML 0.0-4.0 [address] [place], [place] [address] [phone] TSH+Free T4 05/08/2006 [facility] TSH 2.90 mU/L 0.40-5.50 ([place] [facility]) [address] [place] [address] [phone] T4,Free 0.9 ng/dL 0.8-1.8 Comp Metabolic Panel 05/08/2006 [facility] Sodium 140 mmol/L 135-[address] [place] [address] [phone] Potassium 4.5 mmol/L 3.5-5.3 Chloride 104 mmol/L [...] [facility] WBC 8.1 thous/L 3.8-10.8 [address] [place] [address] [phone] RBC 4.86 mill/L 4.20-5.80 Hemoglobin 15.5 g/dL 13.2-17.1 Hematocrit 44.1 % 38.5-50.0 MCV 90.7 FL 80.0-100.0 MCH 31.8 pg 27.0-33.0 MCHC 35.1 g/dL 32.0-36.0 RDW 13.2 % 11.0-15.0 Platelet Count 227 thous/L 140-400 Platelet Sufficiency NORMAL Normal Neutrophils,Absolute 5200 cells/L 5460-2272 Bands,Absolute DNR cells/L 0-750 Metamyelocytes,Absolute DNR cells/L [...] levels of PSA measured using the [employer] DXI Hybritech immunoassay should not be interpreted [...] 130-159 High: 160-189 Very High: >189 11 [employer] Centralizing Machine Operator: [id number] Desirable: <100 Near Optimal: 100-129 Borderline [...] years old. Performed at: RN - [facility] [address] [id number] Electronic Masking System Operator: Marilyn Grace MD, Phone: [phone] Reference Guidelines*: Desirable: ........... < 200 [...] more information on this test, go to [email or web address] 36 THIS TEST WAS PERFORMED USING THE SIEMENS CHEMILUMINESCENT METHOD. VALUES OBTAINED FROM DIFFERENT ASSAY METHODS CANNOT BE USED INTERCHANGEABLY. PSA LEVELS, REGARDLESS OF VALUE, SHOULD NOT BE INTERPRETED ABSOLUTE EVIDENCE OF THE PRESENCE OR ABSENCE OF DISEASE. 37 GLUCOSE REFERENCE RANGE BASED ON FASTING SPECIMEN. 38 The upper reference limit for Creatinine is approximately 13% higher for people identified as -Mauritanian. 39 LDL cholesterol not calculated. Triglyceride levels [...] more information on this test, go to [email or web address] 46 GLUCOSE REFERENCE RANGE BASED ON FASTING SPECIMEN. 47 The upper reference limit for Creatinine is approximately 13% higher for people identified as -[place]itan[place]. 48 THE CURRENT LOT OF FREE T4 REAGENT AVAILABLE FROM THE [employer] PRODUCES RESULTS THAT ARE APPROXIMATELY 9% HIGHER [...] INTERCHANGEABLY. THIS ASSAY WAS PERFORMED USING THE Veritract CHEMILUMINESCENCE METHOD. SERUM PSA LEVELS SHOULD NOT [...] INTERCHANGEABLY. THIS ASSAY WAS PERFORMED USING THE Veritract CHEMILUMINESCENCE METHOD. SERUM PSA LEVELS SHOULD NOT [...] FOR RACE, IF THE PATIENT RACE IS -MALAYSIAN, THE GFR ESTIMATE MUST BE MULTIPLIED BY A FACTOR OF 1.21. Procedures Date Code Description Status 02/27/2018 56203 Non-Invcorrotid/Comp /Bilat Study Completed 02/26/2018 31548 Echocardiography Completed 02/20/2018 84012 Spirometry Graphic Record/Max Voluntary Vent Completed 02/20/2018 44567 EKG-Tracing & Report Completed 02/19/2018 03214 PVR-Atrerial Study Completed 02/19/2018 48113 Holter Monitor Office Completed 02/16/2017 03248 PVR-Atrerial Study Completed 02/16/2017 09445 EKG-Tracing & Report Completed 02/15/2017 24666 Spirometry Graphic Record/Max Voluntary Vent Completed 02/15/2017 99191 Holter Monitor Office Completed 02/02/2017 75542 Echocardiography Completed 02/02/2017 76558 Non-Invcorrotid/Comp /Bilat Study Completed 03/18/2015 37235 EKG-Tracing & Report Completed 03/17/2015 93467 Holter Monitor Office Completed 03/05/2015 05503 Non-Invcorrotid/Comp /Bilat Study Completed 03/05/2015 53309 Echocardiography Completed 12/26/2014 65136 EKG-Tracing & Report Completed 05/09/2013 17525 Spirometry Graphic Record/Max Voluntary Vent Completed 05/09/2013 67762 EKG-Tracing & Report Completed 04/15/2013 13223 Non-Invcorrotid/Comp /Bilat Study Completed 04/15/2013 32097 Echocardiography Completed 08/09/2012 [id number] Colonoscopy Completed 04/02/2012 94332 EKG-Tracing & Report Completed 03/29/2012 28405 Echocardiography Completed 03/29/2012 01129 Non-Invcorrotid/Comp /Bilat Study Completed 11/11/2010 [id number] Bone Mineral Density Test Completed 11/11/2010 94480 Bone Density Completed 11/04/2010 12539 EKG-Tracing & Report Completed 11/03/2010 25907 Spirometry Graphic Record/Max Voluntary Vent Completed 11/03/2010 23625 Holter Monitor Office Completed 11/03/2009 60941 EKG-Tracing & Report Completed 11/03/2009 33676 Echocardiography Completed 11/03/2009 11095 Non-Invcorrotid/Comp /Bilat Study Completed 11/06/2008 97802 PFT Evaluation Completed 11/06/2008 56254 Holter Monitor Office Completed 11/06/2008 57520 EKG-Tracing & Report Completed 11/05/2008 74643 Non-Invcorrotid/Comp /Bilat Study Completed 11/05/2008 14116 Echocardiography Completed 05/09/2006 90899 Bone Density Completed 05/08/2006 81081 EKG-Tracing & Report Completed 04/18/2006 39839 Doppler Color Flow Velocity Completed 04/18/2006 72439 Doppler/ECHO Completed 04/18/2006 60091 ECHO-2D W/Wo M-Mode Completed 09/05/2003 94553 Spirometry Graphic Record/Max Voluntary Vent Completed 09/05/2003 18725 EKG-Tracing & Report Completed Encounters Type Date [...] Office Visit 01/12/2016 11:20a Main Office Gary Mcintsoh M54.16 Radiculopathy, lumbar region Office Visit 11/04/2015 1:30p Main Office Gary Mcintosh B35.9 Dermatophytosis, unspecified Office Visit 10/20/2015 3:10p Main Office Gary Mcintosh B35.9 Dermatophytosis, unspecified Office Visit 05/05/2015 10:30a Main Office Gary Mcintosh I34.0 Nonrheumatic mitral (valve) insufficiency I47.1 Supraventricular tachycardia Office Visit 03/04/2015 Main Office Tyra Mcitnosh J20.8 Acute bronchitis due to 3:00p M.D. [...] follow up symptomatically and with [facility]IR[facility] yearly yelqoeonV50.33 Obstructive sleep apnea (adult) (pediatric)Comments:snoring and increased pulm artery pressure ---refer for upkwtjpC86.0 Nonrheumatic mitral (valve) insufficiencyComments:Issues of symptoms and [...] suppliers and Respiratory Therapy reviewed.F52.21 Male erectile gwwvjwktR65.00 Encounter for general adult medical examination without abnormal findingsComments:DISCUSSED AGE APPROPRIATE RISK FACTORS AND SCREENING.Z23 Encounter for immunizationComments:Vaccination reviewed and updates given as appropriate.
--- OUTSIDE RECORDS SUMMARY | 2018-08-21 11:06 | XMS REPORT | Continuity of Care Document ---
:1950 External Reference #:[id number] Author Name Ashley Chaidez Care Team Providers Name Role Phone Gary Mcintosh MD Primary Care Physician Unavailable Payers Date Identification Numbers Payment Provider Subscriber Policy Number: [id number] Medicare Rob Chaudhary PayID: [id number] [address] [place] [address] Effective: 1993 Policy Number: [id number] [facility] Rob Chaudhary Group Number: [id number] [address] PayID: [id number] [place] [address] Problems Active Problems Provider Date Mitral valve [...] 1units Gary Mcintosh 05/05/2015 - ordered 03/19/2018 59371Tbt/0.65ML Solution Rec Amoxicillin/Clavulana 1 by mouth twice [...] 81 Gary Mcintosh 02/05/2007 - 81mg 11/18/2008 [facility] Gary Mcintosh 11/29/2006 - 05/05/2015 Zetia 1 PO qd 90tabs Gary Mcintosh 07/10/2006 - 10mg Tablets 11/18/2008 Lipitor 1 po qd 90tabs 272.40 Gary Mcintosh 05/17/2006 - 20mg Tablets 07/10/2006 [facility] Wart 1 po qd Gary Mcintosh 09/07/2005 - 09/07/2005 Multivitamins Gary Mcintosh 09/07/2005 - Caplets 01/12/2015 Amoxicillin 2 po bid 40tabs 466.0 Jaspal Mcintoshl 09/07/2005 - 500mg 2005 Tablets Nystatin-Triamcinolon apply affected Unknown - e area as 01/17/2017 374306-2.1Unit/GM-% indicated twice Cream a day Medications Administered in Office Medication SIG Qnty Indications Ordering Provider Date H1N1 Administration-Use Gary Mcintosh 01/26/2009 Injection Immunizations CPT Code Status Date Vaccine Lot # [id number] Given 03/19/2018 Influenza Virus (Afluria) Split Virus 3 Years [id number] Of Age And Older 47897 Given 03/19/2018 Pneumovax Polyvalent Inj Im [id number] Q2035 Given 01/17/2017 Influenza Virus (Afluria) Split Virus 3 Years Of Age And Older 23614 Given 06/03/2015 Zostavax 01599 Given 11/23/2010 Tetanus,Diphtheria,Adut/Adol Pertussis [id number] 30523 Given 11/23/2010 Tetanus Shot 83326 Given 12/17/2009 Influenza Vaccine 48670 Given 12/11/2008 Influenza Vaccine [id number] 21290 Given 04/01/2003 Influenza Virus Vaccine (History Only) 54692 Given 11/23/2001 DT Immunization DIP/Tet (History Only) [...] Result H/L Range Note Laboratory test 07/30/2018 [facility] Testosterone 265.81 N 240 -[address] Total ng/dL [place], [place] [address] [phone] PSA Screening 4.197 ng/mL High 0-4.000 1 CBC No Diff 07/30/2018 [facility] White Blood 9.2 10^3/uL N 3.5 -10.[address] Count [place], [place] [address] [phone] Red Blood Count 4.78 10^6/uL N 4.18-5.48 Hemoglobin 14.8 g/dL N 14.0-18.0 Hematocrit 44 % N 42-52 Mean Corpuscular Volume 92 fL N 80-94 Mean Corpuscular Hemoglobin 31 pg N 27-31 Mean Corpuscular HGB Conc 34 g/dL N 31-36 Red Cell Distribution Width 13 % N 10.5-15 Platelet Count 191 10^3/uL N 150-450 Mean Platelet Volume 10.7 fL High 7.4-10.4 .TSH+Free T4 07/30/2018 [facility] TSH (Thyroid 1.63 mcIU/mL N 0.34-5.60 ([place] & [address] Stim Horm) [facility]) [place] [address] [phone] Free T4 (Free Thyroxine) 0.68 ng/dL N 0.61-1.12 Comp Metabolic Panel 07/30/2018 [facility] Sodium 140 mmol/L N 239-[address] [place] [address] [phone] Potassium 4.4 mmol/L N 3.5-5.0 Chloride 104 [...] Egfr 97.5 >60 2 Lipid Profile 07/30/2018 [facility] Triglycerides 132 mg/dL 3 (Trig/Chol/HDL) [address] [place] [address] [phone] Cholesterol 266 mg/dL 4 HDL Cholesterol 80.2 mg/dL 5 LDL Cholesterol 159 mg/dL 6 Lipid Profile 02/20/2018 [facility] Triglycerides 278 mg/dL 7 (Trig/Chol/HDL) [address] [place] [address] [phone] Cholesterol 296 mg/dL 8 HDL Cholesterol 79.9 mg/dL 9 LDL Cholesterol 161 mg/dL 10 Liver Function 02/20/2018 [facility] Total Protein 6.5 g/dL N 6.4-8.9 Panel [address] [place] [address] [phone] Albumin 4.4 g/dL N 3.2-5.2 Globulin 2.1 g/dL N 2-4 Albumin/Globulin Ratio 2.1 N 1-3 Total Bilirubin 0.80 mg/dL N 0.2-1.0 Direct Bilirubin 0.10 mg/dL N 0.03-0.18 Indirect Bilirubin 0.7 mg/dL N 0.3-1.0 Alkaline Phosphatase 48 U/L N 34-104 Alt 27 U/L N 7-52 Ast 26 U/L N 13-39 Laboratory test 08/04/2017 [facility] Rapid Strep Negative Negative 11 finding [address] [place] [address] [phone] Laboratory test 02/02/2017 [facility] TSH (Thyroid 1.84 mcIU/mL N 0.34-5.60 finding [address] Stim [address]orm) [place] [address] [phone] LDL Cholesterol Direct 107 mg/dL 12 Free T4 (Free Thyroxine) 0.75 ng/dL N 0.61-1.12 Basic Metabolic Panel 02/02/2017 [facility] Sodium 138 mmol/L N [phone] [place] [address] [phone] Potassium 4.6 mmol/L N 3.5-5.0 Chloride 103 mmol/L N 101-111 Co2 Carbon Dioxide 29 mmol/L N 22-32 Anion Gap 6 mmol/L N 2-11 Glucose 94 mg/dL N 70-100 Blood Urea Nitrogen 16 mg/dL N 6-24 Creatinine 0.95 mg/dL N 0.67-1.17 BUN/Creatinine Ratio 16.8 N 8-20 Calcium 8.8 mg/dL N 8.6-10.3 Egfr Non- 79.8 >60 Egfr 102.6 >60 13 Laboratory test 02/02/2017 [facility] Vitamin D Total 20.4 ng/mL N 20-50 finding [address]) [place] [address] [phone] Lipid Panel 02/02/2017 [facility] Triglycerides 728 mg/dL 14 [address] [place] [address] [phone] Cholesterol 306 mg/dL 15 HDL Cholesterol 60.2 mg/dL 16 LDL Cholesterol (SEE NOTE) mg/dL 17 Laboratory test 02/02/2017 [facility] PSA Screening 3.631 ng/mL N 0-4.000 18 finding [address] [place] [address] [phone] Testosterone Total 274.73 ng/dL N 240-950 Vitamin 01/12/2016 [facility] Vitamin 309 pg/mL 200-1100 19 B12/Folate Panel [address] B12,[place] [address] [phone] Folate,Serum >24.0 NG/ML 20 TSH & T4,Free 01/12/2016 [facility] TSH 1.97 mIU/L 0.40-4.[address] [place] [address] [phone] T4,Free 1.1 ng/dL 0.8-1.8 Laboratory test finding 01/12/2016 [facility] Glucose 99 mg/dL 65-[address] [place] [address] [phone] Hemoglobin A1c 5.3 % 0.0-5.6 22 BMP W/O Egfr 10/28/2015 [facility] Sodium 137 mmol/L N 050-[address] [place] [address] [phone] Potassium 4.9 mmol/L N 3.5-5.0 Chloride 101 mmol/L N 101-111 Co2 Carbon Dioxide 29 mmol/L N 22-32 Anion Gap 7 mmol/L N 2-11 Glucose 97 mg/dL N 70-100 Blood Urea Nitrogen 19 mg/dL N 6-24 Creatinine 0.98 mg/dL N 0.67-1.17 BUN/Creatinine Ratio 19.4 N 8-20 Egfr Non- 77.2 N >60 Egfr 99.3 N >60 23 Laboratory test 10/28/2015 [facility] Calcium 9.6 mg/dL N 8.6- 10.[address] [place] [address] [phone] Urine Screen 08/17/2015 [facility] Urine Color YELLOW Yellow [address] [place] [address] [phone] Urine Clarity CLEAR Clear Urine Glucose - Dipstick NEGATIVE mg/dL Negative Urine Bilirubin - Dipstick NEGATIVE Negative Urine Ketone NEGATIVE mg/dL Negative Urine Specific [place] 1.015 1.010-1.030 Urine Blood NEGATIVE Negative Urine PH 6.0 Low 6.5-7.5 Urine Protein - Dipstick NEGATIVE mg/dL Negative Urine Urobilinogen - Dipstick 0.2 E.U./dL 0.2-1.0 Urine Nitrite - Dipstick NEGATIVE Negative Urine Leuk Esterase NEGATIVE Negative Chlamydia/GC Lakshmi, 08/17/2015 [facility] Chlamydia Negative Urine [address] Trachomatis,[place] [address] -Lakshmi [phone] Neisseria Gonorrhoeae,Ur -Lakshmi Negative 24 Basic Metabolic Panel 03/17/2015 [facility] Glucose 93 mg/dL 74-[address] [place], [place] [address] [phone] BUN 14 mg/dL 7-18 Creatinine 0.9 mg/dL 0.6-1.3 Glom Filtration Rate, Estimate >60 mL/min >60 If >60 mL/min >60 25 BUN/Creat 15.5 ratio Sodium 138 mmol/L 136-145 Potassium 4.4 mmol/L 3.5-5.1 Chloride 103 mmol/L 98-107 Carbon Dioxide 29 mmol/L 21-32 Anion Gap 6 mEq/L Low 8-16 Calcium 8.3 mg/dL Low 8.5-10.1 Laboratory test 03/17/2015 [facility] Thyroid Stim 1.70 uIU/mL 0.36-3.[address] [place] [place] [address] [phone] Free T4 0.78 ng/dL 0.76-1.46 Testosterone,Serum 03/17/2015 [facility] Testosterone, Serum [phone] ng/[place] [address] [phone] Comment See Note 26 Hemoglobin/Hematocrit 03/17/2015 [facility] Hemoglobin 14.9 12.8-17.[address] gm/[place] [address] [phone] Hematocrit 43.6 % 38.0-48.0 LDL Cholesterol 12/26/2014 [facility] Cholesterol 218 mg/dL < 200 [address] [place] [address] [phone] Triglycerides 64 mg/dL < 150 28 HDL Cholesterol 93 mg/dL > 40 29 LDL-Cholesterol 112 mg/dL < 100 30 Laboratory test 12/26/2014 [facility] Prostate 2.80 ng/mL [address] Specific Antigen [place] [id number] [phone] Lipid Panel 06/05/2013 [facility] Cholesterol 271 mg/dL High 125-[address] [place] [address] [phone] HDL Cholesterol 74 mg/dL > Or=40 Cholesterol/HDL Ratio 3.7 < Or=5.0 LDL Chol,Calculated 148 mg/dL High <130 33 Triglycerides 246 mg/dL High <150 Non-HDL Cholesterol 197 mg/dL High 34 Laboratory 06/05/2013 [facility] Testosterone,Total,LC/MS/MS 490 250- 1100 35 test finding [address] ng/[place] [address] [phone] PSA,Total 1.8 NG/ML 0.0-4.0 36 BMP W/O Egfr 06/05/2013 [facility] Sodium 137 mmol/L 135-[address] [place] [address] [phone] Potassium 4.5 mmol/L 3.5-5.3 Chloride 100 mmol/L 98-110 Carbon Dioxide 28 mmol/L 19-30 Calcium 9.4 mg/dL 8.6-10.3 Glucose 91 mg/dL 65-99 37 Urea Nitrogen 14 mg/dL 7-25 Creatinine 1.05 mg/dL 0.70-1.25 38 BUN/Creatinine Ratio 13.3 6-22 Lipid Panel 05/09/2013 [facility] Cholesterol 277 mg/dL High 125-[address] [place], [place] [address]69 [phone] HDL Cholesterol 41 mg/dL > Or=40 Cholesterol/HDL Ratio 6.8 High < Or=5.0 LDL Chol,Calculated (SEE NOTE) mg/dL 39 Triglycerides 1672 mg/dL High <150 40 Non-HDL Cholesterol 236 mg/dL High 41 Laboratory test 08/09/2012 [facility] Rectal Mucosa See Note [address] [place] [address] [phone] Laboratory test 07/02/2012 [facility] Direct LDL 101 mg/dL <130 [address] [place] [address] [phone] Comprehensive 06/03/2012 [facility] Glucose 96 mg/dL 76-115 Metabolic Panel [address] [place] [address] [phone] BUN 12 mg/dL 5-23 Creatinine 0.9 mg/dL [...] Phosphatase 72 U/L 50-136 Laboratory test 06/03/2012 [facility] Lipase 129 U/L 28-[address] [place], [place] [address] [phone] CBC W/Automated 06/03/2012 [facility] White Blood 6.4 K/uL 3.4-10.[address] Count [place], [place] [address] [phone] Red Blood Count 4.87 M/uL 4.20-5.80 Hemoglobin 15.5 gm/dL 12.8-17.0 Hematocrit 44.4 % 38.0-48.0 Mean Cell Volume 91.2 fl 80.0-96.0 Mean Corpuscular HGB 31.8 pg 27.0-33.0 Mean Corpuscular HGB Conc 34.9 g/dL 31.7-36.0 Platelet Count 210 K/uL 150-400 Red Cell Distri Width SD 41.2 fl 36-51 Red Cell Distri Width %CV 12.7 % 11.6-15.8 Mean Platelet Volume 11.1 fL High 6.6-10.6 Differential-WBC 06/03/2012 [facility] Total Cells 100 #CELLS Confirm [address] Counted [place], [place] [address] [phone] Neutrophils% 65 % 33-73 Lymph% 11 % Low 17-56 Atypical Lymph% 11 % High 0-7 Monocyte% 8 % 0-10 Eosinophil% 5 % 0-5 Platelet Estimate NORMAL RBC Morphology NORMAL Urine Screen 06/03/2012 [facility] Urine Color YELLOW Yellow [address] [place] [address] [phone] Urine Clarity CLEAR Clear Urine Glucose - Dipstick NEGATIVE mg/dL Negative Urine Bilirubin - Dipstick NEGATIVE Negative Urine Ketone NEGATIVE mg/dL Negative Urine Specific [place] <=1.005 Low 1.010-1.030 Urine Blood NEGATIVE Negative Urine PH 5.0 Low 6.5-7.5 Urine Protein - Dipstick NEGATIVE mg/dL Negative Urine Urobilinogen - Dipstick 0.2 E.U./dL 0.2-1.0 Urine Nitrite - Dipstick NEGATIVE Negative Urine Leuk Esterase NEGATIVE Negative Laboratory 03/30/2012 [facility] Testosterone,Total,LC/MS/MS 441 758- 1100 45 test finding [address] ng/[place] [address] [phone] Comp 03/30/2012 [facility] Sodium 138 135-[address] mmol/[place] [address] [phone] Potassium 4.5 mmol/L 3.5-5.3 Chloride 103 mmol/L [...] 1.9-3.7 A/G Ratio 1.8 1.0-2.5 Egfr Non-Afr. Czech 86 ML/MIN/1.73M2 > Or=60 Egfr 100 ML/MIN/1.73M2 > Or=60 CBC W/ Diff & PLT 03/30/2012 [facility] WBC 9.4 thous/L 3.8-10.[address] [place] [address] [phone] RBC 4.36 mill/L 4.20-5.80 Hemoglobin 13.8 g/dL 13.2-17.1 Hematocrit 41.0 % 38.5-50.0 MCV 93.9 FL 80.0-100.0 MCH 31.5 pg 27.0-33.0 MCHC 33.6 g/dL 32.0-36.0 RDW 13.5 % 11.0-15.0 Platelet Count 198 thous/L 140-400 Neutrophils,Absolute 7000 cells/L [phone] Lymphocytes,Absolute 1310 cells/L 850-3900 Monocytes,Absolute 790 cells/L 200-950 Eosinophils,Absolute 220 cells/L 15-500 Basophils,Absolute 30 cells/L 0-200 Total Neutrophils,% 75 % 38-80 Total Lymphocytes,% 14 % 15-49 Monocytes,% 8 % 0-13 Eosinophils,% 2 % 0-8 Basophils,% 0 % 0-2 TSH & T4,Free 03/30/2012 [facility] TSH 1.81 mIU/L 0.40-4.[address] [place], [place] [address] [phone] T4,Free 1.1 ng/dL 0.8-1.8 48 Laboratory test 03/30/2012 [facility] PSA,Total 1.8 NG/ML 0.0-4.0 [address] [place] [address] [phone] Laboratory test 08/01/2011 [facility] LDL 101 mg/dL <130 [address] Cholesterol,[place] [address] [phone] Hepatic Function 08/01/2011 [facility] Alkaline 56 U/L 40-[address] [place] [address] [phone] Ast 32 U/L 10-35 Alt 36 U/L 9-60 Bilirubin,Total 0.8 mg/dL 0.2-1.2 Bilirubin,Direct 0.2 mg/dL < Or=0.2 Protein,Total 6.3 g/dL 6.2-8.3 Albumin 4.3 g/dL 3.6-5.1 Globulin,Calculated 2.0 g/dL Low 2.1-3.7 A/G Ratio 2.1 1.0-2.1 Lipid Panel 05/03/2011 [facility] Cholesterol 235 mg/dL High 125-[address] [place] [address] [phone] HDL Cholesterol 70 mg/dL > Or=40 Cholesterol/HDL Ratio 3.4 < Or=5.0 LDL Chol,Calculated 133 mg/dL High <130 51 Triglycerides 161 mg/dL High <150 Hepatic Function 05/03/2011 [facility] Alkaline Phosphatase 57 U/L 40- [address] [place] [address] [phone] Ast 31 U/L 10-35 Alt 34 U/L 9-60 Bilirubin,Total 0.6 mg/dL 0.2-1.2 Bilirubin,Direct 0.1 mg/dL < Or=0.2 Protein,Total 6.6 g/dL 6.2-8.3 Albumin 4.5 g/dL 3.6-5.1 Globulin,Calculated 2.1 g/dL 2.1-3.7 A/G Ratio 2.1 1.0-2.1 Laboratory 01/05/2011 [facility] LDL Cholesterol,Direct 117 <130 52 test finding [address] mg/dL [place], [place] [address]38 [phone] Hepatic 01/05/2011 [facility] Alkaline Phosphatase 51 U/L 40-115 Function Panel [address] [place] [address] [phone] Ast 31 U/L 10-35 Alt 28 U/L 9-60 Bilirubin,Total 0.6 mg/dL 0.2-1.2 Bilirubin,Direct 0.1 mg/dL < Or=0.2 Protein,Total 6.4 g/dL 6.2-8.3 Albumin 4.4 g/dL 3.6-5.1 Globulin,Calculated 2.0 g/dL Low 2.1-3.7 A/G Ratio 2.1 1.0-2.1 Laboratory test 11/03/2010 [facility] PSA,Total 1.4 NG/ML 0.0-4.0 [address] [place], [place] [address] [phone] Lipid Panel 11/03/2010 [facility] Cholesterol 293 mg/dL High 125-[address] [place] [address] [phone] HDL Cholesterol 69 mg/dL > Or=40 Cholesterol/HDL Ratio 4.2 < Or=5.0 LDL Chol,Calculated 156 mg/dL High <130 54 Triglycerides 338 mg/dL High <150 TSH & T4,Free 11/03/2010 [facility] TSH,3RD 1.80 mIU/L 0.40-4.[address] [place] [address] [phone] T4,Free 1.2 ng/dL 0.8-1.8 Comp Metabolic Panel 11/03/2010 [facility] Sodium 140 mmol/L 135-[address] [place] [address] [phone] Potassium 4.6 mmol/L 3.5-5.3 Chloride 104 mmol/L [...] 2.1-3.7 A/G Ratio 1.8 1.0-2.1 Egfr Non-Afr. Czech 95 ML/MIN/1.73M2 > Or=60 Egfr 110 ML/MIN/1.73M2 > Or=60 CBC W/ Diff & PLT 11/03/2010 [facility] WBC 5.1 thous/L 3.8-10.[address] [place], [place] [address]13 [phone] RBC 4.66 mill/L 4.20-5.80 Hemoglobin 15.0 g/dL 13.2-17.1 Hematocrit 44.3 % 38.5-50.0 MCV 95.0 FL 80.0-100.0 MCH 32.2 pg 27.0-33.0 MCHC 33.9 g/dL 32.0-36.0 RDW 13.9 % 11.0-15.0 Platelet Count 205 thous/L 140-400 Neutrophils,Absolute 2760 cells/L [phone] Lymphocytes,Absolute 1520 cells/L 850-3900 Monocytes,Absolute 590 cells/L 200-950 Eosinophils,Absolute 170 cells/L 15-500 Basophils,Absolute 30 cells/L 0-200 Total Neutrophils,% 54 % 38-80 Total Lymphocytes,% 30 % 15-49 Monocytes,% 12 % 0-13 Eosinophils,% 3 % 0-8 Basophils,% 1 % 0-2 Laboratory test 11/03/2009 [facility] PSA,Total 1.3 NG/ML 0.0-4.0 [address] [place] [address] [phone] Lipid Panel 11/03/2009 [facility] Cholesterol 249 mg/dL High 125-[address] [place] [address] [phone] HDL Cholesterol 75 mg/dL > Or=40 Triglycerides 208 mg/dL High <150 Cholesterol/HDL Ratio 3.3 < Or=5.0 LDL Chol,Calculated 132 mg/dL High <130 57 TSH & T4,Free 11/03/2009 [facility] TSH,3RD 3.76 mIU/L 0.40-4.[address] Generation [place], [place] [address] [phone] T4,Free 0.9 ng/dL 0.8-1.8 Lipid Panel 05/11/2009 [facility] Cholesterol 268 mg/dL High 125-[address] [place], [place] [address] [phone] HDL Cholesterol 77 mg/dL > Or=40 Triglycerides 119 mg/dL <150 Cholesterol/HDL Ratio 3.5 < Or=5.0 LDL Chol,Calculated 167 mg/dL High <130 58 Comp Metabolic Panel 11/06/2008 [facility] Sodium 138 mmol/L 135-[address] [place], [place] [address] [phone] Potassium 4.3 mmol/L 3.5-5.3 Chloride 103 mmol/L [...] 2.1-3.7 A/G Ratio 1.9 1.0-2.1 Egfr Non-Afr. Czech >60 ML/MIN/1.73M2 > Or=60 Egfr >60 ML/MIN/1.73M2 > Or=60 CBC W/ Diff & PLT 11/06/2008 [facility] WBC 9.1 thous/L 3.8-10.8 [address] [facility] [place] [address] [phone] RBC 4.70 mill/L 4.20-5.80 Hemoglobin 14.9 g/dL 13.2-17.1 Hematocrit 43.7 % 38.5-50.0 MCV 92.9 FL 80.0-100.0 MCH 31.7 pg 27.0-33.0 MCHC 34.2 g/dL 32.0-36.0 RDW 13.8 % 11.0-15.0 Platelet Count 210 thous/L 140-400 Platelet Sufficiency NORMAL Normal Neutrophils,Absolute 6420 cells/L 1244-5680 Bands,Absolute DNR cells/L 0-750 Metamyelocytes,Absolute DNR cells/L [...] Lab Cholesterol 223 mg/dL High 125-200 [address] [facility] [place] [address] [phone] HDL Cholesterol 68 mg/dL > Or=40 Triglycerides 196 mg/dL High <150 Cholesterol/HDL Ratio 3.3 < Or=5.0 LDL Chol,Calculated 116 mg/dL <130 60 Laboratory test 11/06/2008 [facility] PSA,Total 1.6 NG/ML 0.0-4.0 [address] [place] [address] [phone] TSH & T4,Free 11/06/2008 [facility] TSH,3RD 3.41 mU/L 0.40-4.[address] Generation [place] [address]686 [phone] T4,Free 0.9 ng/dL 0.8-1.8 Laboratory test 01/19/2007 [facility] Ferritin 61 NG/ML 20-[address] [place] [address] [phone] Hepatic Function 01/19/2007 [facility] Alkaline 52 U/L 40-[address] [place] [address] [phone] Ast 35 U/L 10-35 Alt 35 U/L 9-60 Bilirubin,Total 1.0 mg/dL 0.2-1.2 Bilirubin,Direct 0.2 mg/dL < Or=0.2 Protein,Total 6.9 g/dL 6.2-8.3 Albumin 4.4 g/dL 3.6-5.1 Lipid Panel 01/19/2007 [facility] Cholesterol 234 mg/dL High 125-[address] [place] [address] [phone] HDL Cholesterol 83 mg/dL > Or=40 62 Cholesterol/HDL Ratio 2.8 < Or=5.0 LDL Chol,Calculated 125 mg/dL <130 63 Triglycerides 131 mg/dL <150 Hepatic Function 09/25/2006 [facility] Alkaline Phosphatase 46 U/L 40- [address] [place] [address] [phone] Ast 33 U/L 10-35 Alt 31 U/L 9-60 Bilirubin,Total 0.8 mg/dL 0.2-1.2 Bilirubin,Direct 0.2 mg/dL < Or=0.2 Protein,Total 6.7 g/dL 6.2-8.3 Albumin 4.2 g/dL 3.6-5.1 Lipid Panel 09/25/2006 [facility] Cholesterol 188 mg/dL 125-[address] [place] [address] [phone] HDL Cholesterol 86 mg/dL > Or=40 64 Triglycerides 121 mg/dL <150 Cholesterol/HDL Ratio 2.2 < Or=5.0 LDL Chol,Calculated 78 mg/dL <130 65 Lipid Panel 06/21/2006 [facility] Cholesterol 262 mg/dL High 125-[address] [place], [place] [address]12182 [phone] HDL Cholesterol 76 mg/dL > Or=40 66 Cholesterol/HDL Ratio 3.4 < Or=5.0 LDL Chol,Calculated 171 mg/dL High <130 67 Triglycerides 76 mg/dL <150 Hepatic Function 06/21/2006 [facility] Alkaline Phosphatase 43 U/L 40- 115 Panel [address] [facility]. [place], [place] [address] [phone] Ast 30 U/L 10-35 Alt 29 U/L 9-60 Bilirubin,Total 0.6 mg/dL 0.2-1.2 Bilirubin,Direct 0.1 mg/dL < Or=0.2 Protein,Total 6.9 g/dL 6.2-8.3 Albumin 4.5 g/dL 3.6-5.1 Lipid Panel 05/08/2006 [facility] Cholesterol 270 mg/dL High <200 [address] [facility]. [place], [place] [address] [phone] HDL Cholesterol 78 mg/dL >40 68 Cholesterol/HDL Ratio 3.5 <5.0 LDL Chol,Calculated 158 mg/dL High <130 69 Triglycerides 170 mg/dL High <150 Laboratory test 05/08/2006 [facility] PSA,Total 1.6 NG/ML 0.0-4.0 [address] [place], [place] 333[address]54 [phone] TSH+Free T4 05/08/2006 [facility] TSH 2.90 mU/L 0.40-5.50 ([place] [facility]) [address] [place], [place] [address] [phone] T4,Free 0.9 ng/dL 0.8-1.8 Comp Metabolic Panel 05/08/2006 [facility] Sodium 140 mmol/L 135-[address] [place] [address] [phone] Potassium 4.5 mmol/L 3.5-5.3 Chloride 104 mmol/L [...] [facility] WBC 8.1 thous/L 3.8-10.8 [address] [place] [address] [phone] RBC 4.86 mill/L 4.20-5.80 Hemoglobin 15.5 g/dL 13.2-17.1 Hematocrit 44.1 % 38.5-50.0 MCV 90.7 FL 80.0-100.0 MCH 31.8 pg 27.0-33.0 MCHC 35.1 g/dL 32.0-36.0 RDW 13.2 % 11.0-15.0 Platelet Count 227 thous/L 140-400 Platelet Sufficiency NORMAL Normal Neutrophils,Absolute 5200 cells/L 7027-8005 Bands,Absolute DNR cells/L 0-750 Metamyelocytes,Absolute DNR cells/L [...] levels of PSA measured using the [employer] DXI Hybritech immunoassay should not be interpreted [...] 130-159 High: 160-189 Very High: >189 11 [employer] Wire[employer]: [id number] Desirable: <100 Near Optimal: 100-129 Borderline [...] years old. Performed at: RN - [facility] [address] [id number] [employer] Person: Marilyn Grace MD, Phone: [phone] Reference Guidelines*: Desirable: ........... < 200 [...] more information on this test, go to [email or web address] 36 THIS TEST WAS PERFORMED USING THE [employer] CHEMILUMINESCENT METHOD. VALUES OBTAINED FROM DIFFERENT ASSAY METHODS CANNOT BE USED INTERCHANGEABLY. PSA LEVELS, REGARDLESS OF VALUE, SHOULD NOT BE INTERPRETED ABSOLUTE EVIDENCE OF THE PRESENCE OR ABSENCE OF DISEASE. 37 GLUCOSE REFERENCE RANGE BASED ON FASTING SPECIMEN. 38 The upper reference limit for Creatinine is approximately 13% higher for people identified as -Czech. 39 LDL cholesterol not calculated. Triglyceride levels [...] dimension. Submitted in toto in one block. [employer] MICROSCOPIC Sections show colonic mucosa lined by [...] more information on this test, go to [email or web address] 46 GLUCOSE REFERENCE RANGE BASED ON FASTING SPECIMEN. 47 The upper reference limit for Creatinine is approximately 13% higher for people identified as -Czech. 48 THE CURRENT LOT OF FREE T4 REAGENT AVAILABLE FROM THE AUTOMATIC RIVETING MACHINE OPERATOR PRODUCES RESULTS THAT ARE APPROXIMATELY 9% [...] 53 THIS TEST WAS PERFORMED USING THE [employer] CHEMILUMINESCENT METHOD. VALUES OBTAINED FROM DIFFERENT ASSAY [...] INTERCHANGEABLY. THIS ASSAY WAS PERFORMED USING THE [employer] CHEMILUMINESCENCE METHOD. SERUM PSA LEVELS SHOULD NOT [...] INTERCHANGEABLY. THIS ASSAY WAS PERFORMED USING THE [employer] CHEMILUMINESCENCE METHOD. SERUM PSA LEVELS SHOULD NOT [...] FOR RACE, IF THE PATIENT RACE IS -JORDAN[place], THE GFR ESTIMATE MUST BE MULTIPLIED BY A FACTOR OF 1.21. Procedures Date Code Description Status 02/27/2018 97353 Non-Invcorrotid/Comp /Bilat Study Completed 02/26/2018 36775 Echocardiography Completed 02/20/2018 75689 Spirometry Graphic Record/Max Voluntary Vent Completed 02/20/2018 27351 EKG-Tracing & Report Completed 02/19/2018 56919 PVR-Atrerial Study Completed 02/19/2018 41675 Holter Monitor Office Completed 02/16/2017 90015 PVR-Atrerial Study Completed 02/16/2017 45967 EKG-Tracing & Report Completed 02/15/2017 50024 Spirometry Graphic Record/Max Voluntary Vent Completed 02/15/2017 69643 Holter Monitor Office Completed 02/02/2017 12582 Echocardiography Completed 02/02/2017 08259 Non-Invcorrotid/Comp /Bilat Study Completed 03/18/2015 04158 EKG-Tracing & Report Completed 03/17/2015 35421 Holter Monitor Office Completed 03/05/2015 66325 Non-Invcorrotid/Comp /Bilat Study Completed 03/05/2015 14476 Echocardiography Completed 12/26/2014 00617 EKG-Tracing & Report Completed 05/09/2013 87284 Spirometry Graphic Record/Max Voluntary Vent Completed 05/09/2013 43842 EKG-Tracing & Report Completed 04/15/2013 05066 Non-Invcorrotid/Comp /Bilat Study Completed 04/15/2013 35833 Echocardiography Completed 08/09/2012 [id number] Colonoscopy Completed 04/02/2012 10737 EKG-Tracing & Report Completed 03/29/2012 56345 Echocardiography Completed 03/29/2012 62414 Non-Invcorrotid/Comp /Bilat Study Completed 11/11/2010 [id number] Bone Mineral Density Test Completed 11/11/2010 79569 Bone Density Completed 11/04/2010 99229 EKG-Tracing & Report Completed 11/03/2010 89842 Spirometry Graphic Record/Max Voluntary Vent Completed 11/03/2010 15398 Holter Monitor Office Completed 11/03/2009 03464 EKG-Tracing & Report Completed 11/03/2009 34677 Echocardiography Completed 11/03/2009 59779 Non-Invcorrotid/Comp /Bilat Study Completed 11/06/2008 52037 PFT Evaluation Completed 11/06/2008 91521 Holter Monitor Office Completed 11/06/2008 26192 EKG-Tracing & Report Completed 11/05/2008 59215 Non-Invcorrotid/Comp /Bilat Study Completed 11/05/2008 09978 Echocardiography Completed 05/09/2006 72948 Bone Density Completed 05/08/2006 30239 EKG-Tracing & Report Completed 04/18/2006 31838 Doppler Color Flow Velocity Completed 04/18/2006 14515 Doppler/ECHO Completed 04/18/2006 80984 ECHO-2D W/Wo M-Mode Completed 09/05/2003 81931 Spirometry Graphic Record/Max Voluntary Vent Completed 09/05/2003 15805 EKG-Tracing & Report Completed Encounters Type Date [...] Failure Office Visit 07/10/2006 1:40p Main Office Gauss, [place] 272.40 Hyperlipidemia 402.10 Hypertensive Heart Disease Benign W/O Heart Failure Office Visit 05/17/2006 1:30p Main Office Arnaldo [place] 733.00 Osteoporosis Unspec 402.10 Hypertensive Heart Disease Benign W/O Heart Failure 272.40 Hyperlipidemia Office Visit 04/12/2006 10:20a Main Office ArnaldoJaspall 733.00 Osteoporosis Unspec 272.40 Hyperlipidemia 402.10 Hypertensive [...] follow up symptomatically and with MOIRA yearly liomidrnM76.33 Obstructive sleep apnea (adult) (pediatric)Comments:snoring and increased pulm artery pressure ---refer for niapjqiK69.0 Nonrheumatic mitral (valve) insufficiencyComments:Issues of symptoms and [...] suppliers and Respiratory Therapy reviewed.F52.21 Male erectile vbehkcaaU29.00 Encounter for general adult medical examination without abnormal findingsComments:DISCUSSED AGE APPROPRIATE RISK FACTORS AND SCREENING.Z23 Encounter for immunizationComments:Vaccination reviewed and updates given as appropriate.
--- OUTSIDE RECORDS SUMMARY | 2018-08-21 11:07 | XMS REPORT | Continuity of Care Document ---
:1950 External Reference #:[id number] Author Name Ashley Chaidez Care Team Providers Name Role Phone Gary Mcintosh MD Primary Care Physician Unavailable Payers Date Identification Numbers Payment Provider Subscriber Policy Number: [id number] Medicare Rob Chaudhary PayID: [id number] [address] [place] [address] Effective: 1993 Policy Number: [id number] [facility] Rob Chaudhary Group Number: [id number] [address] PayID: [id number] [place] [address] Problems Active Problems Provider Date Mitral valve [...] 1units Gary Mcintosh 05/05/2015 - ordered 03/19/2018 65618Xcd/0.65ML Solution Rec Amoxicillin/Clavulana 1 by mouth twice [...] 81 Gary Mcintosh 02/05/2007 - 81mg 11/18/2008 [facility] Gary Mcintosh 11/29/2006 - 05/05/2015 Zetia 1 PO qd 90tabs Gary Mcintosh 07/10/2006 - 10mg Tablets 11/18/2008 Lipitor 1 po qd 90tabs 272.40 Gary Mcintosh 05/17/2006 - 20mg Tablets 07/10/2006 [facility] Wart 1 po qd Gary Mcintosh 09/07/2005 - 09/07/2005 Multivitamins Gary Mcintosh 09/07/2005 - Caplets 01/12/2015 Amoxicillin 2 po bid 40tabs 466.0 Jaspal Mcintoshl 09/07/2005 - 500mg 2005 Tablets Nystatin-Triamcinolon apply affected Unknown - e area as 01/17/2017 386988-2.1Unit/GM-% indicated twice Cream a day Medications Administered in Office Medication SIG Qnty Indications Ordering Provider Date H1N1 Administration-Use Gary Mcintosh 01/26/2009 Injection Immunizations CPT Code Status Date Vaccine Lot # [id number] Given 03/19/2018 Influenza Virus (Afluria) Split Virus 3 Years [id number] Of Age And Older 42916 Given 03/19/2018 Pneumovax Polyvalent Inj Im [id number] Q2035 Given 01/17/2017 Influenza Virus (Afluria) Split Virus 3 Years Of Age And Older 42244 Given 06/03/2015 Zostavax 10860 Given 11/23/2010 Tetanus,Diphtheria,Adut/Adol Pertussis [id number] 12450 Given 11/23/2010 Tetanus Shot 88721 Given 12/17/2009 Influenza Vaccine 89371 Given 12/11/2008 Influenza Vaccine [id number] 03622 Given 04/01/2003 Influenza Virus Vaccine (History Only) 45881 Given 11/23/2001 DT Immunization DIP/Tet (History Only) [...] Result H/L Range Note Laboratory test 07/30/2018 [email or web address] Testosterone 265.81 N 240 -[address] Total ng/dL [place], [place] [address] [phone] PSA Screening 4.197 ng/mL High 0-4.000 1 CBC No Diff 07/30/2018 [email or web address] White Blood 9.2 10^3/uL N 3.5 -10.[address] Count [place], [place] [address] [phone] Red Blood Count 4.78 10^6/uL N 4.18-5.48 Hemoglobin 14.8 g/dL N 14.0-18.0 Hematocrit 44 % N 42-52 Mean Corpuscular Volume 92 fL N 80-94 Mean Corpuscular Hemoglobin 31 pg N 27-31 Mean Corpuscular HGB Conc 34 g/dL N 31-36 Red Cell Distribution Width 13 % N 10.5-15 Platelet Count 191 10^3/uL N 150-450 Mean Platelet Volume 10.7 fL High 7.4-10.4 .TSH+Free T4 07/30/2018 [email or web address] TSH (Thyroid 1.63 mcIU/mL N 0.34-5.60 ([place] & [address] Stim Horm) [facility] [place] [address] [phone] Free T4 (Free Thyroxine) 0.68 ng/dL N 0.61-1.12 Comp Metabolic Panel 07/30/2018 [email or web address] Sodium 140 mmol/L N [phone] [place] [address] [phone] Potassium 4.4 mmol/L N 3.5-5.0 Chloride 104 [...] Egfr 97.5 >60 2 Lipid Profile 07/30/2018 [email or web address] Triglycerides 132 mg/dL 3 (Trig/Chol/HDL) [address] [place] [address] [phone] Cholesterol 266 mg/dL 4 HDL Cholesterol 80.2 mg/dL 5 LDL Cholesterol 159 mg/dL 6 Lipid Profile 02/20/2018 [email or web address] Triglycerides 278 mg/dL 7 (Trig/Chol/HDL) [address] [place] [address] [phone] Cholesterol 296 mg/dL 8 HDL Cholesterol 79.9 mg/dL 9 LDL Cholesterol 161 mg/dL 10 Liver Function 02/20/2018 [email or web address] Total Protein 6.5 g/dL N 6.4-8.9 Panel [address] [place] [address] [phone] Albumin 4.4 g/dL N 3.2-5.2 Globulin 2.1 g/dL N 2-4 Albumin/Globulin Ratio 2.1 N 1-3 Total Bilirubin 0.80 mg/dL N 0.2-1.0 Direct Bilirubin 0.10 mg/dL N 0.03-0.18 Indirect Bilirubin 0.7 mg/dL N 0.3-1.0 Alkaline Phosphatase 48 U/L N 34-104 Alt 27 U/L N 7-52 Ast 26 U/L N 13-39 Laboratory test 08/04/2017 [email or web address] Rapid Strep Negative Negative 11 finding [address] [place] [address] [phone] Laboratory test 02/02/2017 [email or web address] TSH (Thyroid 1.84 mcIU/mL N 0.34-5.60 finding [address] [place]) [place] [address] [phone] LDL Cholesterol Direct 107 mg/dL 12 Free T4 (Free Thyroxine) 0.75 ng/dL N 0.61-1.12 Basic Metabolic Panel 02/02/2017 [email or web address] Sodium 138 mmol/L N [phone] [place] [address] [phone] Potassium 4.6 mmol/L N 3.5-5.0 Chloride 103 mmol/L N 101-111 Co2 Carbon Dioxide 29 mmol/L N 22-32 Anion Gap 6 mmol/L N 2-11 Glucose 94 mg/dL N 70-100 Blood Urea Nitrogen 16 mg/dL N 6-24 Creatinine 0.95 mg/dL N 0.67-1.17 BUN/Creatinine Ratio 16.8 N 8-20 Calcium 8.8 mg/dL N 8.6-10.3 Egfr Non- 79.8 >60 Egfr 102.6 >60 13 Laboratory test 02/02/2017 [email or web address] Vitamin D Total 20.4 ng/mL N 20-[address]) [place] [address] [phone] Lipid Panel 02/02/2017 [email or web address] Triglycerides 728 mg/dL 14 [address] [place] [address] [phone] Cholesterol 306 mg/dL 15 HDL Cholesterol 60.2 mg/dL 16 LDL Cholesterol (SEE NOTE) mg/dL 17 Laboratory test 02/02/2017 [email or web address] PSA Screening 3.631 ng/mL N 0-4.000 18 finding [address] [place] [address] [phone] Testosterone Total 274.73 ng/dL N 240-950 Vitamin 01/12/2016 [facility] Vitamin 309 pg/mL 200-1100 19 B12/Folate Panel [address] B12,[place] [address] [phone] Folate,Serum >24.0 NG/ML 20 TSH & T4,Free 01/12/2016 [facility] TSH 1.97 mIU/L 0.40-4.[address] [place] [address] [phone] T4,Free 1.1 ng/dL 0.8-1.8 Laboratory test finding 01/12/2016 [facility] Glucose 99 mg/dL 65-[address] [place] [address] [phone] Hemoglobin A1c 5.3 % 0.0-5.6 22 BMP W/O Egfr 10/28/2015 [email or web address] Sodium 137 mmol/L N [phone] [place] [address] [phone] Potassium 4.9 mmol/L N 3.5-5.0 Chloride 101 mmol/L N 101-111 Co2 Carbon Dioxide 29 mmol/L N 22-32 Anion Gap 7 mmol/L N 2-11 Glucose 97 mg/dL N 70-100 Blood Urea Nitrogen 19 mg/dL N 6-24 Creatinine 0.98 mg/dL N 0.67-1.17 BUN/Creatinine Ratio 19.4 N 8-20 Egfr Non- 77.2 N >60 Egfr 99.3 N >60 23 Laboratory test 10/28/2015 [email or web address] Calcium 9.6 mg/dL N 8.6- 10.[address] [place] [address] [phone] Urine Screen 08/17/2015 [facility] Urine Color YELLOW Yellow [address] [place] [address] [phone] Urine Clarity CLEAR Clear Urine Glucose - Dipstick NEGATIVE mg/dL Negative Urine Bilirubin - Dipstick NEGATIVE Negative Urine Ketone NEGATIVE mg/dL Negative Urine Specific [place] 1.015 1.010-1.030 Urine Blood NEGATIVE Negative Urine PH 6.0 Low 6.5-7.5 Urine Protein - Dipstick NEGATIVE mg/dL Negative Urine Urobilinogen - Dipstick 0.2 E.U./dL 0.2-1.0 Urine Nitrite - Dipstick NEGATIVE Negative Urine Leuk Esterase NEGATIVE Negative Chlamydia/GC Lakshmi, 08/17/2015 [facility] Chlamydia Negative Urine [address] Trachomatis,[place] [address] -Lakshmi [phone] Neisseria Gonorrhoeae,Ur -Lakshmi Negative 24 Basic Metabolic Panel 03/17/2015 [facility] Glucose 93 mg/dL 74-[address] [place], [place] [address] [phone] BUN 14 mg/dL 7-18 Creatinine 0.9 mg/dL [...] uIU/mL 0.36-3.[address] [place] [address] [phone] Free T4 0.78 ng/dL 0.76-1.46 Testosterone,Serum 03/17/2015 [facility] Testosterone, Serum [phone] ng/[place] [address] [phone] Comment See Note 26 Hemoglobin/Hematocrit 03/17/2015 [facility] Hemoglobin 14.9 12.8-17.[address] gm/[place] [address] [phone] Hematocrit 43.6 % 38.0-48.0 LDL Cholesterol 12/26/2014 [facility] Cholesterol 218 mg/dL < 200 [address] [place] [address] [phone] Triglycerides 64 mg/dL < 150 28 HDL Cholesterol 93 mg/dL > 40 29 LDL-Cholesterol 112 mg/dL < 100 30 Laboratory test 12/26/2014 [facility] Prostate 2.80 ng/mL [address] Specific Antigen [place] [id number] [phone] Lipid Panel 06/05/2013 [facility] Cholesterol 271 mg/dL High 125-[address] [place] [address] [phone] HDL Cholesterol 74 mg/dL > Or=40 Cholesterol/HDL Ratio 3.7 < Or=5.0 LDL Chol,Calculated 148 mg/dL High <130 33 Triglycerides 246 mg/dL High <150 Non-HDL Cholesterol 197 mg/dL High 34 Laboratory 06/05/2013 [facility] Testosterone,Total,LC/MS/MS 558 250- 1100 35 test finding [address] [place] ng/[place] [address] [phone] PSA,Total 1.8 NG/ML 0.0-4.0 36 BMP W/O Egfr 06/05/2013 [facility] Sodium 137 mmol/L 135-[address] [place] [address] [phone] Potassium 4.5 mmol/L 3.5-5.3 Chloride 100 mmol/L 98-110 Carbon Dioxide 28 mmol/L 19-30 Calcium 9.4 mg/dL 8.6-10.3 Glucose 91 mg/dL 65-99 37 Urea Nitrogen 14 mg/dL 7-25 Creatinine 1.05 mg/dL 0.70-1.25 38 BUN/Creatinine Ratio 13.3 6-22 Lipid Panel 05/09/2013 [facility] Cholesterol 277 mg/dL High 125-[address] [place], [place] [address] [phone] HDL Cholesterol 41 mg/dL > Or=40 Cholesterol/HDL Ratio 6.8 High < Or=5.0 LDL Chol,Calculated (SEE NOTE) mg/dL 39 Triglycerides 1672 mg/dL High <150 40 Non-HDL Cholesterol 236 mg/dL High 41 Laboratory test 08/09/2012 [facility] Rectal Mucosa See Note [address] [place] [address] [phone] Laboratory test 07/02/2012 [facility] Direct LDL 101 mg/dL <130 [address] [place] [address] [phone] Comprehensive 06/03/2012 [facility] Glucose 96 mg/dL 76-115 Metabolic Panel [address] [place] [address] [phone] BUN 12 mg/dL 5-23 Creatinine 0.9 mg/dL [...] 129 U/L 28-[address] [place], [place] [address] [phone] CBC W/Automated 06/03/2012 [facility] White Blood 6.4 K/uL 3.4-10.[address] Count [place], [place] [address] [phone] Red Blood Count 4.87 M/uL 4.20-5.80 Hemoglobin [...] 100 #CELLS Confirm [address] Counted [place], [place] [address] [phone] Neutrophils% 65 % 33-73 Lymph% 11 % Low 17-56 Atypical Lymph% 11 % High 0-7 Monocyte% 8 % 0-10 Eosinophil% 5 % 0-5 Platelet Estimate NORMAL RBC Morphology NORMAL Urine Screen 06/03/2012 [facility] Urine Color YELLOW Yellow [address] [place] [address] [phone] Urine Clarity CLEAR Clear Urine Glucose - Dipstick NEGATIVE mg/dL Negative Urine Bilirubin - Dipstick NEGATIVE Negative Urine Ketone NEGATIVE mg/dL Negative Urine Specific [place]mont <=1.005 Low 1.010-1.030 Urine Blood NEGATIVE Negative Urine PH 5.0 Low 6.5-7.5 Urine Protein - Dipstick NEGATIVE mg/dL Negative Urine Urobilinogen - Dipstick 0.2 E.U./dL 0.2-1.0 Urine Nitrite - Dipstick NEGATIVE Negative Urine Leuk Esterase NEGATIVE Negative Laboratory 03/30/2012 [facility] Testosterone,Total,LC/MS/MS 012 461- 1100 45 test finding [address] [place] ng/[place] [address] [phone] Comp 03/30/2012 [facility] Sodium 138 135-[address] [place] mmol/[place] [address] [phone] Potassium 4.5 mmol/L 3.5-5.3 Chloride 103 mmol/L [...] 1.9-3.7 A/G Ratio 1.8 1.0-2.5 Egfr Non-Afr. Bermudian 86 ML/MIN/1.73M2 > Or=60 Egfr 100 ML/MIN/1.73M2 > Or=60 CBC W/ Diff & PLT 03/30/2012 [facility] WBC 9.4 thous/L 3.8-10.[address] [place] [address] [phone] RBC 4.36 mill/L 4.20-5.80 Hemoglobin 13.8 g/dL 13.2-17.1 Hematocrit 41.0 % 38.5-50.0 MCV 93.9 FL 80.0-100.0 MCH 31.5 pg 27.0-33.0 MCHC 33.6 g/dL 32.0-36.0 RDW 13.5 % 11.0-15.0 Platelet Count 198 thous/L 140-400 Neutrophils,Absolute 7000 cells/L 2547-1784 Lymphocytes,Absolute 1310 cells/L 850-3900 Monocytes,Absolute 790 cells/L 200-950 Eosinophils,Absolute 220 cells/L 15-500 Basophils,Absolute 30 cells/L 0-200 Total Neutrophils,% 75 % 38-80 Total Lymphocytes,% 14 % 15-49 Monocytes,% 8 % 0-13 Eosinophils,% 2 % 0-8 Basophils,% 0 % 0-2 TSH & T4,Free 03/30/2012 [facility] TSH 1.81 mIU/L 0.40-4.[address] [place], [place] [address] [phone] T4,Free 1.1 ng/dL 0.8-1.8 48 Laboratory test 03/30/2012 [facility] PSA,Total 1.8 NG/ML 0.0-4.0 [address] [place] [address] [phone] Laboratory test 08/01/2011 [facility] LDL 101 mg/dL <130 [address] Cholesterol,[place] [address] [phone] Hepatic Function 08/01/2011 [facility] Alkaline 56 U/L 40-[address] [place] [address] [phone] Ast 32 U/L 10-35 Alt 36 U/L 9-60 Bilirubin,Total 0.8 mg/dL 0.2-1.2 Bilirubin,Direct 0.2 mg/dL < Or=0.2 Protein,Total 6.3 g/dL 6.2-8.3 Albumin 4.3 g/dL 3.6-5.1 Globulin,Calculated 2.0 g/dL Low 2.1-3.7 A/G Ratio 2.1 1.0-2.1 Lipid Panel 05/03/2011 [facility] Cholesterol 235 mg/dL High 125-[address] [place] [address] [phone] HDL Cholesterol 70 mg/dL > Or=40 Cholesterol/HDL Ratio 3.4 < Or=5.0 LDL Chol,Calculated 133 mg/dL High <130 51 Triglycerides 161 mg/dL High <150 Hepatic Function 05/03/2011 [facility] Alkaline Phosphatase 57 U/L 40- [address] [place] [address] [phone] Ast 31 U/L 10-35 Alt 34 U/L 9-60 Bilirubin,Total 0.6 mg/dL 0.2-1.2 Bilirubin,Direct 0.1 mg/dL < Or=0.2 Protein,Total 6.6 g/dL 6.2-8.3 Albumin 4.5 g/dL 3.6-5.1 Globulin,Calculated 2.1 g/dL 2.1-3.7 A/G Ratio 2.1 1.0-2.1 Laboratory 01/05/2011 [facility] LDL Cholesterol,Direct 117 <130 52 test finding [address] mg/dL [place], [place] [address]48 [phone] Hepatic 01/05/2011 [facility] Alkaline Phosphatase 51 U/L 40-115 Function Panel [address] [place] [address] [phone] Ast 31 U/L 10-35 Alt 28 U/L 9-60 Bilirubin,Total 0.6 mg/dL 0.2-1.2 Bilirubin,Direct 0.1 mg/dL < Or=0.2 Protein,Total 6.4 g/dL 6.2-8.3 Albumin 4.4 g/dL 3.6-5.1 Globulin,Calculated 2.0 g/dL Low 2.1-3.7 A/G Ratio 2.1 1.0-2.1 Laboratory test 11/03/2010 [facility] PSA,Total 1.4 NG/ML 0.0-4.0 [address] [place], [place] [address] [phone] Lipid Panel 11/03/2010 [facility] Cholesterol 293 mg/dL High 125-[address] [place] [address] [phone] HDL Cholesterol 69 mg/dL > Or=40 Cholesterol/HDL Ratio 4.2 < Or=5.0 LDL Chol,Calculated 156 mg/dL High <130 54 Triglycerides 338 mg/dL High <150 TSH & T4,Free 11/03/2010 [facility] TSH,3RD 1.80 mIU/L 0.40-4.[address] [place] [address] [phone] T4,Free 1.2 ng/dL 0.8-1.8 Comp Metabolic Panel 11/03/2010 [facility] Sodium 140 mmol/L 135-[address] [place] [address] [phone] Potassium 4.6 mmol/L 3.5-5.3 Chloride 104 mmol/L [...] 2.1-3.7 A/G Ratio 1.8 1.0-2.1 Egfr Non-Afr. Bermudian 95 ML/MIN/1.73M2 > Or=60 Egfr 110 ML/MIN/1.73M2 > Or=60 CBC W/ Diff & PLT 11/03/2010 [facility] WBC 5.1 thous/L 3.8-10.[address] [place], [place] 134[address] [phone] RBC 4.66 mill/L 4.20-5.80 Hemoglobin 15.0 g/dL 13.2-17.1 Hematocrit 44.3 % 38.5-50.0 MCV 95.0 FL 80.0-100.0 MCH 32.2 pg 27.0-33.0 MCHC 33.9 g/dL 32.0-36.0 RDW 13.9 % 11.0-15.0 Platelet Count 205 thous/L 140-400 Neutrophils,Absolute 2760 cells/L 5393-7557 Lymphocytes,Absolute 1520 cells/L 850-3900 Monocytes,Absolute 590 cells/L 200-950 Eosinophils,Absolute 170 cells/L 15-500 Basophils,Absolute 30 cells/L 0-200 Total Neutrophils,% 54 % 38-80 Total Lymphocytes,% 30 % 15-49 Monocytes,% 12 % 0-13 Eosinophils,% 3 % 0-8 Basophils,% 1 % 0-2 Laboratory test 11/03/2009 [facility] PSA,Total 1.3 NG/ML 0.0-4.0 [address] [place] [address] [phone] Lipid Panel 11/03/2009 [facility] Cholesterol 249 mg/dL High 125-[address] [place] [address] [phone] HDL Cholesterol 75 mg/dL > Or=40 Triglycerides 208 mg/dL High <150 Cholesterol/HDL Ratio 3.3 < Or=5.0 LDL Chol,Calculated 132 mg/dL High <130 57 TSH & T4,Free 11/03/2009 [facility] TSH,3RD 3.76 mIU/L 0.40-4.[address] [place], [place] [address] [phone] T4,Free 0.9 ng/dL 0.8-1.8 Lipid Panel 05/11/2009 [facility] Cholesterol 268 mg/dL High 125-[address] [place], [place] [address] [phone] HDL Cholesterol 77 mg/dL > Or=40 Triglycerides 119 mg/dL <150 Cholesterol/HDL Ratio 3.5 < Or=5.0 LDL Chol,Calculated 167 mg/dL High <130 58 Comp Metabolic Panel 11/06/2008 [facility] Sodium 138 mmol/L 135-[address] [place], [place] [address] [phone] Potassium 4.3 mmol/L 3.5-5.3 Chloride 103 mmol/L [...] 2.1-3.7 A/G Ratio 1.9 1.0-2.1 Egfr Non-Afr. Bermudian >60 ML/MIN/1.73M2 > Or=60 Egfr >60 ML/MIN/1.73M2 > Or=60 CBC W/ Diff & PLT 11/06/2008 [facility] WBC 9.1 thous/L 3.8-10.8 [address] [facility] [address] [phone] RBC 4.70 mill/L 4.20-5.80 Hemoglobin 14.9 g/dL 13.2-17.1 Hematocrit 43.7 % 38.5-50.0 MCV 92.9 FL 80.0-100.0 MCH 31.7 pg 27.0-33.0 MCHC 34.2 g/dL 32.0-36.0 RDW 13.8 % 11.0-15.0 Platelet Count 210 thous/L 140-400 Platelet Sufficiency NORMAL Normal Neutrophils,Absolute 6420 cells/L 0783-3397 Bands,Absolute DNR cells/L 0-750 Metamyelocytes,Absolute DNR cells/L [...] Lab Cholesterol 223 mg/dL High 125-200 [address] [facility] [place] [address] [phone] HDL Cholesterol 68 mg/dL > Or=40 Triglycerides 196 mg/dL High <150 Cholesterol/HDL Ratio 3.3 < Or=5.0 LDL Chol,Calculated 116 mg/dL <130 60 Laboratory test 11/06/2008 [facility] PSA,Total 1.6 NG/ML 0.0-4.0 [address] [place] [address] [phone] TSH & T4,Free 11/06/2008 [facility] TSH,3RD 3.41 mU/L 0.40-4.[address] [place] [address] [phone] T4,Free 0.9 ng/dL 0.8-1.8 Laboratory test 01/19/2007 [facility] Ferritin 61 NG/ML 20-[address] [place] [address] [phone] Hepatic Function 01/19/2007 [facility] Alkaline 52 U/L 40-[address] [place] [address] [phone] Ast 35 U/L 10-35 Alt 35 U/L 9-60 Bilirubin,Total 1.0 mg/dL 0.2-1.2 Bilirubin,Direct 0.2 mg/dL < Or=0.2 Protein,Total 6.9 g/dL 6.2-8.3 Albumin 4.4 g/dL 3.6-5.1 Lipid Panel 01/19/2007 [facility] Cholesterol 234 mg/dL High 125-[address] [place] [address] [phone] HDL Cholesterol 83 mg/dL > Or=40 62 Cholesterol/HDL Ratio 2.8 < Or=5.0 LDL Chol,Calculated 125 mg/dL <130 63 Triglycerides 131 mg/dL <150 Hepatic Function 09/25/2006 [facility] Alkaline Phosphatase 46 U/L 40- [address] [place] [address] [phone] Ast 33 U/L 10-35 Alt 31 U/L 9-60 Bilirubin,Total 0.8 mg/dL 0.2-1.2 Bilirubin,Direct 0.2 mg/dL < Or=0.2 Protein,Total 6.7 g/dL 6.2-8.3 Albumin 4.2 g/dL 3.6-5.1 Lipid Panel 09/25/2006 [facility] Cholesterol 188 mg/dL 125-[address] [place] [address] [phone] HDL Cholesterol 86 mg/dL > Or=40 64 Triglycerides 121 mg/dL <150 Cholesterol/HDL Ratio 2.2 < Or=5.0 LDL Chol,Calculated 78 mg/dL <130 65 Lipid Panel 06/21/2006 [facility] Cholesterol 262 mg/dL High 125-[address] [place], [place] 344[address] [phone] HDL Cholesterol 76 mg/dL > Or=40 66 Cholesterol/HDL Ratio 3.4 < Or=5.0 LDL Chol,Calculated 171 mg/dL High <130 67 Triglycerides 76 mg/dL <150 Hepatic Function 06/21/2006 [facility] Alkaline Phosphatase 43 U/L 40- 115 Panel [address] [facility] [place], [place] [id number] [phone] Ast 30 U/L 10-35 Alt 29 U/L 9-60 Bilirubin,Total 0.6 mg/dL 0.2-1.2 Bilirubin,Direct 0.1 mg/dL < Or=0.2 Protein,Total 6.9 g/dL 6.2-8.3 Albumin 4.5 g/dL 3.6-5.1 Lipid Panel 05/08/2006 [facility] Cholesterol 270 mg/dL High <200 [address] [facility] [place], [place] [address] [phone] HDL Cholesterol 78 mg/dL >40 68 Cholesterol/HDL Ratio 3.5 <5.0 LDL Chol,Calculated 158 mg/dL High <130 69 Triglycerides 170 mg/dL High <150 Laboratory test 05/08/2006 [facility] PSA,Total 1.6 NG/ML 0.0-4.0 [address] [place], [place] [address] [phone] TSH+Free T4 05/08/2006 [facility] TSH 2.90 mU/L 0.40-5.50 ([place] [facility]) [address] [place], [place] [address] [phone] T4,Free 0.9 ng/dL 0.8-1.8 Comp Metabolic Panel 05/08/2006 [facility] Sodium 140 mmol/L 135-[address] [place] [address] [phone] Potassium 4.5 mmol/L 3.5-5.3 Chloride 104 mmol/L [...] [facility] WBC 8.1 thous/L 3.8-10.8 [address] [place] [address] [phone] RBC 4.86 mill/L 4.20-5.80 Hemoglobin 15.5 g/dL 13.2-17.1 Hematocrit 44.1 % 38.5-50.0 MCV 90.7 FL 80.0-100.0 MCH 31.8 pg 27.0-33.0 MCHC 35.1 g/dL 32.0-36.0 RDW 13.2 % 11.0-15.0 Platelet Count 227 thous/L 140-400 Platelet Sufficiency NORMAL Normal Neutrophils,Absolute 5200 cells/L 3248-4235 Bands,Absolute DNR cells/L 0-750 Metamyelocytes,Absolute DNR cells/L [...] levels of PSA measured using the [employer] DXI Hybritech immunoassay should not be interpreted [...] 130-159 High: 160-189 Very High: >189 11 Information Systems Security Manager: [id number] 12 Desirable: <100 Near Optimal: 100-129 Borderline [...] years old. Performed at: RN - [facility] [address] [id number] Imagery Analyst: Marilyn Grace MD, Phone: [phone] Reference Guidelines*: Desirable: ........... < 200 [...] more information on this test, go to http://[email or web address].Keko/faq/ TotalTestosteroneLCMSMS 36 THIS TEST WAS PERFORMED USING THE [employer] CHEMILUMINESCENT METHOD. VALUES OBTAINED FROM DIFFERENT ASSAY METHODS CANNOT BE USED INTERCHANGEABLY. PSA LEVELS, REGARDLESS OF VALUE, SHOULD NOT BE INTERPRETED ABSOLUTE EVIDENCE OF THE PRESENCE OR ABSENCE OF DISEASE. 37 GLUCOSE REFERENCE RANGE BASED ON FASTING SPECIMEN. 38 The upper reference limit for Creatinine is approximately 13% higher for people identified as -Bermudian. 39 LDL cholesterol not calculated. Triglyceride levels [...] more information on this test, go to http://education.Keko/faq/ TotalTestosteroneLCMSMS 46 GLUCOSE REFERENCE RANGE BASED ON FASTING SPECIMEN. 47 The upper reference limit for Creatinine is approximately 13% higher for people identified as -Bermudian. 48 THE CURRENT LOT OF FREE T4 REAGENT AVAILABLE FROM THE ADVERTISING SALES MANAGER PRODUCES RESULTS THAT ARE APPROXIMATELY 9% HIGHER [...] 53 THIS TEST WAS PERFORMED USING THE [employer] CHEMILUMINESCENT METHOD. VALUES OBTAINED FROM DIFFERENT ASSAY [...] INTERCHANGEABLY. THIS ASSAY WAS PERFORMED USING THE [employer] CHEMILUMINESCENCE METHOD. SERUM PSA LEVELS SHOULD NOT [...] INTERCHANGEABLY. THIS ASSAY WAS PERFORMED USING THE [employer] CHEMILUMINESCENCE METHOD. SERUM PSA LEVELS SHOULD NOT [...] FOR RACE, IF THE PATIENT RACE IS -[place], THE GFR ESTIMATE MUST BE MULTIPLIED BY A FACTOR OF 1.21. Procedures Date Code Description Status 02/27/2018 25889 Non-Invcorrotid/Comp /Bilat Study Completed 02/26/2018 62786 Echocardiography Completed 02/20/2018 70694 Spirometry Graphic Record/Max Voluntary Vent Completed 02/20/2018 91209 EKG-Tracing & Report Completed 02/19/2018 56915 PVR-Atrerial Study Completed 02/19/2018 07193 Holter Monitor Office Completed 02/16/2017 51206 PVR-Atrerial Study Completed 02/16/2017 73464 EKG-Tracing & Report Completed 02/15/2017 16867 Spirometry Graphic Record/Max Voluntary Vent Completed 02/15/2017 75030 Holter Monitor Office Completed 02/02/2017 12678 Echocardiography Completed 02/02/2017 70513 Non-Invcorrotid/Comp /Bilat Study Completed 03/18/2015 73455 EKG-Tracing & Report Completed 03/17/2015 74229 Holter Monitor Office Completed 03/05/2015 01590 Non-Invcorrotid/Comp /Bilat Study Completed 03/05/2015 99620 Echocardiography Completed 12/26/2014 65280 EKG-Tracing & Report Completed 05/09/2013 86752 Spirometry Graphic Record/Max Voluntary Vent Completed 05/09/2013 19538 EKG-Tracing & Report Completed 04/15/2013 63033 Non-Invcorrotid/Comp /Bilat Study Completed 04/15/2013 29606 Echocardiography Completed 08/09/2012 [id number] Colonoscopy Completed 04/02/2012 37188 EKG-Tracing & Report Completed 03/29/2012 74878 Echocardiography Completed 03/29/2012 14925 Non-Invcorrotid/Comp /Bilat Study Completed 11/11/2010 [id number] Bone Mineral Density Test Completed 11/11/2010 07207 Bone Density Completed 11/04/2010 75821 EKG-Tracing & Report Completed 11/03/2010 76656 Spirometry Graphic Record/Max Voluntary Vent Completed 11/03/2010 77727 Holter Monitor Office Completed 11/03/2009 57660 EKG-Tracing & Report Completed 11/03/2009 69317 Echocardiography Completed 11/03/2009 62694 Non-Invcorrotid/Comp /Bilat Study Completed 11/06/2008 25697 PFT Evaluation Completed 11/06/2008 31052 Holter Monitor Office Completed 11/06/2008 11603 EKG-Tracing & Report Completed 11/05/2008 37308 Non-Invcorrotid/Comp /Bilat Study Completed 11/05/2008 67546 Echocardiography Completed 05/09/2006 42296 Bone Density Completed 05/08/2006 63030 EKG-Tracing & Report Completed 04/18/2006 77571 Doppler Color Flow Velocity Completed 04/18/2006 10840 Doppler/ECHO Completed 04/18/2006 76372 ECHO-2D W/Wo M-Mode Completed 09/05/2003 54899 Spirometry Graphic Record/Max Voluntary Vent Completed 09/05/2003 74761 EKG-Tracing & Report Completed Encounters Type Date [...] W/O Heart Failure Plan of Treatment Future Appointment(s):08/14/2018 10:30 am - [id number] - Celia Mcintosh40.0 Benign prostatic hyperplasia without lower urinary tract [...] follow up symptomatically and with MOIRA yearly clvktycnI39.33 Obstructive sleep apnea ( adult) (pediatric)Comments:snoring and increased pulm artery pressure ---refer for gfkyugeJ90.0 Nonrheumatic mitral (valve) insufficiencyComments:Issues of symptoms and [...] suppliers and Respiratory Therapy reviewed.F52.21 Male erectile dhekorgzT25.00 Encounter for general adult medical examination without abnormal findingsComments:DISCUSSED AGE APPROPRIATE RISK FACTORS AND SCREENING.Z23 Encounter for immunizationComments:Vaccination reviewed and updates given as appropriate.
--- OUTSIDE RECORDS SUMMARY | 2018-08-21 11:07 | XMS REPORT | Continuity of Care Document ---
:1950 External Reference #:[id number] Author Name Ashley Chaidez Care Team Providers Name Role Phone Gary Mcintosh MD Primary Care Physician Unavailable Payers Date Identification Numbers Payment Provider Subscriber Policy Number: [id number] Medicare Rob Chaudhary PayID: [id number] [address] [place] [address] Effective: 1993 Policy Number: [id number] [facility] Rob Chaudhary Group Number: [id number] [address] PayID: [id number] [place] [address] Problems Active Problems Provider Date Mitral valve [...] 1units Gary Mcintosh 05/05/2015 - ordered 03/19/2018 78887Emp/0.65ML Solution Rec Amoxicillin/Clavulana 1 by mouth twice [...] 81 Gary Mcintosh 02/05/2007 - 81mg 11/18/2008 [facility] Gary Mcintosh 11/29/2006 - 05/05/2015 Zetia 1 PO qd 90tabs Gary Mcintosh 07/10/2006 - 10mg Tablets 11/18/2008 Lipitor 1 po qd 90tabs 272.40 Gary Mcintosh 05/17/2006 - 20mg Tablets 07/10/2006 [facility] Wart 1 po qd Gary Mcintosh 09/07/2005 - 09/07/2005 Multivitamins Gary Mcintosh 09/07/2005 - Caplets 01/12/2015 Amoxicillin 2 po bid 40tabs 466.0 Jaspal Mcintoshl 09/07/2005 - 500mg 2005 Tablets Nystatin-Triamcinolon apply affected Unknown - e area as 01/17/2017 687498-2.1Unit/GM-% indicated twice Cream a day Medications Administered in Office Medication SIG Qnty Indications Ordering Provider Date H1N1 Administration-Use Gary Mcintosh 01/26/2009 Injection Immunizations CPT Code Status Date Vaccine Lot # [id number] Given 03/19/2018 Influenza Virus (Afluria) Split Virus 3 Years [id number] Of Age And Older 06804 Given 03/19/2018 Pneumovax Polyvalent Inj Im [id number] Q2035 Given 01/17/2017 Influenza Virus (Afluria) Split Virus 3 Years Of Age And Older 35509 Given 06/03/2015 Zostavax 20063 Given 11/23/2010 Tetanus,Diphtheria,Adut/Adol Pertussis [id number] 13966 Given 11/23/2010 Tetanus Shot 78137 Given 12/17/2009 Influenza Vaccine 20378 Given 12/11/2008 Influenza Vaccine [id number] 34962 Given 04/01/2003 Influenza Virus Vaccine (History Only) 45614 Given 11/23/2001 DT Immunization DIP/Tet (History Only) [...] Result H/L Range Note Laboratory test 07/30/2018 [facility] Testosterone 265.81 N 240 -[address] Total ng/dL [place], [place] [id number] [phone] PSA Screening 4.197 ng/mL High 0-4.000 1 CBC No Diff 07/30/2018 [facility] White Blood 9.2 10^3/uL N 3.5 -10.[address] Count [place], [place] [id number] [phone] Red Blood Count 4.78 10^6/uL N 4.18-5.48 Hemoglobin 14.8 g/dL N 14.0-18.0 Hematocrit 44 % N 42-52 Mean Corpuscular Volume 92 fL N 80-94 Mean Corpuscular Hemoglobin 31 pg N 27-31 Mean Corpuscular HGB Conc 34 g/dL N 31-36 Red Cell Distribution Width 13 % N 10.5-15 Platelet Count 191 10^3/uL N 150-450 Mean Platelet Volume 10.7 fL High 7.4-10.4 .TSH+Free T4 07/30/2018 [facility] TSH (Thyroid 1.63 mcIU/mL N 0.34-5.60 ([facility] & [address] Stim Horm) [facility] [place] [address] [phone] Free T4 (Free Thyroxine) 0.68 ng/dL N 0.61-1.12 Comp Metabolic Panel 07/30/2018 [facility] Sodium 140 mmol/L N [phone] [place] [address] [phone] Potassium 4.4 mmol/L N 3.5-5.0 Chloride 104 [...] Egfr 97.5 >60 2 Lipid Profile 07/30/2018 [facility] Triglycerides 132 mg/dL 3 (Trig/Chol/HDL) [address] [place] [address] [phone] Cholesterol 266 mg/dL 4 HDL Cholesterol 80.2 mg/dL 5 LDL Cholesterol 159 mg/dL 6 Lipid Profile 02/20/2018 [facility] Triglycerides 278 mg/dL 7 (Trig/Chol/HDL) [address] [place] [address] [phone] Cholesterol 296 mg/dL 8 HDL Cholesterol 79.9 mg/dL 9 LDL Cholesterol 161 mg/dL 10 Liver Function 02/20/2018 [facility] Total Protein 6.5 g/dL N 6.4-8.9 Panel [address] [place] [address] [phone] Albumin 4.4 g/dL N 3.2-5.2 Globulin 2.1 g/dL N 2-4 Albumin/Globulin Ratio 2.1 N 1-3 Total Bilirubin 0.80 mg/dL N 0.2-1.0 Direct Bilirubin 0.10 mg/dL N 0.03-0.18 Indirect Bilirubin 0.7 mg/dL N 0.3-1.0 Alkaline Phosphatase 48 U/L N 34-104 Alt 27 U/L N 7-52 Ast 26 U/L N 13-39 Laboratory test 08/04/2017 [facility] Rapid Strep Negative Negative 11 finding [address] [place] [address] [phone] Laboratory test 02/02/2017 [facility] TSH (Thyroid 1.84 mcIU/mL N 0.34-5.60 finding [address]) [place] [address] [phone] LDL Cholesterol Direct 107 mg/dL 12 Free T4 (Free Thyroxine) 0.75 ng/dL N 0.61-1.12 Basic Metabolic Panel 02/02/2017 [facility] Sodium 138 mmol/L N [phone] [place] [address] [phone] Potassium 4.6 mmol/L N 3.5-5.0 Chloride 103 mmol/L N 101-111 Co2 Carbon Dioxide 29 mmol/L N 22-32 Anion Gap 6 mmol/L N 2-11 Glucose 94 mg/dL N 70-100 Blood Urea Nitrogen 16 mg/dL N 6-24 Creatinine 0.95 mg/dL N 0.67-1.17 BUN/Creatinine Ratio 16.8 N 8-20 Calcium 8.8 mg/dL N 8.6-10.3 Egfr Non- 79.8 >60 Egfr 102.6 >60 13 Laboratory test 02/02/2017 [facility] Vitamin D Total 20.4 ng/mL N 20-50 finding [address] [employer] [address] [place] [address] [phone] Lipid Panel 02/02/2017 [facility] Triglycerides 728 mg/dL 14 [address] [employer] [address] [phone] Cholesterol 306 mg/dL 15 HDL Cholesterol 60.2 mg/dL 16 LDL Cholesterol (SEE NOTE) mg/dL 17 Laboratory test 02/02/2017 [facility] PSA Screening 3.631 ng/mL N 0-4.000 18 finding [address] [employer] [address] [phone] Testosterone Total 274.73 ng/dL N 240-950 Vitamin 01/12/2016 [facility] Vitamin 309 pg/mL 200-1100 19 B12/Folate Panel [address] B12,[place] [address] [phone] Folate,Serum >24.0 NG/ML 20 TSH & T4,Free 01/12/2016 [facility] TSH 1.97 mIU/L 0.40-4.[address] [place] [address] [phone] T4,Free 1.1 ng/dL 0.8-1.8 Laboratory test finding 01/12/2016 [facility] Glucose 99 mg/dL 65-[address] [place] [address] [phone] Hemoglobin A1c 5.3 % 0.0-5.6 22 BMP W/O Egfr 10/28/2015 [facility] Sodium 137 mmol/L N 250-240 [address] [employer] [place] [address] [phone] Potassium 4.9 mmol/L N 3.5-5.0 Chloride 101 mmol/L N 101-111 Co2 Carbon Dioxide 29 mmol/L N 22-32 Anion Gap 7 mmol/L N 2-11 Glucose 97 mg/dL N 70-100 Blood Urea Nitrogen 19 mg/dL N 6-24 Creatinine 0.98 mg/dL N 0.67-1.17 BUN/Creatinine Ratio 19.4 N 8-20 Egfr Non- 77.2 N >60 Egfr 99.3 N >60 23 Laboratory test 10/28/2015 [facility] Calcium 9.6 mg/dL N 8.6- 10.[address] [place] [address] [phone] Urine Screen 08/17/2015 [facility] Urine Color YELLOW Yellow [address] [place] [address] [phone] Urine Clarity CLEAR Clear Urine Glucose - Dipstick NEGATIVE mg/dL Negative Urine Bilirubin - Dipstick NEGATIVE Negative Urine Ketone NEGATIVE mg/dL Negative Urine Specific Irving 1.015 1.010-1.030 Urine Blood NEGATIVE Negative Urine PH 6.0 Low 6.5-7.5 Urine Protein - Dipstick NEGATIVE mg/dL Negative Urine Urobilinogen - Dipstick 0.2 E.U./dL 0.2-1.0 Urine Nitrite - Dipstick NEGATIVE Negative Urine Leuk Esterase NEGATIVE Negative Chlamydia/GC Lakshmi, 08/17/2015 [facility] Chlamydia Negative Urine [address] Trachomatis,[place] [address] -Lakshmi [phone] Neisseria Gonorrhoeae,Ur -Lakshmi Negative 24 Basic Metabolic Panel 03/17/2015 [facility] Glucose 93 mg/dL 74-[address] [place], [place] [address] [phone] BUN 14 mg/dL 7-18 Creatinine 0.9 mg/dL [...] uIU/mL 0.36-3.[address] [place] [address] [phone] Free T4 0.78 ng/dL 0.76-1.46 Testosterone,Serum 03/17/2015 [facility] Testosterone, Serum [phone] ng/[place] [address] [phone] Comment See Note 26 Hemoglobin/Hematocrit 03/17/2015 [facility] Hemoglobin 14.9 12.8-17.[address] gm/[place] [address] [phone] Hematocrit 43.6 % 38.0-48.0 LDL Cholesterol 12/26/2014 [facility] Cholesterol 218 mg/dL < 200 [address] [place] [address] [phone] Triglycerides 64 mg/dL < 150 28 HDL Cholesterol 93 mg/dL > 40 29 LDL-Cholesterol 112 mg/dL < 100 30 Laboratory test 12/26/2014 [facility] Prostate 2.80 ng/mL [address] Specific Antigen [place] [id number] [phone] Lipid Panel 06/05/2013 [facility] Cholesterol 271 mg/dL High 125-[address] [place] [address] [phone] HDL Cholesterol 74 mg/dL > Or=40 Cholesterol/HDL Ratio 3.7 < Or=5.0 LDL Chol,Calculated 148 mg/dL High <130 33 Triglycerides 246 mg/dL High <150 Non-HDL Cholesterol 197 mg/dL High 34 Laboratory 06/05/2013 [facility] Testosterone,Total,LC/MS/MS 681 250- 1100 35 test finding [address] ng/[place] [address] [phone] PSA,Total 1.8 NG/ML 0.0-4.0 36 BMP W/O Egfr 06/05/2013 [facility] Sodium 137 mmol/L 135-[address] [place] [address] [phone] Potassium 4.5 mmol/L 3.5-5.3 Chloride 100 mmol/L 98-110 Carbon Dioxide 28 mmol/L 19-30 Calcium 9.4 mg/dL 8.6-10.3 Glucose 91 mg/dL 65-99 37 Urea Nitrogen 14 mg/dL 7-25 Creatinine 1.05 mg/dL 0.70-1.25 38 BUN/Creatinine Ratio 13.3 6-22 Lipid Panel 05/09/2013 [facility] Cholesterol 277 mg/dL High 125-[address] [place], [place] [address] [phone] HDL Cholesterol 41 mg/dL > Or=40 Cholesterol/HDL Ratio 6.8 High < Or=5.0 LDL Chol,Calculated (SEE NOTE) mg/dL 39 Triglycerides 1672 mg/dL High <150 40 Non-HDL Cholesterol 236 mg/dL High 41 Laboratory test 08/09/2012 [facility] Rectal Mucosa See Note [address] [place] [address] [phone] Laboratory test 07/02/2012 [facility] Direct LDL 101 mg/dL <130 [address] [place] [address] [phone] Comprehensive 06/03/2012 [facility] Glucose 96 mg/dL 76-115 Metabolic Panel [address] [place] [address] [phone] BUN 12 mg/dL 5-23 Creatinine 0.9 mg/dL [...] 129 U/L 28-[address] [place], [place] [address] [phone] CBC W/Automated 06/03/2012 [facility] White Blood 6.4 K/uL 3.4-10.[address] Count [place], [place] [address] [phone] Red Blood Count 4.87 M/uL 4.20-5.80 Hemoglobin [...] 100 #CELLS Confirm [address] Counted [place], [place] [address] [phone] Neutrophils% 65 % 33-73 Lymph% 11 % Low 17-56 Atypical Lymph% 11 % High 0-7 Monocyte% 8 % 0-10 Eosinophil% 5 % 0-5 Platelet Estimate NORMAL RBC Morphology NORMAL Urine Screen 06/03/2012 [facility] Urine Color YELLOW Yellow [address] [place] [address] [phone] Urine Clarity CLEAR Clear Urine Glucose - Dipstick NEGATIVE mg/dL Negative Urine Bilirubin - Dipstick NEGATIVE Negative Urine Ketone NEGATIVE mg/dL Negative Urine Specific [place] <=1.005 Low 1.010-1.030 Urine Blood NEGATIVE Negative Urine PH 5.0 Low 6.5-7.5 Urine Protein - Dipstick NEGATIVE mg/dL Negative Urine Urobilinogen - Dipstick 0.2 E.U./dL 0.2-1.0 Urine Nitrite - Dipstick NEGATIVE Negative Urine Leuk Esterase NEGATIVE Negative Laboratory 03/30/2012 [facility] Testosterone,Total,LC/MS/MS 734 398- 1100 45 test finding [address] ng/[place] [address] [phone] Comp 03/30/2012 [facility] Sodium 138 135-[address] mmol/[place] [address] [phone] Potassium 4.5 mmol/L 3.5-5.3 Chloride 103 mmol/L [...] [facility] WBC 9.4 thous/L 3.8-10.[address] [place] [address] [phone] RBC 4.36 mill/L 4.20-5.80 Hemoglobin 13.8 g/dL 13.2-17.1 Hematocrit 41.0 % 38.5-50.0 MCV 93.9 FL 80.0-100.0 MCH 31.5 pg 27.0-33.0 MCHC 33.6 g/dL 32.0-36.0 RDW 13.5 % 11.0-15.0 Platelet Count 198 thous/L 140-400 Neutrophils,Absolute 7000 cells/L [phone] Lymphocytes,Absolute 1310 cells/L [phone] Monocytes,Absolute 790 cells/L 200-950 Eosinophils,Absolute 220 cells/L 15-500 Basophils,Absolute 30 cells/L 0-200 Total Neutrophils,% 75 % 38-80 Total Lymphocytes,% 14 % 15-49 Monocytes,% 8 % 0-13 Eosinophils,% 2 % 0-8 Basophils,% 0 % 0-2 TSH & T4,Free 03/30/2012 [facility] TSH 1.81 mIU/L 0.40-4.[address] [place], [place] [address] [phone] T4,Free 1.1 ng/dL 0.8-1.8 48 Laboratory test 03/30/2012 [facility] PSA,Total 1.8 NG/ML 0.0-4.0 [address] [place] [address] [phone] Laboratory test 08/01/2011 [facility] LDL 101 mg/dL <130 [address] Cholesterol,[place] [address] [phone] Hepatic Function 08/01/2011 [facility] Alkaline 56 U/L 40-[address] [place] [address] [phone] Ast 32 U/L 10-35 Alt 36 U/L 9-60 Bilirubin,Total 0.8 mg/dL 0.2-1.2 Bilirubin,Direct 0.2 mg/dL < Or=0.2 Protein,Total 6.3 g/dL 6.2-8.3 Albumin 4.3 g/dL 3.6-5.1 Globulin,Calculated 2.0 g/dL Low 2.1-3.7 A/G Ratio 2.1 1.0-2.1 Lipid Panel 05/03/2011 [facility] Cholesterol 235 mg/dL High 125-[address] [place] [id number] [phone] HDL Cholesterol 70 mg/dL > Or=40 Cholesterol/HDL Ratio 3.4 < Or=5.0 LDL Chol,Calculated 133 mg/dL High <130 51 Triglycerides 161 mg/dL High <150 Hepatic Function 05/03/2011 [facility] Alkaline Phosphatase 57 U/L 40- [address] [place] [address] [phone] Ast 31 U/L 10-35 Alt 34 U/L 9-60 Bilirubin,Total 0.6 mg/dL 0.2-1.2 Bilirubin,Direct 0.1 mg/dL < Or=0.2 Protein,Total 6.6 g/dL 6.2-8.3 Albumin 4.5 g/dL 3.6-5.1 Globulin,Calculated 2.1 g/dL 2.1-3.7 A/G Ratio 2.1 1.0-2.1 Laboratory 01/05/2011 [facility] LDL Cholesterol,Direct 117 <130 52 test finding [address] mg/dL [place], [place] [address] [phone] Hepatic 01/05/2011 [facility] Alkaline Phosphatase 51 U/L 40-115 Function Panel [address] [place] [address] [phone] Ast 31 U/L 10-35 Alt 28 U/L 9-60 Bilirubin,Total 0.6 mg/dL 0.2-1.2 Bilirubin,Direct 0.1 mg/dL < Or=0.2 Protein,Total 6.4 g/dL 6.2-8.3 Albumin 4.4 g/dL 3.6-5.1 Globulin,Calculated 2.0 g/dL Low 2.1-3.7 A/G Ratio 2.1 1.0-2.1 Laboratory test 11/03/2010 [facility] PSA,Total 1.4 NG/ML 0.0-4.0 [address] [place], [place] [address] [phone] Lipid Panel 11/03/2010 [facility] Cholesterol 293 mg/dL High 125-[address] [place] [address] [phone] HDL Cholesterol 69 mg/dL > Or=40 Cholesterol/HDL Ratio 4.2 < Or=5.0 LDL Chol,Calculated 156 mg/dL High <130 54 Triglycerides 338 mg/dL High <150 TSH & T4,Free 11/03/2010 [facility] TSH,3RD 1.80 mIU/L 0.40-4.[address] [place] [address] [phone] T4,Free 1.2 ng/dL 0.8-1.8 Comp Metabolic Panel 11/03/2010 [facility] Sodium 140 mmol/L 135-[address] [place] [address] [phone] Potassium 4.6 mmol/L 3.5-5.3 Chloride 104 mmol/L [...] [facility] WBC 5.1 thous/L 3.8-10.[address] [place], [place] [address] [phone] RBC 4.66 mill/L 4.20-5.80 Hemoglobin 15.0 g/dL 13.2-17.1 Hematocrit 44.3 % 38.5-50.0 MCV 95.0 FL 80.0-100.0 MCH 32.2 pg 27.0-33.0 MCHC 33.9 g/dL 32.0-36.0 RDW 13.9 % 11.0-15.0 Platelet Count 205 thous/L 140-400 Neutrophils,Absolute 2760 cells/L 3743-9469 Lymphocytes,Absolute 1520 cells/L 850-3900 Monocytes,Absolute 590 cells/L 200-950 Eosinophils,Absolute 170 cells/L 15-500 Basophils,Absolute 30 cells/L 0-200 Total Neutrophils,% 54 % 38-80 Total Lymphocytes,% 30 % 15-49 Monocytes,% 12 % 0-13 Eosinophils,% 3 % 0-8 Basophils,% 1 % 0-2 Laboratory test 11/03/2009 [facility] PSA,Total 1.3 NG/ML 0.0-4.0 [address] [place] [address] [phone] Lipid Panel 11/03/2009 [facility] Cholesterol 249 mg/dL High 125-[address] [place] [address] [phone] HDL Cholesterol 75 mg/dL > Or=40 Triglycerides 208 mg/dL High <150 Cholesterol/HDL Ratio 3.3 < Or=5.0 LDL Chol,Calculated 132 mg/dL High <130 57 TSH & T4,Free 11/03/2009 [facility] TSH,3RD 3.76 mIU/L 0.40-4.[address] Generation [place], [place] [address] [phone] T4,Free 0.9 ng/dL 0.8-1.8 Lipid Panel 05/11/2009 [facility] Cholesterol 268 mg/dL High 125-[address] [place], [place] [address] [phone] HDL Cholesterol 77 mg/dL > Or=40 Triglycerides 119 mg/dL <150 Cholesterol/HDL Ratio 3.5 < Or=5.0 LDL Chol,Calculated 167 mg/dL High <130 58 Comp Metabolic Panel 11/06/2008 [facility] Sodium 138 mmol/L 135-[address] [place], [place] [address] [phone] Potassium 4.3 mmol/L 3.5-5.3 Chloride 103 mmol/L [...] [facility] WBC 9.1 thous/L 3.8-10.8 [address] [facility] [place] [address] [phone] RBC 4.70 mill/L 4.20-5.80 Hemoglobin 14.9 g/dL 13.2-17.1 Hematocrit 43.7 % 38.5-50.0 MCV 92.9 FL 80.0-100.0 MCH 31.7 pg 27.0-33.0 MCHC 34.2 g/dL 32.0-36.0 RDW 13.8 % 11.0-15.0 Platelet Count 210 thous/L 140-400 Platelet Sufficiency NORMAL Normal Neutrophils,Absolute 6420 cells/L 1187-9694 Bands,Absolute DNR cells/L 0-750 Metamyelocytes,Absolute DNR cells/L [...] Lab Cholesterol 223 mg/dL High 125-200 [address] [facility] [place] [address] [phone] HDL Cholesterol 68 mg/dL > Or=40 Triglycerides 196 mg/dL High <150 Cholesterol/HDL Ratio 3.3 < Or=5.0 LDL Chol,Calculated 116 mg/dL <130 60 Laboratory test 11/06/2008 [facility] PSA,Total 1.6 NG/ML 0.0-4.0 [address] [place] [address] [phone] TSH & T4,Free 11/06/2008 [facility] TSH,3RD 3.41 mU/L 0.40-4.[address] [place] [id number] [phone] T4,Free 0.9 ng/dL 0.8-1.8 Laboratory test 01/19/2007 [facility] Ferritin 61 NG/ML 20-[address] [place] [address] [phone] Hepatic Function 01/19/2007 [facility] Alkaline 52 U/L 40-[address] [place] [address] [phone] Ast 35 U/L 10-35 Alt 35 U/L 9-60 Bilirubin,Total 1.0 mg/dL 0.2-1.2 Bilirubin,Direct 0.2 mg/dL < Or=0.2 Protein,Total 6.9 g/dL 6.2-8.3 Albumin 4.4 g/dL 3.6-5.1 Lipid Panel 01/19/2007 [facility] Cholesterol 234 mg/dL High 125-[address] [place] [address] [phone] HDL Cholesterol 83 mg/dL > Or=40 62 Cholesterol/HDL Ratio 2.8 < Or=5.0 LDL Chol,Calculated 125 mg/dL <130 63 Triglycerides 131 mg/dL <150 Hepatic Function 09/25/2006 [facility] Alkaline Phosphatase 46 U/L 40- [address] [place] [address] [phone] Ast 33 U/L 10-35 Alt 31 U/L 9-60 Bilirubin,Total 0.8 mg/dL 0.2-1.2 Bilirubin,Direct 0.2 mg/dL < Or=0.2 Protein,Total 6.7 g/dL 6.2-8.3 Albumin 4.2 g/dL 3.6-5.1 Lipid Panel 09/25/2006 [facility] Cholesterol 188 mg/dL 125-[address] [place] [address] [phone] HDL Cholesterol 86 mg/dL > Or=40 64 Triglycerides 121 mg/dL <150 Cholesterol/HDL Ratio 2.2 < Or=5.0 LDL Chol,Calculated 78 mg/dL <130 65 Lipid Panel 06/21/2006 [facility] Cholesterol 262 mg/dL High 125-[address] [place], [place] [address] [phone] HDL Cholesterol 76 mg/dL > Or=40 66 Cholesterol/HDL Ratio 3.4 < Or=5.0 LDL Chol,Calculated 171 mg/dL High <130 67 Triglycerides 76 mg/dL <150 Hepatic Function 06/21/2006 [facility] Alkaline Phosphatase 43 U/L 40- 115 Panel [address] [facility]. [place], [place] [address] [phone] Ast 30 U/L 10-35 Alt 29 U/L 9-60 Bilirubin,Total 0.6 mg/dL 0.2-1.2 Bilirubin,Direct 0.1 mg/dL < Or=0.2 Protein,Total 6.9 g/dL 6.2-8.3 Albumin 4.5 g/dL 3.6-5.1 Lipid Panel 05/08/2006 [facility] Cholesterol 270 mg/dL High <200 [address] [facility]. [place], [place] [id number] [phone] HDL Cholesterol 78 mg/dL >40 68 Cholesterol/HDL Ratio 3.5 <5.0 LDL Chol,Calculated 158 mg/dL High <130 69 Triglycerides 170 mg/dL High <150 Laboratory test 05/08/2006 [facility] PSA,Total 1.6 NG/ML 0.0-4.0 [address] [place], [place] [address] [phone] TSH+Free T4 05/08/2006 [facility] TSH 2.90 mU/L 0.40-5.50 ([facility]) [address] [place], [place] [address] [phone] T4,Free 0.9 ng/dL 0.8-1.8 Comp Metabolic Panel 05/08/2006 [facility] Sodium 140 mmol/L 135-[address] [place] [address] [phone] Potassium 4.5 mmol/L 3.5-5.3 Chloride 104 mmol/L [...] [facility] WBC 8.1 thous/L 3.8-10.8 6 [place] [address] [phone] RBC 4.86 mill/L 4.20-5.80 Hemoglobin 15.5 g/dL 13.2-17.1 Hematocrit 44.1 % 38.5-50.0 MCV 90.7 FL 80.0-100.0 MCH 31.8 pg 27.0-33.0 MCHC 35.1 g/dL 32.0-36.0 RDW 13.2 % 11.0-15.0 Platelet Count 227 thous/L 140-400 Platelet Sufficiency NORMAL Normal Neutrophils,Absolute 5200 cells/L 8482-9195 Bands,Absolute DNR cells/L 0-750 Metamyelocytes,Absolute DNR cells/L [...] levels of PSA measured using the [employer] DXI Hybritech immunoassay should not be interpreted [...] 130-159 High: 160-189 Very High: >189 11 Sh[employer] Lining Fitter: [id number] Desirable: <100 Near Optimal: 100-129 Borderline [...] years old. Performed at: RN - [facility] [address] [id number] Trustee Of Estate: Marilyn Grace MD, Phone: [phone] Reference Guidelines*: Desirable: ........... < 200 [...] more information on this test, go to [email or web address]/ TotalTestosteroneLCMSMS 36 THIS TEST WAS PERFORMED USING [...] more information on this test, go to http://[email or web address]/faq/ TotalTestosteroneLCMSMS 46 GLUCOSE REFERENCE RANGE BASED ON FASTING SPECIMEN. 47 The upper reference limit for Creatinine is approximately 13% higher for people identified as -Chinese. 48 THE CURRENT LOT OF FREE T4 REAGENT AVAILABLE FROM THE [employer] EXECUTIVE DIRECTOR PRODUCES RESULTS THAT ARE APPROXIMATELY 9% [...] 53 THIS TEST WAS PERFORMED USING THE [employer] CHEMILUMINESCENT METHOD. VALUES OBTAINED FROM DIFFERENT ASSAY [...] INTERCHANGEABLY. THIS ASSAY WAS PERFORMED USING THE [employer] CHEMILUMINESCENCE METHOD. SERUM PSA LEVELS SHOULD NOT [...] INTERCHANGEABLY. THIS ASSAY WAS PERFORMED USING THE [employer] CHEMILUMINESCENCE METHOD. SERUM PSA LEVELS SHOULD NOT [...] FOR RACE, IF THE PATIENT RACE IS -ALBANIAN, THE GFR ESTIMATE MUST BE MULTIPLIED BY A FACTOR OF 1.21. Procedures Date Code Description Status 02/27/2018 85265 Non-Invcorrotid/Comp /Bilat Study Completed 02/26/2018 12449 Echocardiography Completed 02/20/2018 44723 Spirometry Graphic Record/Max Voluntary Vent Completed 02/20/2018 96375 EKG-Tracing & Report Completed 02/19/2018 99052 PVR-Atrerial Study Completed 02/19/2018 39056 Holter Monitor Office Completed 02/16/2017 75681 PVR-Atrerial Study Completed 02/16/2017 95823 EKG-Tracing & Report Completed 02/15/2017 45128 Spirometry Graphic Record/Max Voluntary Vent Completed 02/15/2017 08388 Holter Monitor Office Completed 02/02/2017 34559 Echocardiography Completed 02/02/2017 65233 Non-Invcorrotid/Comp /Bilat Study Completed 03/18/2015 66053 EKG-Tracing & Report Completed 03/17/2015 41336 Holter Monitor Office Completed 03/05/2015 57287 Non-Invcorrotid/Comp /Bilat Study Completed 03/05/2015 69962 Echocardiography Completed 12/26/2014 08525 EKG-Tracing & Report Completed 05/09/2013 14327 Spirometry Graphic Record/Max Voluntary Vent Completed 05/09/2013 40073 EKG-Tracing & Report Completed 04/15/2013 51055 Non-Invcorrotid/Comp /Bilat Study Completed 04/15/2013 13116 Echocardiography Completed 08/09/2012 [id number] Colonoscopy Completed 04/02/2012 08810 EKG-Tracing & Report Completed 03/29/2012 39597 Echocardiography Completed 03/29/2012 57637 Non-Invcorrotid/Comp /Bilat Study Completed 11/11/2010 [id number] Bone Mineral Density Test Completed 11/11/2010 60879 Bone Density Completed 11/04/2010 38188 EKG-Tracing & Report Completed 11/03/2010 03902 Spirometry Graphic Record/Max Voluntary Vent Completed 11/03/2010 08499 Holter Monitor Office Completed 11/03/2009 77300 EKG-Tracing & Report Completed 11/03/2009 86753 Echocardiography Completed 11/03/2009 18081 Non-Invcorrotid/Comp /Bilat Study Completed 11/06/2008 08014 PFT Evaluation Completed 11/06/2008 53292 Holter Monitor Office Completed 11/06/2008 79852 EKG-Tracing & Report Completed 11/05/2008 56470 Non-Invcorrotid/Comp /Bilat Study Completed 11/05/2008 75816 Echocardiography Completed 05/09/2006 60376 Bone Density Completed 05/08/2006 82533 EKG-Tracing & Report Completed 04/18/2006 09397 Doppler Color Flow Velocity Completed 04/18/2006 85895 Doppler/ECHO Completed 04/18/2006 14216 ECHO-2D W/Wo M-Mode Completed 09/05/2003 41113 Spirometry Graphic Record/Max Voluntary Vent Completed 09/05/2003 03126 EKG-Tracing & Report Completed Encounters Type Date [...] 10:30 am - Gary Mcintosh at [id number] - Celia Mcintosh40.0 Benign prostatic hyperplasia without [...] follow up symptomatically and with [facility] yearly [id number] Obstructive sleep apnea ( adult) (pediatric)Comments:snoring and increased pulm artery pressure ---refer for [id number] Nonrheumatic mitral (valve) insufficiencyComments:Issues of symptoms and [...] suppliers and Respiratory Therapy reviewed.F52.21 Male erectile [id number] Encounter for general adult medical examination without abnormal findingsComments:DISCUSSED AGE APPROPRIATE RISK FACTORS AND SCREENING.Z23 Encounter for immunizationComments:Vaccination reviewed and updates given as appropriate.
[2018-08-21 11:09] VITALS: BP 149/84
--- NOTE | 2018-08-21 11:21 | UC ---
Respiratory Complaint HPI - HPI Summary HPI Summary: cough x 2 weeks cough is productive with yellow / green sputum cough is constant, nothing makes it better, worse with deep breathing + sinus pain and pressure, pnd, no fever, + chills, fatigue - History of Current Complaint Chief Complaint: UCRespiratory Stated Complaint: SINUSES, COUGH Time Seen by Provider: 08/21/18 11:10 Hx Obtained From: Patient Onset/Duration: Gradual Onset, Lasting Weeks - 2, Still Present Timing: Constant Severity Initially: Moderate Severity Currently: Moderate Pain Intensity: 0 Character: Cough: Productive Aggravating Factors: Exertion, Deep Breaths Alleviating Factors: Nothing Associated Signs And Symptoms: Positive: Chills, Wheezing, URI, Nasal Congestion , Sinus Discomfort. Negative: Fever, Calf Pain - Allergies/Home Medications Allergies/Adverse Reactions: Allergies Allergy/AdvReac Type Severity Reaction Status Date / Time No Known Allergies Allergy Verified 08/21/18 11:04 Home Medications: Home Medications Cetirizine HCl [Children's Zyrtec] 5 mg PO ONCE 08/21/18 [History Confirmed 07/06] PMH/Surg Hx/FS Hx/Imm Hx Cardiovascular History: Cardiac Disease - MVP, Hypertension - Surgical History Surgical History: Yes Surgery Procedure, Year, and Place: Right Inguinal Herniorrhaphy, 1999, [place] ; Tonsillectomy, ~1958, [place] - Family History Known Family History: Positive: Non-Contributory Negative: Diabetes - Social History Alcohol Use: Daily Alcohol Amount: 6-pack/day Substance Use Type: None Smoking Status (MU): Former Smoker Length of Time of Smoking/Using Tobacco: On and Off x 3 Years When Did the Patient Quit Smoking/Using Tobacco: ~1991 - Immunization History Most Recent Tetanus Shot: UTD Review of Systems All Other Systems Reviewed And Are Negative: Yes Constitutional: Positive: Negative Skin: Positive: Negative Eyes: Positive: Negative ENT: Positive: Negative, Nasal Discharge, Sinus Congestion, Sinus Pain/ Tenderness Respiratory: Positive: Cough Cardiovascular: Positive: Negative. Negative: Chest Pain Is Patient Immunocompromised?: No Physical Exam Triage Information Reviewed: Yes Appearance: Well-Appearing, No Pain Distress, Well-Nourished Vital Signs: Initial Vital Signs Temp 98.3 F 08/21/18 11:03 Pulse 110 08/21/18 11:03 Resp 18 08/21/18 11:03 BP 149/84 08/21/18 11:03 Pulse Ox 97 08/21/18 11:03 Vital Signs Reviewed: Yes Eye Exam: Normal Eyes: Positive: Conjunctiva Clear ENT: Positive: Normal ENT inspection, Hearing grossly normal, Pharynx normal, TMs normal, Sinus tenderness. Negative: TM bulging, TM dull, TM red, Tonsillar swelling, Tonsillar exudate Neck exam: Normal Neck: Positive: Supple, Nontender, No Lymphadenopathy Respiratory: Positive: Chest non-tender, Lungs clear, Normal breath sounds Cardiovascular: Positive: RRR, No Murmur, Pulses Normal Respiratory Course/Dx - Differential Dx/Diagnosis Provider Diagnosis: Sinusitis, Bronchitis Discharge - Sign-Out/Discharge Documenting (check all that apply): Patient Departure All imaging exams completed and their final reports reviewed: No Studies - Discharge Plan Condition: Stable Disposition: HOME Prescriptions: Amoxicillin/Clavulanate TAB* [Augmentin TAB 875*] 875 mg PO BID #20 tab Codeine Phosphate/Guaifenesin [Cheratussin AC] 10 ml PO Q8H #120 ml MDD 30 ml Patient Education Materials: Sinusitis (ED), Acute Bronchitis (ED) Referrals: Gary Mcintosh MD [Primary Care Provider] - If Needed - Billing Disposition and Condition Condition: STABLE Disposition: Home
== END 2018-08-21 11:23 | disposition home or self-care (01) ==
LOC: UCCORT 10:48
DX: J40 Bronchitis, not specified as acute or chronic (principal); J32.9 Chronic sinusitis, unspecified; I10 Essential (primary) hypertension; Z87.891 Personal history of nicotine dependence
CPT/HCPCS: 99212; G0463

== ENCOUNTER 2018-08-31 10:40 | Emergency (ER) | payer MEDICARE, BC ==
[2018-08-31 10:55] VITALS: BP 125/81
--- NOTE | 2018-08-31 11:43 | UC ---
Skin Complaint HPI - HPI Summary HPI Summary: 67-year-old male presents with complaints of tick bite to his right lateral thigh. States he found tick approximately 3:00 this morning and removed immediately. Tick was not engorged and he does not believe that it was on for more than 24 hours. Reports area of redness and itchiness to the right thigh. Denies fever, chills, fatigue, flulike symptoms, myalgias, joint pain or swelling. - History of Current Complaint Chief Complaint: UCBiteInjury Time Seen by Provider: 08/31/18 11:20 Stated Complaint: TICK BITE Hx Obtained From: Patient Pain Intensity: 0 - Allergy/Home Medications Allergies/Adverse Reactions: Allergies Allergy/AdvReac Type Severity Reaction Status Date / Time No Known Allergies Allergy Verified 08/31/18 10:51 PMH/Surg Hx/FS Hx/Imm Hx Previously Healthy: Yes Cardiovascular History: Hypertension - Surgical History Surgical History: Yes Surgery Procedure, Year, and Place: Right Inguinal Herniorrhaphy, 1999, [place] ; Tonsillectomy, ~1958, [place] - Family History Known Family History: Positive: Non-Contributory - Social History Occupation: Retired Lives: With Family Alcohol Use: Daily Alcohol Amount: 6-pack/day Substance Use Type: None Smoking Status (MU): Former Smoker Length of Time of Smoking/Using Tobacco: On and Off x 3 Years When Did the Patient Quit Smoking/Using Tobacco: ~1991 - Immunization History Most Recent Tetanus Shot: UTD Review of Systems All Other Systems Reviewed And Are Negative: Yes Constitutional: Negative: Fever, Chills Skin: Positive: Other - See HPI Respiratory: Positive: Negative Cardiovascular: Positive: Negative Gastrointestinal: Positive: Negative Genitourinary: Positive: Negative Musculoskeletal: Negative: Arthralgia, Myalgia Neurological: Positive: Negative Is Patient Immunocompromised?: No Physical Exam - Summary Physical Exam Summary: GENERAL APPEARANCE: Well developed, well nourished, alert and cooperative, and appears to be in no acute distress. CARDIAC: Normal S1 and S2. No S3, S4 or murmurs. Rhythm is regular. There is no peripheral edema, cyanosis or pallor. Extremities are warm and well perfused. Capillary refill is less than 2 seconds. Peripheral pulses intact. LUNGS: Clear to auscultation without rales, rhonchi, wheezing or diminished breath sounds. ABDOMEN: Positive bowel sounds. Soft, nondistended, nontender. No guarding or rebound. No masses or hepatosplenomegally. MUSKULOSKELETAL: ROM intact to all extremities. No joint erythema or tenderness. Normal muscular development. Normal gait. SKIN: Skin normal color, texture and turgor. 1.5 cm circular area of erythema with central darkened area to right lateral thigh. No induration, fluctuance, drainage, or retained mouthparts. Triage Information Reviewed: Yes Vital Signs: Initial Vital Signs Temp 97.5 F 08/31/18 10:48 Pulse 88 08/31/18 10:48 Resp 18 08/31/18 10:48 BP 125/81 08/31/18 10:48 Pulse Ox 99 08/31/18 10:48 Vital Signs Reviewed: Yes Course/Dx - Course Course Of Treatment: 67-year-old male presents with complaints of tick bite to his right lateral thigh. States he found tick approximately 3:00 this morning and removed immediately. Tick was not engorged and he does not believe that it was on for more than 24 hours. Reports area of redness and itchiness to the right thigh. Denies fever, chills, fatigue, flulike symptoms, myalgias, joint pain or swelling. Afebrile. Vital signs stable. Patient had a 1.5 cm area of erythema with central darkening to his right lateral thigh and otherwise unremarkable exam. I discussed criteria for prophylactic treatment of Lyme disease with the patient and we have decided to defer at this time. He is to follow-up with his primary care provider as needed. Reviewed signs and symptoms of Lyme disease, anticipatory guidance, and warning symptoms with the patient. Verbalizes understanding and agrees with plan of care. - Differential Diagnoses - Skin Complaint Differential Diagnoses: Local Allergic Reaction, Tick Born Illness - Diagnoses Provider Diagnosis: Tick bite of right thigh Discharge - Sign-Out/Discharge Documenting (check all that apply): Patient Departure All imaging exams completed and their final reports reviewed: No Studies - Discharge Plan Condition: Stable Disposition: HOME Patient Education Materials: Tick Bite (ED) Referrals: Gary Mcintosh MD [Primary Care Provider] - Additional Instructions: Ticks transmit infection only after they have attached and then taken a blood meal from their new host. A tick that has not attached cannot not pass any infection. Since the deer tick that transmits Lyme disease typically feeds for more than 36 hours before transmitting the organisim that causes Lyme disease, the risk of acquiring Lyme disease from an tick bite is extremely small, even in an area where the disease is common. There is no benefit of blood testing for Lyme disease at the time of the tick bite because even people who become infected will not have a positive blood test until approximately two to six weeks after the tick bite. To try to avoid getting bitten by a tick, you can: * Wear shoes, long-sleeved shirts, and long pants when you go outside. Keep ticks away from your skin by tucking your pants into your socks. * Wear light colors so you can spot any ticks that get on your clothes. * Wear bug spray or cream that contains DEET. (Do not use DEET on babies younger than 2 months.) On your clothes and gear, you can use bug repellents that have a chemical called "permethrin." * Shower within 2 hours of being outdoors if you think you have been in an area where there are ticks. * Put dry clothes briefly (for about 4 minutes) in a dryer after being outdoors. * Check your clothes and body for ticks after being outdoors. Be sure to check your scalp, waist, armpits, groin, and backs of your knees. Check your children , too. After a tick bite, you will need to monitor for signs of Lyme disease over the nexter several weeks even if you have been given antibiotics to prevent the infection. Seek immediate medical attention if you develop a bullseye rash, fever, flu-like symptoms including headache, stiff neck, fatigue, muscle aches, joint pain or swelling. - Billing Disposition and Condition Condition: STABLE Disposition: Home - Attestation Statements Provider Attestation: Per institutional requirements, I have reviewed the chart, however, I was not consulted specifically or made aware of this patient by the midlevel provider. I did not personally evaluate, interact with , or disposition this patient.
== END 2018-08-31 11:55 | disposition home or self-care (01) ==
LOC: UCCORT 10:40
DX: S70.361A Insect bite (nonvenomous), right thigh, initial encounter (principal); W57.XXXA Bitten or stung by nonvenomous insect and other nonvenomous arthropods, initial encounter; I10 Essential (primary) hypertension; Z87.891 Personal history of nicotine dependence
CPT/HCPCS: 99211; G0463

== ENCOUNTER 2018-11-27 10:19 | Emergency (ER) | payer MEDICARE, BC ==
[2018-11-27 10:30] VITALS: BP 143/74
--- NOTE | 2018-11-27 10:45 | UC ---
General HPI - HPI Summary HPI Summary: pt struck in [place] by a log that flew off his splitter yesterday. he is c/o pain and swelling on the [place]. he has a wound that he cleaned and applied antibiotic ointment to. no f/c's or joint pain. last tetanus was . - History of Current Complaint Chief Complaint: UCWounds Stated Complaint: RIGHT LEG CONCERN Time Seen by Provider: 11/27/18 10:37 Hx Obtained From: Patient, Family/Gunner'S Mate Onset/Duration: Sudden Onset Timing: Constant Pain Intensity: 0 - Allergy/Home Medications Allergies/Adverse Reactions: Allergies Allergy/AdvReac Type Severity Reaction Status Date / Time No Known Allergies Allergy Verified 11/27/18 10:29 PMH/Surg Hx/FS Hx/Imm Hx Cardiovascular History: Hypertension - Surgical History Surgical History: Yes Surgery Procedure, Year, and Place: Right Inguinal Herniorrhaphy, 1999, [place] ; Tonsillectomy, ~1958, [place] - Family History Known Family History: Positive: Non-Contributory - Social History Alcohol Use: Daily Alcohol Amount: 6-pack/day Substance Use Type: None Smoking Status (MU): Former Smoker Length of Time of Smoking/Using Tobacco: On and Off x 3 Years When Did the Patient Quit Smoking/Using Tobacco: ~1991 - Immunization History Most Recent Tetanus Shot: within last 7-8 years Review of Systems All Other Systems Reviewed And Are Negative: No Constitutional: Negative: Fever, Chills Musculoskeletal: Positive: Edema - over [place] with central wound. Negative: Decreased ROM Neurological: Negative: Weakness, Paresthesia, Numbness Physical Exam Triage Information Reviewed: Yes Appearance: Well-Appearing Vital Signs: Initial Vital Signs Temp 97.7 F 11/27/18 10:26 Pulse 72 11/27/18 10:26 Resp 14 11/27/18 10:26 BP 143/74 11/27/18 10:26 Pulse Ox 100 11/27/18 10:26 Vital Signs Reviewed: Yes Musculoskeletal: Positive: Other: - RLE: medial-mid [place] with tenderness, mild swelling and central 1cm skin avulsion. no drainage or streaking. s/v/m isd intact. Neurological: Positive: Alert Psychological: Positive: Age Appropriate Behavior Skin Exam: Normal Diagnostics - Radiology No standard instances Radiology Interpretation Completed By: Radiologist - REPORT AND IMPRESSION: #. Negative for fracture or malalignment. #. Mild anterior soft tissue swelling without conspicuous subcutaneous emphysema or foreign body. Course/Dx - Differential Dx - Multi-Symptom Differential Diagnoses: Other - no fx. will tx with keflex (prophylactic) given nature of wound. - Diagnoses Provider Diagnosis: Avulsion, skin, Contusion Discharge ED - Sign-Out/Discharge Documenting (check all that apply): Patient Departure All imaging exams completed and their final reports reviewed: Yes - Discharge Plan Condition: Stable Disposition: HOME Prescriptions: Cephalexin CAP* [Keflex CAP*] 500 mg PO TID 7 Days #21 cap Patient Education Materials: Skin Avulsion (ED), Contusion in Adults (ED) Referrals: Gary Mcintosh MD [Primary Care Provider] - 7 Days - Billing Disposition and Condition Condition: STABLE Disposition: Home
[2018-11-27] MEDS ORDERED: Tetan/Diph/Pertus SYR(Tdap)* 0.5 ML SYR(BOOSTRIX) use SYR IM ONE (10:50)
== END 2018-11-27 11:26 | disposition home or self-care (01) ==
LOC: UCCORT 10:19
DX: S81.801A Unspecified open wound, right lower leg, initial encounter (principal); S80.11XA Contusion of right lower leg, initial encounter; W22.8XXA Striking against or struck by other objects, initial encounter; Y93.89 Activity, other specified; Y92.9 Unspecified place or not applicable; Z23 Encounter for immunization; I10 Essential (primary) hypertension; Z87.891 Personal history of nicotine dependence
CPT/HCPCS: 90471; 90715; 99212; G0463